=== PATIENT | female | born 1935 | race Caucasian/White ===

== ENCOUNTER 2016-10-11 16:09 | Inpatient (IN) ==
--- NOTE | 2016-10-11 16:13 | Emergency Department Note ---
Disposition Clinical Impression: Acute viral bronchitis, Acute exacerbation of CHF (congestive heart failure), Pedal edema, Generalized weakness, Hyperkalemia, Hypertensive urgency Disposition: Admitted As Inpatient Condition: Fair General Adult HPI - General Chief complaint: ED Shortness of Breath/Dyspnea Stated complaint: SOB Time Seen by Provider: 10/11/16 16:12 - Related Data Home Medications Medication Instructions Recorded Confirmed Carvedilol [Coreg] 25 mg PO DAILY 03/25/16 10/11/16 Glimepiride [Amaryl] 4 mg PO QAM 03/25/16 10/11/16 Insulin Glargine [Lantus] 35 mg SQ HS 03/26/16 10/11/16 Hydroxyzine HCl 25 mg PO HS PRN 04/12/16 10/11/16 Ropinirole HCl [Requip] 8 mg PO HS 04/12/16 10/11/16 Losartan Potassium [Cozaar] 50 mg PO DAILY 10/11/16 10/11/16 Multivitamin [Multi-Day Vitamins] 1 each PO DAILY 10/11/16 10/11/16 TraZODone 50 mg PO HS 10/11/16 10/11/16 Allergies Allergy/AdvReac Type Severity Reaction Status Date / Time nadolol [From Corgard] Allergy See Verified 04/20/16 12:13 Comments Past Medical History - Past Medical History Medical history: Reports: cancer, diabetes, hypertension, renal disease Surgical history: Reports: cholecystectomy Psychiatric history: Reports: no psych history TUMBLER MACHINE OPERATOR HELPER history: Reports: no TUMBLER MACHINE 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 - Social History Smoking Status: Unknown if ever smoked Smokeless Tobacco Status: No Alcohol use: Reports: unknown Drug use: Reports: none Course Vital Signs Temperature 98.3 F 10/11/16 16:10 Pulse Rate 62 10/11/16 16:10 Respiratory Rate 22 10/11/16 16:10 Blood Pressure 231/152 10/11/16 16:10 O2 Sat by Pulse Oximetry 96 10/11/16 16:10 Temperature 98.3 F 10/11/16 16:10 Pulse Rate 62 10/11/16 19:48 Respiratory Rate 22 10/11/16 20:15 Blood Pressure 165/75 10/11/16 20:15 O2 Sat by Pulse Oximetry 98 10/11/16 19:48 Oxygen Delivery Oxygen Delivery Nasal Cannula Medical Decision Making - Lab Data Result diagrams: 10/11/16 16:25 10/11/16 17:15 Lab Results 10/11/16 10/11/16 10/11/16 Range/Units 16:25 16:25 16:25 WBC 9.7 (4.3-11.1) K/mcL RBC 4.01 (3.82-4.97) M/mcL Hgb 11.9 (11.5-15.4) g/dL Hct 37.2 (35.3-44.9) % MCV 92.8 (83.0-100.0) fL MCH 29.7 (28.0-33.3) pg MCHC 32.0 (31.6-35.5) g/dL RDW 13.5 (11.5-14.5) % Plt Count 173 (140-400) K/mcL MPV 10.7 (9.4-12.4) fL Immature Gran % 0.5 (0-4) % Seg Neutrophils % 72.8 % Lymphocytes % 14.7 % Monocytes % 8.5 % Eosinophils % 3.0 % Basophils % 0.5 % Neutrophils # 7.1 (1.6-8.9) K/mcL Lymphocytes # 1.4 (0.6-4.6) K/mcL Monocytes # 0.8 (0.0-1.3) K/mcL Eosinophils # 0.3 (0.0-0.6) K/mcL Basophils # 0.1 (0.0-0.2) K/mcL PT 12.0 (9.4-12.1) Seconds INR 1.1 Sodium (136-145) mEq/L Potassium (3.5-4.5) mEq/L Chloride (98-109) mEq/L Carbon Dioxide (19-29) mEq/L BUN (7-20) mg/dL Creatinine (0.57-1.11) mg/dL Est GFR ( Amer) (> 60) Est GFR (Non-Af Amer) (> 60) BUN/Creatinine Ratio (6-26) Glucose (70-99) mg/dL Calculated Osmolality (280-300) Calcium (8.6-10.8) mg/dL Total Bilirubin (0.2-1.2) mg/dL Direct Bilirubin (0.0-0.5) mg/dL Indirect Bilirubin (0.0-1.2) mg/dL AST (5-34) Units/L ALT (0-55) Units/L Alkaline Phosphatase (38-126) Units/L Troponin I 0.01 (0-0.03) ng/mL B-Natriuretic Peptide (0-100) pg/mL Serum Total Protein (6.0-8.3) g/dL Albumin (3.5-5.0) g/dL Globulin (2.4-3.5) g/dL Albumin/Globulin Ratio (1.1-2.2) 10/11/16 10/11/16 Range/Units 16:25 17:15 WBC (4.3-11.1) K/mcL RBC (3.82-4.97) M/mcL Hgb (11.5-15.4) g/dL Hct (35.3-44.9) % MCV (83.0-100.0) fL MCH (28.0-33.3) pg MCHC (31.6-35.5) g/dL RDW (11.5-14.5) % Plt Count (140-400) K/mcL MPV (9.4-12.4) fL Immature Gran % (0-4) % Seg Neutrophils % % Lymphocytes % % Monocytes % % Eosinophils % % Basophils % % Neutrophils # (1.6-8.9) K/mcL Lymphocytes # (0.6-4.6) K/mcL Monocytes # (0.0-1.3) K/mcL Eosinophils # (0.0-0.6) K/mcL Basophils # (0.0-0.2) K/mcL PT (9.4-12.1) Seconds INR Sodium 140 (136-145) mEq/L Potassium 5.8 H (3.5-4.5) mEq/L Chloride 109 (98-109) mEq/L Carbon Dioxide 22 (19-29) mEq/L BUN 43 H (7-20) mg/dL Creatinine 1.87 H (0.57-1.11) mg/dL Est GFR ( Amer) 31 L (> 60) Est GFR (Non-Af Amer) 26 L (> 60) BUN/Creatinine Ratio 23 (6-26) Glucose 116 H (70-99) mg/dL Calculated Osmolality 302 H (280-300) Calcium 9.4 (8.6-10.8) mg/dL Total Bilirubin 0.7 (0.2-1.2) mg/dL Direct Bilirubin 0.3 (0.0-0.5) mg/dL Indirect Bilirubin 0.4 (0.0-1.2) mg/dL AST 22 (5-34) Units/L ALT 15 (0-55) Units/L Alkaline Phosphatase 81 (38-126) Units/L Troponin I (0-0.03) ng/mL B-Natriuretic Peptide 718 H (0-100) pg/mL Serum Total Protein 6.5 (6.0-8.3) g/dL Albumin 2.9 L (3.5-5.0) g/dL Globulin 3.6 H (2.4-3.5) g/dL Albumin/Globulin Ratio 0.8 L (1.1-2.2) Attestation Statement - Attestation Attestation: I examined this patient and my medical decision-making was reviewed with the NUCLEAR WORKER TECHNICIAN/PA/Advanced Practice Nurse/Resident Physician. I agree with the documented findings, disposition and treatment plan as described except to the extent set forth below. [id number] time provided Patient presents from home via EMS with cough and dyspnea. She sounds congested on exam. Lower extremity peripheral edema present. When asked if this feels subjectively like an exacerbation of her CHF she states "no, it is a cold."
[2016-10-11] MEDS ORDERED: Furosemide 40 MG/4 ML VIAL IVP ONE (16:17)
[2016-10-11] MEDS ORDERED: Ipratropium/Albuterol Neb 3 ML IH ONE (16:17)
[2016-10-11] MEDS ORDERED: *HR* Acetaminophen w/Cod 300-30 mg 1 TAB TABLET PO ONE (16:18)
--- NOTE | 2016-10-11 16:28 | Emergency Department Note ---
Disposition Clinical Impression: Acute viral bronchitis, Pedal edema, Generalized weakness, Hyperkalemia, Hypertensive urgency Acute exacerbation of CHF (congestive heart failure) Qualifiers: Congestive heart failure type: unspecified congestive heart failure type Qualified Code(s): I50.9 - Heart failure, unspecified Disposition: Admitted As Inpatient Condition: Fair Referrals: NO,PCP [Non-Partnered Physician] - Forms: ED Satisfaction Letter SOB HPI - General Chief Complaint: ED Shortness of Breath/Dyspnea Stated Complaint: SOB Time Seen by Provider: 10/11/16 16:12 Source: patient Limitations: no limitations Nursing Notes Reviewed: Yes Vital Signs Reviewed: Yes - History of Present Illness Patient is an 81-year-old female complaining of shortness of breath secondary to having URI symptoms that started 2 days ago. Patient states she has a history of CHF. Patient denies fevers, chills, vomiting, diarrhea. Patient does not have a cardiologists or a general practitioner currently. Her previous doctor Yane is in [facility], which she states recommended a high speed operator for her bilateral leg edema 2 months ago. Patient has not seen a high speed operator - Related Data Home Medications Medication Instructions Recorded Confirmed Carvedilol [Coreg] 25 mg PO BID 03/25/16 04/12/16 Glimepiride [Amaryl] 4 mg PO QAM 03/25/16 04/12/16 Insulin Glargine [Lantus] 32 mg SQ HS 03/26/16 04/12/16 Hydroxyzine HCl 25 mg PO Q8H PRN 04/12/16 04/12/16 Ropinirole HCl [Requip] 4 mg PO HS 04/12/16 04/12/16 Losartan Potassium [Cozaar] 50 mg PO DAILY 10/11/16 10/11/16 Multivitamin [Multi-Day Vitamins] 1 each PO DAILY 10/11/16 10/11/16 TraZODone 50 mg PO HS 10/11/16 10/11/16 Allergies Allergy/AdvReac Type Severity Reaction Status Date / Time nadolol [From Corgard] Allergy See Verified 04/20/16 12:13 Comments All systems ED: reviewed and negative except as stated. Constitutional: Denies: fever, chills ENT ED: Reports: congestion Cardiovascular: Reports: edema. Denies: chest pain, palpitations Respiratory: Reports: cough, dyspnea, wheezes. Denies: hemoptysis Gastrointestinal: Reports: diarrhea (Chronic). Denies: abdominal pain, nausea, vomiting Genitourinary: Denies: urgency, dysuria, frequency, hematuria Musculoskeletal: Reports: back pain. Denies: neck pain Integumentary: Reports: other (Bilateral lower extremities erythematous mid lower leg area.) Neurological: Denies: headache, weakness Psychiatric: Denies: anxiety Endocrine: Reports: fatigue Past Medical History - Past Medical History Attestation: Yes The following information was validated with the patient. Source: patient Medical history: Reports: cancer, diabetes, hypertension, renal disease Surgical history: Reports: cholecystectomy Psychiatric history: Reports: no psych history PERFORMANCE INSTRUCTOR history: Reports: no PERFORMANCE INSTRUCTOR history - Social History Smoking Status: Unknown if ever smoked Smokeless Tobacco Status: No Alcohol use: Reports: unknown Drug use: Reports: none Physical Exam Vital Signs Temperature 98.3 F 10/11/16 16:10 Pulse Rate 62 10/11/16 16:10 Respiratory Rate 22 10/11/16 16:10 Blood Pressure 231/152 10/11/16 16:10 O2 Sat by Pulse Oximetry 96 10/11/16 16:10 Temperature 98.3 F 10/11/16 16:10 Pulse Rate 63 10/11/16 16:48 Respiratory Rate 24 10/11/16 16:48 Blood Pressure 227/82 10/11/16 16:48 O2 Sat by Pulse Oximetry 95 10/11/16 16:48 Oxygen Delivery Oxygen Delivery Room Air -General Appearance: Patient is a 81-year-old female who is alert and oriented 3 and has a persistent cough that sounds wet. Patient has respiratory pauses when speaking. -Neurological exam: Cranial nerves II-12 intact, no focal deficits observed, strength equal 5/5 bilaterally in upper and lower extremities - Head Head exam: atraumatic, normocephalic, normal inspection - Eye Eye exam: Present: normal appearance, PERRL, EOMI, negative for scleral icterus negative for conjunctival pallor - ENT ENT exam: normal exam, normal oropharynx, mucous membranes dry - Neck Neck exam: Present: normal inspection, full ROM, trachea midline, negative JVD - Chest Chest inspection: Present: Patient has bilateral equal rise and fall of chest wall. Non-tender to palpation. - Respiratory Respiratory exam: Lungs sounds very wet with auscultation and partly clears when she coughs. Cough is nonproductive Cardiovascular Cardiovascular exam: Present: regular rate, normal rhythm, normal heart sounds, without murmurs rubs or gallops. - Abdominal Exam Abdominal exam: Present: soft, nondistended, Non-Tender light and deep palpation in all quadrants. Bowel sounds normoactive throughout all 4 quadrants. Negative for hyper or hyperresonance. - Extremities Exam Extremities exam: Present: normal inspection, full ROM, pulses equal regular bilateral radials and dorsal pedal. - Back Exam Back exam: Present: normal inspection, full ROM. Negative left or right CVA tenderness - Psychiatric Psychiatric exam: Present: normal affect, normal mood - Skin Skin exam: Present: warm, dry, intact, normal color - General Limitations: no limitations General appearance: alert, anxious Course - Reevaluation(s) Reevaluation #1: Assessment: CHF exacerbation, pneumonia, renal failure, Plan: CBC, BMP, EKG, chest x-ray, BNP, troponin Time: 16:18 Reevaluation #2: Patient states she is doing well. Still coughing a lot. She is received her Tylenol and codeine. Patient's chest x-ray shows no signs of CHF exacerbation or pneumonia. Patient's BNP is elevated at 718 but her previous was 1077. Patient still has a wet cough and clinical signs of CHF but currently her lab work is not matching up Administering Lasix to try and get a little bit of fluid off Time: 18:48 Reevaluation #3: Patient has diffuse rales throughout all lung weber. Patient says a wet sounding cough. Chest x-ray looks Pulmonary Vascular Congestion but No Effusions. Time: 17:20 Additional Reevaluation(s): 1741 hrs. patient's blood pressure still high at 230/117. In treat patient with hydralazine 10 mg IV for hypertensive urgency. 1800 hrs., the patient agrees to admission to the hospital waiting for hospitals callback 1832 hours: Patient has elevated potassium level 5.8 hypokalemia. Patient will be started on Kayexalate. Ordered some Tessalon Perles for patient since she is complaining of cough - Consultations Consultation #1: Madonna UMANA Accepted for admission 1815hrs Time: 18:15 Vital Signs Temperature 98.3 F 10/11/16 16:10 Pulse Rate 62 10/11/16 16:10 Respiratory Rate 22 10/11/16 16:10 Blood Pressure 231/152 10/11/16 16:10 O2 Sat by Pulse Oximetry 96 10/11/16 16:10 Temperature 98.3 F 10/11/16 16:10 Pulse Rate 62 10/11/16 16:10 Respiratory Rate 22 10/11/16 16:10 Blood Pressure 231/152 10/11/16 16:10 O2 Sat by Pulse Oximetry 96 10/11/16 16:10 Oxygen Delivery Oxygen Delivery Room Air Shortness of Breath/Dyspnea - Medical Records Medical records reviewed: Yes I reviewed the patient's medical records. - Lab Data Lab results reviewed: Yes I reviewed the patient's lab results. Lab results narrative: EKG taken 10/11/2016 at 1614 hrs. shows a paced rhythm at a rate of 62 bpm with Peaked T waves in V3 and V4 . No old EKG for comparison - Radiology Data Radiology results reviewed: Yes I reviewed the patient's radiology results. Chest X-Ray 10/11/16 16:17 IMPRESSION: No acute process. No evidence of CHF or pneumonia. D/ / 10/11/2016 16:53:59 Precious Mcintyre MD / jasvir Interpreting Provider: Precious Mcintyre MD
[2016-10-11 16:40] LABS: Basophils # 0.1 K/mcL (0.0-0.2); Basophils % 0.5 %; Eosinophils # 0.3 K/mcL (0.0-0.6); Hematocrit 37.2 % (35.3-44.9); Hemoglobin 11.9 g/dL (11.5-15.4); Immature Granulocytes % 0.5 % (0-4); Lymphocytes # 1.4 K/mcL (0.6-4.6); Lymphocytes % 14.7 %; Mean Corpuscular Hemoglobin 29.7 pg (28.0-33.3); Mean Corpuscular Volume 92.8 fL (83.0-100.0); Mean Platelet Volume 10.7 fL (9.4-12.4); Monocytes # 0.8 K/mcL (0.0-1.3); Monocytes % 8.5 %; Neutrophils # 7.1 K/mcL (1.6-8.9); Platelet Count 173 K/mcL (140-400); Red Blood Count 4.01 M/mcL (3.82-4.97); Red Cell Distribution Width 13.5 % (11.5-14.5); Segmented Neutrophils % 72.8 %
[2016-10-11 16:45] LABS: INR 1.1
[2016-10-11 18:03] LABS: Albumin 2.9 g/dL (3.5-5.0); Albumin/Globulin Ratio 0.8 (1.1-2.2); Bilirubin,Direct 0.3 mg/dL (0.0-0.5); Bilirubin,Indirect 0.4 mg/dL (0.0-1.2); Bilirubin,Total 0.7 mg/dL (0.2-1.2); Calcium 9.4 mg/dL (8.6-10.8); Globulin 3.6 g/dL (2.4-3.5); Potassium 5.8 mEq/L (3.5-4.5); Total Protein 6.5 g/dL (6.0-8.3)
[2016-10-11] MEDS ORDERED: Benzonatate 100 MG CAPSULE PO ONE (19:29)
[2016-10-11] MEDS ORDERED: Naloxone 0.4 MG/ML INJ IVP PRN (20:16)
[2016-10-11] MEDS ORDERED: Dextrose Gel 15 GM PO PRN ×2 (20:48)
[2016-10-11] MEDS ORDERED: D5% in Water 1,000 ML IVC PRN (20:48)
[2016-10-11] MEDS ORDERED: *HR* Dextrose 50 % in Water (Syg) 50 ML SYRINGE IVP PRN (20:48)
[2016-10-11] MEDS ORDERED: Insulin DETEMIR 100 UNIT/ML X5UNITS SQ SCH (21:00)
[2016-10-11] MEDS ORDERED: INSULIN GLARGINE SQ SCH (21:00)
[2016-10-11] MEDS ORDERED: Benzonatate 100 MG CAPSULE PO PRN (21:06)
[2016-10-11 21:10] LABS: Hemoglobin A1C 6.9 %
--- NOTE | 2016-10-11 21:11 | Internal Med History&Physical ---
Date of Encounter: 10/11/16 Time of Encounter: 20:30 Assessment and Plan (1) Acute exacerbation of CHF (congestive heart failure) Current visit: Yes Status: Acute 1 echo dated 04/2016 EF 60% with normal systolic as well as diastolic function. Patient experiencing increasing shortness of breath waking her extremity edema. Chest x-ray suggestive of some vascular congestion. BNP 718. We will give IV Lasix 80 mg twice a day 2 monitor intake and output 3 daily weights 4 . Fluid restriction Qualifiers: Congestive heart failure type: unspecified congestive heart failure type Qualified Code(s): I50.9 - Heart failure, unspecified (2) Hyperkalemia Current visit: Yes Status: Acute patient presented with potassium 5.8. She does have history of AK I he has been on losartan. We will hold losartan for now 2 patient was given Kayexalate orally in ER. We will recheck potassium and treat as needed (3) Hypertensive urgency Current visit: Yes Status: Acute 1 presented with systolic blood pressure> 200/100. Patient given IV hydralazine which did not contribute to bring down systolic to 190-160. We will continue with hydralazine IV when necessary as needed for systolic 180- also maintain systolic less than 140 2. Will give hydralazine 25 mg 3 times a day by mouth 3 continue with Lasix (4) Acute kidney injury Current visit: Yes Status: Acute 1 AK I /CK D stage IV patient's creatinine is 1.87 and appears it baseline around 1.4 1.5 however it has crept up and down since April. Patient is to follow with Dr. Whatley nephrology has not seen a pot maker in several months. Appears patient is not some fluid overload which contributing to AK I as well as patient's been receiving losartan. We will hold losartan and give IV Lasix 2 we will avoid nephrotoxins 3 monitor intake and output 4 daily weights (5) DVT prophylaxis Current visit: No Status: Acute 1 Lovenox subcutaneous (6) Diabetes Current visit: No Status: Chronic Patient is on Amaryl we will hold for now we will continue with Lantus half the dose of sliding scale as needed Accu-Cheks before meals and at bedtime 2 last A1c was April 2016 7.1. We will recheck A1c Qualifiers: Diabetes mellitus type: type 2 Diabetes mellitus complication status: with unspecified complications Diabetes mellitus jail insulin use: with tank terminal gauger use Qualified Code(s): E11.8 - Type 2 diabetes mellitus with unspecified complications; Z79.4 - longterm (current) use of insulin Internal Medicine - H&P: HPI Chief complaint: SOB Admitted From: Emergency Dept Plans for Post Hospital Care: Home History of present illness: Ms. Tate is a 81 year old female past medical hx of HTN DM CHF CKD3 sick sinus syndrome pacemaker patient has been experiencing URI sx headache a moist nonproductive cough since Tuesday as well as increasing shortness of breath upon exertion. She denies any chest pains palpitations fevers chills nausea vomiting diarrhea. She has a history of congestive heart failure as well as chronic lower leg edema. She has not been able to complete her ADLs and with sleep at night due to cough shortness of breath. She denies any recent sick contacts. She presented to the ER with the above complaints. Her records from presentation patient's blood pressure was 231/152 she was afebrile 98.3 pulse was 62 oxygen saturation 96%. Chest x-ray did show signs of pneumonia some possible congestion. Paced rhythm. Patient's BNP is elevated and 18 the previous was 1077 no leukocytosis potassium was 5.8. Patient was given Keflex a as well as hydralazine for elevated blood pressure. Blood pressure control and down work to 190s 160 systolic. She was given Tylenol with Codeine as well as Tessalon Perles for cough with little improvement. She has been admitted for further workup and evaluation. Presently the patient appears to be in mild respiratory distress with conversational dyspnea. She has scattered rales throughout else moist nonproductive cough. Heart sounds with S1-S2 no rubs gallops murmurs or clicks noted. She does have +2 pitting edema to lower extremities which she states chronic. No JVD noted Patient did state that she recently lost her in April and she has not been compliant with physician follow-up. She is supposed to see nephrology however she has not seen him in several months. She does have a family physician in [place] which she states she saw on August. She states she has been compliant with her medications. We did not discuss CODE STATUS and she requested to be DNR CC. I reviewed his case with Dr Avelar who agrees with plan Past Med Surg Social Fam HX - Past Medical History Medical history: cancer, diabetes, hypertension, renal disease Psychiatric history: no psych history - Past Surgical History Surgical History: cholecystectomy - Social History Smoking Status: Unknown if ever smoked Smokeless Tobacco Status: No Alcohol use: unknown Drug use: none - Family History Mother Living Status: Hx Family Cardiac Disorders: Yes Father Hx Family Cardiac Disorders: Yes Internal Medicine - H&P: Meds Carvedilol [Coreg] 25 mg PO DAILY 03/25/16 [History] Glimepiride [Amaryl] 4 mg PO QAM 03/25/16 [History] Insulin Glargine [Lantus] 35 mg SQ HS 03/26/16 [History] Hydroxyzine HCl 25 mg PO HS PRN 04/12/16 [History] Ropinirole HCl [Requip] 8 mg PO HS 04/12/16 [History] Losartan Potassium [Cozaar] 50 mg PO DAILY 10/11/16 [History] Multivitamin [Multi-Day Vitamins] 1 each PO DAILY 10/11/16 [History] TraZODone 50 mg PO HS 10/11/16 [History] Allergies nadolol [From Corgard] Allergy (Verified 04/20/16 12:13) See Comments All Systems PM: A 10-system review of systems was performed and is negative for pertinent findings except as documented above in the HPI. - Constitutional Constitutional: weakness, weight gain - Cardiovascular Cardiovascular ROS IM: dyspnea, dyspnea on exertion, edema - Respiratory Respiratory: cough, dyspnea on exertion, chest congestion - Gastrointestinal Gastrointestinal: no abdominal pain, no diarrhea, no hematemesis, no hematochezia, no melena, no nausea, no vomiting - Genitourinary Genitourinary: no change in urinary stream, no dysuria, no flank pain, no hematuria - Musculoskeletal Musculoskeletal ROS IM: no numbness, no tingling - Integumentary Integumentary IM: no rash, no unusual bruising - Neurological Neurological ROS: no confusion, no convulsions, no focal weakness, no numbness, no tingling, no tremor(s) - Constitutional Vitals: Temp Pulse Resp BP Pulse Ox 98.4 F 62 18 103/51 96 10/11/16 20:59 10/11/16 20:59 10/11/16 20:59 10/11/16 20:59 10/11/16 20:59 General appearance: Present: mild distress, A&O X 3, morbidly obese - Head Head exam: Present: atraumatic, normocephalic - Neck Neck exam general surgery: Present: supple, trachea midline. Absent: lymphadenopathy - Respiratory Respiratory exam: Present: rales. Absent: accessory muscle use, rhonchi, wheezes - Cardiovascular Cardiovascular exam: Present: RRR, +S1, +S2. Absent: diastolic murmur, gallop, rubs, systolic murmur - GI/Abdominal GI/Abdominal exam: Present: normal bowel sounds, soft, no peritoneal signs. Absent: distended, tenderness - Extremities Exam Extremities exam: Present: pedal edema, warm, radial pulses palpable and symetrical. Absent: calf tenderness, cyanotic - Neurological Exam Neurological exam: Present: CN II-XII intact, oriented X3, no focal deficits. Absent: pronater drift, facial droop, speech deficit - Skin Skin exam: Present: dry, intact Internal Med - H&P Results - Labs CBC & Chem 7: 10/11/16 16:25 10/11/16 17:15 - EKG Data EKG comments: 10/11/16 22:09 paced rhythm, reviewed with Dr Avelar - Diagnostic Studies Chest x-ray Additional comments: Chest X-Ray 10/11/16 16:17 IMPRESSION: No acute process. No evidence of CHF or pneumonia. D/ / 10/11/2016 16:53:59 Precious Mcintyre MD / jasvir Interpreting Provider: Precious Mcintyre MD
[2016-10-11] MEDS: Insulin LISPRO 300 UNITS/3 ML VIAL SQ SCH (21:45)
[2016-10-11] MEDS ORDERED: ROPINIROLE HCL 8 MG PO SCH (22:00)
[2016-10-11] MEDS: GuaiFENesin/Codeine Oral Soln 5 ML UDC PO PRN (22:28)
[2016-10-11] MEDS: traZODone 50 MG TABLET PO SCH (22:31)
[2016-10-11] MEDS: hydrALAZINE 25 MG TABLET PO SCH (22:42)
[2016-10-12 01:03] LABS: Basophils # 0.1 K/mcL (0.0-0.2); Basophils % 0.5 %; Eosinophils # 0.3 K/mcL (0.0-0.6); Eosinophils % 2.6 %; Hematocrit 34.4 % (35.3-44.9); Hemoglobin 10.8 g/dL (11.5-15.4); Immature Granulocytes % 0.5 % (0-4); Lymphocytes # 1.3 K/mcL (0.6-4.6); Lymphocytes % 12.5 %; Mean Corpuscular HGB Conc 31.4 g/dL (31.6-35.5); Mean Corpuscular Volume 95.6 fL (83.0-100.0); Mean Platelet Volume 10.3 fL (9.4-12.4); Monocytes % 9.8 %; Neutrophils # 7.5 K/mcL (1.6-8.9); Platelet Count 148 K/mcL (140-400); Red Cell Distribution Width 13.7 % (11.5-14.5); Segmented Neutrophils % 74.1 %
[2016-10-12 01:16] LABS: Calcium 8.8 mg/dL (8.6-10.8); Magnesium 1.5 mg/dL (1.6-2.6); Potassium 5.1 mEq/L (3.5-4.5)
[2016-10-12] MEDS: hydrALAZINE 25 MG TABLET PO SCH ×3 (06:00→21:50)
[2016-10-12] MEDS: *HR* Enoxaparin 30 MG/0.3 ML SYRINGE SQ SCH (06:01)
[2016-10-12] MEDS: Insulin LISPRO 300 UNITS/3 ML VIAL SQ SCH ×3 (07:57→17:27)
[2016-10-12] MEDS ORDERED: Furosemide 40 MG/4 ML VIAL IVP SCH (09:00)
--- NOTE | 2016-10-12 11:09 | ECHO - Doppler Report ---
Echocardiogram Name: Africa Tate Date of Study: 10/12/2016 Date: 1935 Ht: 63.0 in Medical Record#: [id number] Age: 81 Wt: 234.0 lb Gender: Female BSA: 2.07 Order #: [id number] Location: [facility] Room #: [id number] Reading Physician: Taryn Diaz DO Lodging Facilities Attendant: Neha Thomas RVT Ordering Physician: Varsha Arias CNP Primary Physician: Domonique Rajput MD Indications: Shortness of breath Impressions: LVEF 60-65%. Mild concentric hypertrophy of the left ventricle. There is evidence of moderate diastolic dysfunction of the left ventricle. RV is not well visualized in all views. In the apical images, RV appears moderately dilated. TD velocities suggest mild hypokinesis. Mild mitral regurgitation. Moderate tricuspid regurgitation. Mild pulmonary hypertension. RVSP 43 mmHg. Pacing leads in the right heart chambers are not well visualized on this study. Left Ventricular Wall Motion: Rest Echo Findings All wall segments showed normal motion. Findings: Study Quality * Technically adequate exam. ECG Findings * Normal sinus rhythm. Left Ventricle * Mild concentric left ventricular hypertrophy. * Moderate left ventricular diastolic dysfunction. * LVEF 60-65%. Mitral Valve * Mildly thickened mitral valve leaflets. * No mitral stenosis. * Mild mitral regurgitation. * Mildly calcified mitral valve leaflets. Aorta * Suboptimally visualized. Tricuspid Valve * Tricuspid valve not well visualized. * Moderate tricuspid regurgitation. * Estimated RA pressure is 8 mmHg. * Estimated RVSP is 43 mmHg. * Mild pulmonary hypertension. Pulmonic Valve * Pulmonic valve is not well visualized. * No pulmonic stenosis. * No pulmonic regurgitation. Pulmonary Artery * Pulmonary artery not well visualized. Aortic Valve * Aortic valve not well visualized. * No aortic regurgitation. * No aortic stenosis. Left Atrium * Mildly dilated left atrium. Right Atrium * Normal right atrial size. Right Ventricle * Not all RV images are well visualized. In the apical views, RV appears moderately dilated. There is mild hypokinesis by TD velocity. Subcostal view is not well visualized. Interatrial Septum * No evidence of PFO by color Doppler. IVC * The IVC is not dilated. * < 50% respiratory change. Pericardium * There is no pericardial effusion present. History Hypertension Diabetes Hypercholesteremia Family History of CAD Congestive Heart Failure Pacer/ICD Implant Congential Heart Disease Valvular Disease Valve Replacement 04/13/16 a Previous Echo was performed. Measurements: BP: 132/ 54 2D Normal Values IVSd: 1.40 cm 0.6 - 1.0 cm LVIDd: 4.60 cm 3.7 - 5.6 cm LVPWd: 1.30 cm 0.6 - 1.1 cm LVIDs: 2.90 cm 1.5 - 3.6 cm AO: 2.40 cm < 4.0 cm LA: 4.30 cm 2.0 - 4.0cm %FS: 37.00 cm >25 % LA volume: 44 Mitral Valve Peak E:1.23 m/sec Peak A:.69 m/sec E/A Ratio:1.8 Peak E' Lat Leroy:7.7 cm/s Peak E' Med Leroy:6.04 cm/s E/E' Lat Ratio:16 E/E' Med Ratio:20.4 Tricuspid Valve TV Regurg Peak Grad: 35.00mmHg TV Regurg Peak Leroy: 2.95m/sec Updated by Taryn Diaz on 10/12/2016 11:03:43 AM electronically signed on 10/12/2016 11:05:48 AM with status of Final Wall Motion Reynolds: 1=Normal, 2=Hypokinesis, 3=Akinesis, 4=Dyskinesis, 5=Aneurysmal, 6=Hyperkinetic, X=Not Visualized (Blank)=Missing
[2016-10-12] MEDS: Acetaminophen 325 MG TABLET PO PRN (12:43)
--- NOTE | 2016-10-12 17:45 | Electrocardiograph Report ---
[address] [place], [place] [address] Test Date: 2016-10-11 Pat Name: Africa Tate Department: 103 Room: 3B44 Gender: F Museum Assistant: [facility] : 1935 Requested By: Siva Jerome Order Number: [id number] Reading MD: Tacho Avilez Measurements Intervals [place] Rate: 62 P: 234 OK: 248 QRS: -31 QRSD: 110 T: 110 QT: 411 QTc: 416 Interpretive Statements ELECTRONIC ATRIAL PACEMAKER MARKED LEFT AXIS DEVIATION LEFT VENTRICULAR HYPERTROPHY AND ST-T CHANGE POSSIBLE ANTERIOR MYOCARDIAL INFARCTION, OF INDETERMINATE AGE Electronically Signed On 10-12-2016 17:43:37 EDT by Tacho Avilez
--- NOTE | 2016-10-12 18:50 | Internal Med Progress Note ---
Date of Encounter: 10/12/16 Time of Encounter: 10:20 - Assessment and plan (1) Acute exacerbation of CHF (congestive heart failure) Current Visit: Yes Status: Acute Assessment and plan: Patient had an echocardiogram in April 2016. EF was 60% with normal systolic and diastolic function. She reports increasing shortness of breath which wakes her during the night and increasing peripheral edema. Her BNP was 718. Her chest x-ray was suggestive of vascular congestion. Continue Lasix 80 mg by mouth twice a day Monitor DAVID Daily weights Fluid restriction. 1.5 L Qualifiers: Congestive heart failure type: unspecified congestive heart failure type Qualified Code(s): I50.9 - Heart failure, unspecified (2) Diabetes Current Visit: No Status: Chronic Assessment and plan: A1c is 6.9. 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 Avoid nephrotoxins Avoid NSAIDs Monitor labs (4) Morbid obesity with BMI of 40.0-44.9, adult Current Visit: No Status: Acute Assessment and plan: Chronic. Lifestyle changes. (5) Generalized weakness Current Visit: Yes Status: Acute Assessment and plan: Patient was weak today. She was unable to assist lifting her leg into the bed. I believe that this is multifactorial and related to not only her CHF, but deconditioning from chronic back pain and obesity. PT and OT consult. Monitor labs. (6) Hyperkalemia Current Visit: Yes Status: Acute Assessment and plan: Potassium remained elevated today. 5.2. Kayexalate 15 g given by mouth. Patient also getting Lasix, as well. Monitor labs in the morning. (7) Hypertensive urgency Current Visit: Yes Status: Acute Assessment and plan: Blood pressures been well controlled since being inpatient. Continue home medications. (8) DVT prophylaxis Current Visit: No Status: Acute Assessment and plan: Lovenox subcutaneous. - Time Spent With Patient less than 15 minutes - Subjective Interval history: Patient was seen and evaluated this morning at about 1020. Patient reports chronic back pain, the pain that is worse from lying still and flat during her echocardiogram this morning. I have put in consult for PT and OT patient is very weak. She required assistance to lift her right leg into the bed. She is obese and appears to be deconditioned, and could possibly benefit from physical therapy. Patient was obviously short of breath while speaking and sitting in bed, despite the fact that I lifted her leg into the bed. She reports a nonproductive cough. She does have a large amount of peripheral edema bilateral lower extremities it is nonpitting, and she states it is actually better than she seen an a while. - Constitutional Vitals: Temp Pulse Resp BP Pulse Ox 97.6 F 63 16 121/56 95 10/12/16 15:33 10/12/16 15:33 10/12/16 15:33 10/12/16 15:33 10/12/16 15:33 General appearance: Present: mild distress, A&O X 3, morbidly obese Exam: Patient appears to be in moderate distress while sitting in bed after minimal movement and me lifting her leg into the bed. She was able to speak in 4-5 word phrases. - Head Head exam: Present: normal inspection - Eye Eye exam: Present: normal appearance - ENT ENT exam: Present: mucous membranes moist, normal exam - Neck Neck exam general surgery: Absent: lymphadenopathy, tenderness - Respiratory Respiratory exam: Present: decreased breath sounds, respiratory distress, tachypnea. Absent: chest wall tenderness, rales, rhonchi, wheezes - Cardiovascular Cardiovascular exam: Present: RRR, +S1, +S2. Absent: diastolic murmur, systolic murmur - Expanded Cardiovascular Exam Peripheral pulses: 1+: Dorsalis Pedis (L) PM, Dorsalis Pedis (R) PM - GI/Abdominal GI/Abdominal exam: Present: distended, normal bowel sounds, soft. Absent: hepatomegaly, tenderness - Extremities Exam Extremities exam: Present: normal capillary refill, pedal edema, warm, radial pulses palpable and symetrical. Absent: calf tenderness, full ROM, tenderness - Back Exam Back exam: Present: normal inspection, tenderness. Absent: rash noted Additional comments: Patient reports chronic pain. Worse with movement. Nontender to palpation. No bruising or ecchymosis. Internal Medicine: Result - Labs CBC & Chem 7: 04/11/17 00:50 10/12/16 00:50 Labs: Short CBC 10/12/16 Range/Units 00:50 WBC 10.2 (4.3-11.1) K/mcL Hgb 10.8 L (11.5-15.4) g/dL Hct 34.4 L (35.3-44.9) % Plt Count 148 (140-400) K/mcL Neutrophils # 7.5 (1.6-8.9) K/mcL BMP 10/12/16 10/12/16 00:50 00:50 Sodium 140 Potassium 5.1 H 5.2 H Chloride 108 Carbon Dioxide 26 BUN 39 H Creatinine 1.84 H Glucose 169 H Calcium 8.8 - ABG Interpretation ABG results: PT/INR, D-dimer PT 12.0 Seconds (9.4-12.1) 10/11/16 16:25 Consult Discharge Plan - Plan Referrals: Domonique Rajput MD [Primary Care Provider] -
[2016-10-12] MEDS: traZODone 50 MG TABLET PO SCH (21:50)
[2016-10-12] MEDS: GuaiFENesin/Codeine Oral Soln 5 ML UDC PO PRN (21:51)
[2016-10-12] MEDS: Insulin DETEMIR 100 UNIT/ML X5UNITS SQ SCH (21:52)
[2016-10-13] MEDS: Insulin LISPRO 300 UNITS/3 ML VIAL SQ SCH ×5 (03:33→20:37)
[2016-10-13] MEDS: GuaiFENesin/Codeine Oral Soln 5 ML UDC PO PRN ×2 (03:41→20:41)
[2016-10-13 04:38] LABS: Basophils % 0.4 %; Eosinophils # 0.4 K/mcL (0.0-0.6); Eosinophils % 5.4 %; Hematocrit 34.9 % (35.3-44.9); Hemoglobin 10.9 g/dL (11.5-15.4); Immature Granulocytes % 0.3 % (0-4); Lymphocytes # 1.5 K/mcL (0.6-4.6); Lymphocytes % 20.4 %; Mean Corpuscular HGB Conc 31.2 g/dL (31.6-35.5); Mean Corpuscular Hemoglobin 29.9 pg (28.0-33.3); Mean Corpuscular Volume 95.9 fL (83.0-100.0); Mean Platelet Volume 11.5 fL (9.4-12.4); Monocytes # 0.9 K/mcL (0.0-1.3); Monocytes % 12.5 %; Neutrophils # 4.4 K/mcL (1.6-8.9); Nucleated Red Blood Cells 0.3 /100 WBC (0); Platelet Count 142 K/mcL (140-400); Red Blood Count 3.64 M/mcL (3.82-4.97); Red Cell Distribution Width 13.7 % (11.5-14.5)
[2016-10-13 05:04] LABS: Calcium 8.6 mg/dL (8.6-10.8); Potassium 5.1 mEq/L (3.5-4.5)
[2016-10-13] MEDS: *HR* Enoxaparin 30 MG/0.3 ML SYRINGE SQ SCH (06:35)
[2016-10-13] MEDS: hydrALAZINE 25 MG TABLET PO SCH ×3 (06:35→23:24)
[2016-10-13] MEDS: Furosemide 20 MG/2 ML VIAL IVP SCH (09:37)
--- NOTE | 2016-10-13 20:22 | Internal Med Progress Note ---
Date of Encounter: 10/13/16 Time of Encounter: 10:10 - Assessment and plan (1) Acute exacerbation of CHF (congestive heart failure) Current Visit: Yes Status: Acute Assessment and plan: Patient is wearing oxygen. She reports to me today that she cannot breathe and is feeling more weak. We have stressed to her the importance of continuing her physical therapy. I decreased her Lasix by half due to worsening renal function. This obviously will slow diuresis. She remains on a hospital monitor and supplemental oxygen Pulse ox with vital signs Patient is diuresing well and there is a 3 kg weight difference between admission and now. Patient still has 2-3+ pitting edema bilateral lower extremities, however both patient and I discussed an improvement since yesterday. Patient states that they look better than they have in a long time. Patient does have crackles and expiratory wheezing in left base, otherwise lungs are diminished throughout. Continue Lasix Telemetry Pulse ox Supplemental oxygen as needed to maintain sats greater than 92% Qualifiers: Congestive heart failure type: unspecified congestive heart failure type Qualified Code(s): I50.9 - Heart failure, unspecified (2) Diabetes Current Visit: No Status: Chronic Assessment and plan: Serum glucose 105 today. 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 I have decreased her Lasix. She is not on an SURINDER inhibitor or an ARB. I have consulted nephrology for evaluation. She has been seen by Dr. Agosto in the past. Creatinine today is only slightly elevated over her baseline of about 1.7 1.8. We will reevaluate labs in the morning. Avoid nephrotoxins (4) Morbid obesity with BMI of 40.0-44.9, adult Current Visit: No Status: Acute Assessment and plan: Chronic. Lifestyle changes. (5) Generalized weakness Current Visit: Yes Status: Acute Assessment and plan: Patient did not have physical therapy today due to feeling weak. Was also reported to me by staff nurse that she was eating and family asked physical therapy to come back later. We discussed the importance of her maintaining her strength so that she can go home. She agreed and said that she will try physical therapy tomorrow. Her renal function is slightly elevated. We will reevaluate this again tomorrow. Her hemoglobin and hematocrit are within normal limits. Her vital signs are stable. She remains in fluid overload and is being diuresed at this time. She is on supplemental oxygen. No continue to monitor labs and patient condition. Continue to encourage physical therapy (6) Hyperkalemia Current Visit: Yes Status: Acute Assessment and plan: Potassium remains 5.1 today. I ordered Kayexalate yesterday, which patient refused. I was not informed of this. Most likely due to OLIVIA on CRF. I reordered Kayexalate today. Patient's Lasix dose has been decreased to 20 mg IV. Labs are set to be drawn again this morning I will reevaluate potassium in the morning. (7) Hypertensive urgency Current Visit: Yes Status: Acute Assessment and plan: Blood pressure 180s systolic today. Patient has when necessary hydralazine for systolic above 180. Continue to monitor Continue home medication Hydralazine when necessary (8) DVT prophylaxis Current Visit: No Status: Acute Assessment and plan: Lovenox subcutaneous daily - Time Spent With Patient less than 15 minutes - Subjective Interval history: Pt was seen and evaluated about 1010 this morning. Patient reports a moist cough and increased weakness. She says that she refused physical therapy today because she was too weak. He was reported to me by primary nurse that family told him to come back later because patient was eating. Primary nurse did discuss with the patient the importance of continuing to build her strength with physical therapy. Patient kept telling me she cannot breathe. She is wearing O2 at 2 L. Her rest for 20 and unlabored. She did not have conversational dyspnea. She does have crackles and expiratory wheezing in her left base, diminished throughout rest of lung weber. I did decrease her Lasix today due to her decreasing renal function. Creatinine was 2.01 today, Which is up from yesterday. I have put in a consult for nephrology. Patient states that she is not getting any better, however she does comment that the edema in her bilateral lower extremities is actually better today than she is seen in a long time. She is diuresed about 3 kg. - Constitutional Vitals: Temp Pulse Resp BP Pulse Ox 97.9 F 63 12 187/80 97 10/13/16 19:08 10/13/16 19:08 10/13/16 19:08 10/13/16 19:08 10/13/16 19:08 General appearance: Present: cooperative, mild distress, A&O X 3, morbidly obese , answers questions appropriately - Head Head exam: Present: normal inspection - Neck Neck exam general surgery: Present: normal inspection. Absent: lymphadenopathy , tenderness - Respiratory Respiratory exam: Present: decreased breath sounds, rales, wheezes. Absent: chest wall tenderness - Cardiovascular Cardiovascular exam: Present: RRR, +S1, +S2. Absent: diastolic murmur, systolic murmur - GI/Abdominal GI/Abdominal exam: Present: distended, normal bowel sounds, soft. Absent: tenderness - Extremities Exam Extremities exam: Present: normal inspection, pedal edema Internal Medicine: Result - Labs CBC & Chem 7: 10/13/16 03:18 10/13/16 03:18 - ABG Interpretation ABG results: PT/INR, D-dimer PT 12.0 Seconds (9.4-12.1) 10/11/16 16:25 Consult Discharge Plan - Plan Referrals: Domonique Rajput MD [Primary Care Provider] -
[2016-10-13] MEDS: Insulin DETEMIR 100 UNIT/ML X5UNITS SQ SCH (20:41)
[2016-10-13] MEDS: traZODone 50 MG TABLET PO SCH (20:41)
[2016-10-14] MEDS: hydrALAZINE 25 MG TABLET PO SCH ×3 (06:04→21:22)
[2016-10-14] MEDS: *HR* Enoxaparin 30 MG/0.3 ML SYRINGE SQ SCH (06:04)
[2016-10-14 06:22] LABS: Basophils % 0.3 %; Eosinophils # 0.3 K/mcL (0.0-0.6); Eosinophils % 3.7 %; Hematocrit 32.8 % (35.3-44.9); Hemoglobin 10.5 g/dL (11.5-15.4); Immature Granulocytes % 0.3 % (0-4); Lymphocytes # 1.5 K/mcL (0.6-4.6); Lymphocytes % 20.5 %; Mean Corpuscular Hemoglobin 30.3 pg (28.0-33.3); Mean Corpuscular Volume 94.5 fL (83.0-100.0); Mean Platelet Volume 11.4 fL (9.4-12.4); Monocytes # 0.9 K/mcL (0.0-1.3); Monocytes % 11.9 %; Neutrophils # 4.6 K/mcL (1.6-8.9); Platelet Count 149 K/mcL (140-400); Red Blood Count 3.47 M/mcL (3.82-4.97); Red Cell Distribution Width 13.4 % (11.5-14.5); Segmented Neutrophils % 63.3 %
[2016-10-14 06:41] LABS: Calcium 8.5 mg/dL (8.6-10.8); Potassium 4.3 mEq/L (3.5-4.5)
[2016-10-14] MEDS: Furosemide 20 MG/2 ML VIAL IVP SCH ×2 (08:05→18:09)
[2016-10-14] MEDS: Insulin LISPRO 300 UNITS/3 ML VIAL SQ SCH ×4 (08:08→21:00)
[2016-10-14] MEDS: Ipratropium/Albuterol Neb 3 ML IH PRN ×2 (08:44→13:56)
--- NOTE | 2016-10-14 10:59 | Nephrology Consult Note ---
Date of Encounter: 10/14/16 Time of Encounter: 10:30 Assessment and Plan (1) Acute kidney injury Current Visit: Yes Status: Acute As patient is requiring fluid removal for acute CHF with symptomatic dyspnea, we expect OLIVIA to acutely worsen. We will need to carefully monitor kidney function and trend patient's SCr. Will consider holding laxis temporarily if SCr rises rapidly or continues to increase to allow it time to improve or normalize. Work to avoid nephrotoxic medications as possible and renal dosing as needed. Thank you for involving us in this patient's care. (2) Acute exacerbation of CHF (congestive heart failure) Current Visit: Yes Status: Acute Imaging and physical exam suggestive of acute CHF with dyspnea secondary to fluid overload. Carefully monitoring BMP with SCr as lasix are being used to help diuresis patient. See plan above concerning OLIVIA. Management of CHF per primary medicine team. Qualifiers: Congestive heart failure type: unspecified congestive heart failure type Qualified Code(s): I50.9 - Heart failure, unspecified (3) Diabetes Current Visit: No Status: Chronic Management per primary medicine service. Qualifiers: Diabetes mellitus type: type 2 Diabetes mellitus complication status: with unspecified complications Diabetes mellitus longterm insulin use: with longterm use Qualified Code(s): E11.8 - Type 2 diabetes mellitus with unspecified complications; Z79.4 - FPC (current) use of insulin (4) HTN (hypertension) Current Visit: No Status: Chronic Overall BP better controlled with BP at admission 231/152 to today's at 128/61 Qualifiers: Hypertension type: essential hypertension Qualified Code(s): I10 - Essential (primary) hypertension (5) Hyperkalemia Current Visit: Yes Status: Resolved Improved from 5.1 to 4.3 (6) DVT prophylaxis Current Visit: No Status: Acute SQ Lovenox per primary medicine service. History of Present Illness - Reason for Consult Consult date: 10/13/16 Acute Kidney Injury Requesting physician: Melisa Davis - Chief Complaint Shortness of breath - History of Present Illness Ms. Tate is an 81 year old female admitted for dyspnea secondary to acute CHF with OLIVIA. PMHx includes CHF, CKD, DM type 2, hyperkalemia, and HTN. Patient of Dr. Gardner, noted to have not followed up in many months due to the passing of her . Patient notes chronic lower extremity swelling that has been worsening for the past 2 months, with sudden onset dyspnea beginning approx 5 days ago. Imaging in the ED suggestive of acute CHF. She denies any chest pains, palpitations, fevers, chills, diarrhea. Noting today that she is now nausea, though no vomiting at this time. Nephrology consulted with concerns for worsening OLIVIA in the settin gof acute CHF requiring diialysis. Past Med Surg Social Fam HX - Past Medical History Attestation: Yes The following information was validated with the patient. Medical history: cancer, diabetes, hypertension, renal disease Psychiatric history: no psych history - Past Surgical History Surgical History: cholecystectomy - Social History Smoking Status: Unknown if ever smoked Smokeless Tobacco Status: No Alcohol use: unknown Drug use: none - Family History Mother Living Status: Hx Family Cardiac Disorders: Yes Father Hx Family Cardiac Disorders: Yes Medications and Allergies Carvedilol [Coreg] 25 mg PO DAILY 03/25/16 [History] Glimepiride [Amaryl] 4 mg PO QAM 03/25/16 [History] Insulin Glargine [Lantus] 35 mg SQ HS 03/26/16 [History] Hydroxyzine HCl 25 mg PO HS PRN 04/12/16 [History] Ropinirole HCl [Requip] 8 mg PO HS 04/12/16 [History] Losartan Potassium [Cozaar] 50 mg PO DAILY 10/11/16 [History] Multivitamin [Multi-Day Vitamins] 1 each PO DAILY 10/11/16 [History] TraZODone 50 mg PO HS 10/11/16 [History] Allergies nadolol [From Corgard] Allergy (Verified 04/20/16 12:13) See Comments Review of Systems All Systems: reviewed and no additional remarkable complaints except as stated Constitutional: fatigue, weakness Cardiovascular: dyspnea, dyspnea on exertion, edema Respiratory: dyspnea, dyspnea on exertion Gastrointestinal: nausea, no diarrhea Genitourinary Female: no dysuria, no urinary frequency Neurological: no numbness, no tingling Endocrine: fatigue Exam - Vital Signs Vital signs: Initial Vital Signs Temp Pulse Resp BP Pulse Ox 98.3 F 62 22 231/152 96 10/11/16 16:10 10/11/16 16:10 10/11/16 16:10 10/11/16 16:10 10/11/16 16:10 Vital Signs - Last 8 Hours Temp Pulse Resp BP Pulse Ox 10/14/16 07:37 98.0 F 62 18 190/47 96 10/14/16 06:03 144/55 10/14/16 04:14 96 10/14/16 02:45 97.9 F 62 17 182/71 96 Intake and Output 10/13/16 10/14/16 10/14/16 23:59 07:59 15:59 Intake Total 120 / 120 Output Total 350 / 350 Balance -350 / -350 120 / 120 Intake: Oral 120 / 120 Output: Urine 350 / 350 Other: Meal Breakfast Percent of Meal Consumed 25% Stool Size Moderate Stool Consistency loose Stool Characteristics Normal for Patient Stool Color Brown # Voids 1 Weight 105.823 kg 104.014 kg Blood Glucose* 161 Patient Weight 10/14/16 23:59 Weight 104.014 kg - General Appearance General appearance: well-developed, appears started age, moderate distress, chronically ill EENT: ATNC, mucous membranes moist, hearing intact, vision intact Respiratory: rhonchi Cardiology: edema (#+ bilateral pitting pretibial edema), regular rate, regular rhythm Gastrointestinal: no tenderness, no guarding Integumentary: no rash, warm and dry, chronic venous stasis Neurologic: no focal deficit, alert and oriented x3 Musculoskeletal: no erythema, no cyanosis, no clubbing Psychiatric: mood/affect appropriate, cooperative Results - Lab Results 10/14/16 04:46 10/14/16 04:46 Most recent lab results Calcium 8.5 mg/dL (8.6-10.8) L 10/14/16 04:46 Magnesium 1.5 mg/dL (1.6-2.6) L 10/12/16 00:50 Consult Discharge Plan - Plan Referrals: Domoinque Rajput MD [Primary Care Provider] -
[2016-10-14] MEDS ORDERED: *HR* LORazepam 0.5 MG TABLET PO ONE (11:25)
[2016-10-14] MEDS: Ondansetron 4 MG/2 ML VIAL IVP PRN (12:14)
[2016-10-14] MEDS ORDERED: *HR* LORazepam 2 MG/ML VIAL IVP ONE (13:14)
[2016-10-14] MEDS ORDERED: Furosemide 20 MG/2 ML VIAL IVP ONE (14:00)
[2016-10-14 17:04] LABS: VBG HCO3 29.1 mEq/L (21-27); VBG PH 7.39 pH Units (7.32-7.42)
--- NOTE | 2016-10-14 17:47 | Internal Med Progress Note ---
Date of Encounter: 10/14/16 Time of Encounter: 08:20 - Assessment and plan (1) Acute exacerbation of CHF (congestive heart failure) Current Visit: Yes Status: Acute Assessment and plan: Patient reported increased dyspnea today, she is requiring extra supplemental oxygen to maintain her sats above 92%. She is currently on a simple mask at 5 L. And increased her Lasix to 20 mg IV twice a day. If clinical cardiology consult, as well as nephrology who saw her today for recommendations for diuresis. Due to patient's increased dyspnea and saying that she could not catch her breath, did a repeat chest x-ray showed acute CHF with small moderate right and small left pleural effusions. Wheezing and rales heard throughout all posterior lung weber. Patient has been requesting breathing treatments which do help to rid the wheezing. Patient was unable to relate to me whether the breathing treatments were helping her, how after being pressed for an answer she says yesterday did help. Patient has had a 5.1 pounds weight loss through diuresis. Continuous telemetry Pulse ox Increase Lasix Oxygen, titrate to maintain sats greater than 92% Cardiology consult Nephrology consult Monitor labs Qualifiers: Qualified Code(s): I50.9 - Heart failure, unspecified (2) Diabetes Current Visit: No Status: Chronic Assessment and plan: Well-controlled. Chronic. Diabetic diet Sliding scale insulin Accu-Cheks before meals and at bedtime Qualifiers: Qualified Code(s): E11.8 - Type 2 diabetes mellitus with unspecified complications; Z79.4 - longterm (current) use of insulin (3) Acute kidney injury Current Visit: Yes Status: Acute Assessment and plan: Creatinine is 2.13 today. Nephrology saw the patient today, note is not done at this point. I have also consult cardiology for recommendations to diurese in light of kidney injury. Avoid nephrotoxins Nephrology on board Cardiology consult (4) Morbid obesity with BMI of 40.0-44.9, adult Current Visit: No Status: Acute Assessment and plan: Chronic. (5) Generalized weakness Current Visit: Yes Status: Acute Assessment and plan: Patient did not participate yesterday in physical therapy. Primary nurse yesterday and I both discussed with her at length the importance of participating in physical therapy while she is inpatient. She did do physical therapy today. She says that she felt better afterwards. We will continue PT and OT. I am assuming that as patient diuresis and fluid comes off, she will begin to feel better and be able to do more activities. Continue to monitor labs and patient condition. Supplemental oxygen Continue diuresis (6) Hyperkalemia Current Visit: Yes Status: Acute Assessment and plan: Resolved (7) Hypertensive urgency Current Visit: Yes Status: Acute Assessment and plan: Blood pressure 180s systolic today. Patient has when necessary hydralazine for systolic above 180. Continue to monitor Continue home medication Hydralazine when necessary (8) DVT prophylaxis Current Visit: No Status: Acute Assessment and plan: Subcutaneous Lovenox - Time Spent With Patient Greater than 35 minutes - Subjective Interval history: Mrs. Tate has had an eventful day. I have spent huge amount of time speaking with the patient and her family today, most likely about 2 hours intermittently. Patient called and all of her family today, called all of her children and told him that she would not be here much longer and that they needed to bring her records purse to the hospital. Family was obviously upset since they all received a phone call when her father here at the same hospital. Family and nursing staff intercepted the right purse, family was concerned that patient was going to try to overdose on some hidden medications inside the purse. As it turns out, they were just notes in the purse that she had written to family members. Patient threw them in the trash can in her room and insisted that staff take the trash out. She then asked for a piece of paper and pencil so she could write her will. Her younger son took me aside and describes years of narcotic abuse, manipulations, and most likely what he describes as undiagnosed bipolar disorder. He states that patient was taking her 's pain medication prior to him dying, they were concerned that there were some hidden in the purse that she was going to take here at the hospital. Oldest son states that patient has been depressed over 's . She has moved in with him and his . Younger son says that he is concerned since patient is giving oil belongings, she gave him $400 in matute today, and she is not making plans for Easter or any upcoming birthdays and has said that she is not going to be here much longer, he is concerned that she is having suicidal thoughts. I consulted 1A. Discussion I held this morning about importance of her getting physical therapy. She did participate today and therapist said that it well. Patient stated all day that she cannot breathe. She has been on a nasal cannula at 2 L for most of the day. She was tachypneic and reveals and wheezing are heard throughout posteriorly. She has been getting nebulizer treatments which cleared the wheezing and she says that she feels better. At some point, for whatever reason, she took off her oxygen and O2 sats were in the 60s. It took her a while for her sats to raise. She is currently in the low 90s on a simple mask at 5 L. I gave her some Ativan earlier the to calm her and her respiratory status so she is requesting comfortably. He did a repeat chest x- ray that showed acute CHF with small to moderate right and small left pleural effusions. Her Lasix was given early at about 2:30. She has lost 5.11 pounds since she has been here I did discuss with her that her extremities seem better and that she is actually breathing fine. Nephrology was here to see her today, slasher runner consult will see her tomorrow. I will increase her Lasix back up to 20 mg IV twice a day and wait for recommendations from cardiology and nephrology. - Constitutional Vitals: Temp Pulse Resp BP Pulse Ox 99.4 F 78 19 182/62 90 10/14/16 14:56 10/14/16 14:56 10/14/16 14:56 10/14/16 14:56 10/14/16 14:56 General appearance: Present: cooperative, mild distress, A&O X 3, morbidly obese , severe distress, answers questions appropriately - Head Head exam: Present: normal inspection - Eye Eye exam: Present: normal appearance, conjuntiva pink - ENT ENT exam: Present: mucous membranes moist, normal exam - Neck Neck exam general surgery: Absent: normal inspection, tenderness - Respiratory Respiratory exam: Present: decreased breath sounds, rales, wheezes - Cardiovascular Cardiovascular exam: Present: RRR, +S1, +S2. Absent: diastolic murmur, systolic murmur - GI/Abdominal GI/Abdominal exam: Present: distended, normal bowel sounds. Absent: hepatomegaly, splenomegaly, tenderness - Extremities Exam Extremities exam: Present: normal capillary refill, pedal edema, warm, radial pulses palpable and symetrical. Absent: tenderness Additional comments: Bilateral lower extremity edema is actually improved from yesterday. - Neurological Exam Neurological exam: Present: alert, oriented X3. Absent: motor sensory deficit, facial droop, speech deficit Internal Medicine: Result - Labs CBC & Chem 7: 10/14/16 04:46 10/14/16 04:46 Labs: Short CBC 10/14/16 Range/Units 04:46 WBC 7.2 (4.3-11.1) K/mcL Hgb 10.5 L (11.5-15.4) g/dL Hct 32.8 L (35.3-44.9) % Plt Count 149 (140-400) K/mcL Neutrophils # 4.6 (1.6-8.9) K/mcL BMP 10/14/16 04:46 Sodium 140 Potassium 4.3 Chloride 104 Carbon Dioxide 24 BUN 40 H Creatinine 2.13 H Glucose 102 H Calcium 8.5 L - ABG Interpretation ABG results: PT/INR, D-dimer PT 12.0 Seconds (9.4-12.1) 10/11/16 16:25 - Impressions Impressions Chest X-Ray 10/14/16 13:47 IMPRESSION: Acute CHF with small to moderate right and small left pleural effusions. D/ / Yobani Jensen MD / Yobani Jensen MD Interpreting Provider: Yobani Jensen MD Consult Discharge Plan - Plan Referrals: Domonique Rajput MD [Primary Care Provider] -
[2016-10-14] MEDS: Insulin DETEMIR 100 UNIT/ML X5UNITS SQ SCH (21:22)
[2016-10-14] MEDS: traZODone 50 MG TABLET PO SCH (21:22)
[2016-10-15] MEDS: Ondansetron 4 MG/2 ML VIAL IVP PRN (00:22)
[2016-10-15] MEDS ORDERED: Metoclopramide 10 MG/2 ML VIAL IVP ONE (02:49)
[2016-10-15] MEDS ORDERED: *HR* LORazepam 2 MG/ML VIAL IVP ONE ×2 (03:52→04:52)
[2016-10-15] MEDS: hydrALAZINE 25 MG TABLET PO SCH ×3 (04:39→21:29)
[2016-10-15] MEDS: GuaiFENesin/Codeine Oral Soln 5 ML UDC PO PRN (04:39)
[2016-10-15] MEDS: *HR* Enoxaparin 30 MG/0.3 ML SYRINGE SQ SCH (04:40)
[2016-10-15] MEDS ORDERED: *HR* LORazepam 2 MG/ML VIAL ONE (04:55)
[2016-10-15] MEDS: Ipratropium/Albuterol Neb 3 ML IH PRN ×2 (05:30→22:33)
[2016-10-15 05:49] LABS: Hematocrit 35.4 % (35.3-44.9); Hemoglobin 11.1 g/dL (11.5-15.4); Mean Corpuscular HGB Conc 31.4 g/dL (31.6-35.5); Mean Corpuscular Hemoglobin 29.8 pg (28.0-33.3); Mean Corpuscular Volume 94.9 fL (83.0-100.0); Mean Platelet Volume 11.1 fL (9.4-12.4); Platelet Count 168 K/mcL (140-400); Red Blood Count 3.73 M/mcL (3.82-4.97); Red Cell Distribution Width 13.3 % (11.5-14.5)
[2016-10-15 06:04] LABS: Calcium 8.5 mg/dL (8.6-10.8); Potassium 4.4 mEq/L (3.5-4.5)
[2016-10-15 06:28] LABS: Lymphocytes # 1.6 K/mcL (0.6-4.6); Monocytes # 2.6 K/mcL (0.0-1.3); Neutrophils # 21.5 K/mcL (1.6-8.9); Platelet Estimate Normal (Normal)
[2016-10-15] MEDS: Insulin LISPRO 300 UNITS/3 ML VIAL SQ SCH ×4 (08:04→21:31)
[2016-10-15 08:48] LABS: Basophils # 0.1 K/mcL (0.0-0.2); Basophils % 0.2 %; Hematocrit 33.8 % (35.3-44.9); Hemoglobin 10.7 g/dL (11.5-15.4); Immature Granulocytes % 0.6 % (0-4); Lymphocytes # 1.4 K/mcL (0.6-4.6); Lymphocytes % 5.6 %; Mean Corpuscular HGB Conc 31.7 g/dL (31.6-35.5); Mean Corpuscular Hemoglobin 29.4 pg (28.0-33.3); Mean Corpuscular Volume 92.9 fL (83.0-100.0); Monocytes # 1.3 K/mcL (0.0-1.3); Monocytes % 5.4 %; Neutrophils # 21.4 K/mcL (1.6-8.9); Platelet Count 139 K/mcL (140-400); Red Blood Count 3.64 M/mcL (3.82-4.97); Red Cell Distribution Width 13.2 % (11.5-14.5); Segmented Neutrophils % 88.2 %
[2016-10-15 09:11] LABS: Platelet Estimate Normal (Normal)
[2016-10-15] MEDS: Furosemide 20 MG/2 ML VIAL IVP SCH (09:21)
--- NOTE | 2016-10-15 10:49 | Nephrology Progress Note ---
Date of Encounter: 10/15/16 Time of Encounter: 10:20 - Assessment and Plan (1) Acute kidney injury Current Visit: Yes Status: Acute OLIVIA with CKD. Secondary to diuresis for acute CHF. SCr continues to worsen. 1.84>2.02>2.13>2.60 Would recommend holding lasix at this time and avoiding nephrotoxic medications. (2) Acute exacerbation of CHF (congestive heart failure) Current Visit: Yes Status: Acute Imaging and physical exam suggestive of acute CHF with dyspnea secondary to fluid overload. Carefully monitoring BMP with SCr as lasix are being used to help diuresis patient. See plan above concerning OLIVIA. Management of CHF per primary medicine team. Qualifiers: Congestive heart failure type: unspecified congestive heart failure type Qualified Code(s): I50.9 - Heart failure, unspecified (3) Diabetes Current Visit: No Status: Chronic Management per primary medicine service. 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 Qualifiers: Hypertension type: essential hypertension Qualified Code(s): I10 - Essential (primary) hypertension (5) Hyperkalemia Current Visit: Yes Status: Resolved Improved from 5.1 to 4.4 (6) DVT prophylaxis Current Visit: No Status: Acute SQ Lovenox per primary medicine service. Subjective Principal diagnosis: Shortness of breath Interval history: Reports overnight of increase agitation, requiring ativan administration. Patient continues to moan during examination, but states she feels she is breathing better today. Continued congestion, states she is unable to clear sputum when she coughs. Objective - Vital Signs Vital signs: Vital Signs Temp Pulse Resp BP Pulse Ox 10/15/16 09:34 91 10/15/16 06:56 98.8 F 64 16 127/60 94 10/15/16 05:30 20 94 10/15/16 03:36 98.2 F 63 21 135/67 94 10/15/16 00:15 98.1 F 78 16 148/53 96 10/14/16 21:21 99.2 F 04/13/17 20:00 93 10/14/16 18:58 100.2 F H 67 15 128/61 93 10/14/16 14:56 99.4 F 78 19 182/62 90 10/14/16 14:11 90 10/14/16 13:56 22 88 10/14/16 11:13 62 18 179/69 94 10/14/16 10:43 98.2 F 62 18 179/69 94 Intake and Output 10/14/16 10/15/16 10/15/16 23:59 07:59 15:59 Intake Total 440 / 440 350 / 350 240 / 240 Output Total 400 / 400 Balance 40 / 40 349 / 349 240 / 240 Intake: Oral 440 / 440 350 / 350 240 / 240 Output: Urine 400 / 400 Other: Meal Breakfast Percent of Meal Consumed 50% Stool Size Moderate Smear Stool Consistency soft Stool Color Brown # Urine Diapers 1 1 # Bowel Movement Diapers 1 1 Weight 105 kg Blood Glucose* 111 131 Patient Weight 10/15/16 23:59 Weight 105 kg - General Appearance General appearance: Present: well-developed, well-nourished, appears started age , chronically ill EENT: Present: ATNC, mucous membranes moist, hearing intact, vision intact Respiratory: Present: rhonchi Cardiology: Present: edema (2+ edema bilaterally, decreased swelling from yesterday, increased wrinkling of skin.), regular rate, regular rhythm Gastrointestinal: Present: no tenderness, no guarding Integumentary: Present: no rash, warm and dry, chronic venous stasis Additional Comments: Patient awake and alert, answers questions appropriately, however moans constantly and loses focus easily. Musculoskeletal: Present: no deformities, no erythema, no cyanosis Psychiatric: Present: mood/affect appropriate, cooperative - Lab 10/15/16 08:40 10/15/16 04:53 Most recent lab results Calcium 8.5 mg/dL (8.6-10.8) L 10/15/16 04:53 Magnesium 1.5 mg/dL (1.6-2.6) L 10/12/16 00:50 Consult Discharge Plan - Plan Referrals: Domonique Rajput MD [Primary Care Provider] -
--- NOTE | 2016-10-15 14:09 | Cardiology Consult Note ---
Date of Encounter: 10/15/16 Time of Encounter: 13:30 Assessment and Plan (1) Diastolic congestive heart failure Current Visit: Yes Status: Acute Per cardiology: -DIastolic heart failure. -Of note, patient is DNR-CC. Confirmed with patient that she wants no aggressive treatments. -Echo 10/12/16 with LVEF 60-65%, mild concentric hypertrophy of left ventricle, there is evidence of moderate diastolic dysfunction of left ventricle, RV appears moderately dilated TD velocities suggest mild hypokinesis, mild mitral regurgitation, moderate tricuspid regurgitation, mild pulmonary hypertension, all wall segments with normal motion. -Patient admitted with increased shortness of breath and increased edema. -Patient currently net negative 2800ml. -Patient states shortness of breath and edema are improved. -BNP only 718. -CHest x-ray with bilateral pleural effusions, right greater than left. -On lasix 20mg IV BID per primary service. Nephrology recommended discontinuing lasix. -Of note, patient's WBC went from 7 yesterday to 26 today. WBC was re-drawn and still noted to be 24. -Will discuss with for further recommendations for diuresing. We would recommend continuing diuresis. -Will order JAINCE mejia. -Discussed with LYNDSAY Merida regarding possible benefit of CT scan to evaluate pleural effusion and for WBC increased. -Can consider palliative care consult. (ELIZABETH) Qualifiers: Congestive heart failure chronicity: acute Qualified Code(s): I50.31 - Acute diastolic (congestive) heart failure (2) Acute on chronic renal failure Current Visit: Yes Status: Acute Per cardiology: -KNown history of CKD. -Creatinine 1.87 on admission. -Creatinine 2.6 today. -Of note, creatinine 1.April. -Nephrology consulted and recommend stopping lasix. -Suspect may be contributing to volume overload, pleural effusions. -Management per primary and nephrology services. (ELIZABETH) (3) HTN (hypertension) Current Visit: No Status: Chronic Per cardiology: -KNown history of hypertension. -BPs today 120-130s systolic, -BPs 230s systolic on admission. -On beta kvng and hydralazine -Will continue to monitor. (ELIZABETH) Qualifiers: Hypertension type: essential hypertension Qualified Code(s): I10 - Essential (primary) hypertension (4) Bilateral pleural effusion Current Visit: Yes Status: Acute Per cardiology: -Biltaeral pleural effusions noted per chest x-ray. -Patient admitted with increased shortness of breath. -Can consider CT scan to further evaluate plueral effusions and elevated WBC. -Can consider pulmonary consult. (ELIZABETH) (5) Pulmonary hypertension Current Visit: Yes Status: Chronic Per cardiology: -Known history of pulmonary hypertension. -RHC 01/26/13 moderately severe pulmonary hypertension. -Echo 10/2016 with mild pulmonary hypertension RVSP 43mmHg. -May be contributing to patient's shortness of breath. (ELIZABETH) Discussion w patient/family: The assessment and plan as outlined above was discussed with the patient who expressed understanding and agreement. All questions were answered. Thank you for involving us in the care of your patient. Please call with any questions. Patient seen and examined with LYNDSAY Prieto DIscussed and reviewed with . History of Present Illness Consult date: 10/14/16 Requesting physician: Melisa Davis Consult reason: CRF, CHF, diuresis Chief complaint: Shortness of breath History of present illness: Ms. Tate is a 81 year old female with a relevant past medical history of HTN , dual chamber pacemaker for sick sinus syndrome, DM, hypothyroidism, depression , anxiety, pulmonary hypertension, obesity. Patient presented to [facility] with complaints of increased shortness of breath. Cardiololgy has been consulted to assist with diuresis with CRF. Today, patient states her breathing is better. Also states her peripheral edema is better. Patient denies chest pain. Patient admits to coughing up white sputum. (ELIZABETH) Past Med Surg Social Fam HX - Past Medical History Attestation: Yes The following information was validated with the patient. Source: patient, old records reviewed Medical history: cancer, diabetes, hypertension, renal disease Psychiatric history: no psych history - Past Surgical History Surgical History: cholecystectomy - Social History Smoking Status: Unknown if ever smoked Smokeless Tobacco Status: No Alcohol use: unknown Drug use: none - Family History Mother Living Status: Hx Family Cardiac Disorders: Yes Father Hx Family Cardiac Disorders: Yes Medications and Allergies Carvedilol [Coreg] 25 mg PO DAILY 03/25/16 [History] Glimepiride [Amaryl] 4 mg PO QAM 03/25/16 [History] Insulin Glargine [Lantus] 35 mg SQ HS 03/26/16 [History] Hydroxyzine HCl 25 mg PO HS PRN 04/12/16 [History] Ropinirole HCl [Requip] 8 mg PO HS 04/12/16 [History] Losartan Potassium [Cozaar] 50 mg PO DAILY 10/11/16 [History] Multivitamin [Multi-Day Vitamins] 1 each PO DAILY 10/11/16 [History] TraZODone 50 mg PO HS 10/11/16 [History] Allergies nadolol [From Corgard] Allergy (Verified 04/20/16 12:13) See Comments All Systems Review: A 10-system review of systems was performed and is negative for pertinent findings except as documented above in the HPI. - Cardiovascular Cardiovascular: as per HPI, dyspnea on exertion, leg edema Physical Examination Vital Signs, Last 4 Hours Temp Pulse Resp BP Pulse Ox 10/15/16 11:23 98.2 F 62 28 133/67 88 General: Conversant, No Apparent Distress HEENT: Atraumatic, Normocephaly, Mucus Membranes Moist Neck: No JVD, Normal carotid pulses Cardiac: Reg Rate and Rhythm, Normal S1 and S2, No Murmur Lungs: Other (Right lower lobe with diminished breath sounds. ) Neuro: Alert and responsive, No focal deficits noted Abdomen: Soft, Non-Tender Skin: No rashes noted on visualized skin Musculoskeletal: No Chest Wall Tenderness Extremities: No Clubbing, No Cyanosis, Normal Pulses, Other (Moderate non- pitting pedal edema. ) Results 10/15/16 08:40 10/15/16 04:53 Lab Results Impressions Chest X-Ray 10/14/16 13:47 IMPRESSION: Acute CHF with small to moderate right and small left pleural effusions. D/ / Yobani Jensen MD / Yobani Jensen MD Interpreting Provider: Yobani Jensen MD Active Medications Acetaminophen (Tylenol) 650 mg PO Q6HR PRN PRN Reason: Fever Stop: 04/13/17 11:00 Last Admin: 10/12/16 12:43 Dose: 650 mg Albuterol/Ipratropium (Duoneb) 3 ml IH [id number] PRN; Protocol PRN Reason: Shortness Of Breath/Wheezing Stop: 04/14/17 16:32 Last Admin: 10/15/16 05:30 Dose: 3 ml Carvedilol (Coreg) 12.5 mg PO BIDWM YOU PRN Reason: Protocol Stop: 04/12/17 22:01 Last Admin: 10/15/16 09:20 Dose: 12.5 mg Dextrose/Water (Dextrose 50% (Syg)) 25 ml IVP AD PRN PRN Reason: Hypoglycemia Stop: 04/12/17 20:49 Enoxaparin Sodium (Lovenox) 30 mg SQ 0700 YOU PRN Reason: Protocol Stop: 04/13/17 07:01 Last Admin: 10/15/16 04:40 Dose: 30 mg Furosemide (Lasix) 20 mg IVP BIDDIURETIC YOU Stop: 04/15/17 18:01 Last Admin: 10/15/16 09:21 Dose: 20 mg Glucagon (Glucagen) 1 mg IM ONCE PRN PRN Reason: Hypoglycemia Stop: 04/12/17 20:49 Glucose (Gluctose) 15 gm PO ONCE PRN PRN Reason: Hypoglycemia Stop: 04/12/17 20:49 Glucose (Gluctose) 30 gm PO ONCE PRN PRN Reason: Hypoglycemia Stop: 04/12/17 20:49 Guaifenesin/Codeine Phosphate (Robitussin W/Codeine) 5 ml PO Q6HR PRN; Protocol PRN Reason: Cough Stop: 04/12/17 21:48 Last Admin: 10/15/16 04:39 Dose: 5 ml Hydralazine HCl (Hydralazine) 10 mg IVP Q6HR PRN PRN Reason: Hypertension Stop: 04/12/17 20:56 Last Admin: 10/14/16 04:09 Dose: 10 mg Hydralazine HCl (Hydralazine) 25 mg PO Q8H YOU Stop: 04/12/17 22:01 Last Admin: 10/15/16 04:39 Dose: 25 mg Dextrose (Dextrose 5%) 1,000 mls @ 100 mls/hr IVC .Q10H PRN PRN Reason: HYPOGLYCEMIA Stop: 04/12/17 20:49 Insulin Detemir (Levemir) 17 unit SQ HS YOU Stop: 04/13/17 21:01 Last Admin: 10/14/16 21:22 Dose: 17 unit Insulin Human Lispro (Humalog) 0 units SQ HS YOU PRN Reason: Protocol Stop: 04/12/17 21:01 Last Admin: 10/14/16 21:00 Dose: Not Given Insulin Human Lispro (Humalog) 0 units SQ TIDAC YOU PRN Reason: Protocol Stop: 04/13/17 07:31 Last Admin: 10/15/16 12:25 Dose: Not Given Naloxone HCl (Narcan) 0.4 mg IVP Q2MIN PRN PRN Reason: Opioid Reversal Stop: 04/12/17 20:17 Ondansetron HCl (Zofran) 4 mg IVP Q6HR PRN; Protocol PRN Reason: Nausea Stop: 04/15/17 12:06 Last Admin: 10/15/16 00:22 Dose: 4 mg Ropinirole HCl 6 mg/ (Ropinirole HCl 2 mg) 8 mg PO [facility] Stop: 04/12/17 22:01 Last Admin: 10/14/16 21:22 Dose: 8 mg Trazodone HCl (Trazodone) 50 mg PO [facility] Stop: 04/12/17 22:01 Last Admin: 10/14/16 21:22 Dose: 50 mg Laboratory Tests 10/11/16 10/11/16 10/11/16 16:25 16:25 17:15 WBC Hgb Plt Count Creatinine 1.87 H Troponin I 0.01 B-Natriuretic Peptide 718 H 10/12/16 10/13/16 10/13/16 00:50 03:18 03:18 WBC 7.3 Hgb 10.9 L Plt Count Creatinine 1.84 H 2.01 H Troponin I B-Natriuretic Peptide 10/14/16 10/14/16 10/15/16 04:46 04:46 04:53 WBC 7.2 26.2 H D Hgb 10.5 L 11.1 L Plt Count 149 168 Creatinine 2.13 H Troponin I B-Natriuretic Peptide 10/15/16 10/15/16 04:53 08:40 WBC 24.3 H Hgb 10.7 L Plt Count 139 L Creatinine 2.60 H Troponin I B-Natriuretic Peptide - Imaging and Cardiology Chest Xray: report reviewed Echo: report reviewed - EKG Interpretation EKG results cardiology: personally reviewed (Telemetry reviewed with atrial pacing, HR 60s.), other (Telemetry reviewed with average HR 66, atrial paced.) Consult Discharge Plan - Plan Referrals: Domonique Rajput MD [Primary Care Provider] -
[2016-10-15 15:35] LABS: Bilirubin,Urine Negative (Negative); Blood,Urine Negative (Negative); Clarity,Urine Turbid (Clear); Color,Urine Yellow (Yellow); Glucose,Urine (UA) Normal (Normal); Ketones,Urine Negative (Negative); Leukocyte Esterase,Urine Large (Negative); Nitrite,Urine Negative (Negative); PH,Urine 5.5 pH Units (5.0-8.0); Protein,Urine 100 mg/dL (Neg-Trace); Specific Gravity,Urine 1.013 (1.010-1.025); Urobilinogen,Urine Normal (Normal)
[2016-10-15 15:37] LABS: Bacteria,Urine Many per hpf (None-Few); Hyaline Casts,Urine None Seen per lpf (None-Few); Squamous Epithelial Cell,Urine Many per lpf (None-Few); WBC,Urine TNTC per hpf (0-3)
--- NOTE | 2016-10-15 15:57 | Internal Med Progress Note ---
Date of Encounter: 10/15/16 Time of Encounter: 08:10 - Assessment and plan (1) Acute exacerbation of CHF (congestive heart failure) Current Visit: Yes Status: Acute Assessment and plan: Assist patient in late 27 morning. She was sitting in a chair at the bedside wearing a simple mask at 5 L. She is maintaining her sats in the low 90s. Her lungs were rhonchorous scattered expiratory wheezing. Her respirations were unlabored and regular. She was starting to become drowsy from the Ativan she had overnight. Her peripheral edema is significantly better today. Her legs are not taut and shiny and edema is nonpitting. She has been seen by both cardiology and nephrology today. Creatinine continues to increase today is 2.6 increased from 1.8 for discharge. This is most likely due to the increase in Lasix yesterday from 2020 mg daily to 20 mg twice a day to diurese. Nephrology recommends holding the Lasix and avoiding nephrotoxic medications. Cardiology recommends continuing the diuresis. Chest CT today shows trace of right pleural effusion and patchy airspace disease most prominent in the right lower lobe with air bronchograms. Additional scattered less prominent airspace disease noted throughout the remaining lungs. Radiology reports these findings are concerning for infection. I will decrease Lasix back to 20 mg daily Telemetry Pulse ox Monitor labs Oxygen as needed to maintain sats greater than 92% Continue daily weights and I's and O's Qualifiers: Congestive heart failure type: unspecified congestive heart failure type Qualified Code(s): I50.9 - Heart failure, unspecified (2) HCAP (healthcare-associated pneumonia) Current Visit: Yes Status: Acute Assessment and plan: Leukocytosis this morning. White count 24. Patient is on 5 L via simple mask and maintaining sats around 90, sometimes as low as 88. Patient had a CT chest today shows a trace right pleural effusion with patchy airspace disease most prominent in the right lower lobe with air bronchograms. There are additional scattered prominent airspace disease noted throughout the remaining lungs. There is no substantial pleural effusion however the findings are concerning for infection. Due to her large increase in her white count which is 24 today, I will treat her for HCAP. She has rhonchorous lung sounds with scattered wheezing posteriorly and rhonchi heard anteriorly. Jamie's schedule per patient request Vancomycin pharmacy to dose Zosyn 3.375 g Oxygen as needed to keep sats greater than 92% Pulse ox Telemetry Careful monitoring of vital signs including temperature (3) Diabetes Current Visit: No Status: Chronic Assessment and plan: Continue sliding scale insulin Accu-Cheks before meals at bedtime Diabetic diet Qualifiers: Diabetes mellitus type: type 2 Diabetes mellitus complication status: with unspecified complications Diabetes mellitus assisted insulin use: with assisted use Qualified Code(s): E11.8 - Type 2 diabetes mellitus with unspecified complications; Z79.4 - buttermaker (current) use of insulin (4) Leukocytosis Current Visit: No Status: Acute Assessment and plan: White count has increased from 7.2 yesterday to 24.3 today. Neutrophils 21.4, 38% bands. Plan as above Qualifiers: Leukocytosis type: bandemia Qualified Code(s): D72.825 - Bandemia (5) Acute kidney injury Current Visit: Yes Status: Acute Assessment and plan: Patient was seen by nephrology today. Serum creatinine was 2.60 today. She is 1.84 on admission. Nephrology recommends holding the Lasix at this time and avoiding other nephrotoxic medications. Patient was also seen by cardiology today who recommends continuing the diuresis and Lasix. Patient will be starting vancomycin and Zosyn for HCAP today. Pharmacy will be dosing vancomycin. In light of the fact that some of her difficulty breathing could be do to pneumonia, I will decrease the Lasix to 20 mg and reassess tomorrow. (6) Morbid obesity with BMI of 40.0-44.9, adult Current Visit: No Status: Acute Assessment and plan: Chronic. (7) Generalized weakness Current Visit: Yes Status: Acute Assessment and plan: Patient remains weak today. She has been asleep most of the day and missed her physical therapy today. tempering kiln tender gave her IV Ativan during the night and she has remained sleepy for most of the day. It is recommended that she go to rehabilitation after discharge for physical therapy. He will most likely be a few days before she is discharged due to new onset of pneumonia (8) Hyperkalemia Current Visit: Yes Status: Resolved (9) Hypertensive urgency Current Visit: Yes Status: Acute Assessment and plan: Resolved. Patient's blood pressures are at goal for her age. (10) DVT prophylaxis Current Visit: No Status: Acute - Time Spent With Patient less than 15 minutes - Subjective Interval history: Patient was sitting up in chair at bedside today when I assessed her. She was on 4 L via simple mask and maintaining her sats around 94%. She was not tachycardic. Her respirations were unlabored and regular. Her lungs were ronchorous with some wheezing posteriorly. Her WBC count was elevated this a.m. and was redrawn and was still 24. I started Vanco and Zosyn for HCAP. She is currently requiring anywhere from 4-5 liters 02 to maintain her sats around 90% . Pt was alert and interactive this a.m., however, primary nurse today states that she seemed confused this afternoon. She was evaluated by cardiology today who recommends continuing the Lasix for diuresis, while nephrology suggests stopping the Lasix today. Her peripheral edema has improved significantly today. Overnight she began having anxiety again and was given Ativan 0.25 mg IV 2 she was still awake when I saw her this morning at about 810 primary nurse reports that patient has been asleep since about 9 or 10 AM this morning. She was easily arousable when she was seen by cardiology. Cardiology has suggested a palliative consult and I will speak to her son who is POA about this. - Constitutional Vitals: Temp Pulse Resp BP Pulse Ox 98.3 F 74 20 149/64 88 10/15/16 15:34 10/15/16 15:34 10/15/16 15:34 10/15/16 15:34 10/15/16 15:34 General appearance: Present: cooperative, mild distress, A&O X 3, morbidly obese , pleasant, no acute distress, severe distress, answers questions appropriately - Head Head exam: Present: normal inspection - Eye Eye exam: Present: normal appearance - ENT ENT exam: Present: mucous membranes moist, normal exam - Neck Neck exam general surgery: Present: normal inspection. Absent: lymphadenopathy , tenderness - Respiratory Respiratory exam: Present: decreased breath sounds, rhonchi, wheezes. Absent: chest wall tenderness, respiratory distress, tachypnea - Cardiovascular Cardiovascular exam: Present: RRR, +S1, +S2. Absent: diastolic murmur, systolic murmur - GI/Abdominal GI/Abdominal exam: Present: normal bowel sounds. Absent: tenderness - Extremities Exam Extremities exam: Present: pedal edema, warm, radial pulses palpable and symetrical. Absent: tenderness - Neurological Exam Neurological exam: Present: alert, oriented X3. Absent: facial droop, speech deficit Internal Medicine: Result - Labs CBC & Chem 7: 10/15/16 08:40 10/15/16 04:53 Labs: Short CBC 10/15/16 10/15/16 Range/Units 04:53 08:40 WBC 26.2 H D 24.3 H (4.3-11.1) K/mcL Hgb 11.1 L 10.7 L (11.5-15.4) g/dL Hct 35.4 33.8 L (35.3-44.9) % Plt Count 168 139 L (140-400) K/mcL Neutrophils # 21.5 H 21.4 H (1.6-8.9) K/mcL BMP 10/15/16 04:53 Sodium 139 Potassium 4.4 Chloride 101 Carbon Dioxide 26 BUN 50 H D Creatinine 2.60 H Glucose 118 H Calcium 8.5 L Urine 10/15/16 Range/Units 15:20 Urine Color Yellow (Yellow) Urine Clarity Turbid A (Clear) Urine pH 5.5 (5.0-8.0) pH Units Ur Specific [place] 1.013 (1.010-1.025) Urine Protein 100 H (Neg-Trace) mg/dL Urine Glucose (UA) Normal (Normal) mg/dL - ABG Interpretation ABG results: PT/INR, D-dimer PT 12.0 Seconds (9.4-12.1) 10/11/16 16:25 - Impressions Impressions Chest CT 10/15/16 14:30 IMPRESSION: No substantial pleural effusion. Findings as above concerning for infection. D/ / Martha Sotomayor MD / Martha Sotomayor MD Interpreting Provider: Martha Sotomayor MD Consult Discharge Plan - Plan Referrals: Domonique Rajput MD [Primary Care Provider] -
[2016-10-15] MEDS ORDERED: Vancomycin 1 EACH in D5% in Water 250 ML IVPB SCH (16:00)
[2016-10-15] MEDS ORDERED: Vancomycin 1,500 MG in D5% in Water 250 ML IVPB ONE (17:45)
[2016-10-15] MEDS: Piperacillin/Tazobactam 3.375 GM in D5% in Water (Mini-Bag+) 100 ML IVPB SCH (18:49)
[2016-10-15] MEDS: Acetaminophen 325 MG TABLET PO PRN (21:29)
[2016-10-15] MEDS: traZODone 50 MG TABLET PO SCH (21:29)
[2016-10-15] MEDS: Insulin DETEMIR 100 UNIT/ML X5UNITS SQ SCH (21:30)
[2016-10-16] MEDS ORDERED: *HR* LORazepam 2 MG/ML VIAL IVP STA (01:00)
[2016-10-16] MEDS: Piperacillin/Tazobactam 3.375 GM in D5% in Water (Mini-Bag+) 100 ML IVPB SCH ×2 (03:47→15:18)
[2016-10-16 03:56] LABS: VBG HCO3 30.5 mEq/L (21-27); VBG PH 7.36 pH Units (7.32-7.42)
[2016-10-16 03:57] LABS: Hematocrit 30.6 % (35.3-44.9); Hemoglobin 9.8 g/dL (11.5-15.4); Mean Corpuscular Hemoglobin 30.2 pg (28.0-33.3); Mean Corpuscular Volume 94.2 fL (83.0-100.0); Mean Platelet Volume 11.5 fL (9.4-12.4); Platelet Count 127 K/mcL (140-400); Red Blood Count 3.25 M/mcL (3.82-4.97); Red Cell Distribution Width 13.3 % (11.5-14.5)
[2016-10-16 04:03] LABS: Ionized Calcium 1.03 mmol/L (1.15-1.35)
[2016-10-16 04:10] LABS: Calcium 8.1 mg/dL (8.6-10.8); Potassium 4.5 mEq/L (3.5-4.5)
[2016-10-16 04:12] LABS: Magnesium 1.3 mg/dL (1.6-2.6); Phosphorous 4.8 mg/dL (2.3-4.7)
[2016-10-16 04:57] LABS: Lymphocytes # 1.8 K/mcL (0.6-4.6); Monocytes # 1.4 K/mcL (0.0-1.3); Neutrophils # 14.7 K/mcL (1.6-8.9); Platelet Estimate Slight Decrease (Normal)
[2016-10-16] MEDS: Melatonin 3 MG TABLET PO SCH ×2 (05:58→21:32)
[2016-10-16] MEDS: hydrALAZINE 25 MG TABLET PO SCH ×3 (06:00→21:44)
[2016-10-16] MEDS: *HR* Enoxaparin 30 MG/0.3 ML SYRINGE SQ SCH (06:00)
[2016-10-16] MEDS: Insulin LISPRO 300 UNITS/3 ML VIAL SQ SCH ×4 (07:35→20:00)
[2016-10-16] MEDS ORDERED: Magnesium Sulfate 2 GM in D5% in Water 100 ML IVPB ONE (08:09)
[2016-10-16] MEDS ORDERED: Furosemide 20 MG/2 ML VIAL IVP SCH (09:00)
--- NOTE | 2016-10-16 12:09 | Nephrology Progress Note ---
Date of Encounter: 10/16/16 Time of Encounter: 12:07 - Assessment and Plan (1) Acute kidney injury Current Visit: Yes Status: Acute Patient's creatinine continues to rise. Etiology is unclear. Patient had significant decrease in her recorded blood pressure overnight that could have contributed. She also has been in a volume negative state for the past few days and now has vancomycin for her infection. Will check renal US and expand OLIVIA work-up. Recommend discontinuing scheduled furosemide unless needed for respiratory distress. (2) Acute exacerbation of CHF (congestive heart failure) Current Visit: Yes Status: Acute Patient's volume status seems to be improved. Her edema is mostly resolved. She has diastolic dysfunction and could benefit from control of her blood pressure. Qualifiers: Congestive heart failure type: unspecified congestive heart failure type Qualified Code(s): I50.9 - Heart failure, unspecified (3) HCAP (healthcare-associated pneumonia) Current Visit: Yes Status: Acute Possible aspiration. WBC improving after antibiotics. Likely cause of her current dyspnea. (4) Diabetes Current Visit: No Status: Chronic per primary team Qualifiers: Diabetes mellitus type: type 2 Diabetes mellitus complication status: with unspecified complications Diabetes mellitus jail insulin use: with emt intermediate use Qualified Code(s): E11.8 - Type 2 diabetes mellitus with unspecified complications; Z79.4 - residential (current) use of insulin (5) HTN (hypertension) Current Visit: No Status: Chronic Titrate antihypertensive medication as needed. Qualifiers: Hypertension type: essential hypertension Qualified Code(s): I10 - Essential (primary) hypertension Subjective Principal diagnosis: Shortness of breath Interval history: Patient seen. She is lying in bed with mild dyspnea. She denies chest pain. Review of systems is otherwise stable. Objective - Vital Signs Vital signs: Vital Signs Temp Pulse Resp BP Pulse Ox 10/16/16 10:49 97.8 F 77 22 146/73 99 10/16/16 08:40 94 10/16/16 06:50 97.8 F 71 20 163/52 94 10/16/16 04:26 97.6 F 79 20 163/70 95 10/15/16 23:28 97.7 F 75 20 96/56 95 10/15/16 22:42 95 10/15/16 22:33 26 95 10/15/16 19:55 5 10/15/16 19:27 98.0 F 92 23 115/54 93 10/15/16 15:34 98.3 F 74 20 149/64 88 Intake and Output 10/15/16 10/16/16 10/16/16 23:59 07:59 15:59 Intake Total 350 / 350 100 / 100 480 / 480 Balance 350 / 350 100 / 100 480 / 480 Intake: IV Fluids 350 / 350 100 / 100 Zosyn 3.375 GM In 100 / 100 100 / 100 Dextrose 5% (Minibag+) 100 ML 100 ML @ 25 mls/hr IVPB Q12H [facility] Rx#: [id number] Vancocin 1,500 MG In 250 / 250 Dextrose 5% 250 ML @ 166. 67 mls/hr IVPB ONCE ONE Rx#:[id number] Oral 480 / 480 Other: Meal Breakfast Percent of Meal Consumed 50% # Voids 1 # Bowel Movements 1 Weight 105.732 kg Blood Glucose* 160 107 148 Patient Weight 10/16/16 23:59 Weight 105.732 kg - General Appearance General appearance: Present: well-developed, well-nourished EENT: Present: ATNC Neck: Present: supple Additional Comments: Rhonchi in her right lower lobe Cardiology: Present: regular rate, regular rhythm Additional Comments: trace edema Integumentary: Present: warm and dry Neurologic: Present: alert and oriented x3 Musculoskeletal: Present: no cyanosis Psychiatric: Present: mood/affect appropriate - Lab 10/16/16 03:29 10/16/16 03:29 Most recent lab results Calcium 8.1 mg/dL (8.6-10.8) L 10/16/16 03:29 Phosphorus 4.8 mg/dL (2.3-4.7) H 10/16/16 03:47 Magnesium 1.3 mg/dL (1.6-2.6) L 10/16/16 03:47 - VTE Documentation of Mechanical Device: Graduated compression elastic hosiery Consult Discharge Plan - Plan Referrals: Domonique Rajput MD [Primary Care Provider] -
--- NOTE | 2016-10-16 17:39 | Internal Med Progress Note ---
Date of Encounter: 10/16/16 Time of Encounter: 08:20 - Assessment and plan (1) Acute exacerbation of CHF (congestive heart failure) Current Visit: Yes Status: Acute Assessment and plan: Patient is remarkably better today. Peripheral edema is +1 nonpitting. Wheezing is heard posteriorly. Patient was seen by nephrology for her creatinine continues to rise. She is now on a euvolemic state and is having vancomycin for pneumonia. Pharmacy is dosing. Nephrology recommends discontinuing Lasix unless needed for respiratory distress. I have done this. BNP is 926 today. Again this is most likely from demand on the heart from pneumonia and dyspnea. Will continue to monitor. Lasix has been stopped due to worsening renal function alarm security or surveillance monitor Pulse ox Monitor fluid status Fluid restriction remains Low-sodium diet Qualifiers: Congestive heart failure type: unspecified congestive heart failure type Qualified Code(s): I50.9 - Heart failure, unspecified (2) HCAP (healthcare-associated pneumonia) Current Visit: Yes Status: Acute Assessment and plan: Patient still receiving vancomycin and Zosyn. [facility] Still requiring oxygen to maintain room air sats. She desats rapidly into the mid 80s when she is sleeping. Telemetry Pulse ox Continue antibiotics White count down to 17.9 we will continue to monitor (3) Diabetes Current Visit: No Status: Chronic Assessment and plan: Continue treatment plan as it is currently Qualifiers: Diabetes mellitus type: type 2 Diabetes mellitus complication status: with unspecified complications Diabetes mellitus terminal carman insulin use: with terminal carman use Qualified Code(s): E11.8 - Type 2 diabetes mellitus with unspecified complications; Z79.4 - terminal manager (current) use of insulin (4) Leukocytosis Current Visit: No Status: Acute Assessment and plan: White count has decreased to 17.9. She has been afebrile. Continue antibiotics Monitor labs Qualifiers: Leukocytosis type: bandemia Qualified Code(s): D72.825 - Bandemia (5) Acute kidney injury Current Visit: Yes Status: Acute Assessment and plan: Patient is being followed by nephrology. I have stopped the Lasix. Pharmacy is dosing the vancomycin Retroperitoneal ultrasound negative for hydronephrosis, indicative of medical renal disease Plan as above Continue to follow with nephrology (6) Morbid obesity with BMI of 40.0-44.9, adult Current Visit: No Status: Acute Assessment and plan: Chronic. (7) Generalized weakness Current Visit: Yes Status: Acute Assessment and plan: Patient states that she still feels weak today. She did not have physical therapy today. She is pending [facility]. Patient is much better spirits today was actually laughing and joking with staff. Continue PT OT Up to bedside daily with staff assistance Fall precautions Bed alarm (8) Hyperkalemia Current Visit: Yes Status: Resolved Assessment and plan: Resolved. Continuing to monitor. (9) Hypertensive urgency Current Visit: Yes Status: Acute Assessment and plan: Blood pressure is better controlled. I have stopped the Lasix. Will watch overnight. IV hydralazine needs to be given when blood pressure over 180. (10) DVT prophylaxis Current Visit: No Status: Acute Assessment and plan: Subcutaneous Lovenox (11) Elevated troponin Current Visit: No Status: Acute Assessment and plan: Troponin elevated today 0.08 most likely demand from pneumonia and congestive heart failure. Will trend. - Subjective Interval history: Patient sitting up in bed this morning alert and awake. She has made quite a turnaround today. She was interactive and happy, joking with staff very pleasant today. Her lungs are diminished with some wheezing posteriorly. We have stopped the Lasix for the diuresis. Her lower extremities have returned to normal. She says they now look how her legs normally look. When she falls asleep she desats into the mid 80s. She requires a face mask at 5 L to maintain her sats. She says that she is still very weak, however she does feel better. She requested fruit bagel and cream cheese for breakfast which we got from the cafeteria. I did have Dr. Colmenares see the patient with me today due to the fact she has been here so long. Patient could be ready for transfer to [facility] tomorrow.. - Constitutional Vitals: Temp Pulse Resp BP Pulse Ox 97.7 F 73 18 149/75 99 10/16/16 15:08 10/16/16 15:08 10/16/16 15:08 10/16/16 15:08 10/16/16 15:08 General appearance: Present: cooperative, mild distress, A&O X 3, morbidly obese , pleasant, no acute distress, answers questions appropriately - Head Head exam: Present: normal inspection - ENT ENT exam: Present: mucous membranes moist, normal exam - Neck Neck exam general surgery: Present: normal inspection. Absent: lymphadenopathy , tenderness - Respiratory Respiratory exam: Present: decreased breath sounds, wheezes - Cardiovascular Cardiovascular exam: Present: RRR, +S1, +S2 - Extremities Exam Extremities exam: Present: normal capillary refill, normal inspection, tenderness, warm, radial pulses palpable and symetrical. Absent: pedal edema - Neurological Exam Neurological exam: Present: alert, oriented X3, no focal deficits, strengths equal and symetr throughout. Absent: facial droop, speech deficit Internal Medicine: Result - Labs CBC & Chem 7: 10/16/16 03:29 10/16/16 03:29 Labs: Short CBC 10/16/16 Range/Units 03:29 WBC 17.9 H (4.3-11.1) K/mcL Hgb 9.8 L (11.5-15.4) g/dL Hct 30.6 L (35.3-44.9) % Plt Count 127 L (140-400) K/mcL Neutrophils # 14.7 H (1.6-8.9) K/mcL BMP 10/16/16 03:29 Sodium 135 L Potassium 4.5 Chloride 99 Carbon Dioxide 27 BUN 63 H D Creatinine 3.21 H Glucose 118 H Calcium 8.1 L Cardiac Enzymes 10/16/16 Range/Units 03:47 Troponin I 0.08 H* (0-0.03) ng/mL - ABG Interpretation ABG results: PT/INR, D-dimer PT 12.0 Seconds (9.4-12.1) 10/11/16 16:25 - Impressions Impressions Retroperitoneum Ultrasound 10/16/16 13:30 IMPRESSION: 1. No hydronephrosis. 2. Increased echogenicity of right kidney suggestive of medical renal disease. D/ / Jovanna Messina MD / Jovanna Messina MD Interpreting Provider: Jovanna Messina MD - VTE Documentation of Mechanical Device: Graduated compression elastic hosiery Consult Discharge Plan - Plan Referrals: Domonique Rajput MD [Primary Care Provider] -
--- NOTE | 2016-10-16 19:10 | Consult Note ---
Date of Encounter: 10/14/16 Time of Encounter: 17:10 History of Present Illness Requesting Physician: Sophia Siegel History of present illness: Ms. Tate is a 81 year old female who has no established psychiatric diagnosis or treatment history. Her 5 months ago and pt has moved in with one of her sons and his family. This consult was initiated because another son who lives out of town was concerned that she was giving away her belongings so this could mean that she is suicidal. The patient however does not agree with this and reports that she needed to give away arsalan of her older belongings s she no longer uses them and she is experiencing a life change and trying to make adjustment. Pt denies suicidal thoughts or even having depression. She admits that she she is grieving her late ' . This financial writer attempted to contact pt's son to obtain collateral information but has not received a call back . Given the lack of prior h/o depression or suicidality and pt's presentation , there is no clear evidence for exsistence of depression or suicidality. Collateral information from family members will still be needed so we recommend that social media director should be consulted to connect with family and gather more information about her mood symptoms if any. CC: Sophia Siegel Past Med Surg Social Fam HX - Past Medical History Medical history: cancer, diabetes, hypertension, renal disease - Past Surgical History Surgical History: cholecystectomy - Social History Smoking Status: Unknown if ever smoked Smokeless Tobacco Status: No Alcohol use: unknown Drug use: none - Family History Mother Living Status: Hx Family Cardiac Disorders: Yes Father Hx Family Cardiac Disorders: Yes Medications & Allergies Carvedilol [Coreg] 25 mg PO DAILY 03/25/16 [History] Glimepiride [Amaryl] 4 mg PO QAM 03/25/16 [History] Insulin Glargine [Lantus] 35 mg SQ HS 03/26/16 [History] Hydroxyzine HCl 25 mg PO HS PRN 04/12/16 [History] Ropinirole HCl [Requip] 8 mg PO HS 04/12/16 [History] Losartan Potassium [Cozaar] 50 mg PO DAILY 10/11/16 [History] Multivitamin [Multi-Day Vitamins] 1 each PO DAILY 10/11/16 [History] TraZODone 50 mg PO HS 10/11/16 [History] Allergies nadolol [From Corgard] Allergy (Verified 04/20/16 12:13) See Comments Mental Status Exam Level of alertness: Alert Patient appearance: Appropriate, Well Groomed Behavior: calm, cooperative Psychomotor activity: Slowed Eye contact: Maintains Eye Contact Mood description: Euthymic/stable Patient description of mood: OK Affect description: congruent with mood Speech pattern: Normal rate, Normal rhythm, Normal tone Speech volume: Normal Thought process: Intact, Logical, Linear, Goal Oriented Thought content: Yes Intact Perceptual disturbances: No Auditory hallucinations, No Visual hallucinations Attention span: Capable of Focused Attention Memory description: Grossly Intact Patient reliability: Reliable Historian Intelligence estimate: Average Judgment: Fair Insight: Full Results - Vital Signs Vital signs: Temp Pulse Resp BP Pulse Ox 98.2 F 74 20 154/63 100 10/16/16 18:48 10/16/16 18:48 10/16/16 18:48 10/16/16 18:48 10/16/16 18:48 - Labs Labs: Laboratory Last Values WBC 17.9 K/mcL (4.3-11.1) H 10/16/16 03:29 RBC 3.25 M/mcL (3.82-4.97) L 10/16/16 03:29 Hgb 9.8 g/dL (11.5-15.4) L 10/16/16 03:29 Hct 30.6 % (35.3-44.9) L 10/16/16 03:29 MCV 94.2 fL (83.0-100.0) 10/16/16 03:29 MCH 30.2 pg (28.0-33.3) 10/16/16 03:29 MCHC 32.0 g/dL (31.6-35.5) 10/16/16 03:29 RDW 13.3 % (11.5-14.5) 10/16/16 03:29 Plt Count 127 K/mcL (140-400) L 10/16/16 03:29 MPV 11.5 fL (9.4-12.4) 10/16/16 03:29 Immature Gran % 0.6 % (0-4) 10/15/16 08:40 Seg Neutrophils % 60.0 % 10/16/16 03:29 Band Neutrophils % 22.0 % (0-4) H 10/16/16 03:29 Lymphocytes % 10.0 % 10/16/16 03:29 Monocytes % 8.0 % 10/16/16 03:29 Eosinophils % 0.0 % 10/15/16 08:40 Basophils % 0.2 % 10/15/16 08:40 Metamyelocytes % 2.0 % (0) H 10/15/16 04:53 Neutrophils # 14.7 K/mcL (1.6-8.9) H 10/16/16 03:29 Lymphocytes # 1.8 K/mcL (0.6-4.6) 10/16/16 03:29 Monocytes # 1.4 K/mcL (0.0-1.3) H 10/16/16 03:29 Eosinophils # 0.0 K/mcL (0.0-0.6) 10/15/16 08:40 Basophils # 0.1 K/mcL (0.0-0.2) 10/15/16 08:40 Nucleated RBCs/100 WBC 0.3 /100 WBC (0) H 10/13/16 03:18 Platelet Estimate Slight Decrease (Normal) L 10/16/16 03:29 PT 12.0 Seconds (9.4-12.1) 10/11/16 16:25 INR 1.1 10/11/16 16:25 VBG pH 7.36 pH Units (7.32-7.42) 10/16/16 03:47 VBG pCO2 54 mmHg (41-51) H 10/16/16 03:47 VBG pO2 104 mmHg (25-40) H 10/16/16 03:47 VBG HCO3 30.5 mEq/L (21-27) H 10/16/16 03:47 Sodium 135 mEq/L (136-145) L 10/16/16 03:29 Potassium 4.5 mEq/L (3.5-4.5) 10/16/16 03:29 Chloride 99 mEq/L (98-109) 10/16/16 03:29 Carbon Dioxide 27 mEq/L (19-29) 10/16/16 03:29 BUN 63 mg/dL (7-20) H D 10/16/16 03:29 Creatinine 3.21 mg/dL (0.57-1.11) H 10/16/16 03:29 Est GFR ( Amer) 17 (> 60) L 10/16/16 03:29 Est GFR (Non-Af Amer) 14 (> 60) L 10/16/16 03:29 BUN/Creatinine Ratio 20 (6-26) 10/16/16 03:29 Glucose 118 mg/dL (70-99) H 10/16/16 03:29 POC Glucose 117 (58-89) H 10/16/16 16:33 Est Mean Plasma Glucose 151 mg/dl 10/11/16 16:25 Hemoglobin A1c 6.9 % (-5.6) H 10/11/16 16:25 Calculated Osmolality 299 (280-300) 10/16/16 03:29 Calcium 8.1 mg/dL (8.6-10.8) L 10/16/16 03:29 Ionized Calcium 1.03 mmol/L (1.15-1.35) L 10/16/16 03:47 Phosphorus 4.8 mg/dL (2.3-4.7) H 10/16/16 03:47 Magnesium 1.3 mg/dL (1.6-2.6) L 10/16/16 03:47 Total Bilirubin 0.7 mg/dL (0.2-1.2) 10/11/16 17:15 Direct Bilirubin 0.3 mg/dL (0.0-0.5) 10/11/16 17:15 Indirect Bilirubin 0.4 mg/dL (0.0-1.2) 10/11/16 17:15 AST 22 Units/L (5-34) 10/11/16 17:15 ALT 15 Units/L (0-55) 10/11/16 17:15 Alkaline Phosphatase 81 Units/L (38-126) 10/11/16 17:15 Troponin I 0.08 ng/mL (0-0.03) H* 10/16/16 03:47 B-Natriuretic Peptide 926 pg/mL (0-100) H 10/16/16 03:47 Serum Total Protein 6.5 g/dL (6.0-8.3) 10/11/16 17:15 Albumin 2.9 g/dL (3.5-5.0) L 10/11/16 17:15 Globulin 3.6 g/dL (2.4-3.5) H 10/11/16 17:15 Albumin/Globulin Ratio 0.8 (1.1-2.2) L 10/11/16 17:15 Urine Color Yellow (Yellow) 10/15/16 15:20 Urine Clarity Turbid (Clear) A 10/15/16 15:20 Urine pH 5.5 pH Units (5.0-8.0) 10/15/16 15:20 Ur Specific [place] 1.013 (1.010-1.025) 10/15/16 15:20 Urine Protein 100 mg/dL (Neg-Trace) H 10/15/16 15:20 Urine Glucose (UA) Normal mg/dL (Normal) 10/15/16 15:20 Urine Ketones Negative mg/dL (Negative) 10/15/16 15:20 Urine Blood Negative (Negative) 10/15/16 15:20 Urine Nitrite Negative (Negative) 10/15/16 15:20 Urine Bilirubin Negative (Negative) 10/15/16 15:20 Urine Urobilinogen Normal mg/dL (Normal) 10/15/16 15:20 Ur Leukocyte Esterase Large (Negative) H 10/15/16 15:20 Urine Microscopic RBC Test Not Performed 10/15/16 15:20 Urine Microscopic WBC TNTC per hpf (0-3) H 10/15/16 15:20 Ur Squamous Epith Cells Many per lpf (None-Few) H 10/15/16 15:20 Urine Bacteria Many per hpf (None-Few) H 10/15/16 15:20 Hyaline Casts None Seen per lpf (None-Few) 10/15/16 15:20 Random Vancomycin 14.3 mcg/mL 10/16/16 17:36 - Impressions Impressions Retroperitoneum Ultrasound 10/16/16 13:30 IMPRESSION: 1. No hydronephrosis. 2. Increased echogenicity of right kidney suggestive of medical renal disease. D/ / Jovanna Messina MD / Jovanna Messina MD Interpreting Provider: Jovanna Messina MD Consult Discharge Plan - Plan Referrals: Domonique Rajput MD [Primary Care Provider] -
[2016-10-16] MEDS ORDERED: Heparin 25,000 UNIT/500 ML D5W 25,000 UNIT/500 ML MLS IVC SCH (19:45)
[2016-10-16] MEDS: Acetaminophen 325 MG TABLET PO PRN (19:48)
[2016-10-16 20:17] LABS: Hemoglobin 9.5 g/dL (11.5-15.4); Lymphocytes # 0.7 K/mcL (0.6-4.6); Mean Corpuscular HGB Conc 31.7 g/dL (31.6-35.5); Mean Corpuscular Hemoglobin 29.5 pg (28.0-33.3); Mean Corpuscular Volume 93.2 fL (83.0-100.0); Mean Platelet Volume 11.1 fL (9.4-12.4); Platelet Count 143 K/mcL (140-400); Red Blood Count 3.22 M/mcL (3.82-4.97); Red Cell Distribution Width 13.2 % (11.5-14.5)
[2016-10-16 20:47] LABS: Eosinophils # 0.3 K/mcL (0.0-0.6); Neutrophils # 14.8 K/mcL (1.6-8.9)
[2016-10-16 20:48] LABS: Dohle Bodies Present (Not Present); Platelet Estimate Normal (Normal)
[2016-10-16] MEDS: Insulin DETEMIR 100 UNIT/ML X5UNITS SQ SCH (21:31)
[2016-10-16] MEDS: traZODone 50 MG TABLET PO SCH (21:32)
[2016-10-17 00:43] LABS: Basophils % 0.2 %; Eosinophils # 0.1 K/mcL (0.0-0.6); Eosinophils % 0.7 %; Hematocrit 29.5 % (35.3-44.9); Hemoglobin 9.5 g/dL (11.5-15.4); Immature Granulocytes % 0.9 % (0-4); Lymphocytes # 0.8 K/mcL (0.6-4.6); Lymphocytes % 4.9 %; Mean Corpuscular HGB Conc 32.2 g/dL (31.6-35.5); Mean Corpuscular Hemoglobin 30.1 pg (28.0-33.3); Mean Corpuscular Volume 93.4 fL (83.0-100.0); Monocytes # 0.8 K/mcL (0.0-1.3); Neutrophils # 14.3 K/mcL (1.6-8.9); Platelet Count 140 K/mcL (140-400); Red Blood Count 3.16 M/mcL (3.82-4.97); Segmented Neutrophils % 88.3 %
[2016-10-17 00:46] LABS: Calcium 8.5 mg/dL (8.6-10.8); Potassium 4.1 mEq/L (3.5-4.5)
[2016-10-17 01:02] LABS: Platelet Estimate Normal (Normal)
[2016-10-17] MEDS: Piperacillin/Tazobactam 3.375 GM in D5% in Water (Mini-Bag+) 100 ML IVPB SCH ×2 (04:05→17:33)
[2016-10-17] MEDS: *HR* Enoxaparin 30 MG/0.3 ML SYRINGE SQ SCH (04:32)
[2016-10-17] MEDS: hydrALAZINE 25 MG TABLET PO SCH ×3 (06:08→21:25)
[2016-10-17] MEDS: Insulin LISPRO 300 UNITS/3 ML VIAL SQ SCH ×4 (07:49→21:23)
[2016-10-17 08:39] LABS: Bilirubin,Urine Negative (Negative); Blood,Urine Negative (Negative); Clarity,Urine Cloudy (Clear); Color,Urine Yellow (Yellow); Glucose,Urine (UA) Normal (Normal); Ketones,Urine Negative (Negative); Leukocyte Esterase,Urine Moderate (Negative); Nitrite,Urine Negative (Negative); Protein,Urine 30 mg/dL (Neg-Trace); Specific Gravity,Urine 1.018 (1.010-1.025); Urobilinogen,Urine Normal (Normal)
[2016-10-17 08:41] LABS: Bacteria,Urine None Seen per hpf (None-Few); Hyaline Casts,Urine None Seen per lpf (None-Few); Squamous Epithelial Cell,Urine Many per lpf (None-Few); WBC,Urine 30-50 per hpf (0-3)
[2016-10-17 08:42] LABS: Protein/Creatinine Ratio,Urine 0.23 mg/mg (0-0.20)
[2016-10-17] MEDS: Aspirin 325 MG TABLET PO SCH (09:48)
[2016-10-17] MEDS: Nystatin POWDER 30 GM BOTTLE TP SCH ×2 (12:20→21:26)
--- NOTE | 2016-10-17 13:39 | Nephrology Progress Note ---
Date of Encounter: 10/17/16 Time of Encounter: 13:37 - Assessment and Plan (1) Acute kidney injury Current Visit: Yes Status: Acute Patient's creatinine continues to rise. Etiology is likely multifactorial. Patient had significant decrease in her recorded blood pressure overnight that could have contributed. She also has been in a volume negative state for the past few days and now has vancomycin for her infection. Renal US unremarkable. Repeat UA after ralph is in place. Need accurate Is and Os. With decreasing oral intake will check calorie counts. (2) Acute exacerbation of CHF (congestive heart failure) Current Visit: Yes Status: Acute Patient's volume status seems to be improved. Her edema is mostly resolved. She has diastolic dysfunction and could benefit from control of her blood pressure. Qualifiers: Congestive heart failure type: unspecified congestive heart failure type Qualified Code(s): I50.9 - Heart failure, unspecified (3) HCAP (healthcare-associated pneumonia) Current Visit: Yes Status: Acute Possible aspiration. WBC improving after antibiotics. Likely cause of her current dyspnea. (4) Diabetes Current Visit: No Status: Chronic per primary team Qualifiers: Diabetes mellitus type: type 2 Diabetes mellitus complication status: with unspecified complications Diabetes mellitus fdc insulin use: with fdc use Qualified Code(s): E11.8 - Type 2 diabetes mellitus with unspecified complications; Z79.4 - FPC (current) use of insulin (5) HTN (hypertension) Current Visit: No Status: Chronic Titrate antihypertensive medication as needed. Will add amlodipine for now. Patient would benefit from a transition to SURINDER-I /ARB and/or diuretic once renal function is improved. Qualifiers: Hypertension type: essential hypertension Qualified Code(s): I10 - Essential (primary) hypertension Subjective Principal diagnosis: Shortness of breath Interval history: Patient seen. She is lying in bed with decreased dyspnea. She denies chest pain. Review of systems is otherwise stable. Objective - Vital Signs Vital signs: Vital Signs Temp Pulse Resp BP Pulse Ox 10/17/16 11:21 97.4 F L 65 16 148/73 100 10/17/16 09:45 98 10/17/16 07:31 97.6 F 65 16 152/61 98 10/17/16 03:01 97.7 F 62 18 169/63 94 10/16/16 22:57 100 10/16/16 19:52 100 10/16/16 18:48 98.2 F 74 20 154/63 100 10/16/16 15:08 97.7 F 73 18 149/75 99 Intake and Output 10/16/16 10/17/16 10/17/16 23:59 07:59 15:59 Intake Total 340 / 340 763 / 763 466 / 466 Balance 340 / 340 763 / 763 466 / 466 Intake: IV Fluids 100 / 100 163 / 163 226 / 226 Heparin 25,000 UNIT/500 163 / 163 126 / 126 ML D5W 25,000 unit In 500 ml @ 20 mls/hr IVC .Q24H [facility] Rx#:[id number] Zosyn 3.375 GM In 100 / 100 100 / 100 Dextrose 5% (Minibag+) 100 ML 100 ML @ 25 mls/hr IVPB Q12H [facility] Rx#: [id number] Oral 240 / 240 600 / 600 240 / 240 Other: Meal Lunch Percent of Meal Consumed 0% 5% Weight 105.823 kg Blood Glucose* 117 140 183 - General Appearance General appearance: Present: well-developed, well-nourished EENT: Present: ATNC Neck: Present: supple Respiratory: Present: course breath sounds Cardiology: Present: edema (improving), regular rate Gastrointestinal: Present: no tenderness Integumentary: Present: warm and dry Neurologic: Present: alert and oriented x3 Musculoskeletal: Present: no cyanosis Psychiatric: Present: depressed - Lab 10/17/16 00:26 10/17/16 00:26 Most recent lab results Calcium 8.5 mg/dL (8.6-10.8) L 10/17/16 00:26 Phosphorus 4.8 mg/dL (2.3-4.7) H 10/16/16 03:47 Magnesium 1.3 mg/dL (1.6-2.6) L 10/16/16 03:47 Urine Creatinine 117 mg/dL 10/17/16 07:57 Urine Total Protein 27 mg/dL (1-14) H 10/17/16 07:57 - VTE Documentation of Mechanical Device: Graduated compression elastic hosiery Consult Discharge Plan - Plan Referrals: Domonique Rajput MD [Primary Care Provider] -
[2016-10-17] MEDS: amLODIPine 5 MG TABLET PO SCH (14:39)
[2016-10-17 14:51] LABS: Bilirubin,Urine Negative (Negative); Blood,Urine Negative (Negative); Clarity,Urine Cloudy (Clear); Color,Urine Yellow (Yellow); Glucose,Urine (UA) Normal (Normal); Ketones,Urine Negative (Negative); Leukocyte Esterase,Urine Moderate (Negative); Nitrite,Urine Negative (Negative); PH,Urine 5.5 pH Units (5.0-8.0); Protein,Urine 30 mg/dL (Neg-Trace); Specific Gravity,Urine 1.017 (1.010-1.025); Urobilinogen,Urine Normal (Normal)
[2016-10-17 14:52] LABS: Bacteria,Urine None Seen per hpf (None-Few); Hyaline Casts,Urine None Seen per lpf (None-Few); Squamous Epithelial Cell,Urine Many per lpf (None-Few); WBC,Urine 30-50 per hpf (0-3)
[2016-10-17] MEDS ORDERED: Vancomycin 1,500 MG in D5% in Water 250 ML IVPB ONE (18:00)
--- NOTE | 2016-10-17 18:28 | Internal Med Progress Note ---
Date of Encounter: 10/17/16 Time of Encounter: 09:00 - Assessment and plan (1) Acute exacerbation of CHF (congestive heart failure) Current Visit: Yes Status: Acute Assessment and plan: Volume status is improved, she is euvolemic and peripheral edema has greatly improved. Possibly +1 in lower extremities with no pitting. Lasix has been stopped due to worsening renal function. Dr. Eckert added Norvasc for blood pressure control. Qualifiers: Congestive heart failure type: unspecified congestive heart failure type Qualified Code(s): I50.9 - Heart failure, unspecified (2) HCAP (healthcare-associated pneumonia) Current Visit: Yes Status: Acute Assessment and plan: Patient is still being treated with IV antibiotics and is still requiring supplemental oxygen to maintain her sats. Lung sounds are rhonchorous with wheezing posteriorly Patient reports sometimes productive cough. We will continue plan as above. (3) Diabetes Current Visit: No Status: Chronic Assessment and plan: Sliding-scale insulin Accu-Cheks before meals at bedtime Diabetic diet Continue to monitor labs. Qualifiers: Diabetes mellitus type: type 2 Diabetes mellitus complication status: with unspecified complications Diabetes mellitus group home insulin use: with terminal press operator use Qualified Code(s): E11.8 - Type 2 diabetes mellitus with unspecified complications; Z79.4 - exterminator (current) use of insulin (4) Leukocytosis Current Visit: No Status: Acute Assessment and plan: White count 16.2 today slowly decreasing. Plan as above Qualifiers: Leukocytosis type: bandemia Qualified Code(s): D72.825 - Bandemia (5) Acute kidney injury Current Visit: Yes Status: Acute Assessment and plan: Nephrology is following for acute kidney injury. Renal function continues to worsen, Lasix has been stopped, pharmacy is dosing vancomycin Nephrology has requested a Summers for strict I's and O's He has added Norvasc for blood pressure. Continue to monitor labs. (6) Morbid obesity with BMI of 40.0-44.9, adult Current Visit: No Status: Acute Assessment and plan: Chronic. Lifestyle changes. (7) Generalized weakness Current Visit: Yes Status: Acute Assessment and plan: Patient is up at bedside today in her chair. She has been visiting with family. Continue PT and OT tomorrow Patient most likely will not go to the [facility] until midweek. Monitor labs and vital signs (8) Hyperkalemia Current Visit: Yes Status: Resolved (9) Hypertensive urgency Current Visit: Yes Status: Acute (10) DVT prophylaxis Current Visit: No Status: Acute Assessment and plan: Subcutaneous Lovenox daily (11) Elevated troponin Current Visit: No Status: Acute Assessment and plan: Troponin elevated to 0.18 and 0.16 this afternoon. This is most likely due to demand ischemia from recent CHF pneumonia hypoxia and renal disease. We will draw one more in the morning to watch the trend. Cardiology is following if necessary. She denies chest pain. She is short of breath due to pneumonia most likely. We will continue to monitor. - Time Spent With Patient less than 15 minutes - Subjective Interval history: I have been in patient's room several times today to see her. This morning and this afternoon she was sitting at the bedside and was in good spirits. She was interactive and joking with me. She had family come today to bring easter dinner. She was aware of the probable amount of sodium in the food and did not eat much. She still remains diuresed. Her family at the bedside says that they have never seen her legs so thin and not red. Patient initially said she was too weak to get up, however her family seem to brighten her spirits and she was up enjoying herself with her family. She is holding well on a nasal cannula at about 93% while he was in the room. She still has rhonchi posteriorly and some wheezing in her bases. She was seen by nephrology today, we discussed that she will most likely would not be ready for discharge to the [facility] until midweek. Family and patient are aware as well. - Constitutional Vitals: Temp Pulse Resp BP Pulse Ox 97.4 F L 62 16 159/74 97 10/17/16 15:12 10/17/16 15:12 10/17/16 15:12 10/17/16 15:12 10/17/16 15:12 General appearance: Present: cooperative, mild distress, A&O X 3, morbidly obese , pleasant, no acute distress, answers questions appropriately - Head Head exam: Present: normal inspection - Eye Eye exam: Present: normal appearance - ENT ENT exam: Present: mucous membranes moist, normal exam - Neck Neck exam general surgery: Present: normal inspection. Absent: lymphadenopathy , tenderness - Respiratory Respiratory exam: Present: decreased breath sounds, rhonchi, wheezes. Absent: chest wall tenderness, tachypnea - Cardiovascular Cardiovascular exam: Present: RRR, +S1, +S2. Absent: diastolic murmur, systolic murmur - GI/Abdominal GI/Abdominal exam: Present: normal bowel sounds, soft. Absent: tenderness - Extremities Exam Extremities exam: Present: normal inspection, warm, radial pulses palpable and symetrical. Absent: pedal edema, tenderness - Neurological Exam Neurological exam: Present: alert, oriented X3. Absent: no focal deficits, facial droop, speech deficit Internal Medicine: Result - Labs CBC & Chem 7: 10/17/16 00:26 10/17/16 00:26 Labs: Short CBC 10/16/16 10/17/16 Range/Units 20:10 00:26 WBC 16.8 H 16.2 H (4.3-11.1) K/mcL Hgb 9.5 L 9.5 L (11.5-15.4) g/dL Hct 30.0 L 29.5 L (35.3-44.9) % Plt Count 143 140 (140-400) K/mcL Neutrophils # 14.8 H 14.3 H (1.6-8.9) K/mcL BMP 10/17/16 00:26 Sodium 132 L Potassium 4.1 Chloride 96 L Carbon Dioxide 26 BUN 70 H Creatinine 3.25 H Glucose 132 H Calcium 8.5 L Cardiac Enzymes 10/16/16 10/17/16 Range/Units 18:20 00:26 Troponin I 0.18 H* 0.16 H* (0-0.03) ng/mL Urine 10/17/16 10/17/16 Range/Units 07:57 14:30 Urine Color Yellow Yellow (Yellow) Urine Clarity Cloudy A Cloudy A (Clear) Urine pH 5.0 5.5 (5.0-8.0) pH Units Ur Specific [place] 1.018 1.017 (1.010-1.025) Urine Protein 30 H 30 H (Neg-Trace) mg/dL Urine Glucose (UA) Normal Normal (Normal) mg/dL - ABG Interpretation ABG results: PT/INR, D-dimer PT 12.0 Seconds (9.4-12.1) 10/11/16 16:25 - VTE Documentation of Mechanical Device: Graduated compression elastic hosiery Consult Discharge Plan - Plan Referrals: Domonique Rajput MD [Primary Care Provider] -
[2016-10-17] MEDS: GuaiFENesin/Codeine Oral Soln 5 ML UDC PO PRN (18:50)
[2016-10-17] MEDS: Insulin DETEMIR 100 UNIT/ML X5UNITS SQ SCH (21:23)
[2016-10-17] MEDS: traZODone 50 MG TABLET PO SCH (21:24)
[2016-10-17] MEDS: Melatonin 3 MG TABLET PO SCH (21:24)
[2016-10-18] MEDS: Piperacillin/Tazobactam 3.375 GM in D5% in Water (Mini-Bag+) 100 ML IVPB SCH (03:52)
[2016-10-18 05:19] LABS: Basophils % 0.2 %; Eosinophils # 0.2 K/mcL (0.0-0.6); Eosinophils % 1.9 %; Hematocrit 29.2 % (35.3-44.9); Hemoglobin 9.2 g/dL (11.5-15.4); Immature Granulocytes % 0.8 % (0-4); Lymphocytes # 0.8 K/mcL (0.6-4.6); Lymphocytes % 6.4 %; Mean Corpuscular HGB Conc 31.5 g/dL (31.6-35.5); Mean Corpuscular Hemoglobin 29.7 pg (28.0-33.3); Mean Corpuscular Volume 94.2 fL (83.0-100.0); Mean Platelet Volume 11.3 fL (9.4-12.4); Monocytes # 0.8 K/mcL (0.0-1.3); Monocytes % 6.5 %; Neutrophils # 10.5 K/mcL (1.6-8.9); Platelet Count 159 K/mcL (140-400); Red Cell Distribution Width 12.9 % (11.5-14.5); Segmented Neutrophils % 84.2 %
[2016-10-18 05:37] LABS: Calcium 9.4 mg/dL (8.6-10.8); Potassium 4.4 mEq/L (3.5-4.5)
[2016-10-18] MEDS: hydrALAZINE 25 MG TABLET PO SCH ×3 (06:02→21:13)
[2016-10-18] MEDS: *HR* Enoxaparin 30 MG/0.3 ML SYRINGE SQ SCH (06:02)
[2016-10-18] MEDS: Insulin LISPRO 300 UNITS/3 ML VIAL SQ SCH ×4 (07:36→21:12)
[2016-10-18] MEDS: Aspirin 325 MG TABLET PO SCH (07:39)
[2016-10-18] MEDS: amLODIPine 5 MG TABLET PO SCH (07:44)
[2016-10-18] MEDS: Nystatin POWDER 30 GM BOTTLE TP SCH ×2 (07:45→21:14)
[2016-10-18] MEDS: Acetaminophen 325 MG TABLET PO PRN (08:09)
[2016-10-18] MEDS: Ondansetron 4 MG/2 ML VIAL IVP PRN (08:09)
--- NOTE | 2016-10-18 09:54 | Nephrology Progress Note ---
<Corbin Elkins - Last Filed: 10/18/16 17:14> Date of Encounter: 10/18/16 Time of Encounter: 09:30 - Assessment and Plan (1) Acute kidney injury Status: Acute OLIVIA with CKD. Patient's creatinine peaked at 3.25, slight improvement today at 3.05. Etiology is likely multifactorial. Hypotension noted previously, concern for volume negative state for the past few days, and the addition of vancomycin. Strict I/Os needed. Lasix being held currently. Consider switching from vancomycin to lineszolid- Will discuss with attending on -call, Dr. Whatley. Will continue to monitor creatinine. (3) Acute exacerbation of CHF (congestive heart failure) Status: Acute Imaging and physical exam was suggestive of acute CHF with dyspnea secondary to fluid overload on initial presentation. Patient appears euvolemic today with decreased BLE edema. See plan above concerning OLIVIA. Management of CHF per primary medicine team. Qualifiers: Congestive heart failure type: unspecified congestive heart failure type Qualified Code(s): I50.9 - Heart failure, unspecified (4) Diabetes Status: Chronic Management per primary medicine service. Qualifiers: Diabetes mellitus type: type 2 Diabetes mellitus complication status: with unspecified complications Diabetes mellitus long term acute care registered nurse insulin use: with long term acute care registered nurse use Qualified Code(s): E11.8 - Type 2 diabetes mellitus with unspecified complications; Z79.4 - terminal computer operator (current) use of insulin (5) HTN (hypertension) Status: Chronic Overall BP better controlled with BP at admission 231/152 to today's at 118/65. Qualifiers: Hypertension type: essential hypertension Qualified Code(s): I10 - Essential (primary) hypertension (6) DVT prophylaxis Status: Acute SQ Lovenox per primary medicine service. Subjective Principal diagnosis: Shortness of breath Interval history: Patient seen and examined, lying in bed. States dyspnea is not worse today, but also not better. She does note LE swelling has improved. She still feels nauseous today. Objective - Vital Signs Vital signs: Vital Signs Temp Pulse Resp BP Pulse Ox 10/18/16 06:54 97.4 F L 66 17 134/64 98 10/18/16 03:34 97.6 F 62 15 141/49 96 10/17/16 22:56 97.6 F 67 15 115/59 99 10/17/16 18:43 97.5 F L 63 17 157/52 98 04/16/17 15:12 97.4 F L 62 16 159/74 97 10/17/16 14:50 100 10/17/16 11:21 97.4 F L 65 16 148/73 100 Intake and Output 10/17/16 10/18/16 10/18/16 23:59 07:59 15:59 Intake Total 100 / 100 300 / 300 240 / 240 Output Total 400 / 400 Balance -300 / -300 300 / 300 240 / 240 Intake: IV Fluids 100 / 100 Zosyn 3.375 GM In 100 / 100 Dextrose 5% (Minibag+) 100 ML 100 ML @ 25 mls/hr IVPB Q12H [facility] Rx#: [id number] Oral 300 / 300 240 / 240 Output: Catheter 400 / 400 Other: Meal Dinner Breakfast Percent of Meal Consumed 10% 10% Weight 106.1 kg Blood Glucose* 217 131 Patient Weight 10/18/16 23:59 Weight 106.1 kg - General Appearance General appearance: Present: well-developed, well-nourished, appears started age , chronically ill EENT: Present: ATNC, mucous membranes moist Neck: Present: supple Additional Comments: decreased breath sounds Cardiology: Present: regular rate, regular rhythm. Absent: edema Integumentary: Present: no rash, warm and dry Neurologic: Present: no focal deficit, alert and oriented x3 Musculoskeletal: Present: no deformities, no erythema, no cyanosis Psychiatric: Present: mood/affect appropriate, cooperative - Lab 10/18/16 03:44 10/18/16 03:44 Most recent lab results Calcium 9.4 mg/dL (8.6-10.8) 10/18/16 03:44 Phosphorus 4.8 mg/dL (2.3-4.7) H 10/16/16 03:47 Magnesium 1.3 mg/dL (1.6-2.6) L 10/16/16 03:47 Urine Creatinine 117 mg/dL 10/17/16 07:57 Urine Total Protein 27 mg/dL (1-14) H 10/17/16 07:57 - VTE Documentation of Mechanical Device: Graduated compression elastic hosiery Consult Discharge Plan - Plan Additional Instructions: Follow-up with primary care provider and alteration worker within 1-2 weeks, follow- up with cardiology as needed Referrals: [facility] [Provider Group] [facility] [Provider Group] Domonique Rajput MD [Primary Care Provider] - Prescriptions: Amlodipine [Norvasc] 5 mg PO DAILY #30 tablet GuaiFENesin ER [Mucinex] 1,200 mg PO BID #28 tbbp.12hr Nystatin POWDER [Nystop] 1 appl TP BID #1 bottle <JayyShirley - Last Filed: 11/04/16 16:07> Date of Encounter: 10/18/16 Objective - Lab 10/20/16 05:30 10/20/16 05:30 Most recent lab results Calcium 9.9 mg/dL (8.6-10.8) 10/20/16 05:30 Phosphorus 4.8 mg/dL (2.3-4.7) H 10/16/16 03:47 Magnesium 1.3 mg/dL (1.6-2.6) L 10/16/16 03:47 Urine Creatinine 117 mg/dL 10/17/16 07:57 Urine Total Protein 27 mg/dL (1-14) H 10/17/16 07:57 - Attending Attestation I examined this patient and my medical decision-making was reviewed with the HAND RUG BRAIDER/PA/Advanced Practice Nurse/Resident Physician. I agree with the documented findings, disposition and treatment plan as described except to the extent set forth below. Pt seen and examined with OLIVIA likely multifactorial etiology including volume depletion and vanco as well as presumed sepsis. SCr slightly improved today at 3.05, no acute indication for EVP AND CHIEF OPERATING OFFICER at this time. Continue to hold lasix and suggest changing vanco to linezolid as less nephrotoxic but will defer to primary team.
--- NOTE | 2016-10-18 16:41 | Internal Med Progress Note ---
Date of Encounter: 10/18/16 Time of Encounter: 09:30 - Assessment and plan (1) Acute exacerbation of CHF (congestive heart failure) Current Visit: Yes Status: Acute Assessment and plan: Pedal and pretibial edema has resolved. Patient is euvolemic at this time. Her last BNP was elevated from admission, however most likely is due to demand. There are rhonchi and faint wheezing posteriorly. Cardiology has signed off, however I did speak to them today about her mildly elevated troponin. Lasix has been stopped at this time due to improvement of edema and at the recommendation of nephrology. Nephrology has ordered a Summers catheter for close monitoring of I's and O's Lasix has been held Oxygen to maintain saturations greater than 93% Continue to monitor fluid status Monitor patient's condition Cardiology consult as needed Continue home medications Qualifiers: Congestive heart failure type: unspecified congestive heart failure type Qualified Code(s): I50.9 - Heart failure, unspecified (2) HCAP (healthcare-associated pneumonia) Current Visit: Yes Status: Acute Assessment and plan: Nasal swab was positive for MRSA today. Patient denies history of this in the past. She was seen by pulmonology today as well. He recommended stopping the Zosyn which I did and speaks to patient regarding condition and lengthy recovery time. She is still requiring up to 5 L of oxygen to maintain her sats greater than 92% . Leukocytosis is improving. White count today is 12.4. Neutrophils have decreased from 14.3-10.3. She remained afebrile and normotensive, at times she is mildly hypertensive. New Medication has been added. Continue vancomycin pharmacy to dose every 12 hours Titrate oxygen as needed to maintain sats Monitor labs (3) Diabetes Current Visit: No Status: Chronic Assessment and plan: Continue sliding scale insulin Accu-Cheks before meals at bedtime Diabetic diet Qualifiers: Diabetes mellitus type: type 2 Diabetes mellitus complication status: with unspecified complications Diabetes mellitus termite inspector insulin use: with termite inspector use Qualified Code(s): E11.8 - Type 2 diabetes mellitus with unspecified complications; Z79.4 - [facility] (current) use of insulin (4) Leukocytosis Current Visit: No Status: Acute Qualifiers: Leukocytosis type: bandemia Qualified Code(s): D72.825 - Bandemia (5) Acute kidney injury Current Visit: Yes Status: Acute Assessment and plan: Patient has had worsening renal function throughout her visit. Nephrology was consulted early on and have followed closely. Urine creatinine decreased today 3.05, down from 3.25 yesterday. Lasix has been stopped. Zosyn was stopped today. Patient has a Summers for accurate I's and O's Vancomycin as dosed by pharmacy Added Norvasc to antihypertensive regimen Avoid nephrotoxins (6) Morbid obesity with BMI of 40.0-44.9, adult Current Visit: No Status: Acute Assessment and plan: Chronic. (7) Generalized weakness Current Visit: Yes Status: Acute Assessment and plan: Continue physical therapy and occupational therapy Encourage patient to get into the chair daily Monitor labs Monitor vital signs A shunt is scheduled to go to inpatient rehabilitation after she is released by nephrology. (8) Hyperkalemia Current Visit: Yes Status: Resolved Assessment and plan: Resolved. Continuing to monitor. (9) Hypertensive urgency Current Visit: Yes Status: Acute (10) Elevated troponin Current Visit: No Status: Acute Assessment and plan: Patient's troponin has elevated and stayed around 0.17-0.18. His flat and adynamic, and most likely due to demand. I did speak with cardiology today about this and they do not recommend any change in treatment plan. Patient is not having chest pain. She is on telemetry. Continue to monitor. (11) CKD (chronic kidney disease) stage 4, GFR 15-29 ml/min Current Visit: Yes Status: Acute Assessment and plan: Chronic. Plan as above - Time Spent With Patient less than 15 minutes - Subjective Interval history: Pt was seen and assessed this a.m. She was resting quietly in bed . She is alert and answers questions appropriately. She said she feels very weak, but she does feel better. She was able to help set up in the bed today. She said she would like to get up into the chair later today if she felt like it. She was seen by pulmonology today and apparently there was a misunderstanding with something that Dr. Kat said and she called all of her children and said that if things did not turn around she was going to have to have a tube down her throat to breathe. Zosyn was stopped today by recommendation of Dr. Kat. I spoke with her son by phone and one in person and set that that was not the case and that she is going to be fine. She is still being followed by nephrology. She will not be ready to go until later in the week. - Constitutional Vitals: Temp Pulse Resp BP Pulse Ox 97.4 F L 62 16 151/64 97 10/18/16 14:59 10/18/16 14:59 10/18/16 14:59 10/18/16 14:59 10/18/16 14:59 General appearance: Present: cooperative, mild distress, A&O X 3, morbidly obese , pleasant, no acute distress, answers questions appropriately - Eye Eye exam: Present: normal appearance, periorbital swelling - ENT ENT exam: Present: mucous membranes moist, normal exam - Neck Neck exam general surgery: Present: normal inspection. Absent: lymphadenopathy , tenderness - Respiratory Respiratory exam: Present: decreased breath sounds, rhonchi. Absent: chest wall tenderness, respiratory distress, wheezes - Cardiovascular Cardiovascular exam: Present: RRR, +S1, +S2. Absent: diastolic murmur, systolic murmur - Extremities Exam Extremities exam: Present: normal capillary refill, warm, radial pulses palpable and symetrical. Absent: pedal edema, tenderness - Neurological Exam Neurological exam: Present: alert, oriented X3. Absent: facial droop, speech deficit Internal Medicine: Result - Labs CBC & Chem 7: 10/18/16 03:44 10/18/16 03:44 Labs: Short CBC 10/18/16 Range/Units 03:44 WBC 12.4 H (4.3-11.1) K/mcL Hgb 9.2 L (11.5-15.4) g/dL Hct 29.2 L (35.3-44.9) % Plt Count 159 (140-400) K/mcL Neutrophils # 10.5 H (1.6-8.9) K/mcL BMP 10/18/16 03:44 Sodium 133 L Potassium 4.4 Chloride 96 L Carbon Dioxide 25 BUN 82 H Creatinine 3.05 H Glucose 120 H Calcium 9.4 Cardiac Enzymes 10/18/16 Range/Units 03:44 Troponin I 0.17 H* (0-0.03) ng/mL - ABG Interpretation ABG results: PT/INR, D-dimer PT 12.0 Seconds (9.4-12.1) 10/11/16 16:25 - VTE Documentation of Mechanical Device: Graduated compression elastic hosiery Consult Discharge Plan - Plan Referrals: Domonique Rajput MD [Primary Care Provider] -
--- NOTE | 2016-10-18 17:37 | Pulmonology Consult Note ---
Date of Encounter: 10/18/16 Time of Encounter: 12:45 Assessment and Plan (1) Acute respiratory failure with hypoxia Current Visit: Yes Status: Acute Patient has significant disease in her lower lobes mainly right side with evidence of pneumonia and suspect altelectasis. patient is responding to antibiotics and current treatment and wean off FIO2 to keep SPO2 around 90%. Encourage IS. (2) HCAP (healthcare-associated pneumonia) Current Visit: Yes Status: Acute Patient has been on broad spectrum antibiotics and since she is positive for MRSA, most likely her pneumonia is MRSA and discussed with primary team to stop Zosyn and continue Vancomycin for now. If no improvement, will consider bronchoscopy. Please call for any questions and thanks for the consult. History of Present Illness Consult date: 10/18/16 Requesting physician: Melisa Davis Reason for consult: pneumonia Chief complaint: Shortness of breath History of present illness: This is a very pleasant 81 year old female, poor historian with multiple medical problems, mainly cardiac and CKD who had shortness of breath and was diagnosed with pneumonia. Patient has not been feeling good since she has been sick and she has nausea. She has dyspnea with nonproductive cough, but denies hemoptysis and no chest pain. Pulmonary consulted because patient is not recovering fast enough from her illness. She has been on empiric antibiotics and her WBC is appropriately responding. Patient had nasal swab which was positive for MRSA. She denies any fever. She stated she had pneumonia in the past. Past Med Surg Social Fam HX - Past Medical History Medical history: cancer, diabetes, hypertension, renal disease Psychiatric history: no psych history - Past Surgical History Surgical History: cholecystectomy - Social History Smoking Status: Unknown if ever smoked Smokeless Tobacco Status: No Alcohol use: unknown Drug use: none - Family History Mother Living Status: Hx Family Cardiac Disorders: Yes Father Hx Family Cardiac Disorders: Yes Medications and Allergies Carvedilol [Coreg] 25 mg PO DAILY 03/25/16 [History] Glimepiride [Amaryl] 4 mg PO QAM 03/25/16 [History] Insulin Glargine [Lantus] 35 mg SQ HS 03/26/16 [History] Hydroxyzine HCl 25 mg PO HS PRN 04/12/16 [History] Ropinirole HCl [Requip] 8 mg PO HS 04/12/16 [History] Losartan Potassium [Cozaar] 50 mg PO DAILY 10/11/16 [History] Multivitamin [Multi-Day Vitamins] 1 each PO DAILY 10/11/16 [History] TraZODone 50 mg PO HS 10/11/16 [History] Allergies nadolol [From Corgard] Allergy (Verified 04/20/16 12:13) See Comments All Systems: A 10-system review of systems was performed and is negative for pertinent findings except as documented above in the HPI. Physical Examination Vital Signs: Vital Signs, Last 4 Hours Temp Pulse Resp BP Pulse Ox 10/18/16 14:59 97.4 F L 62 16 151/64 97 General appearance: no acute distress, alert Eyes: nonicteric ENT: oropharynx dry Neck: supple, no lymphadenopathy Effort: normal Auscultation: left: clear, right: diminished breath sounds, rhonchi Percussion: bilateral: not dull Cardiovascular: irregular rhythm, murmur noted Gastrointestinal: normoactive bowel sounds, non-distended Extremities: no cyanosis, edema normal mental status depressed Results - Laboratory Findings CBC and BMP: 10/18/16 03:44 10/18/16 03:44 PT/INR, D-dimer PT 12.0 Seconds (9.4-12.1) 10/11/16 16:25 Abnormal lab findings: Abnormal lab results WBC 12.4 K/mcL (4.3-11.1) H 10/18/16 03:44 RBC 3.10 M/mcL (3.82-4.97) L 10/18/16 03:44 Hgb 9.2 g/dL (11.5-15.4) L 10/18/16 03:44 Hct 29.2 % (35.3-44.9) L 10/18/16 03:44 MCHC 31.5 g/dL (31.6-35.5) L 10/18/16 03:44 Band Neutrophils % 12.0 % (0-4) H 10/16/16 20:10 Metamyelocytes % 2.0 % (0) H 10/15/16 04:53 Neutrophils # 10.5 K/mcL (1.6-8.9) H 10/18/16 03:44 Nucleated RBCs/100 WBC 0.3 /100 WBC (0) H 10/13/16 03:18 Dohle Bodies Present (Not Present) A 10/16/16 20:10 APTT 39.4 Seconds (26.0-36.0) H 10/17/16 03:39 VBG pCO2 54 mmHg (41-51) H 10/16/16 03:47 VBG pO2 104 mmHg (25-40) H 10/16/16 03:47 VBG HCO3 30.5 mEq/L (21-27) H 10/16/16 03:47 Sodium 133 mEq/L (136-145) L 10/18/16 03:44 Chloride 96 mEq/L (98-109) L 10/18/16 03:44 BUN 82 mg/dL (7-20) H 10/18/16 03:44 Creatinine 3.05 mg/dL (0.57-1.11) H 10/18/16 03:44 Est GFR ( Amer) 18 (> 60) L 10/18/16 03:44 Est GFR (Non-Af Amer) 15 (> 60) L 10/18/16 03:44 BUN/Creatinine Ratio 27 (6-26) H 10/18/16 03:44 Glucose 120 mg/dL (70-99) H 10/18/16 03:44 POC Glucose 178 (58-89) H 10/18/16 16:06 Hemoglobin A1c 6.9 % (-5.6) H 10/11/16 16:25 Calculated Osmolality 302 (280-300) H 10/18/16 03:44 Ionized Calcium 1.03 mmol/L (1.15-1.35) L 10/16/16 03:47 Phosphorus 4.8 mg/dL (2.3-4.7) H 10/16/16 03:47 Magnesium 1.3 mg/dL (1.6-2.6) L 10/16/16 03:47 Troponin I 0.17 ng/mL (0-0.03) H* 10/18/16 03:44 B-Natriuretic Peptide 926 pg/mL (0-100) H 10/16/16 03:47 Albumin 2.9 g/dL (3.5-5.0) L 10/11/16 17:15 Globulin 3.6 g/dL (2.4-3.5) H 10/11/16 17:15 Albumin/Globulin Ratio 0.8 (1.1-2.2) L 10/11/16 17:15 Urine Clarity Cloudy (Clear) A 10/17/16 14:30 Urine Protein 30 mg/dL (Neg-Trace) H 10/17/16 14:30 Ur Leukocyte Esterase Moderate (Negative) H 10/17/16 14:30 Urine Microscopic RBC 5-15 per hpf (0-3) H 10/17/16 14:30 Urine Microscopic WBC 30-50 per hpf (0-3) H 10/17/16 14:30 Ur Squamous Epith Cells Many per lpf (None-Few) H 10/17/16 14:30 Ur Culture Indicated? YES (NO) A 10/17/16 14:30 Protein/Creatinin Ratio 0.23 mg/mg (0-0.20) H 10/17/16 07:57 Urine Total Protein 27 mg/dL (1-14) H 10/17/16 07:57 Nasal Screen MRSA (PCR) Positive (Negative) A 10/17/16 14:30 - Microbiology Findings Microbiology Findings: Microbiology, Last 48 Hours 10/17/16 14:30 Urine Culture - Final Urine,Summers Port No growth. 10/17/16 07:57 Urine Culture - Final Urine,Clean Catch No pathogens isolated. - Diagnostic Findings CT scan - chest: report reviewed, image reviewed - Clinical Findings Intake & Output: Intake & Output 10/18/16 10/18/16 10/18/16 07:59 15:59 23:59 Intake Total 300 / 300 480 / 480 Balance 300 / 300 480 / 480 Weight 106.1 kg Consult Discharge Plan - Plan Referrals: Domonique Rajput MD [Primary Care Provider] -
--- NOTE | 2016-10-18 20:28 | Electrocardiograph Report ---
[address] [address] Test Date: 2016-10-16 Pat Name: Africa Tate Department: 113 Room: 3B44 Gender: F Roastmaster: DONJade : 1935 Requested By: Emiliano Hand Order Number: [id number] Reading MD: Joseph Pineda MD Measurements Intervals [place] Rate: 75 P: RI: 0 QRS: -22 QRSD: 112 T: 128 QT: 414 QTc: 443 Interpretive Statements INCOMPLETE INTERPRETATION WITH DEMAND VENTRICULAR PACED RHYTHM TRANSITIONING TO IRREGULAR RHYTHM THAT SEEMS TO BE ATRIAL FIBRILLATION RATE, V RATE WITH CONTROLLED RATE. POOR R WAVE PROGRESSION Electronically Signed On 10-18-2016 20:27:27 EDT by Joseph Pineda MD
[2016-10-18] MEDS: traZODone 50 MG TABLET PO SCH (21:13)
[2016-10-18] MEDS: Insulin DETEMIR 100 UNIT/ML X5UNITS SQ SCH (21:13)
[2016-10-18] MEDS: Melatonin 3 MG TABLET PO SCH (21:14)
[2016-10-18] MEDS: GuaiFENesin/Codeine Oral Soln 5 ML UDC PO PRN (22:13)
[2016-10-19] MEDS: GuaiFENesin/Codeine Oral Soln 5 ML UDC PO PRN (06:34)
[2016-10-19] MEDS: hydrALAZINE 25 MG TABLET PO SCH ×3 (06:35→21:04)
[2016-10-19] MEDS: *HR* Enoxaparin 30 MG/0.3 ML SYRINGE SQ SCH (06:36)
[2016-10-19] MEDS: Nystatin POWDER 30 GM BOTTLE TP SCH ×2 (08:41→21:05)
[2016-10-19] MEDS: Aspirin 325 MG TABLET PO SCH (08:41)
[2016-10-19] MEDS: amLODIPine 5 MG TABLET PO SCH (08:41)
[2016-10-19] MEDS: Insulin LISPRO 300 UNITS/3 ML VIAL SQ SCH ×4 (08:42→21:03)
--- NOTE | 2016-10-19 08:51 | Pulmonology Progress Note ---
Date of Encounter: 10/19/16 Time of Encounter: 08:10 Assessment and Plan (1) Acute respiratory failure with hypoxia Current Visit: Yes Status: Acute This is secondary to pneumonia and atelectasis. Continue antibiotics and wean off FIO2 to keep SPO2 arund 90% with IS. (2) HCAP (healthcare-associated pneumonia) Current Visit: Yes Status: Acute Patient clinically stable and checking sputum for Gram stain and culture would be helpful. If no improvement, please call and will yan for bronchoscopy. Subjective Principal diagnosis: Shortness of breath Interval history: Patient is feeling slightly better. Objective PUL Vital signs: Last Vital Signs Temp 98.7 F 10/19/16 07:41 Pulse 72 10/19/16 07:41 Resp 15 10/19/16 07:41 BP 157/67 10/19/16 07:41 Pulse Ox 94 10/19/16 07:41 General appearance: no acute distress Eyes: nonicteric ENT: oropharynx moist Neck: supple Effort: normal Auscultation: right: rhonchi, bilateral: diminished breath sounds (bases) Percussion: bilateral: not dull Cardiovascular: regular rate and rhythm Gastrointestinal: normoactive bowel sounds Extremities: no cyanosis, edema non-focal exam depressed Results - Laboratory Findings CBC and BMP: 10/18/16 03:44 10/18/16 03:44 PT/INR, D-dimer PT 12.0 Seconds (9.4-12.1) 10/11/16 16:25 Abnormal lab findings: Abnormal lab results WBC 12.4 K/mcL (4.3-11.1) H 10/18/16 03:44 RBC 3.10 M/mcL (3.82-4.97) L 10/18/16 03:44 Hgb 9.2 g/dL (11.5-15.4) L 10/18/16 03:44 Hct 29.2 % (35.3-44.9) L 10/18/16 03:44 MCHC 31.5 g/dL (31.6-35.5) L 10/18/16 03:44 Band Neutrophils % 12.0 % (0-4) H 10/16/16 20:10 Metamyelocytes % 2.0 % (0) H 10/15/16 04:53 Neutrophils # 10.5 K/mcL (1.6-8.9) H 10/18/16 03:44 Nucleated RBCs/100 WBC 0.3 /100 WBC (0) H 10/13/16 03:18 Dohle Bodies Present (Not Present) A 10/16/16 20:10 APTT 39.4 Seconds (26.0-36.0) H 10/17/16 03:39 VBG pCO2 54 mmHg (41-51) H 10/16/16 03:47 VBG pO2 104 mmHg (25-40) H 10/16/16 03:47 VBG HCO3 30.5 mEq/L (21-27) H 10/16/16 03:47 Sodium 133 mEq/L (136-145) L 10/18/16 03:44 Chloride 96 mEq/L (98-109) L 10/18/16 03:44 BUN 82 mg/dL (7-20) H 10/18/16 03:44 Creatinine 3.05 mg/dL (0.57-1.11) H 10/18/16 03:44 Est GFR ( Amer) 18 (> 60) L 10/18/16 03:44 Est GFR (Non-Af Amer) 15 (> 60) L 10/18/16 03:44 BUN/Creatinine Ratio 27 (6-26) H 10/18/16 03:44 Glucose 120 mg/dL (70-99) H 10/18/16 03:44 POC Glucose 160 (58-89) H 10/19/16 07:35 Hemoglobin A1c 6.9 % (-5.6) H 10/11/16 16:25 Calculated Osmolality 302 (280-300) H 10/18/16 03:44 Ionized Calcium 1.03 mmol/L (1.15-1.35) L 10/16/16 03:47 Phosphorus 4.8 mg/dL (2.3-4.7) H 10/16/16 03:47 Magnesium 1.3 mg/dL (1.6-2.6) L 10/16/16 03:47 Troponin I 0.17 ng/mL (0-0.03) H* 10/18/16 03:44 B-Natriuretic Peptide 926 pg/mL (0-100) H 10/16/16 03:47 Albumin 2.9 g/dL (3.5-5.0) L 10/11/16 17:15 Globulin 3.6 g/dL (2.4-3.5) H 10/11/16 17:15 Albumin/Globulin Ratio 0.8 (1.1-2.2) L 10/11/16 17:15 Urine Clarity Cloudy (Clear) A 10/17/16 14:30 Urine Protein 30 mg/dL (Neg-Trace) H 10/17/16 14:30 Ur Leukocyte Esterase Moderate (Negative) H 10/17/16 14:30 Urine Microscopic RBC 5-15 per hpf (0-3) H 10/17/16 14:30 Urine Microscopic WBC 30-50 per hpf (0-3) H 10/17/16 14:30 Ur Squamous Epith Cells Many per lpf (None-Few) H 10/17/16 14:30 Ur Culture Indicated? YES (NO) A 10/17/16 14:30 Protein/Creatinin Ratio 0.23 mg/mg (0-0.20) H 10/17/16 07:57 Urine Total Protein 27 mg/dL (1-14) H 10/17/16 07:57 Nasal Screen MRSA (PCR) Positive (Negative) A 10/17/16 14:30 Vancomycin Trough 20.8 mcg/mL (10-20) H* 10/19/16 04:03 - Microbiology Findings Microbiology Findings: Microbiology, Last 48 Hours 10/17/16 14:30 Urine Culture - Final Urine,Summers Port No growth. 10/17/16 07:57 Urine Culture - Final Urine,Clean Catch No pathogens isolated. - Clinical Findings Intake & Output: Intake & Output 10/18/16 10/19/16 10/19/16 23:59 07:59 15:59 Weight 107.683 kg - VTE Documentation of Mechanical Device: Graduated compression elastic hosiery Consult Discharge Plan - Plan Referrals: Domonique Rajput MD [Primary Care Provider] -
[2016-10-19] MEDS ORDERED: Aminoglycoside Consult 1 EACH MC ONE (09:30)
[2016-10-19 09:39] LABS: Calcium 10.1 mg/dL (8.6-10.8); Potassium 4.4 mEq/L (3.5-4.5)
[2016-10-19] MEDS: Ipratropium/Albuterol Neb 3 ML IH PRN (11:50)
[2016-10-19] MEDS ORDERED: *HR* Acetaminophen w/Cod 300-30 mg 1 TAB TABLET PO PRN (11:55)
--- NOTE | 2016-10-19 13:55 | Internal Med Progress Note ---
Date of Encounter: 10/19/16 Time of Encounter: 09:30 - Assessment and plan (1) HCAP (healthcare-associated pneumonia) Current Visit: Yes Status: Acute Assessment and plan: Initially upon presentation, chest x-ray negative. Repeat chest x-ray 3 days after presentation revealed acute CHF with bilateral pleural effusions. Chest CT then revealing possible pneumonia and atelectasis. Patient was then started on Zosyn. MRSA surveillance swab positive so patient was changed to vancomycin and Zosyn was discontinued. Pulmonology on board and there is a consideration for bronchoscopy. Does not appear as if the patient has been on any mucolytic since admission, will add those now given that she has a moist but nonproductive cough. No sputum culture has been obtained. Given her nonproductive cough. She is currently on 3 L per nasal cannula and states that her shortness of breath has improved. We will add mucolytic's and chest physiotherapy and monitor her response. On examination, patient with fair aeration throughout with coarse rhonchi present. Suspect majority of rhonchorous sounds are deferred from upper airway congestion. No speech therapy warranted. ITS Impressions Chest X-Ray 10/11/16 16:17 IMPRESSION: No acute process. No evidence of CHF or pneumonia. D/ / 10/11/2016 16:53:59 Precious Mcintyre MD / jasvir Interpreting Provider: Precious Mcintyre MD Chest X-Ray 10/14/16 13:47 IMPRESSION: Acute CHF with small to moderate right and small left pleural effusions. D/ / Yobani Jensen MD / Yobani Jensen MD Interpreting Provider: Yobani Jensen MD Chest CT 10/15/16 14:30 IMPRESSION: No substantial pleural effusion. Findings as above concerning for infection. D/ / Martha Sotomayor MD / Martha Sotomayor MD Interpreting Provider: Martha Sotomayor MD (2) Acute respiratory failure with hypoxia Current Visit: Yes Status: Acute Assessment and plan: He is not on oxygen at home. Currently titrated down to 3 L, will continue to titrate as she tolerates. (3) CKD (chronic kidney disease) stage 4, GFR 15-29 ml/min Current Visit: Yes Status: Chronic Assessment and plan: Renal functioning currently lower than her baseline. She was stage III up until March 2016 at which time, she transition to stage IV. Current values lower than her baseline, furosemide has been held. Nephrology on board. (4) Leukocytosis Current Visit: No Status: Acute Assessment and plan: Trending down, continue Vanc. Zosyn has been stopped. Surveillance swab positive for MRSA. No blood cultures obtained however no clinical indicators of sepsis or septicemia. Qualifiers: Leukocytosis type: bandemia Qualified Code(s): D72.825 - Bandemia (5) HTN (hypertension) Current Visit: No Status: Chronic Assessment and plan: Controlled. At home, patient is on losartan 50 mg daily, carvedilol 25 mg daily. Losartan has been held due to acute kidney injury superimposed on chronic kidney disease and amlodipine has been initiated. Carvedilol has been continued. We will continue to trend and adjust medications as indicated. (6) Diabetes Current Visit: No Status: Chronic Assessment and plan: Controlled. A1c earlier this month of 6.9%. Continue sliding scale while admitted. (7) DVT prophylaxis Current Visit: No Status: Acute Assessment and plan: Subcutaneous Lovenox daily (8) Elevated troponin Current Visit: No Status: Acute Assessment and plan: Patient's troponin trended up then remained adymaic around 0.17-0.18. Suspect secondary to OLIVIA on CKD and demand ischemia. Patient denies chest pain. Suspicion for ACS low. Cardiology was on board earlier on in this admission and has since signed off and cleared her for outpatient follow-up. Patient denies chest pain. (9) Venous insufficiency Current Visit: No Status: Chronic (10) Bilateral edema of lower extremity Current Visit: No Status: Resolved (11) UTI (urinary tract infection) Current Visit: No Status: Ruled-out Assessment and plan: Urine culture negative. Patient denies dysuria. Qualifiers: Urinary tract infection type: site unspecified Hematuria presence: without hematuria Qualified Code(s): N39.0 - Urinary tract infection, site not specified (12) Anxiety Current Visit: No Status: Chronic (13) Morbid obesity with BMI of 40.0-44.9, adult Current Visit: No Status: Acute Assessment and plan: Chronic. (14) Acute exacerbation of CHF (congestive heart failure) Current Visit: Yes Status: Acute Assessment and plan: Acute on chronic diastolic heart failure. Patient had an echocardiogram last week that revealed an ejection fraction of 60-65% with moderate diastolic dysfunction. She has been successfully diuresed and is currently euvolemic on examination. No lower extremity edema present. Patient stating her shortness of breath is improving. Currently holding furosemide secondary to renal functioning. Continue sodium and fluid restricted diets. Qualifiers: Congestive heart failure type: diastolic Qualified Code(s): I50.33 - Acute on chronic diastolic (congestive) heart failure (15) Generalized weakness Current Visit: Yes Status: Acute Assessment and plan: OT and PT have recommended ECF placement. Per social work coordinator, traditions have accepted her when she is medically stable. At this point, she is not fit to be transferred. Continue to monitor respiratory status and renal functioning. - Time Spent With Patient Greater than 35 minutes - Subjective Interval history: Patient seen and examined. On examination, patient initially asleep and awaken easily to voice. She currently denies pain. She states her shortness of breath is improving. She continues to endorse a moist but nonproductive cough. She states the swelling in her legs has resolved. - Constitutional Vitals: Temp Pulse Resp BP Pulse Ox 97.7 F 65 16 163/62 94 10/19/16 10:31 10/19/16 10:31 10/19/16 11:51 10/19/16 10:31 10/19/16 11:51 General appearance: Present: cooperative, mild distress, A&O X 3, morbidly obese , pleasant, answers questions appropriately - Head Head exam: Present: atraumatic, normocephalic - Eye Eye exam: Present: PERRL, conjuntiva pink, sclera anicteric Pupils: Present: PERRL - Neck Neck exam general surgery: Present: supple, trachea midline. Absent: lymphadenopathy - Respiratory Respiratory exam: Present: accessory muscle use, decreased breath sounds, respiratory distress (mild), rhonchi. Absent: rales, wheezes - Cardiovascular Cardiovascular exam: Present: RRR, +S1, +S2. Absent: diastolic murmur, gallop, rubs, systolic murmur - GI/Abdominal GI/Abdominal exam: Present: normal bowel sounds, soft, no peritoneal signs. Absent: distended, tenderness - Extremities Exam Extremities exam: Present: warm, radial pulses palpable and symetrical. Absent : calf tenderness, cyanotic, pedal edema - Neurological Exam Neurological exam: Present: alert, CN II-XII intact, oriented X3, no focal deficits, strengths equal and symetr throughout. Absent: pronater drift, facial droop, speech deficit - Skin Skin exam: Present: dry, intact, pallor, warm Internal Medicine: Result - Labs CBC & Chem 7: 10/18/16 03:44 10/19/16 09:17 Labs: BMP 10/19/16 09:17 Sodium 132 L Potassium 4.4 Chloride 94 L Carbon Dioxide 31 H BUN 88 H Creatinine 2.90 H Glucose 178 H Calcium 10.1 - ABG Interpretation ABG results: PT/INR, D-dimer PT 12.0 Seconds (9.4-12.1) 10/11/16 16:25 - VTE Documentation of Mechanical Device: Graduated compression elastic hosiery Consult Discharge Plan - Plan Referrals: Domonique Rajput MD [Primary Care Provider] -
--- NOTE | 2016-10-19 14:34 | Nephrology Progress Note ---
<Corbin Elkins - Last Filed: 10/19/16 14:31> Date of Encounter: 10/19/16 Time of Encounter: 09:30 - Assessment and Plan (1) Acute kidney injury Status: Acute OLIVIA with CKD. Patient's creatinine peaked at 3.25, continued slow improvement at 2.09 today. Etiology is likely multifactorial. Hypotension noted previously, concern for volume negative state, and the addition of vancomycin. No indication for acute dialysis at this time, expect patient's kidney function to slowly improve with protective measures taken. Patient found to have MRSA positive sputum, for which she was started on Vancomycin. Would recommend switching to Linezolid in the setting of patient's OLIVIA. Discussed plan with hospitalist and attending. Strict I/Os needed. (2) HCAP (healthcare-associated pneumonia) Status: Acute Management per primary service. Discussed with hospitalist possibly of transition patient from Vancomycin to Linezolid in the setting of OLIVIA. (3) Acute exacerbation of CHF (congestive heart failure) Status: Acute Imaging and physical exam was suggestive of acute CHF with dyspnea secondary to fluid overload on initial presentation. Patient appears euvolemic today with decreased BLE edema. See plan above concerning OLIVIA. Management of CHF per primary medicine team. Qualifiers: Congestive heart failure type: diastolic Qualified Code(s): I50.33 - Acute on chronic diastolic (congestive) heart failure (4) Diabetes Status: Chronic Management per primary medicine service. Qualifiers: Diabetes mellitus type: type 2 Diabetes mellitus complication status: with unspecified complications Diabetes mellitus terminal operator insulin use: with terminal operator use Qualified Code(s): E11.8 - Type 2 diabetes mellitus with unspecified complications; Z79.4 - assisted (current) use of insulin (5) HTN (hypertension) Status: Chronic Overall BP better controlled with BP at admission 231/152 to today's at 139/50. Qualifiers: Hypertension type: essential hypertension Qualified Code(s): I10 - Essential (primary) hypertension (6) DVT prophylaxis Status: Acute SQ Lovenox per primary medicine service. Subjective Principal diagnosis: Shortness of breath Interval history: Patient seen and examined at bedside. Patient notes slight improvement overall, continued dyspnea though slight better and resolution of nausea. She notes LE swelling has improved. Objective - Vital Signs Vital signs: Vital Signs Temp Pulse Resp BP Pulse Ox 10/19/16 14:23 97.5 F L 62 15 139/50 97 10/19/16 11:51 16 94 10/19/16 10:31 97.7 F 65 16 163/62 94 10/19/16 07:41 98.7 F 72 15 157/67 94 10/19/16 04:39 97.5 F L 62 20 173/65 93 10/18/16 23:14 97.7 F 92 19 131/51 100 10/18/16 20:50 97 10/18/16 19:40 97.6 F 62 18 152/60 97 10/18/16 14:59 97.4 F L 62 16 151/64 97 Intake and Output 10/18/16 10/19/16 10/19/16 23:59 07:59 15:59 Intake Total 360 / 360 Output Total 300 / 300 Balance 60 / 60 Intake: Oral 360 / 360 Output: Catheter 300 / 300 Other: Meal Dinner Lunch Percent of Meal Consumed 10% 100% Stool Size Smear Stool Consistency loose soft Stool Color Brown # Bowel Movements 1 Weight 107.683 kg Blood Glucose* 324 160 203 Patient Weight 10/19/16 23:59 Weight 107.683 kg - General Appearance General appearance: Present: well-developed, well-nourished, appears started age , chronically ill EENT: Present: ATNC, mucous membranes moist, hearing intact, vision intact Neck: Present: supple Additional Comments: decreased breath sounds Cardiology: Present: edema (trace BLE edema), regular rate, regular rhythm Integumentary: Present: no rash, warm and dry Neurologic: Present: no focal deficit, alert and oriented x3 Musculoskeletal: Present: no deformities, no erythema, no cyanosis Psychiatric: Present: mood/affect appropriate, cooperative - Lab 10/18/16 03:44 10/19/16 09:17 Most recent lab results Calcium 10.1 mg/dL (8.6-10.8) 10/19/16 09:17 Phosphorus 4.8 mg/dL (2.3-4.7) H 10/16/16 03:47 Magnesium 1.3 mg/dL (1.6-2.6) L 10/16/16 03:47 Urine Creatinine 117 mg/dL 10/17/16 07:57 Urine Total Protein 27 mg/dL (1-14) H 10/17/16 07:57 - VTE Documentation of Mechanical Device: Graduated compression elastic hosiery Consult Discharge Plan - Plan Additional Instructions: Follow-up with primary care provider and paper finisher within 1-2 weeks, follow- up with cardiology as needed Referrals: Cardiology [facility] [Provider Group] [facility] [Provider Group] Domonique Rajput MD [Primary Care Provider] - Prescriptions: Amlodipine [Norvasc] 5 mg PO DAILY #30 tablet GuaiFENesin ER [Mucinex] 1,200 mg PO BID #28 tbbp.12hr Nystatin POWDER [Nystop] 1 appl TP BID #1 bottle <Shirley Hope Phylicia - Last Filed: 11/04/16 16:09> Date of Encounter: 10/19/16 Objective - Lab 10/20/16 05:30 10/20/16 05:30 Most recent lab results Calcium 9.9 mg/dL (8.6-10.8) 10/20/16 05:30 Phosphorus 4.8 mg/dL (2.3-4.7) H 10/16/16 03:47 Magnesium 1.3 mg/dL (1.6-2.6) L 10/16/16 03:47 Urine Creatinine 117 mg/dL 10/17/16 07:57 Urine Total Protein 27 mg/dL (1-14) H 10/17/16 07:57 - Attending Attestation I examined this patient and my medical decision-making was reviewed with the CEMENT RAILROAD CAR LOADER/PA/Advanced Practice Nurse/Resident Physician. I agree with the documented findings, disposition and treatment plan as described except to the extent set forth below. Pt seen and examined with SCr continuing to improve down to 2.09 today. Continue renal protective strategy. No acute indication for PHLEBOTOMY LAB ASSISTANT at this point.
[2016-10-19] MEDS: Acetylcysteine 10% 2 ML INHSOL IH SCH ×5 (16:40→23:36)
[2016-10-19] MEDS: Ipratropium/Albuterol Neb 3 ML IH SCH ×3 (16:40→23:36)
[2016-10-19] MEDS ORDERED: Vancomycin 1,000 MG in D5% in Water 250 ML IVPB ONE (18:00)
[2016-10-19] MEDS ORDERED: Vancomycin 500 MG in D5% in Water (Mini-Bag+) 100 ML IVPB ONE (18:00)
[2016-10-19] MEDS: Insulin DETEMIR 100 UNIT/ML X5UNITS SQ SCH (21:03)
[2016-10-19] MEDS: Melatonin 3 MG TABLET PO SCH (21:04)
[2016-10-19] MEDS: traZODone 50 MG TABLET PO SCH (21:04)
[2016-10-20] MEDS: Acetylcysteine 10% 2 ML INHSOL IH SCH ×4 (03:55→11:39)
[2016-10-20] MEDS: Ipratropium/Albuterol Neb 3 ML IH SCH ×3 (03:55→11:38)
[2016-10-20] MEDS: *HR* Enoxaparin 30 MG/0.3 ML SYRINGE SQ SCH (06:16)
[2016-10-20] MEDS: hydrALAZINE 25 MG TABLET PO SCH (06:16)
[2016-10-20 06:30] LABS: Basophils % 0.3 %; Eosinophils # 0.2 K/mcL (0.0-0.6); Eosinophils % 1.5 %; Hematocrit 27.7 % (35.3-44.9); Immature Granulocytes % 3.5 % (0-4); Immature Platelets 7.1 % (1.1-6.1); Lymphocytes # 1.3 K/mcL (0.6-4.6); Lymphocytes % 9.6 %; Mean Corpuscular HGB Conc 32.5 g/dL (31.6-35.5); Mean Corpuscular Hemoglobin 29.7 pg (28.0-33.3); Mean Corpuscular Volume 91.4 fL (83.0-100.0); Mean Platelet Volume 11.7 fL (9.4-12.4); Monocytes # 1.5 K/mcL (0.0-1.3); Monocytes % 11.2 %; Neutrophils # 10.1 K/mcL (1.6-8.9); Platelet Count 163 K/mcL (140-400); Red Blood Count 3.03 M/mcL (3.82-4.97); Red Cell Distribution Width 12.8 % (11.5-14.5); Segmented Neutrophils % 73.9 %
[2016-10-20 06:50] LABS: Calcium 9.9 mg/dL (8.6-10.8); Potassium 4.4 mEq/L (3.5-4.5)
[2016-10-20 07:15] VITALS: BP 162/64
[2016-10-20] MEDS: Insulin LISPRO 300 UNITS/3 ML VIAL SQ SCH ×2 (07:27→12:09)
[2016-10-20] MEDS: amLODIPine 5 MG TABLET PO SCH (07:57)
[2016-10-20] MEDS: Aspirin 325 MG TABLET PO SCH (07:57)
[2016-10-20] MEDS: Nystatin POWDER 30 GM BOTTLE TP SCH (07:59)
--- NOTE | 2016-10-20 10:08 | Nephrology Progress Note ---
<Corbin Elkins - Last Filed: 10/20/16 16:36> Date of Encounter: 10/20/16 Time of Encounter: 09:40 - Assessment and Plan (1) Acute kidney injury Status: Acute OLIVIA with CKD. Patient's creatinine peaked at 3.25, continued slow improvement at 2.86 today. Etiology is likely multifactorial. Hypotension noted previously, concern for volume negative state, and the addition of vancomycin. No indication for acute dialysis at this time, expect patient's kidney function to slowly improve with protective measures taken. Patient found to have MRSA positive sputum, for which she was started on Vancomycin and then switched to Linezolid in the setting of patient's OLIVIA. Discussed plan with hospitalist and attending. Strict I/Os needed. Follow up in outpatient office in 2-4 weeks. (2) HCAP (healthcare-associated pneumonia) Status: Acute Management per primary service. (3) Acute exacerbation of CHF (congestive heart failure) Status: Acute Imaging and physical exam was suggestive of acute CHF with dyspnea secondary to fluid overload on initial presentation. Patient appears euvolemic today with decreased BLE edema. See plan above concerning OLIVIA. Management of CHF per primary medicine team. Qualifiers: Congestive heart failure type: diastolic Qualified Code(s): I50.33 - Acute on chronic diastolic (congestive) heart failure (4) Diabetes Status: Chronic Management per primary medicine service. Qualifiers: Diabetes mellitus type: type 2 Diabetes mellitus complication status: with unspecified complications Diabetes mellitus skilled nursing insulin use: with skilled nursing use Qualified Code(s): E11.8 - Type 2 diabetes mellitus with unspecified complications; Z79.4 - jail (current) use of insulin (5) HTN (hypertension) Status: Chronic Overall BP better controlled with BP at admission 231/152 to today's at 162/64. Qualifiers: Hypertension type: essential hypertension Qualified Code(s): I10 - Essential (primary) hypertension (6) DVT prophylaxis Status: Acute SQ Lovenox per primary medicine service. Subjective Principal diagnosis: Shortness of breath Interval history: Patient seen and examined at bedside. Patient notes slight improvement overall, continued dyspnea though slightly better. Objective - Vital Signs Vital signs: Vital Signs Temp Pulse Resp BP Pulse Ox 10/20/16 08:26 16 62 10/20/16 07:13 97.6 F 62 17 162/64 92 10/20/16 03:55 18 95 10/19/16 23:37 98 10/19/16 20:47 18 95 10/19/16 16:40 18 91 10/19/16 14:23 97.5 F L 62 15 139/50 97 10/19/16 11:51 16 94 10/19/16 10:31 97.7 F 65 16 163/62 94 Intake and Output 10/19/16 10/20/16 10/20/16 23:59 07:59 15:59 Output Total 450 / 450 Balance -450 / -450 Output: Catheter 450 / 450 Other: Meal Dinner Percent of Meal Consumed 25% Stool Size Large Stool Consistency loose Stool Color Brown # Bowel Movements 1 Blood Glucose* 236 125 - General Appearance General appearance: Present: well-developed, well-nourished, appears started age EENT: Present: ATNC, mucous membranes moist, hearing intact, vision intact Neck: Present: supple Respiratory: Present: clear Cardiology: Present: edema (trace BLE edema), regular rate, regular rhythm Integumentary: Present: no rash, warm and dry Neurologic: Present: no focal deficit, alert and oriented x3 Musculoskeletal: Present: no deformities, no erythema, no cyanosis Psychiatric: Present: mood/affect appropriate, cooperative - Lab 10/20/16 05:30 10/20/16 05:30 Most recent lab results Calcium 9.9 mg/dL (8.6-10.8) 10/20/16 05:30 Phosphorus 4.8 mg/dL (2.3-4.7) H 10/16/16 03:47 Magnesium 1.3 mg/dL (1.6-2.6) L 10/16/16 03:47 Urine Creatinine 117 mg/dL 10/17/16 07:57 Urine Total Protein 27 mg/dL (1-14) H 10/17/16 07:57 - VTE Documentation of Mechanical Device: Graduated compression elastic hosiery Consult Discharge Plan - Plan Additional Instructions: Follow-up with primary care provider and signal timer within 1-2 weeks, follow- up with cardiology as needed Referrals: Cardiology [facility] [Provider Group] [facility] [Provider Group] Domonique Rajput MD [Primary Care Provider] - Prescriptions: Amlodipine [Norvasc] 5 mg PO DAILY #30 tablet GuaiFENesin ER [Mucinex] 1,200 mg PO BID #28 tbbp.12hr Nystatin POWDER [Nystop] 1 appl TP BID #1 bottle <Shirley Hope - Last Filed: 11/04/16 16:11> Date of Encounter: 10/20/16 Objective - Lab 10/20/16 05:30 10/20/16 05:30 Most recent lab results Calcium 9.9 mg/dL (8.6-10.8) 10/20/16 05:30 Phosphorus 4.8 mg/dL (2.3-4.7) H 10/16/16 03:47 Magnesium 1.3 mg/dL (1.6-2.6) L 10/16/16 03:47 Urine Creatinine 117 mg/dL 10/17/16 07:57 Urine Total Protein 27 mg/dL (1-14) H 10/17/16 07:57 - Attending Attestation I examined this patient and my medical decision-making was reviewed with the BLUEPRINT ENGINEER/PA/Advanced Practice Nurse/Resident Physician. I agree with the documented findings, disposition and treatment plan as described except to the extent set forth below. Pt seen and examined with SCr now down to 286 from 2.90 yesterday. If discharge planned by primary team, would recommend BMP within a week of discharge and followup within 2-4 weeks of discharge with nephrology
--- NOTE | 2016-10-20 12:17 | Discharge Summary ---
Date of Encounter: 10/20/16 Time of Encounter: 09:30 - Discharge Diagnosis (1) HCAP (healthcare-associated pneumonia) Priority: Primary Status: Acute Comments: Initially upon presentation, chest x-ray negative. Repeat chest x-ray 3 days after presentation revealed acute CHF with bilateral pleural effusions. Chest CT then revealing possible pneumonia and atelectasis. Patient was then started on Zosyn. MRSA surveillance swab positive so patient was changed to vancomycin and Zosyn was discontinued. Pulmonology on board and there was a consideration for bronchoscopy however she did not warrant one during this visit. She was then started on mucolytics but was still unable to provide a sputum specimen. She was on 2 L per nasal cannula and stated that her shortness of breath has improved at time of discharge. Suspected due to gram positive bacteria likely pseudomonas or MRSA given that she acquired it while inpatient, so will send to shelter on Zyvox to cover both possibilities. No speech therapy warranted. (2) Acute respiratory failure with hypoxia Priority: Primary Status: Acute Comments: weaned to 2 L per nasal cannula prior to discharge (3) CKD (chronic kidney disease) stage 4, GFR 15-29 ml/min Priority: Secondary Status: Chronic Comments: Renal functioning currently lower than her baseline but trended up on the final several days of admission. She was stage III up until March 2016 at which time, she transitioned to stage IV. Current values lower than her baseline and her furosemide was held. Nephrology on board during this admission; no indication for dialysis, recommended close outpatient follow-up. (4) Leukocytosis Priority: Primary Status: Acute Comments: Trended down, was initially on Zosyn and vancomycin. Surveillance swab positive for MRSA. +HCAP- sending on zyvox. No blood cultures obtained however no clinical indicators of sepsis or septicemia. Qualifiers: Leukocytosis type: bandemia Qualified Code(s): D72.825 - Bandemia (5) HTN (hypertension) Priority: Secondary Status: Chronic Comments: Controlled. At home, patient is on losartan 50 mg daily, carvedilol 25 mg daily. Losartan has been held due to acute kidney injury superimposed on chronic kidney disease and amlodipine has been initiated. Carvedilol has been continued. Follow-up outpatient Qualifiers: Hypertension type: essential hypertension Qualified Code(s): I10 - Essential (primary) hypertension (6) Diabetes Priority: Secondary Status: Chronic Comments: Controlled. A1c earlier this month of 6.9%. 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 Suspect secondary to OLIVIA on CKD and demand ischemia. Patient denied chest pain. Suspicion for ACS low. Cardiology was on board earlier on in this admission and has since signed off and cleared her for outpatient follow-up. (9) Venous insufficiency Priority: Secondary Status: Chronic (10) Bilateral edema of lower extremity Priority: Primary Status: Resolved (11) UTI (urinary tract infection) Priority: Primary Status: Ruled-out Comments: Urine culture negative. Patient denied dysuria. Qualifiers: Urinary tract infection type: site unspecified Hematuria presence: without hematuria Qualified Code(s): N39.0 - Urinary tract infection, site not specified (12) Anxiety Priority: Secondary Status: Chronic (13) Morbid obesity with BMI of 40.0-44.9, adult Priority: Secondary Status: Chronic (14) Acute exacerbation of CHF (congestive heart failure) Priority: Primary Status: Acute Comments: Acute on chronic diastolic heart failure. Patient had an echocardiogram last week that revealed an ejection fraction of 60-65% with moderate diastolic dysfunction. She has been successfully diuresed and is currently euvolemic on examination. No lower extremity edema present. Patient stating her shortness of breath has improved. Currently holding furosemide secondary to renal functioning. Continue sodium and fluid restricted diets. Qualifiers: Congestive heart failure type: diastolic Qualified Code(s): I50.33 - Acute on chronic diastolic (congestive) heart failure (15) Generalized weakness Priority: Primary Status: Acute Comments: Sending to inpatient rehabilitation (16) Histrionic behavior Priority: Primary Status: Acute Comments: There were several times while the patient was admitted in which she called her family and gave them different accounts than what was happening. She told her family that she was dying. She told her family that she was getting intubated. She remained stable throughout this admission. On day of discharge, patient was screaming and crying because an IV had to be placed in her thumb overnight. She endorses grief over her recently lost . She denied suicidal ideations. - Discharge Medications Prescriptions: Acetaminophen w/Cod 300-30 mg [Tylenol w/Codeine #3] 1 tab PO Q4HR PRN #20 tablet PRN Reason: cough Amlodipine [Norvasc] 5 mg PO DAILY #30 tablet Carvedilol [Coreg] 12.5 mg PO BIDWM #30 tablet GuaiFENesin ER [Mucinex] 1,200 mg PO BID #28 tbbp.12hr Linezolid [Zyvox] 600 mg PO BID #14 tablet Nystatin POWDER [Nystop] 1 appl TP BID #1 bottle Home Medications: Glimepiride [Amaryl] 4 mg PO QAM 03/25/16 [History] Insulin Glargine [Lantus] 35 mg SQ HS 03/26/16 [History] Hydroxyzine HCl 25 mg PO HS PRN 04/12/16 [History] Ropinirole HCl [Requip] 8 mg PO HS 04/12/16 [History] Multivitamin [Multi-Day Vitamins] 1 each PO DAILY 10/11/16 [History] TraZODone 50 mg PO HS 10/11/16 [History] Acetaminophen w/Cod 300-30 mg [Tylenol w/Codeine #3] 1 tab PO Q4HR PRN #20 tablet 10/20/16 [Rx] Amlodipine [Norvasc] 5 mg PO DAILY #30 tablet 10/20/16 [Rx] Carvedilol [Coreg] 12.5 mg PO BIDWM #30 tablet 10/20/16 [Rx] GuaiFENesin ER [Mucinex] 1,200 mg PO BID #28 tbbp.12hr 10/20/16 [Rx] Linezolid [Zyvox] 600 mg PO BID #14 tablet 10/20/16 [Rx] Nystatin POWDER [Nystop] 1 appl TP BID #1 bottle 10/20/16 [Rx] Allergies/Adverse Reactions: Allergies nadolol [From Corgard] Allergy (Verified 04/20/16 12:13) See Comments Date of admission: 10/13/16 09:13 Primary care physician: Domonique Rajput MD Consults: 10/13/16 20:23 Consult to Nephrology [CONS] Routine Consulting Provider: Tony Orozco/JOAQUIN/ANDER/NATHAN Reason for Consult: Worsening renal function, CHF. Decreased lasix from 40mg to 20mg. Pt is not on SURINDER or ARB. She is not getting IV atb. Call Completed: No 10/14/16 11:46 Consult to Psychiatry [CONS] Routine Consulting Provider: Psychiatry [place] Reason for Consult: Pt depressed, giving away belongings, telling her family that she doesn't want to be around much longer. 5 mos ago, she has moved in with family. Prior history of substance abuse and undiagnosed mental health issues. Time Notified: 11:35 Call Completed: Yes 10/14/16 17:34 Consult to Cardiology [CONS] Routine Comment: Consulting Provider: Cardiology Pam Reason for Consult: CRF, CHF, worsening renal function Time Notified: 17:35 Call Completed: No 10/15/16 10:33 consult to cotton program technician [Consult to Nutrition] [CONS] Routine Comment: Consulting Provider: NUTRITION Reason for Dietary Consult: PO Supplementation 10/18/16 13:20 Consult to Pulmonology [CONS] Routine Consulting Provider: [facility] [place] Reason for Consult: Pneumonia, low 02 sats, requiring 5L 02 Time Notified: 08:30 Call Completed: Yes 10/18/16 16:47 Consult to Speech Therapy [CONS] Routine Comment: Evaluate, develop and implement POC Reason for Consult: Evaluate for aspiration risk Time Notified: 16:48 Call Completed: No Discharging clinician: Sophia Etienne Anticipated date of discharge: 10/20/16 (sending to [facility]) - Patient Status Disposition: Transfer Inpatient Rehab Fac Condition: Fair Functional capacity at discharge: uses cane/walker Overall status at discharge: patient is progressing back to baseline - Discharge Instructions Follow Up With: Domonique Rajput MD [Primary Care Provider] - [facility] [Provider Group] Cardiology Pam [Provider Group] Additional Instructions: Follow-up with primary care provider and 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 Tate is a 81 year old female with past medical history hypertension, diabetes, diastolic heart failure, chronic kidney disease, sinus sick syndrome status post pacemaker, morbid obesity. Patient presented to the emergency department chief complaint URI symptoms, headache, moist but nonproductive cough times several days. Patient also endorsed increasing shortness of breath with exertion. Patient stating she was unable to complete her ADLs and was unable to sleep at night due to her coughing and shortness of breath. Upon presentation, patient's blood pressure was markedly elevated at 231/152. Initial chest x-ray unremarkable. BNP elevated, leukocytosis noted, hyperkalemia present, acute kidney injury superimposed on chronic kidney disease also noted. Patient was admitted to the hospitalist service for further evaluation and management. Echocardiogram unremarkable with ejection fraction of 60-65% and moderate diastolic dysfunction. Patient was admitted and observed over the course of 10 days. She was successfully diuresed. Repeat chest x-ray on day 3 revealed acute CHF with bilateral pleural effusions and the patient was further diuresed. Nephrology was on board during this admission. She has been chronic kidney disease stage IV since April 2016. Her renal functioning remained stable and she did not require dialysis during this admission. Chest CT revealed possible pneumonia and atelectasis and the patient was started on Zosyn. Her MRSA surveillance swab was positive so she was placed on vancomycin and her Zosyn was discontinued. Pulmonology was brought on board who initially considered a bronchoscopy however decided her clinical impression had improved since she did not warrant a bronchoscopy during this visit. Patient was then started on mucolytics but was still unable to provide a sputum specimen sent no sputum culture was still obtained. She fluctuated between 2 L of nasal cannula supplemental oxygenation and 6 L. At time of discharge, she was weaned down to 2 L per nasal cannula and stated that her shortness of breath had improved. Suspect causative factor of her pneumonia is gram-positive likely MRSA or pseudomonas given that she acquired it while inpatient. To save her kidneys, she was changed to Zyvox to cover both possibilities. She was seen and evaluated by speech therapy who surmised she had no needs. Leukocytosis trended down. Blood pressure was well controlled, her losartan was held and her blood pressure was controlled on her carvedilol. Patient had a mild troponin elevation that peaked at 0.18 and remained flat and adynamic. She was seen and evaluated by cardiology who cleared her for outpatient follow-up. She was also noted to employ histrionic behavior during this admission. After she was told by the location analyst that she may need a bronchoscopy at some point in the future but not during this visit, she called each one of her children and told them that she was dying and that we were putting a tube down her throat to help her breathe. As it turns out, the patient recently lost her and does not appear to be handling the grief well. Psychiatry was brought on board during this admission who recommended outpatient follow-up. She denied suicidal ideation during this admission. She was seen and evaluated by occupational and physical therapy both of whom recommended ECF placement. She remained alert and oriented 3 and stated her shortness of breath had improved on day of discharge. Her pedal edema had resolved. She was discharged to [facility] a stable condition with close outpatient follow-up recommended. ITS Impressions Chest X-Ray 10/11/16 16:17 IMPRESSION: No acute process. No evidence of CHF or pneumonia. D/ / 10/11/2016 16:53:59 Precious Mcintyre MD / reji Interpreting Provider: Precious Mcintyre MD Chest X-Ray 10/14/16 13:47 IMPRESSION: Acute CHF with small to moderate right and small left pleural effusions. D/ / Yobani Jensen MD / Spring Evans Interpreting Provider: Yobani Jensen MD :[address] 10/15/16 14:30 IMPRESSION: No substantial pleural effusion. Findings as above concerning for infection. D/ / Martha Sotomayor MD / Martha Sotomayor MD Interpreting Provider: Martha Sotomayor MD Retroperitoneum Ultrasound 10/16/16 13:30 IMPRESSION: 1. No hydronephrosis. 2. Increased echogenicity of right kidney suggestive of medical renal disease. D/ / Jovanna Messina MD / Jovanna Messina MD Interpreting Provider: Jovanna Messina MD Echocardiogram impressions: LVEF 60-65%. Mild concentric hypertrophy of the left ventricle. There is evidence of moderate diastolic dysfunction of the left ventricle. RV is not well visualized in all views. In the apical images, RV appears moderately dilated. TD velocity suggests mild hypokinesis. Mild mitral regurgitation. Moderate tricuspid regurgitation. Mild pulmonary hypertension. RVSP 43 mmHg. Pacing leads in the right heart chambers are not well-visualized on the study. - Time Spent with Patient Total time spent providing and/or coordinating discharge services: Greater than 30 minutes (9 days worth of charting and patient with many questions) - Constitutional Vitals: Temp Pulse Resp BP Pulse Ox 97.6 F 62 16 162/64 93 10/20/16 07:13 10/20/16 07:13 10/20/16 11:44 10/20/16 07:13 10/20/16 11:44 General appearance: Present: cooperative, A&O X 3, morbidly obese, pleasant, no acute distress, answers questions appropriately - Head Head exam: Present: atraumatic, normocephalic - Eye Eye exam: Present: PERRL, conjuntiva pink, sclera anicteric Pupils: Present: PERRL - Neck Neck exam general surgery: Present: supple, trachea midline. Absent: lymphadenopathy - Respiratory Respiratory exam: Present: decreased breath sounds, rhonchi. Absent: accessory muscle use, rales, respiratory distress, wheezes - Cardiovascular Cardiovascular exam: Present: RRR, +S1, +S2. Absent: diastolic murmur, gallop, rubs, systolic murmur - GI/Abdominal GI/Abdominal exam: Present: normal bowel sounds, soft, no peritoneal signs. Absent: distended, tenderness - Extremities Exam Extremities exam: Present: pedal edema (trace; nonpitting), warm, radial pulses palpable and symetrical. Absent: calf tenderness, cyanotic - Neurological Exam Neurological exam: Present: alert, CN II-XII intact, oriented X3, no focal deficits, strengths equal and symetr throughout. Absent: pronater drift, facial droop, speech deficit - Skin Skin exam: Present: dry, intact, normal color, warm - VTE Documentation of Mechanical Device: Graduated compression elastic hosiery
--- NOTE | 2016-10-20 12:55 | Physician Discharge Referral ---
ExtendedCare Referral Info Transfer To: [facility] Provider in Charge: Raymon Etienne CNP Provider in Charge after Transfer: PCP Institutional Level of Care: Skilled - Diagnosis (1) HCAP (healthcare-associated pneumonia) Priority: Primary Status: Acute (2) Acute respiratory failure with hypoxia Priority: Primary Status: Acute (3) CKD (chronic kidney disease) stage 4, GFR 15-29 ml/min Priority: Secondary Status: Chronic (4) Leukocytosis Priority: Primary Status: Acute (5) HTN (hypertension) Priority: Secondary Status: Chronic (6) Diabetes Priority: Secondary Status: Chronic (7) DVT prophylaxis Priority: Primary Status: Acute (8) Elevated troponin Priority: Primary Status: Acute (9) Venous insufficiency Priority: Secondary Status: Chronic (10) Bilateral edema of lower extremity Priority: Primary Status: Resolved (11) UTI (urinary tract infection) Priority: Primary Status: Ruled-out (12) Anxiety Priority: Secondary Status: Chronic (13) Morbid obesity with BMI of 40.0-44.9, adult Priority: Secondary Status: Chronic (14) Acute exacerbation of CHF (congestive heart failure) Priority: Primary Status: Acute (15) Generalized weakness Priority: Primary Status: Acute (16) Histrionic behavior Priority: Primary Status: Acute Prognosis: Fair Aware of Diagnosis: Patient, Family Aware of Prognosis: Patient, Family - Transfer Medications Prescriptions: Acetaminophen w/Cod 300-30 mg [Tylenol w/Codeine #3] 1 tab PO Q4HR PRN #20 tablet PRN Reason: cough Amlodipine [Norvasc] 5 mg PO DAILY #30 tablet Carvedilol [Coreg] 12.5 mg PO BIDWM #30 tablet GuaiFENesin ER [Mucinex] 1,200 mg PO BID #28 tbbp.12hr Linezolid [Zyvox] 600 mg PO BID #14 tablet Nystatin POWDER [Nystop] 1 appl TP BID #1 bottle Home Medications: Glimepiride [Amaryl] 4 mg PO QAM 03/25/16 [History] Insulin Glargine [Lantus] 35 mg SQ HS 03/26/16 [History] Hydroxyzine HCl 25 mg PO HS PRN 04/12/16 [History] Ropinirole HCl [Requip] 8 mg PO HS 04/12/16 [History] Multivitamin [Multi-Day Vitamins] 1 each PO DAILY 10/11/16 [History] TraZODone 50 mg PO HS 10/11/16 [History] Acetaminophen w/Cod 300-30 mg [Tylenol w/Codeine #3] 1 tab PO Q4HR PRN #20 tablet 10/20/16 [Rx] Amlodipine [Norvasc] 5 mg PO DAILY #30 tablet 10/20/16 [Rx] Carvedilol [Coreg] 12.5 mg PO BIDWM #30 tablet 10/20/16 [Rx] GuaiFENesin ER [Mucinex] 1,200 mg PO BID #28 tbbp.12hr 10/20/16 [Rx] Linezolid [Zyvox] 600 mg PO BID #14 tablet 10/20/16 [Rx] Nystatin POWDER [Nystop] 1 appl TP BID #1 bottle 10/20/16 [Rx] Allergies/Adverse Reactions: Allergies nadolol [From Corgard] Allergy (Verified 04/20/16 12:13) See Comments - Respiratory Orders Oxygen / L per min (2-6) Smoking Cessation: Smoking cessation has been advised. For more information, call the [place] Tobacco Quit Line at 3-003-QVRI-NOW. - Lab Orders Lab Orders: Other (include drug levels w/frequency) (chem7 3 days) - Ancillary Orders May use pressure relief devices daily prn, May go on AMBER w/family/respon alliance party w /meds at nurse discretion PRN, May have alcoholic beverages, May consult with Dentist, Personal Service Workers, Product Development Manager PRN - Advance Directives Living Will: Yes Power of Vp Ancillary: Yes Code Status: DNR-Comfort Care - Mobility Orders Ambulate (per PT) - Rehabiliation Orders Rehab Potential: Fair Rehab Orders: ROM Exercises, Evaluation for Physical Therapy, Evaluation for Occupational Therapy - Treatments Skin tear care topically daily PRN per policy, May check for fecal impaction rectally daily PRN, Fleet enema rectally every other day PRN cleansing purposes - Diet Orders No Added Salt (BENI), No Concentrated Sweets (fluid [id number]) CERTIFICATION: I certify that the transfer of the above named patient to an Extended Care Facility is necessary for the continuing treatment of the diagnosis listed. The above information is true and accurate reflection of patient's current condition. Confidential - Redisclosure prohibited without a patient's written consent.
== END 2016-10-20 14:43 | DRG 291 ==
LOC: 3BNU 16:09 → EMEROO 16:09 → 3BNU 20:43
PROVIDERS: ADMIT Internal Medicine; ATTEND Nurse Practitioner Family

== ENCOUNTER 2016-10-26 12:13 | Inpatient (IN) ==
[2016-10-26] MEDS ORDERED: 0.9 % Sodium Chloride 500 ML IVC ONE (12:18)
--- NOTE | 2016-10-26 12:19 | Emergency Department Note ---
Disposition Clinical Impression: Hyperkalemia Disposition: Admitted As Inpatient Forms: ED Satisfaction Letter Recheck wound or abnormal lab - General Chief Complaint: ED Recheck/Abnormal Lab/Rx Stated Complaint: abd labs Time Seen by Provider: 10/26/16 12:17 Source: patient Mode of arrival: EMS Limitations: no limitations Nursing Notes Reviewed: Yes Vital Signs Reviewed: Yes - History of Present Illness HPI Narrative: Patient was sent here for elevated potassium. Patient states she is at her baseline state of health she has no acute complaints. She had a potassium of 5.7 yesterday they gave her 1 dose of Kayexalate this morning a repeat potassium was 6.2. She denies any nausea vomiting fevers chills or weakness Symptoms Since Prior Visit: no new symptoms Context: planned re-check Associated symptoms: none - Related Data Home Medications Medication Instructions Recorded Confirmed Glimepiride [Amaryl] 4 mg PO QAM 03/25/16 10/11/16 Insulin Glargine [Lantus] 35 mg SQ HS 03/26/16 10/11/16 Hydroxyzine HCl 25 mg PO HS PRN 04/12/16 10/11/16 Ropinirole HCl [Requip] 8 mg PO HS 04/12/16 10/11/16 Multivitamin [Multi-Day Vitamins] 1 each PO DAILY 10/11/16 10/11/16 TraZODone 50 mg PO HS 10/11/16 10/11/16 Previous Rx's Medication Instructions Recorded Acetaminophen w/Cod 300-30 mg 1 tab PO Q4HR PRN #20 tablet 10/20/16 [Tylenol w/Codeine #3] Amlodipine [Norvasc] 5 mg PO DAILY #30 tablet 10/20/16 Carvedilol [Coreg] 12.5 mg PO BIDWM #30 tablet 10/20/16 GuaiFENesin ER [Mucinex] 1,200 mg PO BID #28 tbbp.12hr 10/20/16 Linezolid [Zyvox] 600 mg PO BID #14 tablet 10/20/16 Nystatin POWDER [Nystop] 1 appl TP BID #1 bottle 10/20/16 Allergies Allergy/AdvReac Type Severity Reaction Status Date / Time nadolol [From Corgard] Allergy See Verified 04/20/16 12:13 Comments All systems ED: reviewed and negative except as stated. Constitutional: Denies: fever, chills, weakness Respiratory: Denies: dyspnea Gastrointestinal: Denies: nausea, vomiting Past Medical History - Past Medical History Source: patient, old records reviewed, nursing notes reviewed Medical history: Reports: cancer, diabetes, hypertension, renal disease Surgical history: Reports: cholecystectomy Psychiatric history: Reports: no psych history COW BUYER history: Reports: no COW BUYER history - Social History Smoking Status: Unknown if ever smoked Smokeless Tobacco Status: No Alcohol use: Reports: unknown Drug use: Reports: none Physical Exam - General Limitations: no limitations General appearance: alert, in no apparent distress - Head Head exam: atraumatic, normocephalic, normal inspection - Eye Eye exam: Present: normal appearance, PERRL, EOMI - Expanded Eye Exam Pupils: Left: reactive - ENT ENT exam: normal exam, normal oropharynx, mucous membranes moist - Expanded ENT Exam External ear exam: Present: normal external inspection Mouth exam: Present: normal external inspection Teeth exam: Present: normal inspection Throat exam: Present: normal inspection - Neck Neck exam: Present: normal inspection, full ROM, trachea midline - Chest Chest inspection: Present: normal inspection, symmetric chest wall rise - Respiratory Respiratory exam: Present: normal lung sounds bilaterally - Cardiovascular Cardiovascular exam: Present: regular rate, normal rhythm, normal heart sounds - Abdominal Exam Abdominal exam: Present: soft, Non-Tender. Absent: tenderness, distention, guarding, rebound, rigidity - Extremities Exam Extremities exam: Present: normal inspection, full ROM. Absent: tenderness, pedal edema - Expanded Upper Extremity Exam Shoulder exam: Present: normal inspection, full ROM Arm exam: Present: normal inspection, full ROM Elbow exam: Present: normal inspection, full ROM Forearm/Wrist exam: Present: normal inspection, full ROM Hand exam: Present: normal inspection, full ROM Vascular exam: Normal: capillary refill, radial pulse - Expanded Lower Extremity Exam Hip/Pelvis exam: Present: normal inspection, full ROM Upper leg exam: Present: normal inspection, full ROM Knee exam: Present: normal inspection, full ROM Lower leg exam: Present: normal inspection, full ROM Ankle exam: Present: normal inspection, full ROM Foot/toe exam: Present: normal inspection, full ROM Neurovascular/Tendon exam: Absent: motor deficit, sensory deficit, tendon deficit - Back Exam Back exam: Present: normal inspection, full ROM. Absent: tenderness - Neurological Exam Neurological exam: Present: alert, oriented X3 - Expanded Neurological Exam Patient oriented to: Present: person, place, time Coma Scale Eye Opening: Spontaneous Coma Scale Motor Response: Obeys Commands Coma Scale Verbal Response: Oriented Coma Scale Total: 15 - Psychiatric Psychiatric exam: Present: normal affect, normal mood - Skin Skin exam: Present: warm, dry, intact, normal color Course - Consultations Consultation #1: Dr. Savage is her physician at the [facility] he does not want her transported back there he would like overnight observation to make sure her potassium does not continue to elevate. She will be admitted under the hospitalist service Dr. Anand Time: 14:58 Vital Signs Temperature 97.9 F 10/26/16 12:15 Pulse Rate 62 10/26/16 12:15 Respiratory Rate 18 10/26/16 12:15 Blood Pressure 127/109 10/26/16 12:15 O2 Sat by Pulse Oximetry 96 10/26/16 12:15 Temperature 97.9 F 10/26/16 12:15 Pulse Rate 62 10/26/16 12:15 Respiratory Rate 18 10/26/16 12:15 Blood Pressure 127/109 10/26/16 12:15 O2 Sat by Pulse Oximetry 96 10/26/16 12:15 Oxygen Delivery Oxygen Delivery Nasal Cannula Recheck wound or abnormal lab - Differential Diagnosis Likely: encounter for medication refill - Medical Records Medical records reviewed: Yes I reviewed the patient's medical records. - Lab Data Lab results reviewed: Yes I reviewed the patient's lab results. Result diagrams: 10/26/16 12:47 10/26/16 12:47 Lab Results 10/26/16 10/26/16 10/26/16 Range/Units 12:47 12:47 12:47 WBC 13.0 H (4.3-11.1) K/mcL RBC 3.31 L (3.82-4.97) M/mcL Hgb 9.9 L (11.5-15.4) g/dL Hct 32.2 L (35.3-44.9) % MCV 97.3 (83.0-100.0) fL MCH 29.9 (28.0-33.3) pg MCHC 30.7 L (31.6-35.5) g/dL RDW 13.3 (11.5-14.5) % Plt Count 250 (140-400) K/mcL MPV 10.0 (9.4-12.4) fL Immature Gran % 0.8 (0-4) % Seg Neutrophils % 77.7 % Lymphocytes % 10.6 % Monocytes % 5.9 % Eosinophils % 4.6 % Basophils % 0.4 % Neutrophils # 10.1 H (1.6-8.9) K/mcL Lymphocytes # 1.4 (0.6-4.6) K/mcL Monocytes # 0.8 (0.0-1.3) K/mcL Eosinophils # 0.6 (0.0-0.6) K/mcL Basophils # 0.1 (0.0-0.2) K/mcL PT 12.7 H (9.4-12.1) Seconds INR 1.2 APTT 32.4 (26.0-36.0) Seconds Sodium 141 (136-145) mEq/L Potassium 5.8 H (3.5-4.5) mEq/L Chloride 102 (98-109) mEq/L Carbon Dioxide 32 H (19-29) mEq/L BUN 43 H (7-20) mg/dL Creatinine 2.08 H (0.57-1.11) mg/dL Est GFR ( Amer) 28 L (> 60) Est GFR (Non-Af Amer) 23 L (> 60) BUN/Creatinine Ratio 21 (6-26) Glucose 131 H (70-99) mg/dL POC Glucose (58-89) Calculated Osmolality 305 H (280-300) Calcium 8.8 (8.6-10.8) mg/dL 10/26/ Range/Units 13:01 WBC (4.3-11.1) K/mcL RBC (3.82-4.97) M/mcL Hgb (11.5-15.4) g/dL Hct (35.3-44.9) % MCV (83.0-100.0) fL MCH (28.0-33.3) pg MCHC (31.6-35.5) g/dL RDW (11.5-14.5) % Plt Count (140-400) K/mcL MPV (9.4-12.4) fL Immature Gran % (0-4) % Seg Neutrophils % % Lymphocytes % % Monocytes % % Eosinophils % % Basophils % % Neutrophils # (1.6-8.9) K/mcL Lymphocytes # (0.6-4.6) K/mcL Monocytes # (0.0-1.3) K/mcL Eosinophils # (0.0-0.6) K/mcL Basophils # (0.0-0.2) K/mcL PT (9.4-12.1) Seconds INR APTT (26.0-36.0) Seconds Sodium (136-145) mEq/L Potassium (3.5-4.5) mEq/L Chloride (98-109) mEq/L Carbon Dioxide (19-29) mEq/L BUN (7-20) mg/dL Creatinine (0.57-1.11) mg/dL Est GFR ( Amer) (> 60) Est GFR (Non-Af Amer) (> 60) BUN/Creatinine Ratio (6-26) Glucose (70-99) mg/dL POC Glucose 134 H (58-89) Calculated Osmolality (280-300) Calcium (8.6-10.8) mg/dL - EKG Data Rhythm: other (atrial paced) Hyperacute T waves: v3, v4
[2016-10-26] MEDS ORDERED: Insulin Human Regular 10 UNIT in 0.9 % Sodium Chloride 10 ML IV ONE (13:02)
[2016-10-26] MEDS ORDERED: *HR* Dextrose 50 % in Water (Syg) 50 ML SYRINGE IVP ONE (13:02)
[2016-10-26 13:06] LABS: Basophils # 0.1 K/mcL (0.0-0.2); Basophils % 0.4 %; Eosinophils # 0.6 K/mcL (0.0-0.6); Eosinophils % 4.6 %; Hematocrit 32.2 % (35.3-44.9); Hemoglobin 9.9 g/dL (11.5-15.4); Immature Granulocytes % 0.8 % (0-4); Lymphocytes # 1.4 K/mcL (0.6-4.6); Lymphocytes % 10.6 %; Mean Corpuscular HGB Conc 30.7 g/dL (31.6-35.5); Mean Corpuscular Hemoglobin 29.9 pg (28.0-33.3); Mean Corpuscular Volume 97.3 fL (83.0-100.0); Monocytes # 0.8 K/mcL (0.0-1.3); Monocytes % 5.9 %; Neutrophils # 10.1 K/mcL (1.6-8.9); Platelet Count 250 K/mcL (140-400); Red Blood Count 3.31 M/mcL (3.82-4.97); Red Cell Distribution Width 13.3 % (11.5-14.5); Segmented Neutrophils % 77.7 %
[2016-10-26 13:11] LABS: INR 1.2; Prothrombin Time 12.7 Seconds (9.4-12.1)
[2016-10-26 13:14] LABS: Activated Partial Thrombo Time 32.4 Seconds (26.0-36.0)
[2016-10-26 13:20] LABS: Calcium 8.8 mg/dL (8.6-10.8); Potassium 5.8 mEq/L (3.5-4.5)
[2016-10-26] MEDS ORDERED: Naloxone 0.4 MG/ML INJ IVP PRN (15:46)
[2016-10-26] MEDS ORDERED: Ipratropium/Albuterol Neb 3 ML IH PRN (16:22)
[2016-10-26] MEDS: Nystatin POWDER 30 GM BOTTLE TP SCH ×2 (16:34→20:15)
[2016-10-26] MEDS ORDERED: *HR* Dextrose 50 % in Water (Syg) 50 ML SYRINGE IVP PRN (16:37)
[2016-10-26] MEDS ORDERED: D5% in Water 1,000 ML IVC PRN (16:37)
[2016-10-26] MEDS ORDERED: Dextrose Gel 15 GM PO PRN ×2 (16:37)
--- NOTE | 2016-10-26 16:53 | Internal Med History&Physical ---
Date of Encounter: 10/26/16 Time of Encounter: 16:00 Assessment and Plan (1) Hyperkalemia Current visit: Yes Status: Acute Potassium level 5.8. No ECG changes. Was treated in the ED. Will recheck potassium level in the a.m. No further treatment at this time. Considering trial of Lasix given her fluid overload status; will order a CT of the chest to compare results with the CT chest performed on 10/15/16. If pleural effusions are indeed present, will give dose of lasix which will help to lower the potassium level. (2) Diastolic congestive heart failure Current visit: No Status: Chronic Per last admission, Lasix was discontinued for reasons related to OLIVIA. As mentioned above, will order CT scan to further evaluate mentioned pleural effusions on CXR from 10/25/16. Considering trial of Lasix if this is the case ( CT chest pending at this time). Patient is resting comfortably at this time and is no acute distress. Qualifiers: Congestive heart failure chronicity: unspecified congestive heart failure chronicity Qualified Code(s): I50.30 - Unspecified diastolic (congestive) heart failure (3) HCAP (healthcare-associated pneumonia) Current visit: Yes Status: Chronic 10 day course to be finished today. Zyvox ordered x 1. (4) CKD (chronic kidney disease) stage 4, GFR 15-29 ml/min Current visit: Yes Status: Chronic CRE is at baseline around 2.0. If diuresis is necessary (per pending CT scan results, may need to consult nephrology). Internal Medicine - H&P: HPI Chief complaint: sent per SNF for hyperkalemia Admitted From: Emergency Dept Plans for Post Hospital Care: Transfer [facility] History of present illness: Ms. Tate is a 81 year old female with past medical history diastolic CHF, CKD stage IV, HTN, DM II who presents to [facility] from SNF with elevated potassium level. Patient is completely asymptomatic, but was found to have a potassium level of around 6.0 at [facility]. Per ED, patient was given Kayexalate and potassium is now 5.8. Was treated again in the ED for Hyperkalemia, however, per Dr. Brooks, patient needs to be admitted because the [facility] will not take her back despite her lack of symptoms. Patient was recently admitted to the Hospitalist Service for OLIVIA, acute diastolic CHF and HCAP. She will have completed 10 days of antibiotics for HCAP (treatment with Vancomycin, transitioned to Zyvox, had MRSA positivity). Patient was not discharged on Lasix (per Neprology recommendations) or potassium supplementation. Despite, this her potassium level has risen. Her family states that she has been on a strict fluid restriction and dietary restriction, so patient has not been eating well. She has been short of breath at the [facility] and has required supplemental oxygen at all times. Per review of her records, patient had a CXR on 10/25/16 which revealed pluerual effusions (right greater than left). CXR was not repeated in ED today, but patient denies having any worsening shortness of breath. Per family, patient was at SNF because of her generalized weakness, but she has recently made quite a bit of progress with physical therapy and was supposed to be discharged soon. Patient denies any fevers or chills, lower extremity pain/cramping, or any concerns. She simply is frustrated with her dietary restrictions and wants to eat a more liberal diet. Also, of note, patient was seen by Dr. Pineda on last admission and was found to be DNR-CC. However, SNF has her listed as Full Code. Past Med Surg Social Fam HX - Past Medical History Medical history: cancer, diabetes, hypertension, renal disease Psychiatric history: no psych history - Past Surgical History Surgical History: cholecystectomy - Social History Smoking Status: Unknown if ever smoked Smokeless Tobacco Status: No Alcohol use: unknown Drug use: none - Family History Mother Living Status: Hx Family Cardiac Disorders: Yes Father Hx Family Cardiac Disorders: Yes Internal Medicine - H&P: Meds Insulin Glargine [Lantus] 10 unit SQ HS 03/26/16 [History] Hydroxyzine HCl 25 mg PO DAILY PRN 04/12/16 [History] Multivitamin [Multi-Day Vitamins] 1 each PO DAILY 10/11/16 [History] TraZODone 50 mg PO HS 10/11/16 [History] Amlodipine [Norvasc] 5 mg PO DAILY #30 tablet 10/20/16 [Rx] GuaiFENesin ER [Mucinex] 1,200 mg PO BID #28 tbbp.12hr 10/20/16 [Rx] Linezolid [Zyvox] 600 mg PO BID #14 tablet 10/20/16 [Rx] Nystatin POWDER [Nystop] 1 appl TP BID #1 bottle 10/20/16 [Rx] Acetaminophen w/Cod 300-30 mg [Tylenol w/Codeine #3] 1 tab PO Q4HR PRN 10/26/16 [History] Ascorbate Calcium [Vitamin C] 500 mg PO DAILY 10/26/16 [History] Buspirone HCl [Buspar] 5 mg PO BID 10/26/16 [History] Carvedilol 12.5 mg PO BID 10/26/16 [History] Glimepiride [Amaryl] 1 mg PO QAM 10/26/16 [History] Ipratropium/Albuterol Neb [Duoneb] 3 ml IH Q4HR 10/26/16 [History] Loperamide [Imodium] 2 mg PO Q4H PRN 10/26/16 [History] Menthol [Bengay Ultra Strength] 1 each TP DAILY 10/26/16 [History] Ropinirole HCl [Requip Xl] 8 mg PO HS 10/26/16 [History] Allergies nadolol [From Corgard] Allergy (Verified 04/20/16 12:13) See Comments All Systems PM: A 10-system review of systems was performed and is negative for pertinent findings except as documented above in the HPI. - Constitutional Constitutional: anorexia, no malaise - EENT Nose, mouth and throat: dry mouth - Cardiovascular Cardiovascular ROS IM: as per HPI - Gastrointestinal Gastrointestinal: no abdominal pain - Musculoskeletal Musculoskeletal ROS IM: no arthralgias - Constitutional Vitals: Temp Pulse Resp BP Pulse Ox 97.6 F 62 16 185/76 94 10/26/16 16:23 10/26/16 16:23 10/26/16 16:23 10/26/16 16:23 10/26/16 16:23 General appearance: Present: A&O X 3, pleasant, no acute distress - Head Head exam: Present: atraumatic - Eye Pupils: Present: miosis - Respiratory Additional comments: crackles appreciated at the bases bilaterally - Cardiovascular Cardiovascular exam: Present: distant heart sounds, +S1, +S2 - GI/Abdominal GI/Abdominal exam: Present: soft, no peritoneal signs. Absent: rebound, tenderness - Extremities Exam Extremities exam: Present: pedal edema (nonpitting edema - pretibial) - Neurological Exam Neurological exam: Present: CN II-XII intact (grossly), oriented X3. Absent: facial droop, speech deficit - Psychiatric Psychiatric exam: Present: flat affect - Skin Additional comments: erythema/beefy red discoloration at inguinal folds and under abdominal skin folds Internal Med - H&P Results - Labs CBC & Chem 7: 10/26/16 12:47 10/26/16 12:47
[2016-10-26 18:20] LABS: Hemoglobin A1C 6.6 %
[2016-10-26] MEDS: traZODone 50 MG TABLET PO SCH (19:54)
[2016-10-26] MEDS: Insulin DETEMIR 100 UNIT/ML X5UNITS SQ SCH (20:01)
[2016-10-26] MEDS ORDERED: ROPINIROLE HCL 8 MG PO SCH (21:00)
[2016-10-26] MEDS ORDERED: Linezolid 600 MG TABLET PO ONE (21:00)
[2016-10-26] MEDS ORDERED: Furosemide 40 MG/4 ML VIAL ONE (23:41)
[2016-10-26] MEDS ORDERED: Furosemide 40 MG/4 ML VIAL IVP ONE (23:42)
[2016-10-26] MEDS ORDERED: Albuterol 2.5 MG/3 ML NEBULIZER IH PRN (23:48)
[2016-10-26] MEDS ORDERED: methylPREDNISolone 125 MG/2 ML VIAL IVP STA (23:48)
[2016-10-26] MEDS ORDERED: Bumetanide 1 MG/4 ML VIAL IVP STA (23:51)
[2016-10-26] MEDS ORDERED: metOLazone 2.5 MG TABLET PO STA (23:51)
[2016-10-27] MEDS ORDERED: Nitroglycerin 1 INCH/GM PACKET TP ONE
[2016-10-27] MEDS ORDERED: Nitroglycerin 1 INCH/GM PACKET ONE (00:02)
[2016-10-27] MEDS ORDERED: Furosemide 40 MG/4 ML VIAL ONE (00:10)
[2016-10-27] MEDS: Ipratropium/Albuterol Neb 3 ML IH SCH ×3 (00:11→10:43)
[2016-10-27] MEDS ORDERED: Furosemide 40 MG/4 ML VIAL IVP ONE (00:14)
[2016-10-27 00:16] LABS: ABG Base Excess 7.1 mEq/L (-2.0 to 3.0); ABG HCO3 33.7 mEQ/L (21-27); ABG Oxygen Saturation 98 % (95-98); ABG PCO2 57 mmHg (35-45); ABG PH 7.38 pH Units (7.32-7.45); ABG PO2 102 mmHg (85-104); ABG TCO2 35.4 mEq/L (20-26)
[2016-10-27 00:17] LABS: Blood Gas FiO2 60 %
--- NOTE | 2016-10-27 00:39 | Event Note ---
Date of Encounter: 10/26/16 Time of Encounter: 23:30 Patient developed sudden onset shortness of breath. Apparently, she refused the CT scan and I was not informed as the nurse was not aware that the admitting provider was in house). Thus, Lasix was not given until pateint developed acute respriatory distress likely secondary to acute CHF. 80 mg of Lasix x 1 given and Nitropaste administered. Stat CXR and ABG ordered. If renal function worsens in a.m., daytime hospitalist will need to contact Nephrology for further recommendations.
[2016-10-27 01:08] LABS: Hematocrit 32.5 % (35.3-44.9); Mean Corpuscular HGB Conc 30.8 g/dL (31.6-35.5); Mean Corpuscular Hemoglobin 29.4 pg (28.0-33.3); Mean Corpuscular Volume 95.6 fL (83.0-100.0); Mean Platelet Volume 9.4 fL (9.4-12.4); Platelet Count 246 K/mcL (140-400); Red Cell Distribution Width 13.3 % (11.5-14.5)
[2016-10-27 01:09] LABS: VBG HCO3 26.6 mEq/L (21-27)
[2016-10-27 01:14] LABS: VBG PH 7.69 pH Units (7.32-7.42)
[2016-10-27 01:25] LABS: % Iron Saturation 35 % (15-50); Calcium 8.6 mg/dL (8.6-10.8); Iron 82 mcg/dL (50-170); Magnesium 1.8 mg/dL (1.6-2.6); Phosphorous 3.7 mg/dL (2.3-4.7); Potassium 5.4 mEq/L (3.5-4.5); Transferrin 168 mg/dL (180-382)
[2016-10-27 01:57] LABS: Bilirubin,Urine Negative (Negative); Blood,Urine Negative (Negative); Clarity,Urine Clear (Clear); Color,Urine Yellow (Yellow); Glucose,Urine (UA) Normal (Normal); Ketones,Urine Negative (Negative); Leukocyte Esterase,Urine Negative (Negative); Nitrite,Urine Negative (Negative); Protein,Urine Negative (Neg-Trace); Specific Gravity,Urine 1.009 (1.010-1.025); Urobilinogen,Urine Normal (Normal)
[2016-10-27 08:02] LABS: Basophils # 0.1 K/mcL (0.0-0.2); Basophils % 0.4 %; Eosinophils # 0.2 K/mcL (0.0-0.6); Eosinophils % 1.1 %; Hematocrit 28.9 % (35.3-44.9); Immature Granulocytes % 0.5 % (0-4); Mean Corpuscular HGB Conc 31.1 g/dL (31.6-35.5); Mean Corpuscular Hemoglobin 29.6 pg (28.0-33.3); Mean Corpuscular Volume 95.1 fL (83.0-100.0); Mean Platelet Volume 9.9 fL (9.4-12.4); Monocytes # 0.7 K/mcL (0.0-1.3); Monocytes % 5.2 %; Neutrophils # 12.1 K/mcL (1.6-8.9); Platelet Count 209 K/mcL (140-400); Red Blood Count 3.04 M/mcL (3.82-4.97); Red Cell Distribution Width 13.3 % (11.5-14.5); Segmented Neutrophils % 85.8 %
[2016-10-27 08:15] LABS: Calcium 8.3 mg/dL (8.6-10.8); Magnesium 1.7 mg/dL (1.6-2.6); Phosphorous 3.9 mg/dL (2.3-4.7); Potassium 5.5 mEq/L (3.5-4.5)
--- NOTE | 2016-10-27 09:37 | Palliative - Consult Note ---
<Triston Chambers - Last Filed: 10/27/16 10:02> Date of Encounter: 10/27/16 Time of Encounter: 09:39 - Assessment and Plan (1) Goals of care, counseling/discussion Current Visit: Yes Status: Acute Assessment and plan: Talked to patient at length about her CODE STATUS and she desires aggressive care including intubation; will leave at FULL CODE She desires to go home upon discharge and would be agreeable to home health; [facility] Daughter, Daniela, is planning on arriving later today with notarized power of religious education teacher paperwork Patient claims to be independent and quite functional at home; not eligible for hospice at this time Social work consulted Palliative-CN HPI - Data of Consult Patient: new to practice Consult date: 10/27/16 Requesting Physician: Arti Sepulveda MD Primary Care Provider: Domonique Rajput MD - Consult Narrative Palliative Care/Comfort Measures: Palliative care Reason for consult: discuss code status History of present illness: Ms. Tate is a 81 year old female who [facility] due to hyperkalemia (K=6). She was asymptomatic and EKG showed no new irregularities. Her correction physician, was contacted after K level lowered to 5.8 from 1 dose of kayexalate. recommended that Ms. Tate be admitted for observation of K level. K level has been maintained at 5.4-5.5 during hospital stay. The hospitalist caring for Ms. Tate is Dr. Marques who contacted palliative care due to a discrepancy of code status between the correction and [facility]. During the interview with Ms. Tate, she was able to answer questions appropriately and she expressed her thoughts clearly. Her oldest son José Miguel was present during the interview and reports that Ms. Tate had about 2wks left of PT at the correction and then go back to living with him. She currently has no complaints of pain, nausea , vomiting, diarrhea, or constipation. She was short of breath yesterday and was on BiPAP earlier today, but this has dramatically improved. CC: Arti Sepulveda MD Past Med Surg Social Fam HX - Past Medical History Medical history: cancer, diabetes, hypertension, renal disease Psychiatric history: no psych history - Past Surgical History Surgical History: cholecystectomy - Social History Smoking Status: Unknown if ever smoked Smokeless Tobacco Status: No Alcohol use: unknown Drug use: none - Family History Mother Living Status: Hx Family Cardiac Disorders: Yes Father Hx Family Cardiac Disorders: Yes Medications and Allergies Insulin Glargine [Lantus] 10 unit SQ HS 03/26/16 [History] Hydroxyzine HCl 25 mg PO DAILY PRN 04/12/16 [History] Multivitamin [Multi-Day Vitamins] 1 each PO DAILY 10/11/16 [History] TraZODone 50 mg PO HS 10/11/16 [History] Amlodipine [Norvasc] 5 mg PO DAILY #30 tablet 10/20/16 [Rx] GuaiFENesin ER [Mucinex] 1,200 mg PO BID #28 tbbp.12hr 10/20/16 [Rx] Linezolid [Zyvox] 600 mg PO BID #14 tablet 10/20/16 [Rx] Nystatin POWDER [Nystop] 1 appl TP BID #1 bottle 10/20/16 [Rx] Acetaminophen w/Cod 300-30 mg [Tylenol w/Codeine #3] 1 tab PO Q4HR PRN 10/26/16 [History] Ascorbate Calcium [Vitamin C] 500 mg PO DAILY 10/26/16 [History] Buspirone HCl [Buspar] 5 mg PO BID 10/26/16 [History] Carvedilol 12.5 mg PO BID 10/26/16 [History] Glimepiride [Amaryl] 1 mg PO QAM 10/26/16 [History] Ipratropium/Albuterol Neb [Duoneb] 3 ml IH Q4HR 10/26/16 [History] Loperamide [Imodium] 2 mg PO Q4H PRN 10/26/16 [History] Menthol [Bengay Ultra Strength] 1 each TP DAILY 10/26/16 [History] Ropinirole HCl [Requip Xl] 8 mg PO HS 10/26/16 [History] Allergies nadolol [From Corgard] Allergy (Verified 04/20/16 12:13) See Comments - Constitutional Constitutional ROS PAL: no fever(s), no frequent falls - Cardiovascular Cardiovascular ROS: edema, leg edema, no chest pain - Respiratory Respiratory: dyspnea, no cough - Gastrointestinal Gastrointestinal: nausea, no abdominal pain, no diarrhea, no melena, no vomiting - Genitourinary Palliative ROS female: no dysuria, no hematuria - Musculoskeletal Musculoskeletal ROS IM: no arthralgias, no back pain Palliative Care-Exam - Constitutional Vitals: Temp Pulse Resp BP Pulse Ox 97.4 F L 62 20 157/54 98 10/27/16 07:42 10/27/16 07:42 10/27/16 07:42 10/27/16 07:42 10/27/16 07:42 General appearance: Present: cooperative, morbidly obese, no acute distress - Head Head Exam: Present: atraumatic, normal inspection, normocephalic - Eye Eye exam: Present: EOMI, PERRL, sclera anicteric - ENT ENT exam: Present: mucous membranes moist - Respiratory Respiratory exam: Present: decreased breath sounds. Absent: wheezes - Cardiovascular Cardiovascular exam: Present: RRR, +S1, +S2 - GI/Abdominal Exam GI/Abdominal exam: Present: normal bowel sounds, soft. Absent: rigid, tenderness - Extremities Exam Extremities exam: Present: pedal edema (non-pitting). Absent: tenderness - Neurological Exam Neurological exam: Present: alert, CN II-XII intact, oriented X3, no focal deficits. Absent: facial droop, speech deficit Internal Medicine - CN: Reslt - Labs CBC & Chem 7: 10/27/16 07:56 10/27/16 07:56 Labs: Short CBC 10/27/16 10/27/16 Range/Units 00:51 07:56 WBC 23.6 H D 14.1 H (4.3-11.1) K/mcL Hgb 10.0 L 9.0 L (11.5-15.4) g/dL Hct 32.5 L 28.9 L (35.3-44.9) % Plt Count 246 209 (140-400) K/mcL Neutrophils # 12.1 H (1.6-8.9) K/mcL BMP 10/27/16 10/27/16 00:51 07:56 Sodium 140 140 Potassium 5.4 H 5.5 H Chloride 103 105 Carbon Dioxide 28 30 H BUN 39 H 40 H Creatinine 2.03 H 1.94 H Glucose 191 H 132 H Calcium 8.6 8.3 L Cardiac Enzymes 10/27/16 Range/Units 00:51 Troponin I 0.05 H* (0-0.03) ng/mL Urine 10/27/16 Range/Units 01:32 Urine Color Yellow (Yellow) Urine Clarity Clear (Clear) Urine pH 6.0 (5.0-8.0) pH Units Ur Specific [place] 1.009 L (1.010-1.025) Urine Protein Negative (Neg-Trace) mg/dL Urine Glucose (UA) Normal (Normal) mg/dL - ABG Interpretation ABG results: ABG ABG pH 7.38 pH Units (7.32-7.45) 10/27/16 00:00 ABG pCO2 57 mmHg (35-45) H 10/27/16 00:00 ABG pO2 102 mmHg (85-104) 10/27/16 00:00 ABG O2 Saturation 98 % (95-98) 10/27/16 00:00 PT/INR, D-dimer PT 12.7 Seconds (9.4-12.1) H 10/26/16 12:47 - Impressions Impressions Chest X-Ray 10/27/16 00:15 IMPRESSION: Findings are most consistent with congestive heart failure with increasing pulmonary edema and unchanged small bilateral pleural effusions. Underlying basilar pneumonia is not excluded. D/ / Mark Tiwari MD / Mark Tiwari MD Interpreting Provider: Mark Tiwari MD Consult Discharge Plan - Plan Referrals: Domonique Rajput MD [Primary Care Provider] - (Patient will Follow up with [facility] PCP) Palliative Quality Palliative Quality: Screen for Code Status: Yes, Screen for Goals of Care: Yes, Screen for Pain: Yes Code Status: 10/26/16 15:46 Resuscitation Status: Active [RES] Routine Comment: Resuscitation Status: Full Code <Freddie Mott - Last Filed: 10/27/16 12:11> Date of Encounter: 10/27/16 Palliative-CN HPI - Data of Consult Requesting Physician: Arti Sepulveda MD Primary Care Provider: Domonique Rajput MD - Consult Narrative History of present illness: Ms. Tate is a 81 year old female CC: Arti Sepulveda MD Palliative Care-Exam - Constitutional Vitals: Temp Pulse Resp BP Pulse Ox 98.2 F 63 18 149/61 100 10/27/16 11:14 10/27/16 11:14 10/27/16 11:14 10/27/16 11:49 10/27/16 11:14 Internal Medicine - CN: Reslt - Labs CBC & Chem 7: 10/27/16 07:56 10/27/16 07:56 Labs: Short CBC 10/27/16 10/27/16 Range/Units 00:51 07:56 WBC 23.6 H D 14.1 H (4.3-11.1) K/mcL Hgb 10.0 L 9.0 L (11.5-15.4) g/dL Hct 32.5 L 28.9 L (35.3-44.9) % Plt Count 246 209 (140-400) K/mcL Neutrophils # 12.1 H (1.6-8.9) K/mcL BMP 10/27/16 10/27/16 00:51 07:56 Sodium 140 140 Potassium 5.4 H 5.5 H Chloride 103 105 Carbon Dioxide 28 30 H BUN 39 H 40 H Creatinine 2.03 H 1.94 H Glucose 191 H 132 H Calcium 8.6 8.3 L Cardiac Enzymes 10/27/16 Range/Units 00:51 Troponin I 0.05 H* (0-0.03) ng/mL Urine 10/27/16 Range/Units 01:32 Urine Color Yellow (Yellow) Urine Clarity Clear (Clear) Urine pH 6.0 (5.0-8.0) pH Units Ur Specific [place] 1.009 L (1.010-1.025) Urine Protein Negative (Neg-Trace) mg/dL Urine Glucose (UA) Normal (Normal) mg/dL - ABG Interpretation ABG results: ABG ABG pH 7.38 pH Units (7.32-7.45) 10/27/16 00:00 ABG pCO2 57 mmHg (35-45) H 10/27/16 00:00 ABG pO2 102 mmHg (85-104) 10/27/16 00:00 ABG O2 Saturation 98 % (95-98) 10/27/16 00:00 PT/INR, D-dimer PT 12.7 Seconds (9.4-12.1) H 10/26/16 12:47 - Impressions Impressions Chest X-Ray 10/27/16 00:15 IMPRESSION: Findings are most consistent with congestive heart failure with increasing pulmonary edema and unchanged small bilateral pleural effusions. Underlying basilar pneumonia is not excluded. D/ / Mark Tiwari MD / Mark Tiwari MD Interpreting Provider: Mark Tiwari MD - Attending Attestation I examined this patient and my medical decision-making was reviewed with the / Resident Physician. I agree with the documented findings, disposition and treatment plan as described except to the extent set forth below. Palliative Quality Code Status: 10/26/16 15:46 Resuscitation Status: Active [RES] Routine Comment: Resuscitation Status: Full Code
[2016-10-27] MEDS: Insulin LISPRO 300 UNITS/3 ML VIAL SQ SCH ×3 (10:11→17:38)
[2016-10-27] MEDS: amLODIPine 5 MG TABLET PO SCH (10:11)
[2016-10-27] MEDS: Multivit/Ca/Min/Fe/FA 1 TAB TABLET PO SCH (10:11)
[2016-10-27] MEDS: Ascorbic Acid 500 MG TABLET PO SCH (10:11)
[2016-10-27] MEDS: Miconazole w/zinc oxide&karaya 92 APPL/92 GM TUBE TP SCH ×4 (10:12→21:46)
[2016-10-27] MEDS: Nystatin POWDER 30 GM BOTTLE TP SCH ×4 (10:12→21:46)
--- NOTE | 2016-10-27 10:52 | Internal Med Progress Note ---
Date of Encounter: 10/27/16 Time of Encounter: 10:50 - Assessment and plan (1) Acute respiratory failure Current Visit: Yes Status: Acute Assessment and plan: Secondary to acute CHF decompensation Patient responded adequately to IV diuretic therapy, will continue at this time Continue O2 support as needed Follow-up repeat 2-D echo Monitor daily intake and output, daily weight Fluid restriction diet Monitor O2 saturation Qualifiers: Respiratory failure complication: hypoxia Qualified Code(s): J96.01 - Acute respiratory failure with hypoxia (2) CHF exacerbation Current Visit: Yes Status: Acute Assessment and plan: We will repeat 2-D echo and continue diuretic support Qualifiers: Congestive heart failure type: diastolic Qualified Code(s): I50.33 - Acute on chronic diastolic (congestive) heart failure (3) Leukocytosis Current Visit: No Status: Acute Assessment and plan: Of unclear etiology Chest x-ray reported concern for pneumonia however patient finished 10 day course of antibiotics yesterday (10/26/2016) Will obtain CT chest and adjust therapy accordingly Currently afebrile and asymptomatic, therefore will monitor off antibiotics Qualifiers: Leukocytosis type: bandemia Qualified Code(s): D72.825 - Bandemia (4) HTN (hypertension) Current Visit: No Status: Chronic Assessment and plan: BP within acceptable range Continue home medications Qualifiers: Hypertension type: essential hypertension Qualified Code(s): I10 - Essential (primary) hypertension (5) Hyperkalemia Current Visit: Yes Status: Acute Assessment and plan: We will give 1 dose of Kayexalate No EKG changes reported We will continue to monitor (6) Diabetes Current Visit: No Status: Chronic Assessment and plan: Blood glucoses within acceptable range Continue sliding scale insulin algorithm Monitor fingerstick and blood glucose Qualifiers: Diabetes mellitus type: type 2 Diabetes mellitus complication status: with unspecified complications Diabetes mellitus extermination inspector insulin use: with intermediate use Qualified Code(s): E11.8 - Type 2 diabetes mellitus with unspecified complications; Z79.4 - extermination inspector (current) use of insulin (7) DVT prophylaxis Current Visit: No Status: Acute Assessment and plan: Heparin subcutaneous (8) CKD (chronic kidney disease) stage 4, GFR 15-29 ml/min Current Visit: Yes Status: Chronic Assessment and plan: Renal function at baseline and improved from previous day Patient tolerating diuretic therapy well, we will continue at this time will continue to closely monitor (9) Goals of care, counseling/discussion Current Visit: Yes Status: Acute Assessment and plan: Palliative care consultation appreciated Patient to remain full code - Subjective Interval history: Patient seen and examined with family present at bedside. Resting in bed and reports of feeling better compared to previous day. Patient was noted to be refusing CT chest yesterday however given the findings of CXR concerning for infiltrate, will obtain CT chest and also to evaluate the level of pleural effusions. Patient in agreement with the current plan and will obtain CT chest. - Constitutional Vitals: Temp Pulse Resp BP Pulse Ox 97.4 F L 62 20 157/54 98 10/27/16 07:42 10/27/16 07:42 10/27/16 10:43 10/27/16 07:42 10/27/16 10:43 General appearance: Present: A&O X 3, morbidly obese, pleasant, no acute distress - Head Head exam: Present: atraumatic, normocephalic - Eye Eye exam: Present: normal appearance, conjuntiva pink, sclera anicteric - Respiratory Respiratory exam: Absent: respiratory distress, wheezes (bibasilar crackles) - Cardiovascular Cardiovascular exam: Present: RRR, +S1, +S2. Absent: diastolic murmur, gallop, rubs, systolic murmur - GI/Abdominal GI/Abdominal exam: Present: normal bowel sounds, soft, no peritoneal signs. Absent: distended, tenderness - Extremities Exam Extremities exam: Present: warm, radial pulses palpable and symetrical Additional comments: bilateral lower extremity edema - Neurological Exam Neurological exam: Present: alert, oriented X3 - Psychiatric Psychiatric exam: Present: normal affect, normal mood Internal Medicine: Result - Labs CBC & Chem 7: 10/27/16 07:56 10/27/16 07:56 Labs: Short CBC 10/27/16 10/27/16 Range/Units 00:51 07:56 WBC 23.6 H D 14.1 H (4.3-11.1) K/mcL Hgb 10.0 L 9.0 L (11.5-15.4) g/dL Hct 32.5 L 28.9 L (35.3-44.9) % Plt Count 246 209 (140-400) K/mcL Neutrophils # 12.1 H (1.6-8.9) K/mcL BMP 10/27/16 10/27/16 00:51 07:56 Sodium 140 140 Potassium 5.4 H 5.5 H Chloride 103 105 Carbon Dioxide 28 30 H BUN 39 H 40 H Creatinine 2.03 H 1.94 H Glucose 191 H 132 H Calcium 8.6 8.3 L Cardiac Enzymes 10/27/16 Range/Units 00:51 Troponin I 0.05 H* (0-0.03) ng/mL Urine 10/27/16 Range/Units 01:32 Urine Color Yellow (Yellow) Urine Clarity Clear (Clear) Urine pH 6.0 (5.0-8.0) pH Units Ur Specific [place] 1.009 L (1.010-1.025) Urine Protein Negative (Neg-Trace) mg/dL Urine Glucose (UA) Normal (Normal) mg/dL - ABG Interpretation ABG results: ABG ABG pH 7.38 pH Units (7.32-7.45) 10/27/16 00:00 ABG pCO2 57 mmHg (35-45) H 10/27/16 00:00 ABG pO2 102 mmHg (85-104) 10/27/16 00:00 ABG O2 Saturation 98 % (95-98) 10/27/16 00:00 PT/INR, D-dimer PT 12.7 Seconds (9.4-12.1) H 10/26/16 12:47 - Impressions Impressions Chest X-Ray 10/27/16 00:15 IMPRESSION: Findings are most consistent with congestive heart failure with increasing pulmonary edema and unchanged small bilateral pleural effusions. Underlying basilar pneumonia is not excluded. D/ / Mark Tiwari MD / Mark Tiwari MD Interpreting Provider: Mark Tiwari MD Consult Discharge Plan - Plan Referrals: Domonique Rajput MD [Primary Care Provider] - (Patient will Follow up with [facility] PCP)
--- NOTE | 2016-10-27 12:17 | Event Note ---
Date of Encounter: 10/27/16 Time of Encounter: 12:13 Palliative was consulted for code status paolo. After d/w patient and son it is clearshe wishes to be full code and undersatands the meanig of her wishes. Pt goals of care are to return home with home health. Have d/w sw to assist with that. Patient has done her AD's. At this point all objectives have been met and palliative has little left to offer, therefore will sign off please reconsult as needed
[2016-10-27] MEDS: Furosemide 40 MG/4 ML VIAL IVP SCH (12:52)
[2016-10-27] MEDS: *HR* Heparin 5,000 UNIT/ML VIAL SQ SCH (17:40)
[2016-10-27] MEDS ORDERED: Insulin LISPRO 300 UNITS/3 ML VIAL SQ SCH (21:00)
[2016-10-27] MEDS: traZODone 50 MG TABLET PO SCH (21:38)
[2016-10-27] MEDS: Insulin DETEMIR 100 UNIT/ML X5UNITS SQ SCH (22:48)
[2016-10-28] MEDS: *HR* Heparin 5,000 UNIT/ML VIAL SQ SCH ×2 (05:39→17:44)
[2016-10-28 06:32] LABS: Basophils # 0.1 K/mcL (0.0-0.2); Basophils % 0.5 %; Eosinophils # 0.4 K/mcL (0.0-0.6); Hematocrit 31.3 % (35.3-44.9); Hemoglobin 9.5 g/dL (11.5-15.4); Immature Granulocytes % 0.5 % (0-4); Lymphocytes # 1.5 K/mcL (0.6-4.6); Lymphocytes % 14.8 %; Mean Corpuscular HGB Conc 30.4 g/dL (31.6-35.5); Mean Corpuscular Volume 95.4 fL (83.0-100.0); Monocytes # 0.9 K/mcL (0.0-1.3); Monocytes % 8.4 %; Neutrophils # 7.4 K/mcL (1.6-8.9); Platelet Count 224 K/mcL (140-400); Red Blood Count 3.28 M/mcL (3.82-4.97); Red Cell Distribution Width 13.3 % (11.5-14.5); Segmented Neutrophils % 71.8 %
[2016-10-28 06:50] LABS: Calcium 8.4 mg/dL (8.6-10.8); Magnesium 1.7 mg/dL (1.6-2.6); Phosphorous 4.5 mg/dL (2.3-4.7); Potassium 4.4 mEq/L (3.5-4.5)
[2016-10-28] MEDS: amLODIPine 5 MG TABLET PO SCH (09:48)
[2016-10-28] MEDS: Ascorbic Acid 500 MG TABLET PO SCH (09:48)
[2016-10-28] MEDS: Multivit/Ca/Min/Fe/FA 1 TAB TABLET PO SCH (09:48)
[2016-10-28] MEDS: Furosemide 40 MG/4 ML VIAL IVP SCH (09:48)
[2016-10-28] MEDS: Insulin LISPRO 300 UNITS/3 ML VIAL SQ SCH ×3 (09:53→17:44)
--- NOTE | 2016-10-28 10:13 | ECHO - Doppler Report ---
Limited Echocardiogram Name: Africa Tate Date of Study: 10/28/2016 Date: 1935 Ht: 63.0 in Medical Record#: [id number] Age: 81 Wt: 234.0 lb Gender: Female BSA: 2.07 Order #: [id number] Location: [facility] Room #: 2A14 Reading Physician: Taryn Diaz DO Web Services Manager: Tiburcio Coffman Ordering Physician: Arti Sepulveda MD Primary Physician: Domonique Rajput MD Indications: Ecaluate LVEF Impressions: LVEF 60-65%. Normal left ventricular size and systolic function. Mild concentric hypertrophy of the left ventricle. Mild to moderately dilated RV. Function appears low normal. Left Ventricular Wall Motion: Rest Echo Findings All wall segments showed normal motion. Findings: Study Quality * Technically adequate exam. ECG Findings * Paced rhythm. Left Ventricle * Mild concentric left ventricular hypertrophy. * LVEF 60-65%. Aorta * Normally sized aortic root. Right Ventricle * Mild to moderately dilated. Function appears low normal in the PLAX, apical and subcostal views. Lat S Leroy not performed. Pericardium * There is no pericardial effusion present. History Hypertension Diabetes Hypercholesteremia Family History of CAD Congestive Heart Failure Pacer/ICD Implant Congential Heart Disease Valvular Disease Valve Replacement 10/12/2016 a Previous Echo was performed. Measurements: BP: 142/ 68 2D Normal Values RVIDd: 3.20 cm <2.7 cm IVSd: 1.30 cm 0.6 - 1.0 cm LVIDd: 5.02 cm 3.7 - 5.6 cm LVPWd: 1.30 cm 0.6 - 1.1 cm LVIDs: 3.24 cm 1.5 - 3.6 cm LA: 4.10 cm 2.0 - 4.0cm %FS: 35.50 cm >25 % LA volume: Updated by Taryn Diaz on 10/28/2016 10:05:37 AM electronically signed on 10/28/2016 10:06:25 AM with status of Final Wall Motion Reynolds: 1=Normal, 2=Hypokinesis, 3=Akinesis, 4=Dyskinesis, 5=Aneurysmal, 6=Hyperkinetic, X=Not Visualized (Blank)=Missing
[2016-10-28] MEDS: Nystatin POWDER 30 GM BOTTLE TP SCH ×2 (10:28→15:05)
[2016-10-28] MEDS: Miconazole w/zinc oxide&karaya 92 APPL/92 GM TUBE TP SCH ×2 (10:28→15:05)
--- NOTE | 2016-10-28 11:32 | Electrocardiograph Report ---
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
[2016-10-28] MEDS ORDERED: *HR* Acetaminophen w/Cod 300-30 mg 1 TAB TABLET PO PRN (12:51)
--- NOTE | 2016-10-28 14:50 | Discharge Summary ---
Date of Encounter: 10/28/16 Time of Encounter: 14:48 - Discharge Diagnosis (1) Acute respiratory failure Priority: Primary Status: Acute Qualifiers: Respiratory failure complication: hypoxia Qualified Code(s): J96.01 - Acute respiratory failure with hypoxia (2) CHF exacerbation Priority: Primary Status: Acute Qualifiers: Congestive heart failure type: diastolic Qualified Code(s): I50.33 - Acute on chronic diastolic (congestive) heart failure (3) Leukocytosis Priority: Secondary Status: Resolved Qualifiers: Leukocytosis type: bandemia Qualified Code(s): D72.825 - Bandemia (4) HTN (hypertension) Priority: Secondary Status: Chronic Qualifiers: Hypertension type: essential hypertension Qualified Code(s): I10 - Essential (primary) hypertension (5) Hyperkalemia Priority: Secondary Status: Resolved (6) Diabetes Priority: Secondary Status: Chronic Qualifiers: Diabetes mellitus type: type 2 Diabetes mellitus complication status: with unspecified complications Diabetes mellitus superintendent marine oil terminal insulin use: with care home use Qualified Code(s): E11.8 - Type 2 diabetes mellitus with unspecified complications; Z79.4 - residential (current) use of insulin (7) DVT prophylaxis Priority: Secondary Status: Acute (8) CKD (chronic kidney disease) stage 4, GFR 15-29 ml/min Priority: Secondary Status: Chronic (9) Goals of care, counseling/discussion Priority: Secondary Status: Acute - Discharge Medications Prescriptions: Furosemide [Lasix] 40 mg PO BID #30 tab Hydroxyzine HCl 25 mg PO DAILY PRN #20 tablet PRN Reason: Anxiety Home Medications: Insulin Glargine [Lantus] 10 unit SQ HS 03/26/16 [History] Multivitamin [Multi-Day Vitamins] 1 each PO DAILY 10/11/16 [History] TraZODone 50 mg PO HS 10/11/16 [History] Amlodipine [Norvasc] 5 mg PO DAILY #30 tablet 10/20/16 [Rx] GuaiFENesin ER [Mucinex] 1,200 mg PO BID #28 tbbp.12hr 10/20/16 [Rx] Nystatin POWDER [Nystop] 1 appl TP BID #1 bottle 10/20/16 [Rx] Acetaminophen w/Cod 300-30 mg [Tylenol w/Codeine #3] 1 tab PO Q4HR PRN 10/26/16 [History] Ascorbate Calcium [Vitamin C] 500 mg PO DAILY 10/26/16 [History] Buspirone HCl [Buspar] 5 mg PO BID 10/26/16 [History] Carvedilol 12.5 mg PO BID 10/26/16 [History] Glimepiride [Amaryl] 1 mg PO QAM 10/26/16 [History] Ipratropium/Albuterol Neb [Duoneb] 3 ml IH Q4HR 10/26/16 [History] Loperamide [Imodium] 2 mg PO Q4H PRN 10/26/16 [History] Menthol [Bengay Ultra Strength] 1 each TP DAILY 10/26/16 [History] Ropinirole HCl [Requip Xl] 8 mg PO HS 10/26/16 [History] Furosemide [Lasix] 40 mg PO BID #30 tab 10/28/16 [Rx] Hydroxyzine HCl 25 mg PO DAILY PRN #20 tablet 10/28/16 [Rx] Nystatin POWDER [Nystop] 1 appl TP TID bottle 10/28/16 [Rx] Allergies/Adverse Reactions: Allergies nadolol [From Corgard] Allergy (Verified 04/20/16 12:13) See Comments Date of admission: 10/27/16 16:40 Primary care physician: Domonique Rajput MD Consults: Palliative care: Dr. Mott Discharging clinician: Arti Sepulveda Anticipated date of discharge: 10/28/16 - Patient Status Disposition: Transfer SNF Condition: Good Functional capacity at discharge: uses cane/walker Overall status at discharge: patient is back to baseline - Discharge Instructions Follow Up With: Domonique Rajput MD [Primary Care Provider] - (Patient will Follow up with [facility] PCP) Additional Instructions: Please follow-up with your primary care physician within one week after your discharge from the hospital. Lasix 40 mg twice a day has been added to your home medications, please take this medication as prescribed and inform your primary care physician about this change. Resume all other home medications as prescribed by her primary care physician. Continue to use oxygen therapy at all times. - Diet and Activity Activity: as per physical therapy, wear oxygen at all times Diet: diabetic diet, low salt diet Hospital course: Ms. Tate is a 81 year old female with past medical history diastolic CHF, CKD stage IV, HTN, DM II who presents to [place] from SNF with elevated potassium level. She was further admitted for acute respiratory failure secondary to CHF decompensation. Patient was started on IV diuretic therapy and placed on BiPAP support to which she responded appropriately. She was noted to not be on any diuretic support at home. She was recently discharged from the hospital and has finished 10 day antibiotic course for pneumonia. She received kayexalate therapy for her hyperkalemia with complete resolution. She is currently hemodynamically stable and respiratory status back to baseline. She will be discharged back to rehabilitation with diuretic therapy and follow up with primary care physician. Palliative care consultation was also requested during this hospitalization for evaluation of patient's CODE STATUS and goals of care. As per patient's wishes, she is to remain full code. Patient and family demonstrates understanding of her diagnosis and agree with the discharge care and plan - Time Spent with Patient Total time spent providing and/or coordinating discharge services: Greater than 30 minutes - Constitutional Vitals: Temp Pulse Resp BP Pulse Ox 98.1 F 63 16 150/54 95 10/28/16 11:25 10/28/16 11:25 10/28/16 11:25 10/28/16 11:25 10/28/16 11:25 General appearance: Present: A&O X 3, morbidly obese, pleasant, no acute distress - Head Head exam: Present: atraumatic, normocephalic - Eye Eye exam: Present: normal appearance, conjuntiva pink, sclera anicteric - Respiratory Respiratory exam: Present: CTAB. Absent: respiratory distress, wheezes - Cardiovascular Cardiovascular exam: Present: RRR, +S1, +S2. Absent: diastolic murmur, gallop, rubs, systolic murmur - GI/Abdominal GI/Abdominal exam: Present: normal bowel sounds, soft, no peritoneal signs. Absent: distended, tenderness - Extremities Exam Extremities exam: Present: pedal edema, warm, radial pulses palpable and symetrical. Absent: calf tenderness - Neurological Exam Neurological exam: Present: alert, oriented X3 - Psychiatric Psychiatric exam: Present: normal affect, normal mood
--- NOTE | 2016-10-28 14:58 | Physician Discharge Referral ---
ExtendedCare Referral Info Transfer To: ECF Provider in Charge after Transfer: PCP - Diagnosis (1) Acute respiratory failure Priority: Primary Status: Acute (2) CHF exacerbation Priority: Primary Status: Acute (3) Leukocytosis Priority: Secondary Status: Resolved (4) HTN (hypertension) Priority: Secondary Status: Chronic (5) Hyperkalemia Priority: Secondary Status: Resolved (6) Diabetes Priority: Secondary Status: Chronic (7) DVT prophylaxis Priority: Secondary Status: Acute (8) CKD (chronic kidney disease) stage 4, GFR 15-29 ml/min Priority: Secondary Status: Chronic (9) Goals of care, counseling/discussion Priority: Secondary Status: Acute - Transfer Medications Prescriptions: Furosemide [Lasix] 40 mg PO BID #30 tab Hydroxyzine HCl 25 mg PO DAILY PRN #20 tablet PRN Reason: Anxiety Home Medications: Insulin Glargine [Lantus] 10 unit SQ HS 03/26/16 [History] Multivitamin [Multi-Day Vitamins] 1 each PO DAILY 10/11/16 [History] TraZODone 50 mg PO HS 10/11/16 [History] Amlodipine [Norvasc] 5 mg PO DAILY #30 tablet 10/20/16 [Rx] GuaiFENesin ER [Mucinex] 1,200 mg PO BID #28 tbbp.12hr 10/20/16 [Rx] Nystatin POWDER [Nystop] 1 appl TP BID #1 bottle 10/20/16 [Rx] Acetaminophen w/Cod 300-30 mg [Tylenol w/Codeine #3] 1 tab PO Q4HR PRN 10/26/16 [History] Ascorbate Calcium [Vitamin C] 500 mg PO DAILY 10/26/16 [History] Buspirone HCl [Buspar] 5 mg PO BID 10/26/16 [History] Carvedilol 12.5 mg PO BID 10/26/16 [History] Glimepiride [Amaryl] 1 mg PO QAM 10/26/16 [History] Ipratropium/Albuterol Neb [Duoneb] 3 ml IH Q4HR 10/26/16 [History] Loperamide [Imodium] 2 mg PO Q4H PRN 10/26/16 [History] Menthol [Bengay Ultra Strength] 1 each TP DAILY 10/26/16 [History] Ropinirole HCl [Requip Xl] 8 mg PO HS 10/26/16 [History] Furosemide [Lasix] 40 mg PO BID #30 tab 10/28/16 [Rx] Hydroxyzine HCl 25 mg PO DAILY PRN #20 tablet 10/28/16 [Rx] Nystatin POWDER [Nystop] 1 appl TP TID bottle 10/28/16 [Rx] Allergies/Adverse Reactions: Allergies nadolol [From Corgard] Allergy (Verified 04/20/16 12:13) See Comments - Respiratory Orders Smoking Cessation: Smoking cessation has been advised. For more information, call the [place] Tobacco Quit Line at 5-854-YDAQ-NOW. - Rehabiliation Orders Other: Please follow-up with your primary care physician within one week after your discharge from the hospital. Lasix 40 mg twice a day has been added to your home medications, please take this medication as prescribed and inform your primary care physician about this change. Resume all other home medications as prescribed by her primary care physician. Continue to use oxygen therapy at all times. CERTIFICATION: I certify that the transfer of the above named patient to an Extended Care Facility is necessary for the continuing treatment of the diagnosis listed. The above information is true and accurate reflection of patient's current condition. Confidential - Redisclosure prohibited without a patient's written consent.
[2016-10-28 16:21] VITALS: BP 173/68
== END 2016-10-28 18:43 | DRG 291 ==
LOC: EMEROO 12:13 → 2ANU 12:13
PROVIDERS: ADMIT Internal Medicine; ATTEND Internal Medicine

== ENCOUNTER 2018-03-06 17:48 | Observation (INO) ==
--- NOTE | 2018-03-06 18:58 | Emergency Department Note ---
Disposition Clinical Impression: Vaginal bleeding, abnormal, Chronic kidney disease Urinary tract infection Qualifiers: Urinary tract infection type: acute cystitis Hematuria presence: without hematuria Qualified Code(s): N30.00 - Acute cystitis without hematuria Disposition: Admitted As Inpatient Condition: Good General Adult HPI - General Chief complaint: ED Vaginal Bleeding Stated complaint: vaginal bleeding Time Seen by Provider: 03/06/18 18:05 Source: patient, EMS Limitations: no limitations Nursing Notes Reviewed: Yes Vital Signs Reviewed: Yes - History of Present Illness HPI Narrative: Patient is an 82-year-old female with past medical history significant for diabetes mellitus type 2, hypertension, AICD, who is presenting to the ED from [facility] for vaginal bleeding. Patient states she presents here as the nurses from [facility] noticed bright red blood per her vagina while changing her wound on her sacrum 4 days ago. This has been occurring daily. A moderate amount of bright red blood and no clots is noted. She complains of some mild dull suprapubic pain for the past couple of days as well. She denies a history of hysterectomy. She denies lightheadedness, chest pain, shortness of breath, weakness, fevers, dysuria, change in bowel. Pain Scale: 6 - Related Data Home Medications Medication Instructions Recorded Confirmed Calcitriol [Rocaltrol] 0.25 mcg PO DAILY 04/08/17 03/07/18 Ergocalciferol (VITAMIN D2) 50,000 unit PO TH 04/08/17 03/07/18 [Vitamin D2] Glimepiride [Amaryl] 4 mg PO QAM 04/08/17 03/07/18 Losartan Potassium [Cozaar] 50 mg PO DAILY 04/08/17 03/07/18 Ropinirole HCl [Requip] 4 mg PO TID 04/08/17 03/07/18 Acetaminophen [Non-Aspirin] 650 mg PO PRN PRN MDD 4 03/07/18 03/07/18 Acetaminophen with Codeine 1 tab PO DAILY PRN MDD 1 03/07/18 03/07/18 [Acetaminophen-Cod #3 Tablet] Buspirone HCl [Buspar] 10 mg PO BID 03/07/18 03/07/18 Carvedilol 3.125 mg PO BID 03/07/18 03/07/18 Diclofenac Sodium [Voltaren] 1 appl TP BID 03/07/18 03/07/18 DiphenhydraMINE [Benadryl] 25 mg PO Q6HR PRN 03/07/18 03/07/18 Duloxetine HCl [Cymbalta] 60 mg PO DAILY 03/07/18 03/07/18 Furosemide [Lasix] 40 mg PO DAILY 03/07/18 03/07/18 HYDROcodone/Acet 5/325 mg [[place] 1 tab PO Q6HR 03/07/18 03/07/18 5-325 mg] Hydrocortisone 1% CREAM [Cortaid] 1 appl TP BID PRN 03/07/18 03/07/18 MOM Conc [MILK OF MAGNESIA conc] 30 ml PO DAILY PRN 03/07/18 03/07/18 Mag Hydrox/Aluminum Hyd/Simeth 30 ml PO BID PRN 03/07/18 03/07/18 [Cvs Antacid Plus Anti-Gas Liq] Potassium Chloride [K-Tab ER] 20 meq PO DAILY 03/07/18 03/07/18 Potassium Chloride [K-Tab ER] 20 meq PO DAILY 03/07/18 03/07/18 Trazodone HCl 100 mg PO HS 03/07/18 03/07/18 Warfarin Sodium 1 mg PO WE 03/07/18 03/07/18 Warfarin Sodium 2.5 mg PO WE 03/07/18 03/07/18 Warfarin Sodium 3 mg PO SUMOTUTHFRSA 03/07/18 03/07/18 cephALEXin [Keflex] 500 mg PO QID 03/07/18 03/07/18 Allergies Allergy/AdvReac Type Severity Reaction Status Date / Time nadolol [From Corgard] Allergy Unknown See Verified 03/07/18 09:14 Comments azithromycin [From Zithromax] AdvReac Unknown See Verified 03/07/18 09:14 Comments levofloxacin [From Levaquin] AdvReac Unknown See Verified 03/07/18 09:14 Comments Sulfa (Sulfonamide AdvReac Unknown See Verified 03/07/18 09:14 Antibiotics) Comments gabapentin AdvReac Unknown Verified 03/07/18 09:14 Constitutional: Reports: chills. Denies: fever Cardiovascular: Denies: chest pain, palpitations Respiratory: Denies: cough, dyspnea, wheezes Gastrointestinal: Reports: abdominal pain. Denies: nausea Genitourinary: Reports: other (Vaginal bleeding. Vaginal pain.). Denies: dysuria, frequency Musculoskeletal: Reports: other. Denies: back pain Integumentary: Denies: rash Neurological: Denies: headache Hematological/Lymphatic: Reports: easy bruising Past Medical History - Past Medical History Attestation: Yes The following information was validated with the patient. Medical history: Reports: cancer, CVA, diabetes, hypertension, renal disease Surgical history: Reports: cholecystectomy, pacemaker/AICD Psychiatric history: Reports: anxiety, depression COMPUTER FORENSIC EXAMINER history: Reports: no COMPUTER FORENSIC EXAMINER history - Social History Smoking Status: Unknown if ever smoked Smokeless Tobacco Status: No Alcohol use: Reports: none Drug use: Reports: none Physical Exam - General Limitations: no limitations General appearance: alert, in no apparent distress - Head Head exam: atraumatic, normocephalic - Eye Eye exam: Present: EOMI - ENT ENT exam: mucous membranes moist - Respiratory Respiratory exam: Present: normal lung sounds bilaterally. Absent: respiratory distress, wheezes - Cardiovascular Cardiovascular exam: Present: regular rate, normal rhythm - Abdominal Exam Abdominal exam: Present: soft, Non-Tender, normal bowel sounds. Absent: distention, guarding - Female Intelligence Applications present during exam: Yes (Dr. Lucio) External Exam: Present: normal external exam Speculum Exam: Present: other (Pooling upright read vaginal bleeding. Cervix not visualized. No blood clots.) - Neurological Exam Neurological exam: Present: alert, oriented X3, CN II-XII intact - Psychiatric Psychiatric exam: Present: normal affect, normal mood - Skin Skin exam: Present: warm, dry, other (There is a 4 cm x 0.5cm healing ulceration. No purulent drainage. Ulcer is scabbed over. No bleeding from the site.). Absent: pallor Course Vital Signs Temperature 99.8 F H 03/06/18 18:04 Pulse Rate 64 03/06/18 18:04 Respiratory Rate 18 03/06/18 18:04 Blood Pressure 164/54 03/06/18 18:04 O2 Sat by Pulse Oximetry 97 03/06/18 18:04 Temperature 97.4 F L 03/08/18 11:12 Pulse Rate 60 03/08/18 11:12 Respiratory Rate 17 03/08/18 11:12 Blood Pressure 161/53 03/08/18 11:12 O2 Sat by Pulse Oximetry 93 03/08/18 11:12 Oxygen Delivery Oxygen Delivery Room Air Medical Decision Making - MDM Narrative Medical decision making narrative: Patient is presenting with active vaginal bleeding. She has no history of hysterectomy. CBC, BMP will be obtained. We will check pelvic exam. Type and screen also obtained. Patient's vitals are stable. She is not tachycardic and she remains normotensive. 20:30 Pelvic exam completed. There is herminia vaginal bleeding that is pooling upon speculum exam. Cervix is not well visualized. Patient is also noted to have a healing ulcer on her right sacrum. It is healed over. No purulent drainage. No need for wound cultures. Urinalysis obtained.Catheter placed. 21:20 Discussed with COMPUTER FORENSIC EXAMINER Clara Hurley, who also discussed patient's case with Dr. Pettit. Will get a pelvic ultrasound at this time. Pending her results, we will recontact COMPUTER FORENSIC EXAMINER. If there is endometrial wall thickening, she will most likely need transfer up to [place] for urogynecology consult as there is a concern for endometrial cancer. Continue to monitor her vitals. Patient is also noted to have a urinary tract infection. Will give 1 g Rocephin. Patient' s vitals still remains stable. No need for IV fluids or blood transfusion at this time. 21:30 SBAR signout to scene shifter, Dr. Celis and Dr. Contreras. Hemodynamically stable at this time. Awaiting repeat H/H at 23:00 and ultrasound results. - Medical Records Medical records reviewed: Yes I reviewed the patient's medical records. - Lab Data Lab results reviewed: Yes I reviewed the patient's lab results. Result diagrams: 03/08/18 06:10 03/08/18 06:10 S.B.A.R. - S.B.A.R. Situation: Demographics, MOA Background: Presenting Complaint, Relevant PMH, Meds, & Allergies Assessment: Vital Signs, Course and respsone to treatment, Exam Concerns, Pertinant Lab Results Recommendation: Barrier(s) to disposition, Recommendation based on pending studies, treatments, or consults Attestation Statement - Attestation Attestation: I examined this patient and my medical decision-making was reviewed with the Resident Physician, Dr. Dey. I agree with the documented findings, disposition and treatment plan as described except to the extent set forth below. Patient is an 82-year-old white female who presents to emergency department from a care home for evaluation of vaginal bleeding. Patient has a history of mild dementia is a poor historian and cannot tell us when the bleeding may have started. Patient has a wound care nurse that comes to see her for sacral decubitus wound that is healing nicely that she states when they rolled her today they found the vaginal bleeding she was having her diaper. Patient denies any abdominal pain, no back discomfort no lightheadedness or dizziness no other associated symptoms. I agree with patient's physical exam findings as documented. Vital signs are stable. Patient's in no acute distress. Patient had initial lab evaluation performed as well as bedside pelvic exam. Please see physical exam findings documented for details. Patient's hemoglobin is 8.1. We are awaiting pelvic ultrasound and at this time patient is going to be signed out to the scene shifter team Dr. Colette Celis for follow-up and the ultrasound and final disposition.
[2018-03-06 19:16] LABS: Basophils % 0.2 %; Eosinophils # 0.1 K/mcL (0.0-0.6); Eosinophils % 0.9 %; Hemoglobin 8.1 g/dL (11.5-15.4); Immature Granulocytes % 0.4 % (0-4); Lymphocytes # 1.8 K/mcL (0.6-4.6); Lymphocytes % 13.5 %; Mean Corpuscular HGB Conc 31.2 g/dL (31.6-35.5); Mean Corpuscular Volume 96.3 fL (83.0-100.0); Mean Platelet Volume 10.2 fL (9.4-12.4); Monocytes # 1.3 K/mcL (0.0-1.3); Monocytes % 9.8 %; Neutrophils # 10.2 K/mcL (1.6-8.9); Platelet Count 314 K/mcL (140-400); Red Cell Distribution Width 13.2 % (11.5-14.5); Segmented Neutrophils % 75.2 %
[2018-03-06 19:38] LABS: Calcium 9.3 mg/dL (8.6-10.3); Potassium 5.3 mEq/L (3.5-5.1)
[2018-03-06 21:11] LABS: INR 1.8; Prothrombin Time 20.7 Seconds (9.4-12.1)
[2018-03-06 21:20] LABS: Bilirubin,Urine Negative (Negative); Blood,Urine Small (Negative); Color,Urine Yellow (Yellow); Glucose,Urine (UA) 250 mg/dL (Normal); Ketones,Urine Negative (Negative); Leukocyte Esterase,Urine Moderate (Negative); Nitrite,Urine Positive (Negative); PH,Urine 5.5 pH Units (5.0-8.0); Protein,Urine 30 mg/dL (Neg-Trace); Specific Gravity,Urine 1.011 (1.010-1.025); Urobilinogen,Urine Normal (Normal)
[2018-03-06 21:26] LABS: Clarity,Urine Slightly Hazy (Clear)
--- NOTE | 2018-03-06 21:32 | Emergency Department Note ---
Disposition Clinical Impression: Vaginal bleeding, abnormal Urinary tract infection Qualifiers: Urinary tract infection type: acute cystitis Hematuria presence: without hematuria Qualified Code(s): N30.00 - Acute cystitis without hematuria Chronic kidney disease Qualifiers: Chronic kidney disease stage: unspecified stage Qualified Code(s): N18.9 - Chronic kidney disease, unspecified Disposition: Admitted As Inpatient Condition: Good Time of Disposition: 01:02 General Adult HPI - General Chief complaint: ED Vaginal Bleeding Stated complaint: vaginal bleeding Time Seen by Provider: 03/06/18 18:05 Source: patient, EMS Limitations: no limitations - History of Present Illness HPI Narrative: Patient was signed out by the prior provider. Please see their documentation for complete history and physical. Pain Scale: 6 - Related Data Home Medications Medication Instructions Recorded Confirmed traZODone [TraZODone] 100 mg PO HS 10/11/16 03/07/18 Calcitriol [Rocaltrol] 0.25 mcg PO DAILY 04/08/17 03/07/18 Ergocalciferol (VITAMIN D2) 50,000 unit PO QWEEK 04/08/17 03/07/18 [Vitamin D2] Furosemide [Lasix] 40 mg PO DAILY 04/08/17 03/07/18 Glimepiride [Amaryl] 4 mg PO QAM 04/08/17 03/07/18 Losartan Potassium [Cozaar] 50 mg PO DAILY 04/08/17 03/07/18 Ropinirole HCl [Requip] 4 mg PO TID 04/08/17 03/07/18 Acetaminophen [Non-Aspirin] 650 mg PO PRN PRN MDD 4 03/07/18 03/07/18 Acetaminophen with Codeine 1 each PO PRN PRN MDD 1 03/07/18 03/07/18 [Acetaminophen-Cod #3 Tablet] Buspirone HCl [Buspar] 10 mg PO BID 03/07/18 03/07/18 Carvedilol 3.125 mg PO BID 03/07/18 03/07/18 DiphenhydraMINE [Benadryl] 25 mg PO Q6HR 03/07/18 03/07/18 Duloxetine HCl [Cymbalta] 60 mg PO DAILY 03/07/18 03/07/18 HYDROcodone/Acet 5/325 mg [[place] 1 tab PO Q6HR 03/07/18 03/07/18 5-325 mg] Potassium Chloride [K-Tab ER] 20 meq PO DAILY 03/07/18 03/07/18 Warfarin Sodium 1 mg PO QWEEK 03/07/18 03/07/18 Warfarin Sodium 2.5 mg PO QWEEK 03/07/18 03/07/18 Warfarin Sodium 3 mg PO 6XW 03/07/18 03/07/18 cephALEXin [Keflex] 500 mg PO QID 03/07/18 03/07/18 Allergies Allergy/AdvReac Type Severity Reaction Status Date / Time nadolol [From Corgard] Allergy Unknown See Verified 04/08/17 09:03 Comments azithromycin [From Zithromax] AdvReac Unknown See Verified 03/07/18 00:43 Comments levofloxacin [From Levaquin] AdvReac Unknown See Verified 03/07/18 00:43 Comments Sulfa (Sulfonamide AdvReac Unknown See Verified 03/07/18 00:43 Antibiotics) Comments gabapentin AdvReac Unknown Verified 04/08/17 11:45 Constitutional: Reports: chills. Denies: fever Cardiovascular: Denies: chest pain, palpitations Respiratory: Denies: cough, dyspnea, wheezes Gastrointestinal: Reports: abdominal pain. Denies: nausea Genitourinary: Reports: other (Vaginal bleeding. Vaginal pain.). Denies: dysuria, frequency Musculoskeletal: Reports: other. Denies: back pain Integumentary: Denies: rash Neurological: Denies: headache Hematological/Lymphatic: Reports: easy bruising Past Medical History - Past Medical History Medical history: Reports: cancer, CVA, diabetes, hypertension, renal disease Surgical history: Reports: cholecystectomy, pacemaker/AICD Psychiatric history: Reports: anxiety, depression FREELANCE PROGRAMMER/APP DEVELOPER history: Reports: no FREELANCE PROGRAMMER/APP DEVELOPER history - Social History Smoking Status: Unknown if ever smoked Smokeless Tobacco Status: No Alcohol use: Reports: none Drug use: Reports: none Physical Exam - General Limitations: no limitations General appearance: alert, in no apparent distress Course - Consultations Consultation #1: Spoke with FREELANCE PROGRAMMER/APP DEVELOPER and given the fact that ultrasound cannot be obtained at night the patient will be admitted to their service with all shot in the morning and ultimate disposition. Patient did get a repeat hemoglobin shows to be stabilized. Vitals stable. Time: 01:01 Vital Signs Temperature 99.8 F H 03/06/18 18:04 Pulse Rate 64 03/06/18 18:04 Respiratory Rate 18 03/06/18 18:04 Blood Pressure 164/54 03/06/18 18:04 O2 Sat by Pulse Oximetry 97 03/06/18 18:04 Temperature 98.2 F 03/07/18 02:05 Pulse Rate 74 03/07/18 02:05 Respiratory Rate 18 03/07/18 02:05 Blood Pressure 144/61 03/07/18 02:05 O2 Sat by Pulse Oximetry 95 03/07/18 02:05 Oxygen Delivery Oxygen Delivery Room Air Medical Decision Making - MDM Narrative Medical decision making narrative: Patient presented for vaginal bleeding. Instructions were for the patient to receive a pelvic ultrasound. If was concerning for endometrial cancer, OB recommended transfer however given the hour we cannot obtain a pelvic ultrasound and the patient will be admitted to their service for ultrasound the morning and ultimate disposition. Patient did get repeat hemoglobin on the ED and shows to have stabilized. Patient's blood pressure also is unremarkable. - Lab Data Lab results reviewed: Yes I reviewed the patient's lab results. Result diagrams: 03/06/18 23:22 03/06/18 18:56 Lab Results 03/06/18 03/06/18 03/06/18 Range/Units 18:56 18:56 18:56 WBC 13.6 H (4.3-11.1) K/mcL RBC 2.70 L (3.82-4.97) M/mcL Hgb 8.1 L (11.5-15.4) g/dL Hct 26.0 L (35.3-44.9) % MCV 96.3 (83.0-100.0) fL MCH 30.0 (28.0-33.3) pg MCHC 31.2 L (31.6-35.5) g/dL RDW 13.2 (11.5-14.5) % Plt Count 314 (140-400) K/mcL MPV 10.2 (9.4-12.4) fL Immature Gran % 0.4 (0-4) % Seg Neutrophils % 75.2 % Lymphocytes % 13.5 % Monocytes % 9.8 % Eosinophils % 0.9 % Basophils % 0.2 % Neutrophils # 10.2 H (1.6-8.9) K/mcL Lymphocytes # 1.8 (0.6-4.6) K/mcL Monocytes # 1.3 (0.0-1.3) K/mcL Eosinophils # 0.1 (0.0-0.6) K/mcL Basophils # 0.0 (0.0-0.2) K/mcL PT 20.7 H (9.4-12.1) Seconds INR 1.8 Sodium 131 L (136-145) mEq/L Potassium 5.3 H (3.5-5.1) mEq/L Chloride 105 (98-107) mEq/L Carbon Dioxide 27 (23-29) mEq/L BUN 53 H (8-23) mg/dL Creatinine 2.30 H (0.60-1.20) mg/dL Est GFR ( Amer) 25 L (> 60) Est GFR (Non-Af Amer) 20 L (> 60) BUN/Creatinine Ratio 23 (6-26) Glucose 281 H (70-105) mg/dL Calculated Osmolality 297 (280-300) Calcium 9.3 (8.6-10.3) mg/dL Urine Color (Yellow) Urine Clarity (Clear) Urine pH (5.0-8.0) pH Units Ur Specific [place] (1.010-1.025) Urine Protein (Neg-Trace) mg/dL Urine Glucose (UA) (Normal) mg/dL Urine Ketones (Negative) mg/dL Urine Blood (Negative) Urine Nitrite (Negative) Urine Bilirubin (Negative) Urine Urobilinogen (Normal) mg/dL Ur Leukocyte Esterase (Negative) Urine Microscopic RBC (0-3) per hpf Urine Microscopic WBC (0-3) per hpf Ur Squamous Epith Cells (None-Few) per lpf Urine Bacteria (None-Few) per hpf Ur Culture Indicated? (NO) Blood Type Antibody Screen 03/06/18 03/06/18 03/06/18 Range/Units 20:33 20:47 23:22 WBC (4.3-11.1) K/mcL RBC (3.82-4.97) M/mcL Hgb 8.4 L (11.5-15.4) g/dL Hct 25.6 L (35.3-44.9) % MCV (83.0-100.0) fL MCH (28.0-33.3) pg MCHC (31.6-35.5) g/dL RDW (11.5-14.5) % Plt Count (140-400) K/mcL MPV (9.4-12.4) fL Immature Gran % (0-4) % Seg Neutrophils % % Lymphocytes % % Monocytes % % Eosinophils % % Basophils % % Neutrophils # (1.6-8.9) K/mcL Lymphocytes # (0.6-4.6) K/mcL Monocytes # (0.0-1.3) K/mcL Eosinophils # (0.0-0.6) K/mcL Basophils # (0.0-0.2) K/mcL PT (9.4-12.1) Seconds INR Sodium (136-145) mEq/L Potassium (3.5-5.1) mEq/L Chloride (98-107) mEq/L Carbon Dioxide (23-29) mEq/L BUN (8-23) mg/dL Creatinine (0.60-1.20) mg/dL Est GFR ( Amer) (> 60) Est GFR (Non-Af Amer) (> 60) BUN/Creatinine Ratio (6-26) Glucose (70-105) mg/dL Calculated Osmolality (280-300) Calcium (8.6-10.3) mg/dL Urine Color Yellow (Yellow) Urine Clarity Slightly Hazy (Clear) Urine pH 5.5 (5.0-8.0) pH Units Ur Specific [place] 1.011 (1.010-1.025) Urine Protein 30 H (Neg-Trace) mg/dL Urine Glucose (UA) 250 H (Normal) mg/dL Urine Ketones Negative (Negative) mg/dL Urine Blood Small H (Negative) Urine Nitrite Positive A (Negative) Urine Bilirubin Negative (Negative) Urine Urobilinogen Normal (Normal) mg/dL Ur Leukocyte Esterase Moderate H (Negative) Urine Microscopic RBC 3-5 H (0-3) per hpf Urine Microscopic WBC 15-30 H (0-3) per hpf Ur Squamous Epith Cells Few (None-Few) per lpf Urine Bacteria Many H (None-Few) per hpf Ur Culture Indicated? YES A (NO) Blood Type A POSITIVE Antibody Screen NEGATIVE S.B.A.R. - S.B.A.R. Situation: Demographics Background: Presenting Complaint Assessment: Vital Signs, Course and respsone to treatment, Patient/Family Expectation Recommendation: Barrier(s) to disposition, Recommendation based on pending studies, treatments, or consults STea Report Given to: Clara Gayle Repor Time: 01:02
[2018-03-06] MEDS ORDERED: cefTRIAXone 1,000 MG in Water for inj. (sterile) 20 ML 10 ML IVP ONE (21:34)
[2018-03-06 21:47] LABS: Bacteria,Urine Many per hpf (None-Few); WBC,Urine 15-30 per hpf (0-3)
[2018-03-06 21:48] LABS: Squamous Epithelial Cell,Urine Few per lpf (None-Few)
[2018-03-06 23:52] LABS: Hematocrit 25.6 % (35.3-44.9); Hemoglobin 8.4 g/dL (11.5-15.4)
--- NOTE | 2018-03-07 01:09 | Emergency Department Note ---
Disposition Clinical Impression: Vaginal bleeding, abnormal Urinary tract infection Qualifiers: Urinary tract infection type: acute cystitis Hematuria presence: without hematuria Qualified Code(s): N30.00 - Acute cystitis without hematuria Chronic kidney disease Qualifiers: Chronic kidney disease stage: unspecified stage Qualified Code(s): N18.9 - Chronic kidney disease, unspecified Disposition: Admitted As Inpatient Condition: Good Referrals: NONE,PCP [Primary Care Provider] - Forms: ED Satisfaction Letter General Adult HPI - General Chief complaint: ED Vaginal Bleeding Stated complaint: vaginal bleeding Time Seen by Provider: 03/06/18 18:05 Source: patient, EMS Limitations: no limitations Nursing Notes Reviewed: Yes Vital Signs Reviewed: Yes - History of Present Illness Pain Scale: 6 - Related Data Home Medications Medication Instructions Recorded Confirmed traZODone [TraZODone] 100 mg PO HS 10/11/16 03/07/18 Calcitriol [Rocaltrol] 0.25 mcg PO DAILY 04/08/17 03/07/18 Ergocalciferol (VITAMIN D2) 50,000 unit PO QWEEK 04/08/17 03/07/18 [Vitamin D2] Furosemide [Lasix] 40 mg PO DAILY 04/08/17 03/07/18 Glimepiride [Amaryl] 4 mg PO QAM 04/08/17 03/07/18 Losartan Potassium [Cozaar] 50 mg PO DAILY 04/08/17 03/07/18 Ropinirole HCl [Requip] 4 mg PO TID 04/08/17 03/07/18 Acetaminophen [Non-Aspirin] 650 mg PO PRN PRN MDD 4 03/07/18 03/07/18 Acetaminophen with Codeine 1 each PO PRN PRN MDD 1 03/07/18 03/07/18 [Acetaminophen-Cod #3 Tablet] Buspirone HCl [Buspar] 10 mg PO BID 03/07/18 03/07/18 Carvedilol 3.125 mg PO BID 03/07/18 03/07/18 DiphenhydraMINE [Benadryl] 25 mg PO Q6HR 03/07/18 03/07/18 Duloxetine HCl [Cymbalta] 60 mg PO DAILY 03/07/18 03/07/18 HYDROcodone/Acet 5/325 mg [[place] 1 tab PO Q6HR 03/07/18 03/07/18 5-325 mg] Potassium Chloride [K-Tab ER] 20 meq PO DAILY 03/07/18 03/07/18 Warfarin Sodium 1 mg PO QWEEK 03/07/18 03/07/18 Warfarin Sodium 2.5 mg PO QWEEK 03/07/18 03/07/18 Warfarin Sodium 3 mg PO 6XW 03/07/18 03/07/18 cephALEXin [Keflex] 500 mg PO QID 03/07/18 03/07/18 Allergies Allergy/AdvReac Type Severity Reaction Status Date / Time nadolol [From Corgard] Allergy Unknown See Verified 04/08/17 09:03 Comments azithromycin [From Zithromax] AdvReac Unknown See Verified 03/07/18 00:43 Comments levofloxacin [From Levaquin] AdvReac Unknown See Verified 03/07/18 00:43 Comments Sulfa (Sulfonamide AdvReac Unknown See Verified 03/07/18 00:43 Antibiotics) Comments gabapentin AdvReac Unknown Verified 04/08/17 11:45 Constitutional: Reports: chills. Denies: fever Cardiovascular: Denies: chest pain, palpitations Respiratory: Denies: cough, dyspnea, wheezes Gastrointestinal: Reports: abdominal pain. Denies: nausea Genitourinary: Reports: other (Vaginal bleeding. Vaginal pain.). Denies: dysuria, frequency Musculoskeletal: Reports: other. Denies: back pain Integumentary: Denies: rash Neurological: Denies: headache Hematological/Lymphatic: Reports: easy bruising Past Medical History - Past Medical History Medical history: Reports: cancer, CVA, diabetes, hypertension, renal disease Surgical history: Reports: cholecystectomy, pacemaker/AICD Psychiatric history: Reports: anxiety, depression [employer] history: Reports: no [employer] history - Social History Smoking Status: Unknown if ever smoked Smokeless Tobacco Status: No Alcohol use: Reports: none Drug use: Reports: none Physical Exam - General Limitations: no limitations General appearance: alert, in no apparent distress Course Vital Signs Temperature 99.8 F H 03/06/18 18:04 Pulse Rate 64 03/06/18 18:04 Respiratory Rate 18 03/06/18 18:04 Blood Pressure 164/54 03/06/18 18:04 O2 Sat by Pulse Oximetry 97 03/06/18 18:04 Temperature 99.8 F H 03/06/18 18:04 Pulse Rate 62 03/07/18 00:00 Respiratory Rate 18 03/07/18 00:00 Blood Pressure 146/56 03/07/18 00:00 O2 Sat by Pulse Oximetry 96 03/07/18 00:00 Oxygen Delivery Oxygen Delivery Room Air Medical Decision Making - Lab Data Lab results reviewed: Yes I reviewed the patient's lab results. Result diagrams: 03/06/18 23:22 03/06/18 18:56 Lab Results 03/06/18 03/06/18 03/06/18 Range/Units 18:56 18:56 18:56 WBC 13.6 H (4.3-11.1) K/mcL RBC 2.70 L (3.82-4.97) M/mcL Hgb 8.1 L (11.5-15.4) g/dL Hct 26.0 L (35.3-44.9) % MCV 96.3 (83.0-100.0) fL MCH 30.0 (28.0-33.3) pg MCHC 31.2 L (31.6-35.5) g/dL RDW 13.2 (11.5-14.5) % Plt Count 314 (140-400) K/mcL MPV 10.2 (9.4-12.4) fL Immature Gran % 0.4 (0-4) % Seg Neutrophils % 75.2 % Lymphocytes % 13.5 % Monocytes % 9.8 % Eosinophils % 0.9 % Basophils % 0.2 % Neutrophils # 10.2 H (1.6-8.9) K/mcL Lymphocytes # 1.8 (0.6-4.6) K/mcL Monocytes # 1.3 (0.0-1.3) K/mcL Eosinophils # 0.1 (0.0-0.6) K/mcL Basophils # 0.0 (0.0-0.2) K/mcL PT 20.7 H (9.4-12.1) Seconds INR 1.8 Sodium 131 L (136-145) mEq/L Potassium 5.3 H (3.5-5.1) mEq/L Chloride 105 (98-107) mEq/L Carbon Dioxide 27 (23-29) mEq/L BUN 53 H (8-23) mg/dL Creatinine 2.30 H (0.60-1.20) mg/dL Est GFR ( Amer) 25 L (> 60) Est GFR (Non-Af Amer) 20 L (> 60) BUN/Creatinine Ratio 23 (6-26) Glucose 281 H (70-105) mg/dL Calculated Osmolality 297 (280-300) Calcium 9.3 (8.6-10.3) mg/dL Urine Color (Yellow) Urine Clarity (Clear) Urine pH (5.0-8.0) pH Units Ur Specific [place] (1.010-1.025) Urine Protein (Neg-Trace) mg/dL Urine Glucose (UA) (Normal) mg/dL Urine Ketones (Negative) mg/dL Urine Blood (Negative) Urine Nitrite (Negative) Urine Bilirubin (Negative) Urine Urobilinogen (Normal) mg/dL Ur Leukocyte Esterase (Negative) Urine Microscopic RBC (0-3) per hpf Urine Microscopic WBC (0-3) per hpf Ur Squamous Epith Cells (None-Few) per lpf Urine Bacteria (None-Few) per hpf Ur Culture Indicated? (NO) Blood Type Antibody Screen 03/06/18 03/06/18 03/06/18 Range/Units 20:33 20:47 23:22 WBC (4.3-11.1) K/mcL RBC (3.82-4.97) M/mcL Hgb 8.4 L (11.5-15.4) g/dL Hct 25.6 L (35.3-44.9) % MCV (83.0-100.0) fL MCH (28.0-33.3) pg MCHC (31.6-35.5) g/dL RDW (11.5-14.5) % Plt Count (140-400) K/mcL MPV (9.4-12.4) fL Immature Gran % (0-4) % Seg Neutrophils % % Lymphocytes % % Monocytes % % Eosinophils % % Basophils % % Neutrophils # (1.6-8.9) K/mcL Lymphocytes # (0.6-4.6) K/mcL Monocytes # (0.0-1.3) K/mcL Eosinophils # (0.0-0.6) K/mcL Basophils # (0.0-0.2) K/mcL PT (9.4-12.1) Seconds INR Sodium (136-145) mEq/L Potassium (3.5-5.1) mEq/L Chloride (98-107) mEq/L Carbon Dioxide (23-29) mEq/L BUN (8-23) mg/dL Creatinine (0.60-1.20) mg/dL Est GFR ( Amer) (> 60) Est GFR (Non-Af Amer) (> 60) BUN/Creatinine Ratio (6-26) Glucose (70-105) mg/dL Calculated Osmolality (280-300) Calcium (8.6-10.3) mg/dL Urine Color Yellow (Yellow) Urine Clarity Slightly Hazy (Clear) Urine pH 5.5 (5.0-8.0) pH Units Ur Specific [place] 1.011 (1.010-1.025) Urine Protein 30 H (Neg-Trace) mg/dL Urine Glucose (UA) 250 H (Normal) mg/dL Urine Ketones Negative (Negative) mg/dL Urine Blood Small H (Negative) Urine Nitrite Positive A (Negative) Urine Bilirubin Negative (Negative) Urine Urobilinogen Normal (Normal) mg/dL Ur Leukocyte Esterase Moderate H (Negative) Urine Microscopic RBC 3-5 H (0-3) per hpf Urine Microscopic WBC 15-30 H (0-3) per hpf Ur Squamous Epith Cells Few (None-Few) per lpf Urine Bacteria Many H (None-Few) per hpf Ur Culture Indicated? YES A (NO) Blood Type A POSITIVE Antibody Screen NEGATIVE Attestation Statement - Attestation Attestation: I, Nas Contreras MD, personally evaluated this patient and discussed their management with the resident physician. I reviewed the resident's note and agree with the documented findings, medical decision making, and plan of care. This patient was signed out at shift change from Dr. Dey and Dr. Jaylin Meneses. Please refer to their notes for complete details of history and physical examination. Patient is an 82-year-old female from an extended care facility who presented for vaginal bleeding. At shift change they have consulted [employer] and he recommended obtaining a pelvic ultrasound and notify them of the results. Several hours after shift change really realize patient has not had her ultrasound and we called to check on it and ultrasound advised that vaginal bleeding does not meet their calling criteria and they will not come in tonight to do the ultrasound. OB was consulted again and accepted admission of the patient. On examination patient is a well-developed obese elderly female in no acute distress. She is alert but seems pleasantly confused. She tells me that she had a hysterectomy when she was 15 because of vaginal bleeding however then she also tells me that she had 4 or 5 kids throughout her life. Breath sounds are decreased but equal bilaterally. Heart regular. Abdomen soft and nontender with normal bowel sounds.
--- NOTE | 2018-03-07 03:04 | OB/GYN History & Physical ---
Date of Encounter: 03/07/18 Time of Encounter: 02:56 Assessment and Plan (1) Postmenopausal bleeding Current visit: Yes Status: Acute Patient admitted with postmenopausal bleeding and on exam she is having bleeding about like a period. Reportedly the bleeding for approximately 5 days and then about this heavy. Patient denies other abnormal discharge and denies pelvic or abdominal pain. Hemoglobin on arrival was 8.1 after several hours observation was 8.4. We have ordered a pelvic ultrasound which will be done in the morning. She did have noted air within the endometrium last April endometrial biopsy been performed which was not diagnostic she has not had follow-up since that point. We will need to await the results of the pelvic ultrasound if she has significant thickening she may require repeat sampling given her comorbid positions this may need to be done at tertiary care center with gynecologic oncology. Depending on the results of her ultrasound she may be candidate for Megace therapy especially if surgery is not much option because of her comorbid conditions. (2) History of CVA (cerebrovascular accident) Current visit: Yes Status: Acute No new deficits reported (3) Anticoagulated on Coumadin Current visit: Yes Status: Acute Her INR is low though she is having bleeding we will consult hospitalist for management (4) Renal failure Current visit: Yes Status: Acute BUN/creatinine are stable from prior admissions and she has good urine output Qualifiers: Renal failure chronicity: chronic Chronic kidney disease stage: stage 4 ( severe) Qualified Code(s): N18.4 - Chronic kidney disease, stage 4 (severe) (5) H/O sick sinus syndrome Current visit: Yes Status: Acute Patient with history of cardiac arrhythmia does have a AICD in place (6) CKD (chronic kidney disease) stage 4, GFR 15-29 ml/min Current visit: No Status: Chronic (7) HTN (hypertension) Current visit: No Status: Chronic Consult medicine to help in management Qualifiers: Hypertension type: essential hypertension Qualified Code(s): I10 - Essential (primary) hypertension (8) Morbid obesity with BMI of 40.0-44.9, adult Current visit: No Status: Chronic (9) Pulmonary hypertension Current visit: No Status: Chronic (10) UTI (urinary tract infection) Current visit: No Status: Ruled-out She received Rocephin in the ER will continue Rocephin daily awaiting cultures Qualifiers: Urinary tract infection type: site unspecified Hematuria presence: without hematuria Qualified Code(s): N39.0 - Urinary tract infection, site not specified History of Present Illness Chief complaint: Vaginal bleeding HPI: Ms. Tate is a 82 year old female 4 para 4 female postmenopausal for several years brought in from group home by squad for vaginal bleeding. She is a poor historian however it was reported by a nurse who also works at [facility] that she has been bleeding for approximately 5 days about like a period. Her hemoglobin upon arrival was 8.1 after several hours in the emergency room was 8.4 and she did not receive transfusion. Does have a hemoglobin of just over 9 last March and approximately year given the operating room was 11. Currently she is not ambulatory to tomorrow to medical illnesses. She does not complain of abdominal pain that she does have a ulcer over her sacrum which she states sore. She denies fevers chills nausea or vomiting. She denies urinary symptoms and currently has a catheter in place draining large amount of clear urine. Patient was admitted to [facility] last April at which time she had had a stroke and she is now on Coumadin. At time of that admission she was having abdominal pain and leukocytosis CAT scan was performed showing probable endometritis with air within the lining of the uterus. Ultrasound did confirm this that is no mention of endometrial thickening. She did have small fibroids largest 1.[address] Puma Carroll did see patient in follow-up from the hospital at that time which time endometrial biopsy was attempted by passing the [place] 3 times and no significant tissue was obtained. Patient reportedly has no history of prior abnormal Pap smears or other gynecologic problems though again the history is limited. Patient's comorbid conditions include renal failure, diabetes, history of stroke on Coumadin, history of irregular heartbeat and bradycardia (6 sinus syndrome) for which she has an internal defibrillator, pulmonary hypertension, history of CHF, history of hypothyroidism, spinal stenosis and depression. Past Med Surg Social Fam HX - Past Medical History Source: old records reviewed Medical history: cancer, CVA, diabetes, hypertension, renal disease, thyroid disease Additional medical history: [place] Psychiatric history: anxiety, depression - Past Surgical History Surgical History: cholecystectomy, pacemaker/AICD Additional surgical history: nose, eye implants, ovary surgery-removal of right ovary, gallbladder, heel spurs - Social History Smoking Status: Unknown if ever smoked Smokeless Tobacco Status: No Alcohol use: none Drug use: none - Family History Mother Living Status: Hx Family Cardiac Disorders: Yes Father Adopted: No Hx Family Cardiac Disorders: Yes Obstetrical History - Pregnancies : 4 Para: 4 Medications and Allergies traZODone [TraZODone] 100 mg PO HS 10/11/16 [History] Calcitriol [Rocaltrol] 0.25 mcg PO DAILY 04/08/17 [History] Ergocalciferol (VITAMIN D2) [Vitamin D2] 50,000 unit PO QWEEK 04/08/17 [History] Furosemide [Lasix] 40 mg PO DAILY 04/08/17 [History] Glimepiride [Amaryl] 4 mg PO QAM 04/08/17 [History] Losartan Potassium [Cozaar] 50 mg PO DAILY 04/08/17 [History] Ropinirole HCl [Requip] 4 mg PO TID 04/08/17 [History] Acetaminophen [Non-Aspirin] 650 mg PO PRN PRN MDD 4 03/07/18 [History] Acetaminophen with Codeine [Acetaminophen-Cod #3 Tablet] 1 each PO PRN PRN MDD 1 03/07/18 [History] Buspirone HCl [Buspar] 10 mg PO BID 03/07/18 [History] Carvedilol 3.125 mg PO BID 03/07/18 [History] DiphenhydraMINE [Benadryl] 25 mg PO Q6HR 03/07/18 [History] Duloxetine HCl [Cymbalta] 60 mg PO DAILY 03/07/18 [History] HYDROcodone/Acet 5/325 mg [[place] 5-325 mg] 1 tab PO Q6HR 03/07/18 [History] Potassium Chloride [K-Tab ER] 20 meq PO DAILY 03/07/18 [History] Warfarin Sodium 1 mg PO QWEEK 03/07/18 [History] Warfarin Sodium 2.5 mg PO QWEEK 03/07/18 [History] Warfarin Sodium 3 mg PO 6XW 03/07/18 [History] cephALEXin [Keflex] 500 mg PO QID 03/07/18 [History] 3 Allergy/AdvReac Type Severity Reaction Status Date / Time nadolol [From Corgard] Allergy Unknown See Verified 04/08/17 09:03 Comments azithromycin [From Zithromax] AdvReac Unknown See Verified 03/07/18 00:43 Comments levofloxacin [From Levaquin] AdvReac Unknown See Verified 03/07/18 00:43 Comments Sulfa (Sulfonamide AdvReac Unknown See Verified 03/07/18 00:43 Antibiotics) Comments gabapentin AdvReac Unknown Verified 04/08/17 11:45 Exam - Vital Signs Vital signs: Initial Vital Signs Temp Pulse Resp BP Pulse Ox 99.8 F H 64 18 164/54 97 03/06/18 18:04 03/06/18 18:04 03/06/18 18:04 03/06/18 18:04 03/06/18 18:04 - Constitutional Constitutional: well nourished, no acute distress - HEENT HEENT: EOMI - Neck Neck exam: full ROM - Lungs Respiratory exam: CTAB - Cardiovascular Cardiovascular exam: RRR - Abdomen Abdomen: Present: bowel sounds normal, non tender - Extremities Extremities exam: full ROM - Vagina Vagina: Present: normal moisture - Comments Comments: She has a pad almost a small amount of blood on inner thighs and pad is no clots and no bright red bleeding. Patient has a small approximately 2 x 2 cm ulcer over sacrum which has a dressing over it Results Result Diagrams: 03/06/18 23:22 03/06/18 18:56 Abnormal lab results WBC 13.6 K/mcL (4.3-11.1) H 03/06/18 18:56 RBC 2.70 M/mcL (3.82-4.97) L 03/06/18 18:56 Hgb 8.4 g/dL (11.5-15.4) L 03/06/18 23:22 Hct 25.6 % (35.3-44.9) L 03/06/18 23:22 MCHC 31.2 g/dL (31.6-35.5) L 03/06/18 18:56 Neutrophils # 10.2 K/mcL (1.6-8.9) H 03/06/18 18:56 PT 20.7 Seconds (9.4-12.1) H 03/06/18 18:56 Sodium 131 mEq/L (136-145) L 03/06/18 18:56 Potassium 5.3 mEq/L (3.5-5.1) H 03/06/18 18:56 BUN 53 mg/dL (8-23) H 03/06/18 18:56 Creatinine 2.30 mg/dL (0.60-1.20) H 03/06/18 18:56 Est GFR ( Amer) 25 (> 60) L 03/06/18 18:56 Est GFR (Non-Af Amer) 20 (> 60) L 03/06/18 18:56 Glucose 281 mg/dL (70-105) H 03/06/18 18:56 Urine Protein 30 mg/dL (Neg-Trace) H 03/06/18 20:33 Urine Glucose (UA) 250 mg/dL (Normal) H 03/06/18 20:33 Urine Blood Small (Negative) H 03/06/18 20:33 Urine Nitrite Positive (Negative) A 03/06/18 20:33 Ur Leukocyte Esterase Moderate (Negative) H 03/06/18 20:33 Urine Microscopic RBC 3-5 per hpf (0-3) H 03/06/18 20:33 Urine Microscopic WBC 15-30 per hpf (0-3) H 03/06/18 20:33 Urine Bacteria Many per hpf (None-Few) H 03/06/18 20:33 Ur Culture Indicated? YES (NO) A 03/06/18 20:33 All other labs normal.
[2018-03-07] MEDS ORDERED: Acetaminophen 325 MG TABLET PO ONE (04:01)
[2018-03-07] MEDS ORDERED: Dextrose Gel 15 GM/37.5 ML TUBE PO PRN ×2 (04:02)
--- NOTE | 2018-03-07 04:21 | Internal Medicine Consult Note ---
Date of Encounter: 03/07/18 Time of Encounter: 04:17 - Assessment and plan (1) Afib Current Visit: Yes Status: Acute Assessment and plan: Currently in sinus rhythm and rate controlled. -Advise to monitor on telemetry. -INR currently sub-therapeutic with a high risk of thrombosis however due to ongoing bleeding, let us hold on warfarin for now and this can be resumed once more stable. No bridging therapy at this time. Qualifiers: Atrial fibrillation type: paroxysmal Qualified Code(s): I48.0 - Paroxysmal atrial fibrillation (2) Hyponatremia Current Visit: Yes Status: Acute Assessment and plan: Likely hypovolemic in origin. She appears somewhat dehydrated. Will check response to IV NS. (3) Abnormal finding on urinalysis Current Visit: Yes Status: Acute Assessment and plan: It does not appear that the patient has symptoms of a UTI that warrants the use of antimicrobials. However she may have a component of dementia which impedes the adequacy of her ROS. With leukocytosis and significant UA findings, may continue ceftriaxone 1gr daily and follow urine culture; narrow therapy accordingly. (4) Decubitus skin ulcer Current Visit: Yes Status: Chronic Assessment and plan: Wound care advised and pressure off-loading. Qualifiers: Pressure injury location: sacral region Pressure injury stage: unspecified pressure injury stage Qualified Code(s): L89.159 - Pressure ulcer of sacral region, unspecified stage (5) History of CVA (cerebrovascular accident) Current Visit: Yes Status: Chronic Assessment and plan: Stable. No intervention necessary (6) Renal failure Current Visit: Yes Status: Chronic Assessment and plan: BUN/Cr at baseline and not warranting urgent intervention. Medications to be renally adjusted as needed. Qualifiers: Renal failure chronicity: chronic Chronic kidney disease stage: stage 4 ( severe) Qualified Code(s): N18.4 - Chronic kidney disease, stage 4 (severe) (7) Postmenopausal bleeding Current Visit: Yes Status: Acute Assessment and plan: Management per Finish Specialist. (8) Anemia Current Visit: Yes Status: Acute Assessment and plan: Secondary to acute blood loss. Threshold for transfusion should be to maintain Hgb >7g/dl. Qualifiers: Anemia type: other cause Other causes of anemia: acute posthemorrhagic Qualified Code(s): D62 - Acute posthemorrhagic anemia (9) CHF (congestive heart failure) Current Visit: Yes Status: Chronic Assessment and plan: Will continue low dose carvedilol for the time being given the concomitance with A.fib. Qualifiers: Qualified Code(s): I50.32 - Chronic diastolic (congestive) heart failure (10) CKD (chronic kidney disease) stage 4, GFR 15-29 ml/min Current Visit: No Status: Chronic (11) HTN (hypertension) Current Visit: Yes Status: Chronic Assessment and plan: The patients BP values are adequate for her age and prefer to avoid strict control. -Discontinue furosemide for now as she appears somewhat intra-vascularly depleted. -Continue losartan daily. Qualifiers: Hypertension type: essential hypertension Qualified Code(s): I10 - Essential (primary) hypertension (12) Hyperkalemia Current Visit: Yes Status: Acute Assessment and plan: Mild in the setting of CKD. Review of old records suggest she has a tendency towards this. No EKG changes seen. 1 dose of kayexalate is ordered. (13) Diabetes Current Visit: Yes Status: Chronic Assessment and plan: Advise to discontinue glimepiride and place the patient on accuchecks and insulin sliding scale during hospitalization. Qualifiers: Diabetes mellitus type: type 2 Diabetes mellitus gre tutor insulin use: with gre tutor use Diabetes mellitus complication status: with unspecified complications Qualified Code(s): E11.8 - Type 2 diabetes mellitus with unspecified complications; Z79.4 - FDC (current) use of insulin (14) DVT prophylaxis Current Visit: No Status: Acute Assessment and plan: Anti-embolic stockings should be ordered for now. - Time Spent With Patient Total time spent is greater than 50% in coordination of care (as documented) at patient's floor/unit and/or counseling patient: Greater than 35 minutes Internal Medicine - CN: HPI - Data of Consult Patient: new to practice Consult date: 03/07/18 Requesting Physician: Yusuf Turcios MD - Consult Narrative Reason for consult: Management of comorbidities History of present illness: Africa Tate is an 82 year old woman with a history of CKD, afib on warfarin, CVA, hypertension, hypothyroidism, diabetes and heart failure s/p AICD who was admitted overnight [facility] due to vaginal bleeding witnessed at her group home for the past 5 days. Although clinically and hemodynamically stable , she was found to have an Hgb of 8.1. She denied any abdominal pain, fever, chills, nausea or vomiting. There were no dysuric symptoms reported. The patient is now admitted for postmenopausal bleeding of unclear etiology with a pelvic ultrasound scheduled for later this morning. Due to her comorbidities, hospital medicine consultation is requested to assist in management. On my assessment she was laying comfortably in bed in no acute distress. She reports feeling some pain in her left leg and requests pain medication for this. She has no other complaints at this time. Past Med Surg Social Fam HX - Past Medical History Medical history: cancer, CVA, diabetes, hypertension, renal disease Additional medical history: [place] Psychiatric history: anxiety, depression - Past Surgical History Surgical History: cholecystectomy, pacemaker/AICD Additional surgical history: nose, eye implants, ovary surgery-removal of right ovary, gallbladder, heel spurs - Social History Smoking Status: Unknown if ever smoked Smokeless Tobacco Status: No Alcohol use: none Drug use: none - Family History Mother Living Status: Hx Family Cardiac Disorders: Yes Father Adopted: No Hx Family Cardiac Disorders: Yes All systems: reviewed and no additional remarkable complaints except as stated Internal Medicine - CN: Meds traZODone [TraZODone] 100 mg PO HS 10/11/16 [History] Calcitriol [Rocaltrol] 0.25 mcg PO DAILY 04/08/17 [History] Ergocalciferol (VITAMIN D2) [Vitamin D2] 50,000 unit PO QWEEK 04/08/17 [History] Furosemide [Lasix] 40 mg PO DAILY 04/08/17 [History] Glimepiride [Amaryl] 4 mg PO QAM 04/08/17 [History] Losartan Potassium [Cozaar] 50 mg PO DAILY 04/08/17 [History] Ropinirole HCl [Requip] 4 mg PO TID 04/08/17 [History] Acetaminophen [Non-Aspirin] 650 mg PO PRN PRN MDD 4 03/07/18 [History] Acetaminophen with Codeine [Acetaminophen-Cod #3 Tablet] 1 each PO PRN PRN MDD 1 03/07/18 [History] Buspirone HCl [Buspar] 10 mg PO BID 03/07/18 [History] Carvedilol 3.125 mg PO BID 03/07/18 [History] DiphenhydraMINE [Benadryl] 25 mg PO Q6HR 03/07/18 [History] Duloxetine HCl [Cymbalta] 60 mg PO DAILY 03/07/18 [History] HYDROcodone/Acet 5/325 mg [[place] 5-325 mg] 1 tab PO Q6HR 03/07/18 [History] Potassium Chloride [K-Tab ER] 20 meq PO DAILY 03/07/18 [History] Warfarin Sodium 1 mg PO QWEEK 03/07/18 [History] Warfarin Sodium 2.5 mg PO QWEEK 03/07/18 [History] Warfarin Sodium 3 mg PO 6XW 03/07/18 [History] cephALEXin [Keflex] 500 mg PO QID 03/07/18 [History] 3 Allergy/AdvReac Type Severity Reaction Status Date / Time nadolol [From Corgard] Allergy Unknown See Verified 04/08/17 09:03 Comments azithromycin [From Zithromax] AdvReac Unknown See Verified 03/07/18 00:43 Comments levofloxacin [From Levaquin] AdvReac Unknown See Verified 03/07/18 00:43 Comments Sulfa (Sulfonamide AdvReac Unknown See Verified 03/07/18 00:43 Antibiotics) Comments gabapentin AdvReac Unknown Verified 04/08/17 11:45 Hospitalist - CN: Exam - Constitutional Vitals: Temp Pulse Resp BP Pulse Ox 98.2 F 74 18 144/61 95 03/07/18 02:05 03/07/18 02:05 03/07/18 02:05 03/07/18 02:05 03/07/18 02:05 Exam: Vitals: Reviewed General: Well developed, pleasant, NAD Skin: Warm and supple; pale. Pressure ulcer overlying coccyx. HEENT: Moist mucous membranes. (+) conjunctivae pallor. Neck: No lymphadenopathy. No JVD. No carotid bruits. No palpable thyroid. Chest: Diminished thoracic expansion. No wheezing, rales or rhonchi. Heart: Normal S1 & S2; rhythmic. Abdomen: Non-distended, soft and non-tender to palpation. No peritoneal reaction. Extremities: Trace edema. No calf tenderness. Normal distal pulses. Neurological: Awake, alert and oriented to person. 2/5 left arm and leg strength. 3/5 right arm and leg strength. Psych: Affect appropriate. Internal Medicine - CN: Reslt - Labs CBC & Chem 7: 03/06/18 23:22 03/06/18 18:56 - ABG Interpretation ABG results: PT/INR, D-dimer PT 20.7 Seconds (9.4-12.1) H 03/06/18 18:56 Consult Discharge Plan - Plan Referrals: NONE,PCP [Primary Care Provider] -
[2018-03-07] MEDS ORDERED: 0.9 % Sodium Chloride 1,000 ML IVC SCH (04:30)
[2018-03-07 04:55] LABS: Basophils # 0.1 K/mcL (0.0-0.2); Basophils % 0.4 %; Eosinophils # 0.2 K/mcL (0.0-0.6); Eosinophils % 1.5 %; Hematocrit 24.3 % (35.3-44.9); Hemoglobin 7.8 g/dL (11.5-15.4); Immature Granulocytes % 0.6 % (0-4); Lymphocytes # 1.9 K/mcL (0.6-4.6); Lymphocytes % 14.6 %; Mean Corpuscular HGB Conc 32.1 g/dL (31.6-35.5); Mean Corpuscular Hemoglobin 30.7 pg (28.0-33.3); Mean Corpuscular Volume 95.7 fL (83.0-100.0); Mean Platelet Volume 10.3 fL (9.4-12.4); Monocytes # 1.2 K/mcL (0.0-1.3); Monocytes % 9.2 %; Neutrophils # 9.5 K/mcL (1.6-8.9); Platelet Count 313 K/mcL (140-400); Red Blood Count 2.54 M/mcL (3.82-4.97); Red Cell Distribution Width 13.1 % (11.5-14.5); Segmented Neutrophils % 73.7 %
[2018-03-07] MEDS: Insulin LISPRO 300 UNITS/3 ML VIAL SQ SCH ×4 (05:53→23:53)
[2018-03-07] MEDS ORDERED: *HR* Dextrose 50 % in Water (Syg) 50 ML SYRINGE IVP PRN (07:39)
[2018-03-07] MEDS ORDERED: D5% in Water 1,000 ML IVC PRN (07:39)
[2018-03-07] MEDS: rOPINIRole 1 MG TABLET PO SCH ×4 (08:06→21:00)
[2018-03-07] MEDS: cefTRIAXone 1,000 MG in Water for inj. (sterile) 20 ML 10 ML IVP SCH ×3 (08:07→12:37)
[2018-03-07] MEDS ORDERED: *HR* Glimepiride 4 MG TABLET PO SCH (09:00)
[2018-03-07] MEDS ORDERED: Furosemide 20 MG TABLET PO SCH (09:00)
--- NOTE | 2018-03-07 09:31 | Event Note ---
Date of Encounter: 03/07/18 Time of Encounter: 09:16 82F with PMHx of CKD, afib on warfarin, CVA, hypertension, hypothyroidism, diabetes and heart failure s/p AICD admitted due to vaginal bleeding witnessed at her senior living for the past 5 days. Hgb of 7.8 today from 8.4. No abdominal pain, fever, chills, nausea or vomiting or dysuric symptoms reported. Monitor Hb for now. Plan for pelvic ultrasound. Consulted for management of comorbidities. Abnormal UA with leukocytosis. On Ceftriaxone for UTI given ROS could be unreliable due to dementia. f/u Cultures. Wound care for pressure ulcer. Coumadin on hold because of bleeding. glimepiride on hold. On insulin SSI and accuchecks.
[2018-03-07 12:36] LABS: Basophils % 0.2 %; Eosinophils # 0.2 K/mcL (0.0-0.6); Eosinophils % 1.3 %; Hematocrit 24.6 % (35.3-44.9); Hemoglobin 7.8 g/dL (11.5-15.4); Immature Granulocytes % 0.3 % (0-4); Lymphocytes # 1.6 K/mcL (0.6-4.6); Lymphocytes % 13.7 %; Mean Corpuscular HGB Conc 31.7 g/dL (31.6-35.5); Mean Corpuscular Hemoglobin 30.5 pg (28.0-33.3); Mean Corpuscular Volume 96.1 fL (83.0-100.0); Mean Platelet Volume 10.2 fL (9.4-12.4); Monocytes # 1.2 K/mcL (0.0-1.3); Monocytes % 9.9 %; Neutrophils # 8.6 K/mcL (1.6-8.9); Platelet Count 316 K/mcL (140-400); Red Blood Count 2.56 M/mcL (3.82-4.97); Segmented Neutrophils % 74.6 %
[2018-03-07 12:59] LABS: Calcium 9.1 mg/dL (8.6-10.3); Potassium 4.8 mEq/L (3.5-5.1)
--- NOTE | 2018-03-07 19:30 | OB/GYN Progress Note ---
Date of Encounter: 03/07/18 Time of Encounter: 19:27 - Assessment and Plan (1) Afib Current Visit: Yes Status: Acute Qualifiers: Atrial fibrillation type: paroxysmal Qualified Code(s): I48.0 - Paroxysmal atrial fibrillation (2) Anemia Current Visit: Yes Status: Acute Qualifiers: Anemia type: other cause Other causes of anemia: acute posthemorrhagic Qualified Code(s): D62 - Acute posthemorrhagic anemia (3) Anticoagulated on Coumadin Current Visit: Yes Status: Acute (4) H/O sick sinus syndrome Current Visit: Yes Status: Acute (5) Hyperkalemia Current Visit: Yes Status: Acute (6) Hyponatremia Current Visit: Yes Status: Acute (7) Postmenopausal bleeding Current Visit: Yes Status: Acute will place patient on megestrol 40mg bid once stable we will make arrangments for followup in the office for EMB Subjective - Subjective Interval history: Patient is sleeping at this point unable to really get a history due to her dementia. Nursing staff patient is still bleeding. Patient did have her pelvic ultrasound this evening final report is still pending preliminary evaluation by myself does show that the endometrium is thickened at 14 mm. Scan is only transabdominal not transvaginal was performed probably due to patient's dementia and inability to tolerate that particular examination. Due to the thickened endometrium and continue bleeding and needing to be on Coumadin did discuss case with her son who is her primary emergency contact and have recommended discussing possible transfer to [facility] for further evaluation and management. They okay with me discussing this with them and if they feel that she was transferred going ahead and transfer and the patient. At this particular time they are holding her Coumadin because of the bleeding but with her comorbidities this might be a bad option for long-term management. Case was discussed with a doctor Julian LINE COOK Oncologist at [facility] who has recommended stabilizing the endometrium with progestin therapy once stable performing an endometrial biopsy on the patient once a diagnosis has been made then referral can be made if needed. Did discuss with resident on-call and have recommended they restart her Coumadin we will start her on some megestrol 40 mg twice a day which should control her bleeding once bleeding is under control and she is medically stable enough to be discharged home we will make arrangements for her to follow-up in the office as an outpatient for endometrial biopsy Patient reports: other (unable to get any information from her due to her dementia) Objective - Vital Signs Latest vital signs: Vital Signs Temp Pulse Resp BP Pulse Ox 03/07/18 16:22 98.2 F 70 18 150/60 98 03/07/18 10:56 98.6 F 62 17 167/50 98 03/07/18 07:14 98.2 F 66 18 117/41 94 03/07/18 02:05 98.2 F 74 18 144/61 95 03/07/18 01:43 18 153/47 Intake and Output 03/07/18 03/07/18 03/07/18 07:59 15:59 23:59 Intake Total 490 / 490 240 / 240 Output Total 600 / 600 600 / 600 Balance -600 / -600 -110 / -110 240 / 240 Intake: IV Fluids Rocephin 1,000 MG In Water for inj. (sterile) 10 ML @ 600 mls/ hr IVP DAILY [facility] Rx#:[id number] Oral 480 / 480 240 / 240 Output: Urine 300 / 300 Catheter 600 / 600 300 / 300 Other: Meal Lunch Dinner Percent of Meal Consumed 5% 5% Stool Size Small Stool Consistency soft formed Stool Characteristics Normal for Patient Stool Color Brown # Bowel Movement Diapers 1 Weight 97 kg Blood Glucose* 158 157 86 Patient Weight 03/07/18 23:59 Weight 97 kg - I&O's I&O's: Intake & Output 03/04/18 03/05/18 03/06/18 03/07/18 23:59 23:59 23:59 23:59 Intake Total 730 / 730 Output Total 1200 / 1200 Balance -470 / -470 Weight 97 kg - Exam Comments: blood noted on her pad - Labs Labs: Abnormal lab results WBC 11.6 K/mcL (4.3-11.1) H 03/07/18 11:58 RBC 2.56 M/mcL (3.82-4.97) L 03/07/18 11:58 Hgb 7.8 g/dL (11.5-15.4) L 03/07/18 11:58 Hct 24.6 % (35.3-44.9) L 03/07/18 11:58 PT 20.7 Seconds (9.4-12.1) H 03/06/18 18:56 Carbon Dioxide 30 mEq/L (23-29) H 03/07/18 11:58 BUN 49 mg/dL (8-23) H 03/07/18 11:58 Creatinine 2.15 mg/dL (0.60-1.20) H 03/07/18 11:58 Est GFR ( Amer) 27 (> 60) L 03/07/18 11:58 Est GFR (Non-Af Amer) 22 (> 60) L 03/07/18 11:58 Glucose 157 mg/dL (70-105) H 03/07/18 11:58 POC Glucose 157 mg/dL (70-99) H 03/07/18 11:57 Calculated Osmolality 306 (280-300) H 03/07/18 11:58 Urine Protein 30 mg/dL (Neg-Trace) H 03/06/18 20:33 Urine Glucose (UA) 250 mg/dL (Normal) H 03/06/18 20:33 Urine Blood Small (Negative) H 03/06/18 20:33 Urine Nitrite Positive (Negative) A 03/06/18 20:33 Ur Leukocyte Esterase Moderate (Negative) H 03/06/18 20:33 Urine Microscopic RBC 3-5 per hpf (0-3) H 03/06/18 20:33 Urine Microscopic WBC 15-30 per hpf (0-3) H 03/06/18 20:33 Urine Bacteria Many per hpf (None-Few) H 03/06/18 20:33 Ur Culture Indicated? YES (NO) A 03/06/18 20:33 Consult Discharge Plan - Plan Referrals: NONE,PCP [Primary Care Provider] -
[2018-03-07 20:20] LABS: Hematocrit 23.3 % (35.3-44.9); Hemoglobin 7.4 g/dL (11.5-15.4)
[2018-03-07 20:25] LABS: INR 1.5; Prothrombin Time 16.9 Seconds (9.4-12.1)
--- NOTE | 2018-03-07 20:26 | Event Note ---
Date of Encounter: 03/08/18 Time of Encounter: 20:21 82 y/o female hx Afib, CVA, CKA and anemia presented for AUB managed by OB. I spoke with Dr Carroll and patient is cleared to restart anti-coagaulation from bleeding point of view as benefits outweigh the risks. Last INR on 9-3 was 1.8 with at least one dose missed since then. Per RN her bleeding is less than yesterday. ROS is limited due to patient baseline dementia - she is cold and her left leg pain is at its normal. She doesn't know if she is bleeding. I spoke with son Chriss Tate at [phone] - per son his sister is JAMSHID Desaiield [phone]. I updated family on what we were doing medically and placed call to CLERICAL MANAGER senior medical transcriptionist asking them to update family but they have already spoke with someone other than JAMSHID. They do not plan to transfer to [facility] as any procedures can be done as outpatient. Plan: A fib -restart warfarin with pharmacy to dose, INR 1.5 now Anemia: now Hgb 7.4 from 7.8 baseline around 9-10; trend HgB AUB - per primary team CLERICAL MANAGER
[2018-03-07] MEDS ORDERED: *HR* Warfarin 3 MG TABLET PO ONE (20:54)
[2018-03-07] MEDS ORDERED: traZODone 50 MG TABLET PO SCH (21:00)
[2018-03-07] MEDS ORDERED: Warfarin perPT PO PRN (21:00)
[2018-03-08] MEDS: Insulin LISPRO 300 UNITS/3 ML VIAL SQ SCH ×3 (05:20→16:07)
[2018-03-08 06:37] LABS: Basophils % 0.4 %; Eosinophils # 0.3 K/mcL (0.0-0.6); Eosinophils % 3.1 %; Hematocrit 24.2 % (35.3-44.9); Hemoglobin 7.5 g/dL (11.5-15.4); Immature Granulocytes % 0.5 % (0-4); Lymphocytes % 20.7 %; Mean Corpuscular Hemoglobin 30.1 pg (28.0-33.3); Mean Corpuscular Volume 97.2 fL (83.0-100.0); Mean Platelet Volume 10.1 fL (9.4-12.4); Monocytes % 10.8 %; Neutrophils # 6.1 K/mcL (1.6-8.9); Platelet Count 310 K/mcL (140-400); Red Blood Count 2.49 M/mcL (3.82-4.97); Red Cell Distribution Width 13.2 % (11.5-14.5); Segmented Neutrophils % 64.5 %
[2018-03-08 06:42] LABS: INR 1.4; Prothrombin Time 15.9 Seconds (9.4-12.1)
[2018-03-08 06:57] LABS: Calcium 8.8 mg/dL (8.6-10.3)
[2018-03-08] MEDS: rOPINIRole 1 MG TABLET PO SCH ×2 (08:55→16:25)
[2018-03-08] MEDS: cefTRIAXone 1,000 MG in Water for inj. (sterile) 20 ML 10 ML IVP SCH (08:56)
--- NOTE | 2018-03-08 10:46 | Internal Med Progress Note ---
Hospitalist Progress Note - Encounter Date of Encounter: 03/08/18 Time of Encounter: 10:43 - Subjective Interval History: Patient seen and examined this morning. Denies new complains. No further bleeding. - Exam Vitals: Temp Pulse Resp BP Pulse Ox 98.6 F 76 17 163/68 100 03/08/18 07:29 03/08/18 07:29 03/08/18 07:29 03/08/18 07:29 03/08/18 07:29 Exam: Vitals: Reviewed General: Well developed, pleasant, NAD, Obese Skin: Warm and supple; pale. Pressure ulcer overlying coccyx. HEENT: Moist mucous membranes. (+) conjunctivae pallor. Neck: No lymphadenopathy. No JVD. No carotid bruits. No palpable thyroid. Chest: Diminished thoracic expansion. No wheezing, rales or rhonchi. Heart: Normal S1 & S2; rhythmic. Abdomen: Non-distended, soft and non-tender to p alpation. No peritoneal reaction. Extremities: Trace edema. No calf tenderness. Normal distal pulses. Neurological: Awake, alert. Not orient to place and time. 2/5 left arm and leg strength. 3/5 right arm and leg strength. Psych: Affect appropriate. - Assessment and Plan (1) HTN (hypertension) Current Visit: Yes Status: Chronic (2) Diabetes Current Visit: Yes Status: Chronic (3) DVT prophylaxis Current Visit: No Status: Acute (4) CHF (congestive heart failure) Current Visit: Yes Status: Chronic (5) Hyperkalemia Current Visit: Yes Status: Acute (6) CKD (chronic kidney disease) stage 4, GFR 15-29 ml/min Current Visit: No Status: Chronic (7) Anemia Current Visit: Yes Status: Acute (8) Postmenopausal bleeding Current Visit: Yes Status: Acute (9) History of CVA (cerebrovascular accident) Current Visit: Yes Status: Chronic (10) Renal failure Current Visit: Yes Status: Chronic (11) Abnormal finding on urinalysis Current Visit: Yes Status: Acute (12) Hyponatremia Current Visit: Yes Status: Acute (13) Decubitus skin ulcer Current Visit: Yes Status: Chronic (14) Afib Current Visit: Yes Status: Acute - Summary of Assessment and Plan Summary of Assessment and Plan: Afib - rate controlled. - Coumadin resumed given high CHADS score. INR traget on 2-3 Abnormal finding on urinalysis - Urine growing GNR - c/w ceftriaxone. Finish 5 day course of abx. Decubitus skin ulcer -Wound care advised and pressure off-loading. CKD - At baseline - Monitor for now. Postmenopausal bleeding - endometrial thickening on US. - Management per Submarine Element Coordinator. Diabetes - glimepiride on hold - c/w acuchecks and insulin sliding scale during hospitalization. - Levemir 10 HS for better control Anemia - Hb stable. No Diastolic CHF (congestive heart failure) - c/w carvedilol HTN - lasix on hold. Resume on DC. - Continue losartan daily. Hyponatremia - resolved. Hyperkalemia - resolved DVT prophylaxis - on coumadin. - Time Spent with Patient Total time spent is greater than 50% in coordination of care (as documented) at patient's floor/unit and/or counseling patient: Internal Medicine: Result - Labs CBC & Chem 7: 03/08/18 06:10 03/08/18 06:10 Labs: Short CBC 03/07/18 03/07/18 03/08/18 Range/Units 11:58 20:05 06:10 WBC 11.6 H 9.4 (4.3-11.1) K/mcL Hgb 7.8 L 7.4 L 7.5 L (11.5-15.4) g/dL Hct 24.6 L 23.3 L 24.2 L (35.3-44.9) % Plt Count 316 310 (140-400) K/mcL Neutrophils # 8.6 6.1 (1.6-8.9) K/mcL BMP 03/07/18 03/08/18 11:58 06:10 Sodium 140 D 141 Potassium 4.8 4.0 Chloride 106 106 Carbon Dioxide 30 H 29 BUN 49 H 41 H Creatinine 2.15 H 2.00 H Glucose 157 H 87 Calcium 9.1 8.8 - ABG Interpretation ABG results: PT/INR, D-dimer PT 15.9 Seconds (9.4-12.1) H 03/08/18 06:10 - Impressions Impressions Pelvis Ultrasound 03/07/18 15:00 IMPRESSION: Uterine fibroid. Abnormal appearing thickened endometrium with appearance suggestive of endometrial pathology. D/ / Lila Orr MD / Lila Orr MD Interpreting Provider: Lila Orr MD Consult Discharge Plan - Plan Referrals: NONE,PCP [Primary Care Provider] - (1) HTN (hypertension) Qualifiers: Hypertension type: essential hypertension Qualified Code(s): I10 - Essential (primary) hypertension (2) Diabetes Qualifiers: Diabetes mellitus type: type 2 Diabetes mellitus fci insulin use: with fci use Diabetes mellitus complication status: with unspecified complications Qualified Code(s): E11.8 - Type 2 diabetes mellitus with unspecified complications; Z79.4 - medical terminologist (current) use of insulin (7) Anemia Qualifiers: Anemia type: other cause Other causes of anemia: acute posthemorrhagic Qualified Code(s): D62 - Acute posthemorrhagic anemia (10) Renal failure Qualifiers: Renal failure chronicity: chronic Chronic kidney disease stage: stage 4 ( severe) Qualified Code(s): N18.4 - Chronic kidney disease, stage 4 (severe) (13) Decubitus skin ulcer Qualifiers: Pressure injury location: sacral region Pressure injury stage: unspecified pressure injury stage Qualified Code(s): L89.159 - Pressure ulcer of sacral region, unspecified stage (14) Afib Qualifiers: Atrial fibrillation type: paroxysmal Qualified Code(s): I48.0 - Paroxysmal atrial fibrillation
[2018-03-08 15:40] VITALS: BP 160/61
--- NOTE | 2018-03-08 17:32 | Discharge Summary ---
Date of Encounter: 03/08/18 Time of Encounter: 18:15 - Discharge Diagnosis (1) Abnormal finding on urinalysis Priority: Secondary Status: Acute (2) Afib Priority: Secondary Status: Acute Qualifiers: Atrial fibrillation type: paroxysmal Qualified Code(s): I48.0 - Paroxysmal atrial fibrillation (3) Anemia Priority: Secondary Status: Acute Qualifiers: Anemia type: other cause Other causes of anemia: acute posthemorrhagic Qualified Code(s): D62 - Acute posthemorrhagic anemia (4) Anticoagulated on Coumadin Priority: Secondary Status: Acute (5) H/O sick sinus syndrome Priority: Secondary Status: Acute (6) Hyperkalemia Priority: Secondary Status: Acute (7) Hyponatremia Priority: Secondary Status: Acute (8) Postmenopausal bleeding Priority: Primary Status: Acute Comments: Bleeding has stopped. Discharge back to [facility] on megace. Follow-up with Dr. Carroll in 1-2 weeks. All other comorbidities managed per hospitalist/PCP. POC discussed with Dr. Carroll and Dr. Dove. (9) Urinary tract infection Priority: Secondary Status: Acute Qualifiers: Urinary tract infection type: acute cystitis Hematuria presence: without hematuria Qualified Code(s): N30.00 - Acute cystitis without hematuria (10) Vaginal bleeding, abnormal Priority: Secondary Status: Acute (11) Chronic kidney disease Priority: Secondary Status: Chronic Qualifiers: Chronic kidney disease stage: unspecified stage Qualified Code(s): N18.9 - Chronic kidney disease, unspecified (12) Decubitus skin ulcer Priority: Secondary Status: Chronic Qualifiers: Pressure injury location: sacral region Pressure injury stage: unspecified pressure injury stage Qualified Code(s): L89.159 - Pressure ulcer of sacral region, unspecified stage (13) Diabetes Priority: Secondary Status: Chronic Qualifiers: Diabetes mellitus type: type 2 Diabetes mellitus retirement insulin use: with retirement use Diabetes mellitus complication status: with unspecified complications Qualified Code(s): E11.8 - Type 2 diabetes mellitus with unspecified complications; Z79.4 - meterman (current) use of insulin (14) HTN (hypertension) Priority: Secondary Status: Chronic Qualifiers: Hypertension type: essential hypertension Qualified Code(s): I10 - Essential (primary) hypertension (15) History of CVA (cerebrovascular accident) Priority: Secondary Status: Chronic - Discharge Medications Prescriptions: Megestrol Acetate [Megace] 40 mg PO BID #30 tablet Home Medications: Calcitriol [Rocaltrol] 0.25 mcg PO DAILY 04/08/17 [History] Ergocalciferol (VITAMIN D2) [Vitamin D2] 50,000 unit PO TH 04/08/17 [History] Glimepiride [Amaryl] 4 mg PO QAM 04/08/17 [History] Losartan Potassium [Cozaar] 50 mg PO DAILY 04/08/17 [History] Ropinirole HCl [Requip] 4 mg PO TID 04/08/17 [History] Acetaminophen [Non-Aspirin] 650 mg PO PRN PRN MDD 4 03/07/18 [History] Acetaminophen with Codeine [Acetaminophen-Cod #3 Tablet] 1 tab PO DAILY PRN MDD 1 03/07/18 [History] Buspirone HCl [Buspar] 10 mg PO BID 03/07/18 [History] Carvedilol 3.125 mg PO BID 03/07/18 [History] Diclofenac Sodium [Voltaren] 1 appl TP BID 03/07/18 [History] DiphenhydraMINE [Benadryl] 25 mg PO Q6HR PRN 03/07/18 [History] Duloxetine HCl [Cymbalta] 60 mg PO DAILY 03/07/18 [History] Furosemide [Lasix] 40 mg PO DAILY 03/07/18 [History] HYDROcodone/Acet 5/325 mg [[place] 5-325 mg] 1 tab PO Q6HR 03/07/18 [History] Hydrocortisone 1% CREAM [Cortaid] 1 appl TP BID PRN 03/07/18 [History] MOM Conc [MILK OF MAGNESIA conc] 30 ml PO DAILY PRN 03/07/18 [History] Mag Hydrox/Aluminum Hyd/Simeth [[facility] Antacid Plus Anti-Gas Liq] 30 ml PO BID PRN 03/07/18 [History] Potassium Chloride [K-Tab ER] 20 meq PO DAILY 03/07/18 [History] Potassium Chloride [K-Tab ER] 20 meq PO DAILY 03/07/18 [History] Trazodone HCl 100 mg PO HS 03/07/18 [History] Warfarin Sodium 1 mg PO WE 03/07/18 [History] Warfarin Sodium 2.5 mg PO WE 03/07/18 [History] Warfarin Sodium 3 mg PO SUMOTUTHFRSA 03/07/18 [History] cephALEXin [Keflex] 500 mg PO QID 03/07/18 [History] Megestrol Acetate [Megace] 40 mg PO BID #30 tablet 03/08/18 [Rx] Allergies/Adverse Reactions: 3 Allergy/AdvReac Type Severity Reaction Status Date / Time nadolol [From Corgard] Allergy Unknown See Verified 03/07/18 09:14 Comments azithromycin [From Zithromax] AdvReac Unknown See Verified 03/07/18 09:14 Comments levofloxacin [From Levaquin] AdvReac Unknown See Verified 03/07/18 09:14 Comments Sulfa (Sulfonamide AdvReac Unknown See Verified 03/07/18 09:14 Antibiotics) Comments gabapentin AdvReac Unknown Verified 03/07/18 09:14 Data Procedures and tests throughout hospitalization: Laboratory Tests 03/07/18 03/07/18 03/07/18 02:29 04:23 05:50 WBC 12.9 H RBC 2.54 L Hgb 7.8 L Hct 24.3 L MCV 95.7 MCH 30.7 MCHC 32.1 RDW 13.1 Plt Count 313 MPV 10.3 Immature Gran % 0.6 Seg Neutrophils % 73.7 Lymphocytes % 14.6 Monocytes % 9.2 Eosinophils % 1.5 Basophils % 0.4 Neutrophils # 9.5 H Lymphocytes # 1.9 Monocytes # 1.2 Eosinophils # 0.2 Basophils # 0.1 PT INR Sodium Potassium Chloride Carbon Dioxide BUN Creatinine Est GFR ( Amer) Est GFR (Non-Af Amer) BUN/Creatinine Ratio Glucose POC Glucose 255 H 222 H Calculated Osmolality Calcium 03/07/18 03/07/18 03/07/18 07:13 11:57 11:58 WBC 11.6 H RBC 2.56 L Hgb 7.8 L Hct 24.6 L MCV 96.1 MCH 30.5 MCHC 31.7 RDW 13.0 Plt Count 316 MPV 10.2 Immature Gran % 0.3 Seg Neutrophils % 74.6 Lymphocytes % 13.7 Monocytes % 9.9 Eosinophils % 1.3 Basophils % 0.2 Neutrophils # 8.6 Lymphocytes # 1.6 Monocytes # 1.2 Eosinophils # 0.2 Basophils # 0.0 PT INR Sodium Potassium Chloride Carbon Dioxide BUN Creatinine Est GFR ( Amer) Est GFR (Non-Af Amer) BUN/Creatinine Ratio Glucose POC Glucose 158 H 157 H Calculated Osmolality Calcium 03/07/18 03/07/18 03/07/18 11:58 16:20 20:05 WBC RBC Hgb 7.4 L Hct 23.3 L MCV MCH MCHC RDW Plt Count MPV Immature Gran % Seg Neutrophils % Lymphocytes % Monocytes % Eosinophils % Basophils % Neutrophils # Lymphocytes # Monocytes # Eosinophils # Basophils # PT INR Sodium 140 D Potassium 4.8 Chloride 106 Carbon Dioxide 30 H BUN 49 H Creatinine 2.15 H Est GFR ( Amer) 27 L Est GFR (Non-Af Amer) 22 L BUN/Creatinine Ratio 23 Glucose 157 H POC Glucose 86 Calculated Osmolality 306 H Calcium 9.1 03/07/18 03/07/18 03/07/18 20:05 20:13 23:37 WBC RBC Hgb Hct MCV MCH MCHC RDW Plt Count MPV Immature Gran % Seg Neutrophils % Lymphocytes % Monocytes % Eosinophils % Basophils % Neutrophils # Lymphocytes # Monocytes # Eosinophils # Basophils # PT 16.9 H INR 1.5 Sodium Potassium Chloride Carbon Dioxide BUN Creatinine Est GFR ( Amer) Est GFR (Non-Af Amer) BUN/Creatinine Ratio Glucose POC Glucose 97 91 Calculated Osmolality Calcium 03/08/18 03/08/18 03/08/18 05:20 06:10 06:10 WBC 9.4 RBC 2.49 L Hgb 7.5 L Hct 24.2 L MCV 97.2 MCH 30.1 MCHC 31.0 L RDW 13.2 Plt Count 310 MPV 10.1 Immature Gran % 0.5 Seg Neutrophils % 64.5 Lymphocytes % 20.7 Monocytes % 10.8 Eosinophils % 3.1 Basophils % 0.4 Neutrophils # 6.1 Lymphocytes # 2.0 Monocytes # 1.0 Eosinophils # 0.3 Basophils # 0.0 PT INR Sodium 141 Potassium 4.0 Chloride 106 Carbon Dioxide 29 BUN 41 H Creatinine 2.00 H Est GFR ( Amer) 29 L Est GFR (Non-Af Amer) 24 L BUN/Creatinine Ratio 21 Glucose 87 POC Glucose 90 Calculated Osmolality 301 H Calcium 8.8 03/08/18 06:10 WBC RBC Hgb Hct MCV MCH MCHC RDW Plt Count MPV Immature Gran % Seg Neutrophils % Lymphocytes % Monocytes % Eosinophils % Basophils % Neutrophils # Lymphocytes # Monocytes # Eosinophils # Basophils # PT 15.9 H INR 1.4 Sodium Potassium Chloride Carbon Dioxide BUN Creatinine Est GFR ( Amer) Est GFR (Non-Af Amer) BUN/Creatinine Ratio Glucose POC Glucose Calculated Osmolality Calcium Labs on day of discharge: Labs from last 24 hours 03/08/18 03/08/18 03/08/18 06:10 06:10 06:10 WBC 9.4 RBC 2.49 L Hgb 7.5 L Hct 24.2 L MCV 97.2 MCH 30.1 MCHC 31.0 L RDW 13.2 Plt Count 310 MPV 10.1 Immature Gran % 0.5 Seg Neutrophils % 64.5 Lymphocytes % 20.7 Monocytes % 10.8 Eosinophils % 3.1 Basophils % 0.4 Neutrophils # 6.1 Lymphocytes # 2.0 Monocytes # 1.0 Eosinophils # 0.3 Basophils # 0.0 PT 15.9 H INR 1.4 Sodium 141 Potassium 4.0 Chloride 106 Carbon Dioxide 29 BUN 41 H Creatinine 2.00 H Est GFR ( Amer) 29 L Est GFR (Non-Af Amer) 24 L BUN/Creatinine Ratio 21 Glucose 87 POC Glucose Calculated Osmolality 301 H Calcium 8.8 03/08/18 03/07/18 03/07/18 05:20 23:37 20:13 WBC RBC Hgb Hct MCV MCH MCHC RDW Plt Count MPV Immature Gran % Seg Neutrophils % Lymphocytes % Monocytes % Eosinophils % Basophils % Neutrophils # Lymphocytes # Monocytes # Eosinophils # Basophils # PT INR Sodium Potassium Chloride Carbon Dioxide BUN Creatinine Est GFR ( Amer) Est GFR (Non-Af Amer) BUN/Creatinine Ratio Glucose POC Glucose 90 91 97 Calculated Osmolality Calcium 03/07/18 03/07/18 03/07/18 20:05 20:05 16:20 WBC RBC Hgb 7.4 L Hct 23.3 L MCV MCH MCHC RDW Plt Count MPV Immature Gran % Seg Neutrophils % Lymphocytes % Monocytes % Eosinophils % Basophils % Neutrophils # Lymphocytes # Monocytes # Eosinophils # Basophils # PT 16.9 H INR 1.5 Sodium Potassium Chloride Carbon Dioxide BUN Creatinine Est GFR ( Amer) Est GFR (Non-Af Amer) BUN/Creatinine Ratio Glucose POC Glucose 86 Calculated Osmolality Calcium - Impressions ITS Impressions Pelvis Ultrasound 03/07/18 15:00 IMPRESSION: Uterine fibroid. Abnormal appearing thickened endometrium with appearance suggestive of endometrial pathology. D/ / Lila Orr MD / Lila Orr MD Interpreting Provider: Lila Orr MD Date of admission: 03/07/18 01:26 Primary care physician: PCP NONE Consults: 03/07/18 07:34 Consult to Glass Loading Equipment Tender [CONS] Routine Reason for SW Consult: return NCR Discharging clinician: Miranda Cody (Siddharth Dove) Anticipated date of discharge: 03/08/18 - Patient Status Disposition: Transfer SNF Condition: Fair Overall status at discharge: patient is progressing back to baseline - Discharge Instructions Instructions: Urinary Tract Infection in Women (DC), Anemia (GEN) Follow Up With: NONE,PCP [Primary Care Provider] - Brock Carroll DO [Partnered Physician] - Additional Instructions: Please have pt follow-up with her PCP within 1 week and with CRISTIAN Wilson in 1-2 weeks for endometrial biopsy. INR monitoring daily until therapeutic with INR at 2. CBC twice per week until stable. 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 Bleeding resolved with megace. Plan discussed with Dr. Messina who states he does not feel a blood transfusion is needed at this time. Discharge back to [facility] on megace. Follow-up with PCP within 1 week. Follow-up with CRISTIAN Wilson for endometrial biopsy in 1-2 weeks. Time Attestation: Total time spent providing and/or coordinating discharge services: Exam - Constitutional Vitals: Temp Pulse Resp BP Pulse Ox 98.9 F 72 17 160/61 94 03/08/18 15:38 03/08/18 15:38 03/08/18 15:38 03/08/18 15:38 03/08/18 15:38 General appearance IM: pleasant, no acute distress, obese, answers questions appropriately - Respiratory Respiratory exam: Present: CTAB - External exam: normal external exam (no blood on pad, spotting earlier today per RN) - Extremities Exam Extremities exam IM: Present: normal inspection
[2018-03-08] MEDS ORDERED: *HR* Warfarin 1 MG TABLET PO ONE (18:00)
--- NOTE | 2018-03-08 18:49 | Physician Discharge Referral ---
ExtendedCare Referral Info Transfer To: [facility] Provider in Charge after Transfer: PCP Institutional Level of Care: Skilled - Diagnosis (1) Abnormal finding on urinalysis Priority: Secondary Status: Acute (2) Afib Priority: Secondary Status: Acute (3) Anemia Priority: Secondary Status: Acute (4) Anticoagulated on Coumadin Priority: Secondary Status: Acute (5) H/O sick sinus syndrome Priority: Secondary Status: Acute (6) Hyperkalemia Priority: Secondary Status: Acute (7) Hyponatremia Priority: Secondary Status: Acute (8) Postmenopausal bleeding Priority: Primary Status: Acute (9) Urinary tract infection Priority: Primary Status: Acute (10) Vaginal bleeding, abnormal Priority: Primary Status: Acute (11) CHF (congestive heart failure) Priority: Secondary Status: Chronic (12) Chronic kidney disease Priority: Secondary Status: Chronic (13) Decubitus skin ulcer Priority: Secondary Status: Chronic (14) Diabetes Priority: Secondary Status: Chronic (15) HTN (hypertension) Priority: Secondary Status: Chronic (16) History of CVA (cerebrovascular accident) Priority: Secondary Status: Chronic Prognosis: Fair - Transfer Medications Prescriptions: Megestrol Acetate [Megace] 40 mg PO BID #30 tablet Home Medications: Calcitriol [Rocaltrol] 0.25 mcg PO DAILY 04/08/17 [History] Ergocalciferol (VITAMIN D2) [Vitamin D2] 50,000 unit PO TH 04/08/17 [History] Glimepiride [Amaryl] 4 mg PO QAM 04/08/17 [History] Losartan Potassium [Cozaar] 50 mg PO DAILY 04/08/17 [History] Ropinirole HCl [Requip] 4 mg PO TID 04/08/17 [History] Acetaminophen [Non-Aspirin] 650 mg PO PRN PRN MDD 4 03/07/18 [History] Acetaminophen with Codeine [Acetaminophen-Cod #3 Tablet] 1 tab PO DAILY PRN MDD 1 03/07/18 [History] Buspirone HCl [Buspar] 10 mg PO BID 03/07/18 [History] Carvedilol 3.125 mg PO BID 03/07/18 [History] Diclofenac Sodium [Voltaren] 1 appl TP BID 03/07/18 [History] DiphenhydraMINE [Benadryl] 25 mg PO Q6HR PRN 03/07/18 [History] Duloxetine HCl [Cymbalta] 60 mg PO DAILY 03/07/18 [History] Furosemide [Lasix] 40 mg PO DAILY 03/07/18 [History] HYDROcodone/Acet 5/325 mg [[place] 5-325 mg] 1 tab PO Q6HR 03/07/18 [History] Hydrocortisone 1% CREAM [Cortaid] 1 appl TP BID PRN 03/07/18 [History] MOM Conc [MILK OF MAGNESIA conc] 30 ml PO DAILY PRN 03/07/18 [History] Mag Hydrox/Aluminum Hyd/Simeth [Cvs Antacid Plus Anti-Gas Liq] 30 ml PO BID PRN 03/07/18 [History] Potassium Chloride [K-Tab ER] 20 meq PO DAILY 03/07/18 [History] Potassium Chloride [K-Tab ER] 20 meq PO DAILY 03/07/18 [History] Trazodone HCl 100 mg PO HS 03/07/18 [History] Warfarin Sodium 1 mg PO WE 03/07/18 [History] Warfarin Sodium 2.5 mg PO WE 03/07/18 [History] Warfarin Sodium 3 mg PO SUMOTUTHFRSA 03/07/18 [History] cephALEXin [Keflex] 500 mg PO QID 03/07/18 [History] Megestrol Acetate [Megace] 40 mg PO BID #30 tablet 03/08/18 [Rx] Allergies/Adverse Reactions: 3 Allergy/AdvReac Type Severity Reaction Status Date / Time nadolol [From Corgard] Allergy Unknown See Verified 03/07/18 09:14 Comments azithromycin [From Zithromax] AdvReac Unknown See Verified 03/07/18 09:14 Comments levofloxacin [From Levaquin] AdvReac Unknown See Verified 03/07/18 09:14 Comments Sulfa (Sulfonamide AdvReac Unknown See Verified 03/07/18 09:14 Antibiotics) Comments gabapentin AdvReac Unknown Verified 03/07/18 09:14 - Respiratory Orders Smoking Cessation: Smoking cessation has been advised. For more information, call the [place] Tobacco Quit Line at 1-339-FUXC-NOW. CERTIFICATION: I certify that the transfer of the above named patient to an Extended Care Facility is necessary for the continuing treatment of the diagnosis listed. The above information is true and accurate reflection of patient's current condition. Confidential - Redisclosure prohibited without a patient's written consent.
[2018-03-08] MEDS ORDERED: Insulin DETEMIR 100 UNIT/ML X5UNITS SQ SCH (21:00)
[2018-03-08] MEDS ORDERED: Insulin LISPRO 300 UNITS/3 ML VIAL SQ SCH (21:00)
== END 2018-03-08 19:35 ==
LOC: EMEROOARM 17:48 → 2ANU 17:48 → SUATTDRO 03-07 01:26 → 2ANU 03-07 01:47
PROVIDERS: ADMIT Obstetrics & Gynecology; ATTEND Internal Medicine

== ENCOUNTER 2018-04-27 12:50 | Inpatient (IN) ==
--- NOTE | 2018-04-27 13:34 | Emergency Department Note ---
Disposition Clinical Impression: Hyperkalemia, Tachypnea Renal failure Qualifiers: Renal failure chronicity: chronic Chronic kidney disease stage: stage 4 (severe) Qualified Code(s): N18.4 - Chronic kidney disease, stage 4 (severe) Altered mental status Qualifiers: Altered mental status type: unspecified Qualified Code(s): R41.82 - Altered mental status, unspecified Closed head injury Qualifiers: Encounter type: initial encounter Qualified Code(s): S09.90XA - Unspecified injury of head, initial encounter Disposition: Admitted As Inpatient Condition: Fair General Adult HPI - General Chief complaint: ED Altered Mental Status Stated complaint: Altered from Fall Time Seen by Provider: 04/27/18 13:05 Source: patient, EMS, other Limitations: altered mental status - History of Present Illness Pain Scale: 8 - Related Data Home Medications Medication Instructions Recorded Confirmed Calcitriol [Rocaltrol] 0.25 mcg PO DAILY 04/08/17 04/27/18 Ergocalciferol (VITAMIN D2) 50,000 unit PO TH 04/08/17 04/27/18 [Vitamin D2] Glimepiride [Amaryl] 4 mg PO QAM 04/08/17 04/27/18 Losartan Potassium [Cozaar] 50 mg PO DAILY 04/08/17 04/27/18 Ropinirole HCl [Requip] 4 mg PO TID 04/08/17 04/27/18 Acetaminophen [Non-Aspirin] 650 mg PO PRN PRN MDD 4 03/07/18 04/27/18 Buspirone HCl [Buspar] 10 mg PO BID 03/07/18 04/27/18 Carvedilol 3.125 mg PO BID 03/07/18 04/27/18 DiphenhydraMINE [Benadryl] 25 mg PO Q6HR PRN 03/07/18 04/27/18 Duloxetine HCl [Cymbalta] 60 mg PO DAILY 03/07/18 04/27/18 Furosemide [Lasix] 40 mg PO DAILY 03/07/18 04/27/18 HYDROcodone/Acet 5/325 mg [[place] 1 tab PO Q6HR 03/07/18 04/27/18 5-325 mg] Hydrocortisone 1% CREAM [Cortaid] 1 appl TP BID PRN 03/07/18 04/27/18 Potassium Chloride [K-Tab ER] 20 meq PO DAILY 03/07/18 04/27/18 Trazodone HCl 100 mg PO HS 03/07/18 04/27/18 Warfarin Sodium 2.5 mg PO DAILY 03/07/18 04/27/18 Cefdinir [Omnicef] 300 mg PO BID 04/27/18 04/27/18 LORazepam [Ativan] 0.5 mg PO Q4H PRN 04/27/18 04/27/18 Morphine Oral CONC [Roxanol] 5 mg PO Q4H PRN 04/27/18 04/27/18 cloNIDine HCl [CloNIDine HCl] 0.1 mg PO Q6H PRN 04/27/18 04/27/18 Previous Rx's Medication Instructions Recorded Megestrol Acetate [Megace] 40 mg PO BID #30 tablet 03/08/18 Allergies Allergy/AdvReac Type Severity Reaction Status Date / Time nadolol [From Corgard] Allergy Unknown See Verified 04/27/18 12:56 Comments azithromycin [From Zithromax] AdvReac Unknown See Verified 04/27/18 12:56 Comments levofloxacin [From Levaquin] AdvReac Unknown See Verified 04/27/18 12:56 Comments Sulfa (Sulfonamide AdvReac Unknown See Verified 04/27/18 12:56 Antibiotics) Comments gabapentin AdvReac Unknown Verified 04/27/18 12:56 Past Medical History - Past Medical History Medical history: Reports: cancer, CVA, diabetes, hypertension, renal disease Surgical history: Reports: cholecystectomy, pacemaker/AICD Psychiatric history: Reports: anxiety, depression 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 - Social History Smoking Status: Never smoker Smokeless Tobacco Status: No Alcohol use: Reports: none Drug use: Reports: none Physical Exam - General Limitations: altered mental status Course Vital Signs O2 Sat by Pulse Oximetry 96 04/27/18 12:58 Temperature 98.4 F 04/27/18 13:09 Pulse Rate 88 04/27/18 17:02 Respiratory Rate 20 04/27/18 17:02 Blood Pressure 152/59 04/27/18 17:02 O2 Sat by Pulse Oximetry 97 04/27/18 17:02 Oxygen Delivery Oxygen Delivery Room Air Medical Decision Making - Lab Data Result diagrams: 04/27/18 13:26 04/27/18 13:26 Lab Results 04/27/18 04/27/18 04/27/18 Range/Units 13:26 13:26 13:26 WBC 11.3 H (4.3-11.1) K/mcL RBC 3.32 L (3.82-4.97) M/mcL Hgb 9.8 L (11.5-15.4) g/dL Hct 31.6 L (35.3-44.9) % MCV 95.2 (83.0-100.0) fL MCH 29.5 (28.0-33.3) pg MCHC 31.0 L (31.6-35.5) g/dL RDW 12.8 (11.5-14.5) % Plt Count 306 (140-400) K/mcL MPV 11.7 (9.4-12.4) fL PT 50.1 H* (9.4-12.1) Seconds INR 4.4 H* Sodium 134 L (136-145) mEq/L Potassium 5.8 H (3.5-5.1) mEq/L Chloride 102 (98-107) mEq/L Carbon Dioxide 26 (23-29) mEq/L BUN 51 H (8-23) mg/dL Creatinine 2.89 H (0.60-1.20) mg/dL Est GFR ( Amer) 19 L (> 60) Est GFR (Non-Af Amer) 16 L (> 60) BUN/Creatinine Ratio 18 (6-26) Glucose 215 H (70-105) mg/dL Calculated Osmolality 298 (280-300) Calcium 9.4 (8.6-10.3) mg/dL Attestation Statement - Attestation Attestation: I examined this patient and my medical decision-making was reviewed with the [employer]CH[employer] APPRENTICE PHOTOENGRAVING/PA/Advanced Practice Nurse/Resident Physician. I agree with the documented findings, disposition and treatment plan as described except to the extent set forth below. I did see the patient upon arrival, the stories that she fell out of bed last night at 11:30. They did give her an injection of vitamin K. The patient is anticoagulated on Coumadin. Does have a large bruise left face and side of the head and will have a head CT as well as a neck CT because she did have neck pain when I palpated her neck. Will also have a left facial CT as well as x-rays of the left shoulder and left hip. [facility] and she is more confused than usual at this time. She also does have a cough and some shortness of breath with consideration for pneumonia. She is able to give a good history 1333 I did review the ECG showing sinus tachycardia with rate of 102 and without ischemic changes 1336
--- NOTE | 2018-04-27 13:34 | Emergency Department Note ---
Disposition Clinical Impression: Hyperkalemia, Tachypnea Renal failure Qualifiers: Renal failure chronicity: chronic Chronic kidney disease stage: stage 4 (severe) Qualified Code(s): N18.4 - Chronic kidney disease, stage 4 (severe) Altered mental status Qualifiers: Altered mental status type: unspecified Qualified Code(s): R41.82 - Altered mental status, unspecified Disposition: Admitted As Inpatient Condition: Fair Referrals: Roni Franklin MD [Primary Care Provider] - Time of Disposition: 16:22 General Adult HPI - General Chief complaint: ED Altered Mental Status Stated complaint: Altered from Fall Time Seen by Provider: 04/27/18 13:05 Source: patient, EMS, other Limitations: altered mental status Nursing Notes Reviewed: Yes Vital Signs Reviewed: Yes - History of Present Illness HPI Narrative: 82 year old female presents after a fall. Patient resides in snf. She states that she was in bed and was reaching over for a blanket under the bed when she fell and hit her head. Denies hitting any other part of body. Denies any lightheadedness of dizziness before falling. Denies any chest pain or shortness of breath before falling. She does not know if she lost consciousness. Patient was found fallen when someone came in to give meds. Patient was acting differently and was sent to ED. Patient complains of L shoulder and hip pain. Complains of back pain that is chronic in nature, states she has spinal stenosis. Denies any headache. Denies neck pain. Denies any new muscle weakness or loss of sensation. Patient takes xarelto for A-fib. Patient states that she has pneumonia and believes she's getting antibiotics for it, but does not know what kind. Patient states she had a previous stroke with residual left sided weakness. senior living states that INR was 5.1 yesterday and was holding coumadin. Pain Scale: 8 - Related Data Home Medications Medication Instructions Recorded Confirmed Calcitriol [Rocaltrol] 0.25 mcg PO DAILY 04/08/17 03/07/18 Ergocalciferol (VITAMIN D2) 50,000 unit PO TH 04/08/17 03/07/18 [Vitamin D2] Glimepiride [Amaryl] 4 mg PO QAM 04/08/17 03/07/18 Losartan Potassium [Cozaar] 50 mg PO DAILY 04/08/17 03/07/18 Ropinirole HCl [Requip] 4 mg PO TID 04/08/17 03/07/18 Acetaminophen [Non-Aspirin] 650 mg PO PRN PRN MDD 4 03/07/18 03/07/18 Acetaminophen with Codeine 1 tab PO DAILY PRN MDD 1 03/07/18 03/07/18 [Acetaminophen-Cod #3 Tablet] Buspirone HCl [Buspar] 10 mg PO BID 03/07/18 03/07/18 Carvedilol 3.125 mg PO BID 03/07/18 03/07/18 Diclofenac Sodium [Voltaren] 1 appl TP BID 03/07/18 03/07/18 DiphenhydraMINE [Benadryl] 25 mg PO Q6HR PRN 03/07/18 03/07/18 Duloxetine HCl [Cymbalta] 60 mg PO DAILY 03/07/18 03/07/18 Furosemide [Lasix] 40 mg PO DAILY 03/07/18 03/07/18 HYDROcodone/Acet 5/325 mg [[place] 1 tab PO Q6HR 03/07/18 03/07/18 5-325 mg] Hydrocortisone 1% CREAM [Cortaid] 1 appl TP BID PRN 03/07/18 03/07/18 MOM Conc [MILK OF MAGNESIA conc] 30 ml PO DAILY PRN 03/07/18 03/07/18 Mag Hydrox/Aluminum Hyd/Simeth 30 ml PO BID PRN 03/07/18 03/07/18 [Cvs Antacid Plus Anti-Gas Liq] Potassium Chloride [K-Tab ER] 20 meq PO DAILY 03/07/18 03/07/18 Potassium Chloride [K-Tab ER] 20 meq PO DAILY 03/07/18 03/07/18 Trazodone HCl 100 mg PO HS 03/07/18 03/07/18 Warfarin Sodium 1 mg PO WE 03/07/18 03/07/18 Warfarin Sodium 2.5 mg PO WE 03/07/18 03/07/18 Warfarin Sodium 3 mg PO SUMOTUTHFRSA 03/07/18 03/07/18 cephALEXin [Keflex] 500 mg PO QID 03/07/18 03/07/18 Previous Rx's Medication Instructions Recorded Megestrol Acetate [Megace] 40 mg PO BID #30 tablet 03/08/18 Allergies Allergy/AdvReac Type Severity Reaction Status Date / Time nadolol [From Corgard] Allergy Unknown See Verified 04/27/18 12:56 Comments azithromycin [From Zithromax] AdvReac Unknown See Verified 04/27/18 12:56 Comments levofloxacin [From Levaquin] AdvReac Unknown See Verified 04/27/18 12:56 Comments Sulfa (Sulfonamide AdvReac Unknown See Verified 04/27/18 12:56 Antibiotics) Comments gabapentin AdvReac Unknown Verified 04/27/18 12:56 Constitutional: Denies: fever, chills Eyes: Denies: eye pain, eye discharge ENT ED: Denies: ear pain, throat pain Cardiovascular: Denies: chest pain, palpitations Respiratory: Reports: cough. Denies: dyspnea Gastrointestinal: Denies: abdominal pain, nausea Genitourinary: Denies: urgency, dysuria Musculoskeletal: Reports: back pain. Denies: neck pain Past Medical History - Past Medical History Medical history: Reports: cancer, CVA, diabetes, hypertension, renal disease Surgical history: Reports: cholecystectomy, pacemaker/AICD Psychiatric history: Reports: anxiety, depression WHARFMASTER history: Reports: no WHARFMASTER history - Social History Smoking Status: Never smoker Smokeless Tobacco Status: No Alcohol use: Reports: none Drug use: Reports: none Physical Exam - General Limitations: altered mental status - Head Head exam: other (Large hematoma over left forehead and eye. ) - Eye Eye exam: Present: PERRL, EOMI - ENT ENT exam: normal oropharynx, mucous membranes dry - Neck Neck exam: Present: normal inspection - Chest Chest inspection: Present: normal inspection - Respiratory Respiratory exam: Present: other (Diffuse crackles bilaterally ). Absent: normal lung sounds bilaterally, respiratory distress, wheezes, stridor, accessory muscle use - Cardiovascular Cardiovascular exam: Present: irregular rhythm - Abdominal Exam Abdominal exam: Present: soft, Non-Tender. Absent: distention, guarding, rebound, rigidity, normal bowel sounds - Extremities Exam Extremities exam: Present: normal inspection. Absent: tenderness, pedal edema, joint swelling - Neurological Exam Neurological exam: Present: alert, oriented X3, CN II-XII intact, other (Left sided weakness noted, residual from prior stroke. Normal strength on right. No loss of sensation. Finger-nose and palm up/down tests normal on right, unable to perform with left hand. ) - Skin Skin exam: Present: warm, dry, intact, normal color Course Course Narrative: 82 year old female with history of prior stroke with residual left sided weakness and A-fib on coumadin presents for AMS after falling and hitting head. Also complains of L shoulder and hip pain. Denies headache, neck pain. Patient is alert and oriented. Patient is in A-fib with heart rate 100. She is tachypneic with respiratory rate 22-24, satting 95% on 1.5L oxygen nasal cannula. On exam, there is a large hematoma over left forehead and eye. CN 2-12 are intact. There is left sided weakness, residual from prior stroke. Right side is normal. There is no loss of sensation. Patient is unable to perform finger- nose and palm up/down tests with left hand; tests were normal on right. Will check labwork. Will get CT head/face/neck and XR L shoulder and hip. - Reevaluation(s) Reevaluation #1: CXR is negative, there is no pneumonia. CT head is negative. CT neck is negative. CT face shows soft tissue swelling, no acute fractures. XR L hip shows mild-mod degenerative changes, no acute fractures. XR L shoulder shows mild-mod degenerative changes, no acute fractures. CBC shows leukocytosis. BMP reveals hyperkalemia at 5.8, Cr 2.89. Based on prior labs, patient appears to be chronically hyperkalemic from CKD. Answered phone call for critical lab value PT 50.1 and INR 4.4, improved from yesterday. Patient is tachypneic with respiratory rate 25-33. Satting 93-94% on 2L nasal cannula. Heart rate normal. Will check rapid flu. Will admit. Time: 15:25 Reevaluation #2: Spoke with Hospitalist Dr. Diamond who agrees to admit. Recommended to consult Nephrology for hyperkalemia and CKD. Spoke with Linotype Mechanic Dr. Agosto who recommended IVF and kayexalate 15g. Hospitalist also recommends one round of insulin and glucose to bring down potassium quickly. EKG shows no changes. Ordered repeat BMP at 19:00. Spoke with nurse from nursing facility. States that she's on Day 7 of omnicef for chest congestion. Spoke with family. Family reports that patient has [place]'s disease and dementia, and her confusion could be her baseline confusion. Time: 16:21 Vital Signs O2 Sat by Pulse Oximetry 96 04/27/18 12:58 Temperature 98.4 F 04/27/18 13:09 Pulse Rate 97 04/27/18 13:09 Respiratory Rate 20 04/27/18 13:09 Blood Pressure 142/122 04/27/18 13:09 O2 Sat by Pulse Oximetry 94 04/27/18 13:09 Oxygen Delivery Oxygen Delivery Nasal Cannula Medical Decision Making - [facility] Narrative Medical decision making narrative: Cervical Spine CT 04/27/18 13:05 IMPRESSION: Left forehead/facial subcutaneous soft tissue swelling. No acute traumatic injury of the facial bones. Degenerative changes. No acute abnormality in the cervical spine. D/ / Giorgio Shoemaker MD / Giorgio Shoemaker MD Interpreting Provider: Giorgio Shoemaker MD Head CT 04/27/18 13:05 IMPRESSION: No acute intracranial hemorrhage or mass effect. D/ / Krish Lopez MD / Krish Lopez MD Interpreting Provider: Krish Lopez MD Chest X-Ray 04/27/18 13:07 IMPRESSION: 1. No acute cardiopulmonary disease. D/ / 04/27/2018 14:29:23 Cheyenne Kong MD / betzy Interpreting Provider: Cheyenne Kong MD Hip X-Ray 04/27/18 13:28 IMPRESSION: 1. Mild to moderate left hip degenerative changes. No superimposed radiographic finding to account for patient's pain. Please note that radiography may not reveal non-displaced fractures and stress changes. If that is the clinical suspicion, MRI is the study of choice. If there is a contraindication to MRI, bone scan is the next option. D/ / Josué Boo MD / Josué Boo MD Interpreting Provider: Josué Boo MD Shoulder X-Ray 04/27/18 13:28 IMPRESSION: 1. No acute abnormality. D/ / Darrian Fox MD / Darrian Fox MD Interpreting Provider: Darrian Fox MD Face CT 04/27/18 14:09 IMPRESSION: Left forehead/facial subcutaneous soft tissue swelling. No acute traumatic injury of the facial bones. Degenerative changes. No acute abnormality in the cervical spine. D/ / Giorgio Shoemaker MD / Giorgio Shoemaker MD Interpreting Provider: Giorgio Shoemaker MD - Medical Records Medical records reviewed: Yes I reviewed the patient's medical records. - Lab Data Lab results reviewed: Yes I reviewed the patient's lab results. - Radiology Data Radiology results reviewed: Yes I reviewed the patient's radiology results.
[2018-04-27 14:17] LABS: Hematocrit 31.6 % (35.3-44.9); Hemoglobin 9.8 g/dL (11.5-15.4); Mean Corpuscular Hemoglobin 29.5 pg (28.0-33.3); Mean Corpuscular Volume 95.2 fL (83.0-100.0); Mean Platelet Volume 11.7 fL (9.4-12.4); Platelet Count 306 K/mcL (140-400); Red Blood Count 3.32 M/mcL (3.82-4.97); Red Cell Distribution Width 12.8 % (11.5-14.5)
[2018-04-27 14:37] LABS: Calcium 9.4 mg/dL (8.6-10.3); Potassium 5.8 mEq/L (3.5-5.1)
[2018-04-27 14:38] LABS: INR 4.4
[2018-04-27 14:39] LABS: Prothrombin Time 50.1 Seconds (9.4-12.1)
[2018-04-27] MEDS ORDERED: 0.9 % Sodium Chloride 1,000 ML IVC ONE (15:47)
[2018-04-27] MEDS ORDERED: *HR* Dextrose 50 % in Water (Syg) 50 ML SYRINGE IVP ONE (15:57)
[2018-04-27] MEDS ORDERED: 0.9 % Sodium Chloride 500 ML IVC ONE (16:00)
--- NOTE | 2018-04-27 17:15 | Internal Med History&Physical ---
<Bria Veronica Raymon - Last Filed: 04/27/18 18:54> Date of Encounter: 04/27/18 Time of Encounter: 17:15 Internal Medicine - H&P: HPI Chief complaint: Fall Admitted From: Long-term Nursing Facility Plans for Post Hospital Care: Transfer [facility] History of present illness: Ms. Tate is a 82 year old female LTC resident with PMH Stage 4 CKD, DM, CAD, COPD, Skin Ca presenting today s/p fall at her facility last night at 2230. During w/u in the ER her INR was found to be supratherapeutic at 4.4. Head/C- Spine/Facial CT negative for bleed or acute fracture, CXR negative to acute cardiopulmonary process, Hip/Shoulder XR negative for acute fracture. Sons present at bedside state that this is probably Fall #3. Goals for inpatient admit to resolve cough/AMS/tachypnea and send back to SNF. No formal code status of DNR, sons not comfortable making this decision with her AMS. Past Med Surg Social Fam HX - Past Medical History Medical history: cancer, CVA, diabetes, hypertension, renal disease Additional medical history: [place] Psychiatric history: anxiety, depression - Past Surgical History Surgical History: cholecystectomy, pacemaker/AICD Additional surgical history: nose, eye implants, ovary surgery-removal of right ovary, gallbladder, heel spurs - Social History Smoking Status: Never smoker Smokeless Tobacco Status: No Alcohol use: none Drug use: none - Family History Father Adopted: No Hx Family Cardiac Disorders: Yes Mother Living Status: Hx Family Cardiac Disorders: Yes Internal Medicine - H&P: Meds Ergocalciferol (VITAMIN D2) [Vitamin D2] 50,000 unit PO TH 04/08/17 [History] Glimepiride [Amaryl] 4 mg PO QAM 04/08/17 [History] Losartan Potassium [Cozaar] 50 mg PO DAILY 04/08/17 [History] RX: Calcitriol [Rocaltrol] 0.25 mcg PO DAILY 04/08/17 [History] Ropinirole HCl [Requip] 4 mg PO TID 04/08/17 [History] Acetaminophen [Non-Aspirin] 650 mg PO PRN PRN MDD 4 03/07/18 [History] DiphenhydraMINE [Benadryl] 25 mg PO Q6HR PRN 03/07/18 [History] Duloxetine HCl [Cymbalta] 60 mg PO DAILY 03/07/18 [History] Furosemide [Lasix] 40 mg PO DAILY 03/07/18 [History] Potassium Chloride [K-Tab ER] 20 meq PO DAILY 03/07/18 [History] RX: Buspirone HCl [Buspar] 10 mg PO BID 03/07/18 [History] RX: Carvedilol 3.125 mg PO BID 03/07/18 [History] RX: HYDROcodone/Acet 5/325 mg [[place] 5-325 mg] 1 tab PO Q6HR 03/07/18 [History] RX: Hydrocortisone 1% CREAM [Cortaid] 1 appl TP BID PRN 03/07/18 [History] RX: Trazodone HCl 100 mg PO HS 03/07/18 [History] RX: Warfarin Sodium 2.5 mg PO DAILY 03/07/18 [History] RX: Megestrol Acetate [Megace] 40 mg PO BID #30 tablet 03/08/18 [Rx] Cefdinir [Omnicef] 300 mg PO BID 04/27/18 [History] LORazepam [Ativan] 0.5 mg PO Q4H PRN 04/27/18 [History] Morphine Oral CONC [Roxanol] 5 mg PO Q4H PRN 04/27/18 [History] RX: cloNIDine HCl [CloNIDine HCl] 0.1 mg PO Q6H PRN 04/27/18 [History] Allergy/AdvReac Type Severity Reaction Status Date / Time nadolol [From Corgard] Allergy Unknown See Verified 04/27/18 12:56 Comments azithromycin [From Zithromax] AdvReac Unknown See Verified 04/27/18 12:56 Comments levofloxacin [From Levaquin] AdvReac Unknown See Verified 04/27/18 12:56 Comments Sulfa (Sulfonamide AdvReac Unknown See Verified 04/27/18 12:56 Antibiotics) Comments gabapentin AdvReac Unknown Verified 04/27/18 12:56 All Systems PM: A 10-system review of systems was performed and is negative for pertinent findings except as documented above in the HPI. - Constitutional Constitutional: chills, no fever(s) - EENT Nose, mouth and throat: no sore throat - Cardiovascular Cardiovascular ROS IM: no chest pain - Respiratory Respiratory: cough, dyspnea - Gastrointestinal Gastrointestinal: constipation, no abdominal pain, no diarrhea - Genitourinary Genitourinary: no urinary frequency, no urinary urgency - Neurological Neurological ROS: confusion - Endocrine Endocrine IM: no fatigue - Hematologic/Lymphatic Hematologic/Lymphatic: easy bruising - Allergic/Immunologic Allergic/Immunologic: no seasonal rhinorrhea - Constitutional Vitals: Temp Pulse Resp BP Pulse Ox 98.4 F 88 20 152/59 97 04/27/18 13:09 04/27/18 17:02 04/27/18 17:02 04/27/18 17:02 04/27/18 17:02 General appearance: Present: morbidly obese, pleasant Exam: Gen: Pleasant, well developed, morbidly obese, A&O x 2 - person and time, not to place. HEENT: Dry mucous membranes, no scleral icterus, no conjunctival hemorrhage Cardio: Irregular heart rate, no m/r/g Pulm: ronchi that clear with cough, no wheezes appreciated Abd: Soft, non-distended, no guarding, normoactive bs x4 Extremities: No cyanosis/clubbing Neuro: Does not follow commands, could not complete assessment. (Closes eyes when told to open them) Internal Med - H&P Results - Labs CBC & Chem 7: 04/27/18 13:26 04/27/18 13:26 Labs: Short CBC 04/27/18 Range/Units 13:26 WBC 11.3 H (4.3-11.1) K/mcL Hgb 9.8 L (11.5-15.4) g/dL Hct 31.6 L (35.3-44.9) % Plt Count 306 (140-400) K/mcL BMP 04/27/18 13:26 Sodium 134 L Potassium 5.8 H Chloride 102 Carbon Dioxide 26 BUN 51 H Creatinine 2.89 H Glucose 215 H Calcium 9.4 - Impressions ITS Impressions Cervical Spine CT 04/27/18 13:05 IMPRESSION: Left forehead/facial subcutaneous soft tissue swelling. No acute traumatic injury of the facial bones. Degenerative changes. No acute abnormality in the cervical spine. D/ / Giorgio Shoemaker MD / Giorgio Shoemaker MD Interpreting Provider: Giorgio Shoemaker MD Head CT 04/27/18 13:05 IMPRESSION: No acute intracranial hemorrhage or mass effect. D/ / Krish Lopez MD / Krish Lopez MD Interpreting Provider: Krish Lopez MD Chest X-Ray 04/27/18 13:07 IMPRESSION: 1. No acute cardiopulmonary disease. D/ / 04/27/2018 14:29:23 Cheyenne Kong MD / btezy Interpreting Provider: Cheyenne Kong MD Hip X-Ray 04/27/18 13:28 IMPRESSION: 1. Mild to moderate left hip degenerative changes. No superimposed radiographic finding to account for patient's pain. Please note that radiography may not reveal non-displaced fractures and stress changes. If that is the clinical suspicion, MRI is the study of choice. If there is a contraindication to MRI, bone scan is the next option. D/ / Josué Boo MD / Josué Boo MD Interpreting Provider: Josué Boo MD Shoulder X-Ray 04/27/18 13:28 IMPRESSION: 1. No acute abnormality. D/ / Darrian Fox MD / Darrian Fox MD Interpreting Provider: Darrian Fox MD Face CT 04/27/18 14:09 IMPRESSION: Left forehead/facial subcutaneous soft tissue swelling. No acute traumatic injury of the facial bones. Degenerative changes. No acute abnormality in the cervical spine. D/ / Giorgio Shoemaker MD / Giorgio Shoemaker MD Interpreting Provider: Giorgio Shoemaker MD - Assessment and plan (1) Altered mental status Current Visit: Yes Status: Acute Assessment and plan: -Likely secondary to dehydration - could possibly be due to infection - UA with reflex culture - monitor Qualifiers: Altered mental status type: unspecified Qualified Code(s): R41.82 - Altered mental status, unspecified (2) Tachypnea Current Visit: Yes Status: Acute Assessment and plan: - RR ~ 20 at admit with SOB - ronchi that clears with cough - recent dx of bronchitis - duonebs Q4 scheduled - CXR if temperature >100.4 or clinical decline - monitor, apply O2 by NC as needed to maintain saturation >95% (3) Anemia Current Visit: Yes Status: Acute Assessment and plan: Hg 9.8 at admission - check iron studies - EPO as needed to maintain Hg >10 Qualifiers: Anemia type: other cause Other causes of anemia: acute posthemorrhagic Qualified Code(s): D62 - Acute posthemorrhagic anemia (4) CKD (chronic kidney disease) stage 4, GFR 15-29 ml/min Current Visit: Yes Status: Chronic Assessment and plan: - Iron Studies - EPO to maintain Hg >10 - Renally dose meds as necessary - Hold Lasix/Mark/ARB (5) Diabetes Current Visit: Yes Status: Chronic Assessment and plan: Low dose correction schedule ACHS - blood sugar checks ACHS - Check a1c (pending) Qualifiers: Diabetes mellitus type: type 2 Diabetes mellitus venture capitalist insulin use: with intermediate use Diabetes mellitus complication status: with unspecified complications Qualified Code(s): E11.8 - Type 2 diabetes mellitus with unspecified complications; Z79.4 - weed cutter (current) use of insulin (6) HTN (hypertension) Current Visit: Yes Status: Chronic Assessment and plan: Cr 2.8 at admission - hold MARK/ARB/Lasix - Continue Carvedilol - Continue Clonidine - monitor, maintain SBP <180 Qualifiers: Hypertension type: essential hypertension Qualified Code(s): I10 - Essential (primary) hypertension (7) DVT prophylaxis Current Visit: Yes Status: Acute Assessment and plan: INR 4.4 at admission, SCDs for DVT prophylaxis (8) Supratherapeutic INR Current Visit: Yes Status: Acute Assessment and plan: INR 4.4 at admission -continue to monitor with daily INR checks - hold warfarin until INR 2.5-3.5 - fall precautions, bed rest, up with assist - vitamin K as needed to maintain INR <5 - Time Spent With Patient Total time spent is greater than 50% in coordination of care (as documented) at patient's floor/unit and/or counseling patient: less than 15 minutes <Flower Diamond - Last Filed: 05/01/18 07:58> Internal Medicine - H&P: HPI History of present illness: Ms. Tate is a 82 year old female All Systems PM: A 10-system review of systems was performed and is negative for pertinent findings except as documented above in the HPI. - Constitutional Vitals: Temp Pulse Resp BP Pulse Ox 98.7 F 68 14 148/68 94 05/01/18 07:28 05/01/18 07:28 05/01/18 07:50 05/01/18 07:28 05/01/18 07:50 Internal Med - H&P Results - Labs CBC & Chem 7: 05/01/18 04:23 04/30/18 05:26 Labs: Short CBC 05/01/18 Range/Units 04:23 WBC 8.2 (4.3-11.1) K/mcL Hgb 8.3 L (11.5-15.4) g/dL Hct 26.6 L (35.3-44.9) % Plt Count 279 (140-400) K/mcL Neutrophils # 4.3 (1.6-8.9) K/mcL - Impressions ITS Impressions Cervical Spine CT 04/27/18 13:05 IMPRESSION: Left forehead/facial subcutaneous soft tissue swelling. No acute traumatic injury of the facial bones. Degenerative changes. No acute abnormality in the cervical spine. D/ / Giorgio Shoemaker MD / Giorgio Shoemaker MD Interpreting Provider: Giorgio Shoemaker MD Head CT 04/27/18 13:05 IMPRESSION: No acute intracranial hemorrhage or mass effect. D/ / Krish Lopez MD / Krish Lopez MD Interpreting Provider: Krish Lopez MD Chest X-Ray 04/27/18 13:07 IMPRESSION: 1. No acute cardiopulmonary disease. D/ / 04/27/2018 14:29:23 Cheyenne Kong MD / betzy Interpreting Provider: Cheyenne Kong MD Hip X-Ray 04/27/18 13:28 IMPRESSION: 1. Mild to moderate left hip degenerative changes. No superimposed radiographic finding to account for patient's pain. Please note that radiography may not reveal non-displaced fractures and stress changes. If that is the clinical suspicion, MRI is the study of choice. If there is a contraindication to MRI, bone scan is the next option. D/ / Josué Boo MD / Josué Boo MD Interpreting Provider: Josué Boo MD Shoulder X-Ray 04/27/18 13:28 IMPRESSION: 1. No acute abnormality. D/ / Darrian Fox MD / Darrian Fox MD Interpreting Provider: Darrian Fox MD Face CT 04/27/18 14:09 IMPRESSION: Left forehead/facial subcutaneous soft tissue swelling. No acute traumatic injury of the facial bones. Degenerative changes. No acute abnormality in the cervical spine. D/ / Giorgio Shoemaker MD / Giorgio Shoemaker MD Interpreting Provider: Giorgio Shoemaker MD Chest X-Ray 04/28/18 14:36 IMPRESSION: Developing bibasilar atelectasis or infiltrate and small left pleural effusion. D/ 04/28/2018 15:10:01 Carlin Sue MD / betzy Interpreting Provider: Carlin Sue MD - Assessment and plan (1) HTN (hypertension) Current Visit: Yes Status: Chronic Qualifiers: Hypertension type: essential hypertension Qualified Code(s): I10 - Essential (primary) hypertension (2) DVT prophylaxis Current Visit: Yes Status: Acute (3) Pulmonary hypertension Current Visit: No Status: Chronic (4) CVA (cerebral vascular accident) Current Visit: No Status: Acute Qualifiers: CVA mechanism: occlusion Precerebral and cerebral artery: middle cerebral artery Laterality of affected vessel: left Qualified Code(s): I63.512 - Cerebral infarction due to unspecified occlusion or stenosis of left middle cerebral artery (5) Afib Current Visit: No Status: Acute Qualifiers: Atrial fibrillation type: paroxysmal Qualified Code(s): I48.0 - Paroxysmal atrial fibrillation (6) Altered mental status Current Visit: Yes Status: Acute Qualifiers: Altered mental status type: disorientation Qualified Code(s): R41.0 - Disorientation, unspecified (7) Fall Current Visit: Yes Status: Acute Qualifiers: Encounter type: initial encounter Qualified Code(s): W19.XXXA - Unspecified fall, initial encounter (8) Acute bronchitis Current Visit: Yes Status: Acute Qualifiers: Bronchitis organism: unspecified organism Qualified Code(s): J20.9 - Acute bronchitis, unspecified (9) Aspiration pneumonia Current Visit: Yes Status: Suspected Qualifiers: Laterality: bilateral Lung location: lower lobe of lung Qualified Code(s): J69.0 - Pneumonitis due to inhalation of food and vomit - Time Spent With Patient Total time spent is greater than 50% in coordination of care (as documented) at patient's floor/unit and/or counseling patient: - Attending Attestation I personally and independently interviewed and examined the patient , and I reviewed the patient's medical record . I am in agreement with proposed assessment and proposed treatment plan. I discussed my findings and recommendation with the patient and answer his questions. The patient's medical records were edited to accurately reflect this encounter.
[2018-04-27] MEDS ORDERED: Naloxone 0.4 MG/ML INJ IVP PRN (17:35)
[2018-04-27] MEDS ORDERED: Ondansetron 4 MG/2 ML VIAL IVP PRN (17:35)
[2018-04-27] MEDS ORDERED: Acetaminophen 325 MG TABLET PO PRN (17:35)
[2018-04-27] MEDS ORDERED: 0.9 % Sodium Chloride w KCl 20 MEQ/1,000 ML MLS IVC SCH (17:45)
[2018-04-27] MEDS ORDERED: cloNIDine HCl 0.1 MG TABLET PO PRN (17:51)
[2018-04-27] MEDS ORDERED: *HR* LORazepam 0.5 MG TABLET PO PRN (17:51)
[2018-04-27] MEDS ORDERED: Dextrose Gel 15 GM/37.5 ML TUBE PO PRN ×2 (17:56)
[2018-04-27] MEDS ORDERED: *HR* Dextrose 50 % in Water (Syg) 50 ML SYRINGE IVP PRN (17:56)
[2018-04-27] MEDS ORDERED: D5% in Water 1,000 ML IVC PRN (17:56)
[2018-04-27 19:39] LABS: Potassium 4.7 mEq/L (3.5-5.1)
[2018-04-27] MEDS: Ipratropium/Albuterol Neb 3 ML IH SCH ×2 (19:58→23:57)
[2018-04-27] MEDS: Insulin NPH 100 UNIT/ML (x5UNIT) SQ ONE ×2 (19:58→20:39)
[2018-04-27] MEDS: *HR* HYDROcodone/Acet 5/325 mg TABLET PO SCH (20:39)
[2018-04-27] MEDS: rOPINIRole 1 MG, rOPINIRole 3 MG PO SCH (20:41)
[2018-04-27] MEDS ORDERED: NON-FORMULARY MEDICATION 1 EACH EACH (Ropinirole Hcl [Requip] 4 MG) PO SCH (21:00)
[2018-04-27] MEDS: traZODone 50 MG TABLET PO SCH (23:14)
--- NOTE | 2018-04-27 23:14 | Event Note ---
Date of Encounter: 04/27/18 Time of Encounter: 21:25 Alerted by pts. nurse MARTA Cortes that the pt. was currently Full Code but paperwork from the [facility] where she came from stated DNRCC. Went to look at pts. paperwork which showed date of 03/2018 for Code Status. Instructed pts. nurse to contact [facility] and verify this date and that this is the pts. current Code Status. Alerted at 22:26 that the F had verified that the pts. Code Status should be DNRCC. CODE STATUS CHANGED per [facility] paperwork.
[2018-04-27] MEDS: Insulin LISPRO 300 UNITS/3 ML VIAL SQ SCH (23:26)
[2018-04-28] MEDS: *HR* HYDROcodone/Acet 5/325 mg TABLET PO SCH ×2 (03:27→06:29)
[2018-04-28] MEDS: Ipratropium/Albuterol Neb 3 ML IH SCH ×6 (04:12→23:58)
[2018-04-28 05:18] LABS: Bilirubin,Urine Negative (Negative); Blood,Urine Negative (Negative); Clarity,Urine Clear (Clear); Color,Urine Yellow (Yellow); Glucose,Urine (UA) Normal (Normal); Ketones,Urine Negative (Negative); Leukocyte Esterase,Urine Negative (Negative); Nitrite,Urine Negative (Negative); PH,Urine 6.5 pH Units (5.0-8.0); Protein,Urine Negative (Neg-Trace); Specific Gravity,Urine < 1.005 (1.010-1.025); Urobilinogen,Urine Normal (Normal)
[2018-04-28 05:44] LABS: INR 2.5; Prothrombin Time 28.7 Seconds (9.4-12.1)
[2018-04-28 05:53] LABS: Magnesium 1.7 mg/dL (1.6-2.6)
[2018-04-28 05:55] LABS: Iron < 10 mcg/dL (50-170); Transferrin 137 mg/dL (203-362)
[2018-04-28 06:26] LABS: Hematocrit 26.1 % (35.3-44.9); Mean Corpuscular HGB Conc 31.8 g/dL (31.6-35.5); Mean Corpuscular Hemoglobin 30.1 pg (28.0-33.3); Mean Corpuscular Volume 94.6 fL (83.0-100.0); Mean Platelet Volume 11.4 fL (9.4-12.4); Platelet Count 263 K/mcL (140-400); Red Blood Count 2.76 M/mcL (3.82-4.97); Red Cell Distribution Width 12.9 % (11.5-14.5)
[2018-04-28 06:33] LABS: Hemoglobin 8.3 g/dL (11.5-15.4)
[2018-04-28 06:50] LABS: Estimated Average Glucose 206 mg/dl; Hemoglobin A1C 8.8 %
[2018-04-28] MEDS ORDERED: *HR* HYDROcodone/Acet 5/325 mg TABLET PO PRN (08:06)
[2018-04-28] MEDS: Insulin LISPRO 300 UNITS/3 ML VIAL SQ SCH ×4 (09:07→20:29)
[2018-04-28] MEDS: rOPINIRole 1 MG, rOPINIRole 3 MG PO SCH ×3 (09:07→22:40)
[2018-04-28 14:48] LABS: Adenovirus Not Detected (Not Detect); Bordetella Pertussis Not Detected (Not Detect); Coronavirus 229E Not Detected (Not Detect); Coronavirus HKU1 Not Detected (Not Detect); Coronavirus NL63 Not Detected (Not Detect); Coronavirus OC43 Not Detected (Not Detect); Human Metapneumovirus Not Detected (Not Detect); Human Rhinovirus/Enterovirus DETECTED (Not Detect); Influenza A Subtype 2009 H1 Not Detected (Not Detect); Influenza A Untypeable Not Detected (Not Detect); Influenza B Not Detected (Not Detect); Parainfluenza Virus 1 Not Detected (Not Detect); Parainfluenza Virus 2 Not Detected (Not Detect); Parainfluenza Virus 3 Not Detected (Not Detect); Parainfluenza Virus 4 Not Detected (Not Detect); Respiratory Syncytial Virus Not Detected (Not Detect)
[2018-04-28 14:49] LABS: Chlamydophila pneumoniae Not Detected (Not Detect); Mycoplasma pneumoniae Not Detected (Not Detect)
--- NOTE | 2018-04-28 16:06 | Electrocardiograph Report ---
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
--- NOTE | 2018-04-28 19:24 | Internal Med Progress Note ---
Hospitalist Progress Note - Encounter Date of Encounter: 04/28/18 Time of Encounter: 09:00 - Subjective Interval History: Pt is awake, alert now, c/o back pain, denies SOB, has nonproductive cough. - Exam Vitals: Temp Pulse Resp BP Pulse Ox 97.9 F 88 16 109/80 94 04/28/18 11:55 04/28/18 11:55 04/28/18 11:55 04/28/18 11:55 04/28/18 11:55 Exam: AAO x 3, in NAD HEENT: Dry mucous membranes, no scleral icterus, no conjunctival hemorrhage, bruise berto-orbital due to fall Cardio: Irregular heart rate, no m/r/g Pulm: ronchi that clear with cough, no wheezes appreciated Abd: Soft, non-distended, no guarding, normoactive bs x4 Extremities: No cyanosis/clubbing Neuro: AAO x 3, residual left weakness due to previous CVA. - Assessment and Plan (1) Fall Current Visit: Yes Status: Acute Assessment and Plan: Frequent fall. Minimal activity, almost wheelchair bound. Will consult Cardio to see if pt still indicate for coumadin. (2) Altered mental status Current Visit: Yes Status: Acute Assessment and Plan: Improved after hydration, consider due to dehydration. UA result not suggestive for UTI. (3) DVT prophylaxis Current Visit: Yes Status: Acute Assessment and Plan: Pt is on coumadin (4) Supratherapeutic INR Current Visit: Yes Status: Acute Assessment and Plan: Hold coumadin for now, will consider consult cardio to see if pt still indicate for coumadin as she has frequent falls. (5) HTN (hypertension) Current Visit: Yes Status: Chronic Assessment and Plan: Cont home meds. (6) Afib Current Visit: No Status: Acute Assessment and Plan: HR is well controlled, on coumadin now for AC (7) CVA (cerebral vascular accident) Current Visit: No Status: Acute Assessment and Plan: Hx of CVA with left residual weakness (8) Pulmonary hypertension Current Visit: No Status: Chronic Assessment and Plan: Hx of pulmonary hypertension. (9) Acute bronchitis Current Visit: Yes Status: Acute Assessment and Plan: Nonproductive cough, CXR in ER shows no acute change. - Symptomatic treatment. - Respiratory viral penal - Repeat CXR to r/o earli PNA/aspiration PNA. DVT Prophylaxis: On coumadin - Time Spent with Patient Total time spent is greater than 50% in coordination of care (as documented) at patient's floor/unit and/or counseling patient: 25 - 35 minutes Plan of Care Discussed with: family Internal Medicine: Result - Labs CBC & Chem 7: 04/28/18 06:00 04/27/18 18:58 Labs: Short CBC 04/28/18 Range/Units 06:00 WBC 8.0 (4.3-11.1) K/mcL Hgb 8.3 L D (11.5-15.4) g/dL Hct 26.1 L (35.3-44.9) % Plt Count 263 (140-400) K/mcL BMP 04/27/18 04/27/18 13:26 18:58 Sodium 134 L 135 L Potassium 5.8 H 4.7 Chloride 102 105 Carbon Dioxide 26 23 BUN 51 H 49 H Creatinine 2.89 H 2.79 H Glucose 215 H 278 H Calcium 9.4 9.0 Urine 04/28/18 Range/Units 05:05 Urine Color Yellow (Yellow) Urine Clarity Clear (Clear) Urine pH 6.5 (5.0-8.0) pH Units Ur Specific [place] < 1.005 L (1.010-1.025) Urine Protein Negative (Neg-Trace) mg/dL Urine Glucose (UA) Normal (Normal) mg/dL - ABG Interpretation ABG results: PT/INR, D-dimer PT 28.7 Seconds (9.4-12.1) H 04/28/18 05:15 - Impressions Impressions Cervical Spine CT 04/27/18 13:05 IMPRESSION: Left forehead/facial subcutaneous soft tissue swelling. No acute traumatic injury of the facial bones. Degenerative changes. No acute abnormality in the cervical spine. D/ / Giorgio Shoemaker MD / Giorgio Shoemaker MD Interpreting Provider: Giorgio Shoemaker MD Chest X-Ray 04/27/18 13:07 IMPRESSION: 1. No acute cardiopulmonary disease. D/ / 04/27/2018 14:29:23 Cheyenne Kong MD / betzy Interpreting Provider: Cheyenne Kong MD Face CT 04/27/18 14:09 IMPRESSION: Left forehead/facial subcutaneous soft tissue swelling. No acute traumatic injury of the facial bones. Degenerative changes. No acute abnormality in the cervical spine. D/ / Giorgio Shoemaker MD / Giorgio Shoemaker MD Interpreting Provider: Giorgio Shoemaker MD Consult Discharge Plan - Plan Referrals: Roni Franklin MD [Primary Care Provider] - (1) Fall Qualifiers: Encounter type: initial encounter Qualified Code(s): W19.XXXA - Unspecified fall, initial encounter (2) Altered mental status Qualifiers: Altered mental status type: disorientation Qualified Code(s): R41.0 - Disorientation, unspecified (5) HTN (hypertension) Qualifiers: Hypertension type: essential hypertension Qualified Code(s): I10 - Essential (primary) hypertension (6) Afib Qualifiers: Atrial fibrillation type: paroxysmal Qualified Code(s): I48.0 - Paroxysmal atrial fibrillation (7) CVA (cerebral vascular accident) Qualifiers: CVA mechanism: occlusion Precerebral and cerebral artery: middle cerebral artery Laterality of affected vessel: left Qualified Code(s): I63.512 - Cerebral infarction due to unspecified occlusion or stenosis of left middle cerebral artery (9) Acute bronchitis Qualifiers: Bronchitis organism: unspecified organism Qualified Code(s): J20.9 - Acute bronchitis, unspecified
--- NOTE | 2018-04-28 19:29 | Cardiology Consult Note ---
Addendum entered and electronically signed by Joseph Pineda MD 04/28/18 15:51: I examined this patient and my medical decision-making was reviewed with the CLINICAL EDUCATION ACADEMIC COORDINATOR. I agree with the documented findings, disposition and treatment plan as described except to the extent set forth below. A/P Fall Supratherapeutic INR SSS sp PPM Dementia Appears to be a poor candidate for chronic anticoagulation with risk of bleeding Thank you for the consult, Joseph Pineda MD [facility] Original Note: Date of Encounter: 04/28/18 Time of Encounter: 15:12 Assessment and Plan (1) Fall Current Visit: Yes Status: Acute Per Cardiology: Status post fall. Recent poor historian. No family at bedside. As reviewed a nd appears have recent multiple falls. Lives in long care facility. Qualifiers: Encounter type: initial encounter Qualified Code(s): W19.XXXA - Unspecified fall, initial encounter (2) Supratherapeutic INR Current Visit: Yes Status: Acute Per Cardiology: Presented with elevated INR. H&H appears stable, appears have chronic anemia. (3) terminal carman (current) use of anticoagulants Current Visit: Yes Status: Chronic Per Cardiology: Apparently taking Coumadin for atrial fibrillation. Not quite sure who manages in outpatient setting. Cardiology consult for recommendations regarding continuation of long-term anticoagulation. I attempted to contact tiffanie Tate ([phone]), however unable to reach. At this juncture it appears risk of falls (documented multiple falls in medical record) and altered mental status outweighs benefit of continuing anticoagulation. Additonally, presented with supratherapuetic INR and has hx of anemia. Recommend continuing holding for now. Recommend a conversation with family further awareness as well when able. Will discuss with Dr. Pineda. Cardiology will s/o, re-consult PRN. Discussion w patient/family: Thank you for involving us in the care of your patient. Please call with any questions. History of Present Illness Consult date: 04/28/18 Requesting physician: Chad Chambers Consult reason: Recs on AC Chief complaint: S/p Fall History of present illness: Ms. Tate is a 82 year old female with a relevant past medical history of hypertension, due to her pacemaker for sick sinus syndrome, diabetes mellitus type 2, hypothyroidism, depression, anxiety, pulmonary hypertension, obesity. Has apparent history of atrial fibrillation as well and on Coumadin for anticoagulation. Cardiology consult for recommendations regarding anticoagulation status post fall. Patient seen with no family at bedside. Patient alert to person and year, however did not know location. Patient denies any frequent falls, however upon review of medical records patient does have history of multiple falls recently per her son. Patient does live a long-term care facility. No family currently at bedside. Patient unaware of situation surrounding recent fall. 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 Past Med Surg Social Fam HX - Past Medical History Attestation: Yes The following information was validated with the patient. Source: patient, old records reviewed Medical history: cancer, CVA, diabetes, hypertension, renal disease Additional medical history: [place] Psychiatric history: anxiety, depression - Past Surgical History Surgical History: cholecystectomy, pacemaker/AICD Additional surgical history: nose, eye implants, ovary surgery-removal of right ovary, gallbladder, heel spurs - Social History Smoking Status: Never smoker Smokeless Tobacco Status: No Alcohol use: none Drug use: none - Family History Mother Living Status: Hx Family Cardiac Disorders: Yes Father Adopted: No Hx Family Cardiac Disorders: Yes Medications and Allergies Calcitriol [Rocaltrol] 0.25 mcg PO DAILY 04/08/17 [History] Ergocalciferol (VITAMIN D2) [Vitamin D2] 50,000 unit PO TH 04/08/17 [History] Glimepiride [Amaryl] 4 mg PO QAM 04/08/17 [History] Losartan Potassium [Cozaar] 50 mg PO DAILY 04/08/17 [History] Ropinirole HCl [Requip] 4 mg PO TID 04/08/17 [History] Acetaminophen [Non-Aspirin] 650 mg PO PRN PRN MDD 4 03/07/18 [History] Buspirone HCl [Buspar] 10 mg PO BID 03/07/18 [History] Carvedilol 3.125 mg PO BID 03/07/18 [History] DiphenhydraMINE [Benadryl] 25 mg PO Q6HR PRN 03/07/18 [History] Duloxetine HCl [Cymbalta] 60 mg PO DAILY 03/07/18 [History] Furosemide [Lasix] 40 mg PO DAILY 03/07/18 [History] HYDROcodone/Acet 5/325 mg [[place] 5-325 mg] 1 tab PO Q6HR 03/07/18 [History] Hydrocortisone 1% CREAM [Cortaid] 1 appl TP BID PRN 03/07/18 [History] Potassium Chloride [K-Tab ER] 20 meq PO DAILY 03/07/18 [History] Trazodone HCl 100 mg PO HS 03/07/18 [History] Warfarin Sodium 2.5 mg PO DAILY 03/07/18 [History] Megestrol Acetate [Megace] 40 mg PO BID #30 tablet 03/08/18 [Rx] Cefdinir [Omnicef] 300 mg PO BID 04/27/18 [History] LORazepam [Ativan] 0.5 mg PO Q4H PRN 04/27/18 [History] Morphine Oral CONC [Roxanol] 5 mg PO Q4H PRN 04/27/18 [History] cloNIDine HCl [CloNIDine HCl] 0.1 mg PO Q6H PRN 04/27/18 [History] Allergy/AdvReac Type Severity Reaction Status Date / Time nadolol [From Corgard] Allergy Unknown See Verified 04/27/18 12:56 Comments azithromycin [From Zithromax] AdvReac Unknown See Verified 04/27/18 12:56 Comments levofloxacin [From Levaquin] AdvReac Unknown See Verified 04/27/18 12:56 Comments Sulfa (Sulfonamide AdvReac Unknown See Verified 04/27/18 12:56 Antibiotics) Comments gabapentin AdvReac Unknown Verified 04/27/18 12:56 All Systems Review: The remainder of the systems were reviewed and are negative - Constitutional Constitutional: frequent falls - Cardiovascular Cardiovascular: as per HPI Physical Examination Vital Signs, Last 4 Hours Temp Pulse Resp BP Pulse Ox 04/28/18 11:55 97.9 F 88 16 109/80 94 General: Conversant, No Apparent Distress HEENT: Normocephaly, Mucus Membranes Moist, Other (Facial ecchymosis noted) Neck: No JVD, Normal carotid pulses Cardiac: Reg Rate and Rhythm, Normal S1 and S2, No Murmur Lungs: Normal Breath Sounds, No Wheeze, Rales, Rhonchi Neuro: Alert and responsive, No focal deficits noted Abdomen: Soft, Non-Tender Skin: No rashes noted on visualized skin Musculoskeletal: No Chest Wall Tenderness Extremities: No Clubbing, No Cyanosis, No Edema, Normal Pulses Results 04/28/18 06:00 04/27/18 18:58 Lab Results Laboratory Tests 03/08/18 04/27/18 04/27/18 06:10 13:26 13:26 Hgb 7.5 L 9.8 L INR 4.4 H* 04/28/18 04/28/18 05:15 06:00 Hgb 8.3 L D INR 2.5 ITS Impressions Cervical Spine CT 04/27/18 13:05 IMPRESSION: Left forehead/facial subcutaneous soft tissue swelling. No acute traumatic injury of the facial bones. Degenerative changes. No acute abnormality in the cervical spine. D/ / Giorgio Shoemaker MD / Giorgio Shoemaker MD Interpreting Provider: Giorgio Shoemaker MD Head CT 04/27/18 13:05 IMPRESSION: No acute intracranial hemorrhage or mass effect. D/ / Krish Lopez MD / Krish Lopez MD Interpreting Provider: Krish Lopez MD Chest X-Ray 04/27/18 13:07 IMPRESSION: 1. No acute cardiopulmonary disease. D/ / 04/27/2018 14:29:23 Cheyenne Kong MD / betzy Interpreting Provider: Cheyenne Kong MD Hip X-Ray 04/27/18 13:28 IMPRESSION: 1. Mild to moderate left hip degenerative changes. No superimposed radiographic finding to account for patient's pain. Please note that radiography may not reveal non-displaced fractures and stress changes. If that is the clinical suspicion, MRI is the study of choice. If there is a contraindication to MRI, bone scan is the next option. D/ / Josué Boo MD / Josué Boo MD Interpreting Provider: Josué Boo MD Shoulder X-Ray 04/27/18 13:28 IMPRESSION: 1. No acute abnormality. D/ / Darrian Fox MD / Darrian Fox MD Interpreting Provider: Darrian Fox MD Face CT 04/27/18 14:09 IMPRESSION: Left forehead/facial subcutaneous soft tissue swelling. No acute traumatic injury of the facial bones. Degenerative changes. No acute abnormality in the cervical spine. D/ / Giorgio Shoemaker MD / Giorgio Shoemaker MD Interpreting Provider: Giorgio Shoemaker MD Chest X-Ray 04/28/18 14:36 IMPRESSION: Developing bibasilar atelectasis or infiltrate and small left pleural effusion. D/ / 04/28/2018 15:10:01 Carlin Sue MD / betzy Interpreting Provider: Carlin Sue MD Active Medications Acetaminophen (Tylenol) 650 mg PO Q6HR PRN PRN Reason: Mild Pain/Fever Stop: 10/27/18 17:36 Hydrocodone Bitart/Acetaminophen ([place] 5-325 Mg) 1 tab PO Q6HR PRN PRN Reason: Moderate Pain Stop: 10/27/18 18:01 Albuterol/Ipratropium (Duoneb) 3 ml IH [id number] YOU Stop: 10/27/18 20:01 Last Admin: 04/28/18 11:06 Dose: 3 ml Buspirone HCl (Buspar) 10 mg PO BID YOU Stop: 10/27/18 21:01 Last Admin: 04/28/18 09:07 Dose: 10 mg Calcitriol (Rocaltrol) 0.25 mcg PO DAILY YOU Stop: 10/28/18 09:01 Last Admin: 04/28/18 09:07 Dose: 0.25 mcg Carvedilol (Coreg) 3.125 mg PO BIDWM YOU Stop: 10/27/18 18:31 Last Admin: 04/28/18 09:06 Dose: 3.125 mg Clonidine HCl (Clonidine Hcl) 0.1 mg PO Q6H PRN PRN Reason: systolic bp over 170 Stop: 10/27/18 17:52 Dextrose/Water (Dextrose 50% (Syg)) 25 ml IVP AD PRN PRN Reason: Hypoglycemia Stop: 10/27/18 17:57 Docusate Sodium (Colace) 100 mg PO BID PRN PRN Reason: Constipation Stop: 10/27/18 21:01 Duloxetine HCl (Cymbalta) 60 mg PO DAILY [facility] Stop: 10/28/18 09:01 Last Admin: 04/28/18 09:07 Dose: 60 mg Ergocalciferol (Drisdol (50,000 Unit)) 50,000 unit PO TH [facility] Stop: 10/27/18 18:01 Last Admin: 04/27/18 20:39 Dose: 50,000 unit Ferrous Sulfate (Ferrous Sulfate) 325 mg PO DAILY@0800 [facility] Stop: 10/29/18 08:01 Glucagon (Glucagen) 1 mg IM ONCE PRN PRN Reason: Hypoglycemia Stop: 10/27/18 17:57 Glucose (Gluctose) 15 gm PO ONCE PRN PRN Reason: Hypoglycemia Stop: 10/27/18 17:57 Glucose (Gluctose) 30 gm PO ONCE PRN PRN Reason: Hypoglycemia Stop: 10/27/18 17:57 Guaifenesin (Robitussin/Dm) 5 ml PO Q6HR PRN PRN Reason: Cough Stop: 10/27/18 22:29 Guaifenesin (Robitussin/Dm) 5 ml PO Q6HR YOU Stop: 10/28/18 18:01 Dextrose (Dextrose 5%) 1,000 mls @ 100 mls/hr IVC .Q10H PRN PRN Reason: HYPOGLYCEMIA Stop: 10/27/18 17:57 Insulin Human Lispro (Humalog) 0 units SQ HS [facility]; Protocol Stop: 10/27/18 21:01 Last Admin: 04/27/18 23:26 Dose: 2 units Insulin Human Lispro (Humalog) 0 units SQ TIDAC [facility]; Protocol Stop: 10/28/18 07:31 Last Admin: 04/28/18 11:56 Dose: Not Given Lorazepam (Ativan) 0.5 mg PO Q4H PRN PRN Reason: Anxiety Stop: 10/27/18 17:52 Naloxone HCl (Narcan) 0.4 mg IVP Q2MIN PRN PRN Reason: SEE COMMENTS Stop: 10/27/18 17:36 Ondansetron HCl (Zofran) 4 mg IVP Q6HR PRN PRN Reason: Nausea And Vomiting Stop: 10/27/18 17:36 Ropinirole HCl 1 mg/ (Ropinirole HCl 3 mg) 4 mg PO TID YOU Stop: 10/27/18 21:01 Last Admin: 04/28/18 09:07 Dose: 4 mg Trazodone HCl (Trazodone) 100 mg PO HS YOU Stop: 10/27/18 21:01 Last Admin: 04/27/18 23:14 Dose: Not Given - EKG Interpretation EKG results cardiology: personally reviewed (ST) Consult Discharge Plan - Plan Referrals: Roni Franklin MD [Primary Care Provider] -
[2018-04-28] MEDS: Ampicillin/Sulbactam 3,000 MG in 0.9 % Sodium Chloride Mini Bag 100 ML IVPB SCH (22:08)
[2018-04-28] MEDS: traZODone 50 MG TABLET PO SCH (22:40)
[2018-04-29] MEDS: Ipratropium/Albuterol Neb 3 ML IH SCH ×6 (03:47→23:39)
[2018-04-29 05:58] LABS: Basophils % 0.2 %; Eosinophils # 0.5 K/mcL (0.0-0.6); Eosinophils % 4.8 %; Hematocrit 25.5 % (35.3-44.9); Hemoglobin 8.1 g/dL (11.5-15.4); Immature Granulocytes % 0.4 % (0-4); Lymphocytes # 1.1 K/mcL (0.6-4.6); Lymphocytes % 11.5 %; Mean Corpuscular HGB Conc 31.8 g/dL (31.6-35.5); Mean Corpuscular Hemoglobin 29.9 pg (28.0-33.3); Mean Corpuscular Volume 94.1 fL (83.0-100.0); Mean Platelet Volume 10.6 fL (9.4-12.4); Monocytes # 1.3 K/mcL (0.0-1.3); Monocytes % 14.1 %; Neutrophils # 6.5 K/mcL (1.6-8.9); Platelet Count 265 K/mcL (140-400); Red Blood Count 2.71 M/mcL (3.82-4.97); Red Cell Distribution Width 12.7 % (11.5-14.5)
[2018-04-29 06:05] LABS: INR 1.7; Prothrombin Time 18.8 Seconds (9.4-12.1)
[2018-04-29 06:18] LABS: Calcium 8.5 mg/dL (8.6-10.3); Potassium 4.2 mEq/L (3.5-5.1)
[2018-04-29] MEDS: Insulin LISPRO 300 UNITS/3 ML VIAL SQ SCH ×4 (07:49→22:22)
[2018-04-29] MEDS: rOPINIRole 1 MG, rOPINIRole 3 MG PO SCH ×3 (08:41→22:51)
--- NOTE | 2018-04-29 13:03 | Internal Med Progress Note ---
Hospitalist Progress Note - Encounter Date of Encounter: 04/29/18 Time of Encounter: 09:00 - Subjective Interval History: Pt is awake, alert now, oriented x 3, denies SOB, still has nonproductive cough but less. - Exam Vitals: Temp Pulse Resp BP Pulse Ox 97.5 F L 78 20 115/71 99 04/29/18 10:46 04/29/18 10:46 04/29/18 11:35 04/29/18 10:46 04/29/18 11:35 Exam: AAO x 3, in NAD HEENT: Dry mucous membranes, no scleral icterus, no conjunctival hemorrhage, bruise berto-orbital due to fall Cardio: Irregular heart rate, no m/r/g Pulm: B/L scattered wheezes Abd: Soft, non-distended, no guarding, normoactive bs x4 Extremities: No cyanosis/clubbing Neuro: AAO x 3, residual left weakness due to previous CVA. - Assessment and Plan (1) Fall Current Visit: Yes Status: Acute Assessment and Plan: Frequent fall. Minimal activity, almost wheelchair bound. NH resident (2) Altered mental status Current Visit: Yes Status: Acute Assessment and Plan: Improved after hydration, consider due to dehydration. UA result not suggestive for UTI. - Pt eats well, will dc IVF today. (3) DVT prophylaxis Current Visit: Yes Status: Acute Assessment and Plan: Pt is on coumadin (4) Supratherapeutic INR Current Visit: Yes Status: Acute Assessment and Plan: INR 1.7, resume coumadin. (5) HTN (hypertension) Current Visit: Yes Status: Chronic Assessment and Plan: Cont home meds. (6) Afib Current Visit: No Status: Acute Assessment and Plan: HR is well controlled, on coumadin now for AC - Appreciate cardio input. However, after conversation with pt's son Colin on phone ([phone]), Colin told me pt will have less chance of fall in the future because she will not get up and will lower the bed height in [place], and they would like to cont coumadin, Colin told me that coumadin will be given by [place] nurse and will monitor INR closely in [place]. - Will cont coumadin, pharmacy to dose. (7) CVA (cerebral vascular accident) Current Visit: No Status: Acute Assessment and Plan: Hx of CVA with left residual weakness (8) Pulmonary hypertension Current Visit: No Status: Chronic Assessment and Plan: Hx of pulmonary hypertension. (9) Acute bronchitis Current Visit: Yes Status: Acute Assessment and Plan: Nonproductive cough, CXR in ER shows no acute change. Repeat CXR shows developing infiltrate - Respiratory viral penal shows entero/rhino virus - Pt has wheezing - Viral bronchitis vs aspiration PNA consider pt has Hx of CVA and AMS upon adm. - Aspiration precaution, per pt's son, she tolerate regular diet in NH, no further swallow evaluation as it has been done in NH. - Add unasyn, dose per renal function. (10) Aspiration pneumonia Current Visit: Yes Status: Suspected Assessment and Plan: Management as above. DVT Prophylaxis: On coumadin - Time Spent with Patient Total time spent is greater than 50% in coordination of care (as documented) at patient's floor/unit and/or counseling patient: 30 min 25 - 35 minutes Plan of Care Discussed with: family Internal Medicine: Result - Labs CBC & Chem 7: 04/29/18 05:41 04/29/18 05:41 Labs: Short CBC 04/29/18 Range/Units 05:41 WBC 9.4 (4.3-11.1) K/mcL Hgb 8.1 L (11.5-15.4) g/dL Hct 25.5 L (35.3-44.9) % Plt Count 265 (140-400) K/mcL Neutrophils # 6.5 (1.6-8.9) K/mcL BMP 04/29/18 05:41 Sodium 140 Potassium 4.2 Chloride 109 H Carbon Dioxide 24 BUN 38 H Creatinine 1.99 H Glucose 58 L Calcium 8.5 L - ABG Interpretation ABG results: PT/INR, D-dimer PT 18.8 Seconds (9.4-12.1) H 04/29/18 05:41 - Impressions Impressions Chest X-Ray 04/28/18 14:36 IMPRESSION: Developing bibasilar atelectasis or infiltrate and small left pleural effusion. D/ / 04/28/2018 15:10:01 Carlin Sue MD / betzy Interpreting Provider: Carlin Sue MD Consult Discharge Plan - Plan Referrals: Roni Franklin MD [Primary Care Provider] - (1) Fall Qualifiers: Encounter type: initial encounter Qualified Code(s): W19.XXXA - Unspecified fall, initial encounter (2) Altered mental status Qualifiers: Altered mental status type: disorientation Qualified Code(s): R41.0 - Disorientation, unspecified (5) HTN (hypertension) Qualifiers: Hypertension type: essential hypertension Qualified Code(s): I10 - Essential (primary) hypertension (6) Afib Qualifiers: Atrial fibrillation type: paroxysmal Qualified Code(s): I48.0 - Paroxysmal atrial fibrillation (7) CVA (cerebral vascular accident) Qualifiers: CVA mechanism: occlusion Precerebral and cerebral artery: middle cerebral artery Laterality of affected vessel: left Qualified Code(s): I63.512 - Cerebral infarction due to unspecified occlusion or stenosis of left middle cerebral artery (9) Acute bronchitis Qualifiers: Bronchitis organism: unspecified organism Qualified Code(s): J20.9 - Acute bronchitis, unspecified (10) Aspiration pneumonia Qualifiers: Laterality: bilateral Lung location: lower lobe of lung Qualified Code(s): J69.0 - Pneumonitis due to inhalation of food and vomit
[2018-04-29] MEDS: Ampicillin/Sulbactam 3,000 MG in 0.9 % Sodium Chloride Mini Bag 100 ML IVPB SCH (17:39)
[2018-04-29] MEDS ORDERED: *HR* Warfarin 3 MG TABLET PO ONE (18:00)
[2018-04-29] MEDS ORDERED: Warfarin perPT PO PRN (18:00)
--- NOTE | 2018-04-29 22:50 | Electrocardiograph Report ---
[address] [address] Test Date: 2018-04-27 Pat Name: Africa Ttae Department: EXAM2 Room: 2A41 Gender: F Mail Service Coordinator: : 1935 Requested By: Kajal Elias Order Number: [id number] Reading MD: Lisette Pepper Measurements Intervals [place] Rate: 102 P: 0 NE: 118 QRS: -58 QRSD: 150 T: 114 QT: 407 QTc: 536 Interpretive Statements Atrial fibrillation with rapdi ventricular response, aberrant conduction or PVCs Nonspecific IVCD with LAD Electronically Signed On 04-29-2018 22:48:43 EDT by Lisette Pepper
[2018-04-29] MEDS: traZODone 50 MG TABLET PO SCH (22:51)
[2018-04-30] MEDS: Ipratropium/Albuterol Neb 3 ML IH SCH ×6 (03:58→23:18)
[2018-04-30 05:44] LABS: Basophils % 0.2 %; Eosinophils # 0.6 K/mcL (0.0-0.6); Eosinophils % 6.8 %; Immature Granulocytes % 0.4 % (0-4); Lymphocytes # 1.3 K/mcL (0.6-4.6); Mean Corpuscular Hemoglobin 29.9 pg (28.0-33.3); Mean Corpuscular Volume 93.3 fL (83.0-100.0); Mean Platelet Volume 10.5 fL (9.4-12.4); Monocytes # 1.2 K/mcL (0.0-1.3); Monocytes % 13.2 %; Neutrophils # 5.8 K/mcL (1.6-8.9); Platelet Count 267 K/mcL (140-400); Red Blood Count 2.68 M/mcL (3.82-4.97); Red Cell Distribution Width 12.8 % (11.5-14.5); Segmented Neutrophils % 65.4 %
[2018-04-30 05:55] LABS: INR 1.5; Prothrombin Time 17.1 Seconds (9.4-12.1)
[2018-04-30 06:04] LABS: Calcium 8.8 mg/dL (8.6-10.3)
[2018-04-30] MEDS: Ampicillin/Sulbactam 3,000 MG in 0.9 % Sodium Chloride Mini Bag 100 ML IVPB SCH ×2 (06:37→17:42)
[2018-04-30] MEDS: rOPINIRole 1 MG, rOPINIRole 3 MG PO SCH ×3 (07:56→21:48)
[2018-04-30] MEDS: Insulin LISPRO 300 UNITS/3 ML VIAL SQ SCH ×4 (08:23→21:40)
--- NOTE | 2018-04-30 11:33 | Internal Med Progress Note ---
Hospitalist Progress Note - Encounter Date of Encounter: 04/30/18 Time of Encounter: 09:00 - Subjective Interval History: Pt is awake, alert now, oriented x 3, denies SOB, decreased nonproductive cough. - Exam Vitals: Temp Pulse Resp BP Pulse Ox 98.8 F 79 18 154/69 100 04/30/18 08:15 04/30/18 08:15 04/30/18 08:15 04/30/18 08:15 04/30/18 08:15 Exam: AAO x 3, in NAD HEENT: no scleral icterus, no conjunctival hemorrhage, bruise berto-orbital due to fall Cardio: Irregular heart rate, no m/r/g Pulm: B/L few scattered wheezes Abd: Soft, non-distended, no guarding, normoactive bs x4 Extremities: No cyanosis/clubbing Neuro: AAO x 3, residual left weakness due to previous CVA. - Assessment and Plan (1) Fall Current Visit: Yes Status: Acute Assessment and Plan: Frequent fall. Minimal activity, almost wheelchair bound. [place] resident (2) Altered mental status Current Visit: Yes Status: Acute Assessment and Plan: Improved after hydration, consider due to dehydration. UA result not suggestive for UTI. - Pt eats well now, mental status improved, will dc IVF. (3) DVT prophylaxis Current Visit: Yes Status: Acute Assessment and Plan: Pt is on coumadin (4) HTN (hypertension) Current Visit: Yes Status: Chronic Assessment and Plan: Cont home meds. (5) Afib Current Visit: No Status: Acute Assessment and Plan: HR is well controlled, on coumadin now for AC - Appreciate cardio input. However, after conversation with pt's son Colin on phone ([phone]), Colin told me pt will have less chance of fall in the future because she will not get up and will lower the bed height in [place], and they would like to cont coumadin, Colin told me that coumadin will be given by [place] nurse and will monitor INR closely in [place]. - Will cont coumadin, pharmacy to dose. (6) CVA (cerebral vascular accident) Current Visit: No Status: Acute Assessment and Plan: Hx of CVA with left residual weakness (7) Pulmonary hypertension Current Visit: No Status: Chronic Assessment and Plan: Hx of pulmonary hypertension. Which main explain elevated BNP and part of SOB. (8) Acute bronchitis Current Visit: Yes Status: Acute Assessment and Plan: Nonproductive cough, CXR in ER shows no acute change. Repeat CXR shows d eveloping infiltrate - Respiratory viral penal shows entero/rhino virus - Pt has wheezing - Viral bronchitis vs aspiration PNA consider pt has Hx of CVA and AMS upon adm. - Aspiration precaution, per pt's son, she tolerate regular diet in NH, no further swallow evaluation as it has been done in NH. - Add unasyn, dose per renal function. (9) Aspiration pneumonia Current Visit: Yes Status: Suspected Assessment and Plan: Management as above. DVT Prophylaxis: On coumadin - Time Spent with Patient Total time spent is greater than 50% in coordination of care (as documented) at patient's floor/unit and/or counseling patient: 30 min 25 - 35 minutes Plan of Care Discussed with: patient Internal Medicine: Result - Labs CBC & Chem 7: 04/30/18 05:26 04/30/18 05:26 Labs: Short CBC 04/30/18 Range/Units 05:26 WBC 8.9 (4.3-11.1) K/mcL Hgb 8.0 L (11.5-15.4) g/dL Hct 25.0 L (35.3-44.9) % Plt Count 267 (140-400) K/mcL Neutrophils # 5.8 (1.6-8.9) K/mcL BMP 04/30/18 05:26 Sodium 137 Potassium 4.0 Chloride 106 Carbon Dioxide 23 BUN 30 H Creatinine 1.66 H Glucose 53 L Calcium 8.8 - ABG Interpretation ABG results: PT/INR, D-dimer PT 17.1 Seconds (9.4-12.1) H 04/30/18 05:26 Consult Discharge Plan - Plan Referrals: Roni Franklin MD [Primary Care Provider] - (1) Fall Qualifiers: Encounter type: initial encounter Qualified Code(s): W19.XXXA - Unspecified fall, initial encounter (2) Altered mental status Qualifiers: Altered mental status type: disorientation Qualified Code(s): R41.0 - Disorientation, unspecified (4) HTN (hypertension) Qualifiers: Hypertension type: essential hypertension Qualified Code(s): I10 - Essential (primary) hypertension (5) Afib Qualifiers: Atrial fibrillation type: paroxysmal Qualified Code(s): I48.0 - Paroxysmal atrial fibrillation (6) CVA (cerebral vascular accident) Qualifiers: CVA mechanism: occlusion Precerebral and cerebral artery: middle cerebral artery Laterality of affected vessel: left Qualified Code(s): I63.512 - Cerebral infarction due to unspecified occlusion or stenosis of left middle cerebral artery (8) Acute bronchitis Qualifiers: Bronchitis organism: unspecified organism Qualified Code(s): J20.9 - Acute bronchitis, unspecified (9) Aspiration pneumonia Qualifiers: Laterality: bilateral Lung location: lower lobe of lung Qualified Code(s): J69.0 - Pneumonitis due to inhalation of food and vomit
[2018-04-30] MEDS ORDERED: *HR* Warfarin 3 MG TABLET PO ONE (18:00)
[2018-04-30] MEDS: traZODone 50 MG TABLET PO SCH (21:48)
[2018-05-01] MEDS: Ipratropium/Albuterol Neb 3 ML IH SCH ×3 (04:05→11:51)
[2018-05-01 04:36] LABS: Basophils % 0.5 %; Eosinophils # 0.8 K/mcL (0.0-0.6); Eosinophils % 9.4 %; Hematocrit 26.6 % (35.3-44.9); Hemoglobin 8.3 g/dL (11.5-15.4); Immature Granulocytes % 1.1 % (0-4); Lymphocytes # 1.9 K/mcL (0.6-4.6); Lymphocytes % 23.4 %; Mean Corpuscular HGB Conc 31.2 g/dL (31.6-35.5); Mean Corpuscular Hemoglobin 29.1 pg (28.0-33.3); Mean Corpuscular Volume 93.3 fL (83.0-100.0); Monocytes # 1.1 K/mcL (0.0-1.3); Monocytes % 13.6 %; Neutrophils # 4.3 K/mcL (1.6-8.9); Platelet Count 279 K/mcL (140-400); Red Blood Count 2.85 M/mcL (3.82-4.97); Red Cell Distribution Width 12.8 % (11.5-14.5)
[2018-05-01 04:44] LABS: INR 1.7; Prothrombin Time 18.9 Seconds (9.4-12.1)
[2018-05-01] MEDS: rOPINIRole 1 MG, rOPINIRole 3 MG PO SCH (08:22)
[2018-05-01] MEDS: Insulin LISPRO 300 UNITS/3 ML VIAL SQ SCH ×2 (08:30→12:03)
--- NOTE | 2018-05-01 11:39 | Discharge Summary ---
- NOTES TO OUTPATIENT PROVIDER Notes to Outpatient Provider: 1. Pt was found positive for Entero/rhino virus, consider viral bronchitis vs aspiration PNA, will D/C on po abx and nebulizer and cough syrup. 2. Pt was found severe iron deficiency, iron pills started, please f/u H/H. 3. As abx possibly affect coumadin dose, please check INR more closely, suggest twice a week. Orders not resulted at time of discharge: Pending orders 04/27/18 CT 3D reconstruction [CT] Routine 05/02/18 04:00 Complete Blood Count [HEME] AM 0400 PT/INR [Prothrombin Time INR] [COAG] AM 0400 05/03/18 04:00 Complete Blood Count [HEME] AM 0400 PT/INR [Prothrombin Time INR] [COAG] AM 0400 05/04/18 04:00 PT/INR [Prothrombin Time INR] [COAG] AM 0400 05/05/18 04:00 PT/INR [Prothrombin Time INR] [COAG] AM 0400 05/06/18 04:00 PT/INR [Prothrombin Time INR] [COAG] AM 0400 Date of Encounter: 05/01/18 Time of Encounter: 09:00 - Discharge Diagnosis (1) Fall Priority: Primary Status: Acute Qualifiers: Encounter type: initial encounter Qualified Code(s): W19.XXXA - Unspecified fall, initial encounter (2) Altered mental status Priority: Primary Status: Acute Qualifiers: Altered mental status type: disorientation Qualified Code(s): R41.0 - Disorientation, unspecified (3) DVT prophylaxis Priority: Secondary Status: Acute (4) HTN (hypertension) Priority: Secondary Status: Chronic Qualifiers: Hypertension type: essential hypertension Qualified Code(s): I10 - Essential (primary) hypertension (5) Afib Priority: Secondary Status: Acute Qualifiers: Atrial fibrillation type: paroxysmal Qualified Code(s): I48.0 - Paroxysmal atrial fibrillation (6) CVA (cerebral vascular accident) Priority: Secondary Status: Acute Qualifiers: CVA mechanism: occlusion Precerebral and cerebral artery: middle cerebral artery Laterality of affected vessel: left Qualified Code(s): I63.512 - Cerebral infarction due to unspecified occlusion or stenosis of left middle cerebral artery (7) Pulmonary hypertension Priority: Secondary Status: Chronic (8) Acute bronchitis Priority: Primary Status: Acute Qualifiers: Bronchitis organism: unspecified organism Qualified Code(s): J20.9 - Acute bronchitis, unspecified (9) Aspiration pneumonia Priority: Primary Status: Suspected Qualifiers: Laterality: bilateral Lung location: lower lobe of lung Qualified Code(s): J69.0 - Pneumonitis due to inhalation of food and vomit (10) Anemia Priority: Secondary Status: Acute Assessment and Plan: Iron low, iron pills started. Qualifiers: Anemia type: other cause Other causes of anemia: acute posthemorrhagic Qualified Code(s): D62 - Acute posthemorrhagic anemia Hospital course: Ms. Tate is a 82 year old female present to ER for AMS and cough. CXR shows developing infiltrate. Pt was found Etero/rhino virus positive. She was treated with abx for possible aspiration PNA and symptomatic treatment for viral bronchitis. After treatment, pt feels better, mental status back to baseline. No more wheezing today. Abx switched to po. Will d/c pt back to NH today. Informed and d/w pt's son Colin on phone. I have seen and examined pt today. C/O mild back pain which she has on adm possibly due to fall (yan XR shows no fracture). Less cough, no SOB, vitals stable.Will d/c back to NH today. Discharge discussed with: family - Time Spent with Patient Total time spent providing and/or coordinating discharge services: 30 min Less than 30 minutes - Discharge Medications Prescriptions: GuaiFENesin/Dextromethorphan [Robitussin/Dm] 5 ml PO Q6HR 5 Days #200 ml HYDROcodone/Acet 5/325 mg [[place] 5-325 mg] 1 tab PO Q6HR 2 Days #8 tablet Amoxicillin/Clavulanate [Augmentin] 875 mg PO BIDWM 7 Days #14 tablet Ferrous Sulfate 325 mg PO DAILY@0800 30 Days #30 tablet Ipratropium/Albuterol Neb [Duoneb] 3 ml IH Q6H 5 Days #20 inhsol LORazepam [Ativan] 0.5 mg PO Q4H PRN 1 Days #6 tablet PRN Reason: Anxiety Home Medications: Calcitriol [Rocaltrol] 0.25 mcg PO DAILY 04/08/17 [History] Ergocalciferol (VITAMIN D2) [Vitamin D2] 50,000 unit PO TH 04/08/17 [History] Glimepiride [Amaryl] 4 mg PO QAM 04/08/17 [History] Losartan Potassium [Cozaar] 50 mg PO DAILY 04/08/17 [History] Ropinirole HCl [Requip] 4 mg PO TID 04/08/17 [History] Acetaminophen [Non-Aspirin] 650 mg PO PRN PRN MDD 4 03/07/18 [History] Buspirone HCl [Buspar] 10 mg PO BID 03/07/18 [History] Carvedilol 3.125 mg PO BID 03/07/18 [History] DiphenhydraMINE [Benadryl] 25 mg PO Q6HR PRN 03/07/18 [History] Duloxetine HCl [Cymbalta] 60 mg PO DAILY 03/07/18 [History] Furosemide [Lasix] 40 mg PO DAILY 03/07/18 [History] Hydrocortisone 1% CREAM [Cortaid] 1 appl TP BID PRN 03/07/18 [History] Potassium Chloride [K-Tab ER] 20 meq PO DAILY 03/07/18 [History] Trazodone HCl 100 mg PO HS 03/07/18 [History] Warfarin Sodium 2.5 mg PO DAILY 03/07/18 [History] Megestrol Acetate [Megace] 40 mg PO BID #30 tablet 03/08/18 [Rx] Cefdinir [Omnicef] 300 mg PO BID 04/27/18 [History] Morphine Oral CONC [Roxanol] 5 mg PO Q4H PRN 04/27/18 [History] cloNIDine HCl [CloNIDine HCl] 0.1 mg PO Q6H PRN 04/27/18 [History] Amoxicillin/Clavulanate [Augmentin] 875 mg PO BIDWM 7 Days #14 tablet 05/01/18 [Rx] Ferrous Sulfate 325 mg PO DAILY@0800 30 Days #30 tablet 05/01/18 [Rx] GuaiFENesin/Dextromethorphan [Robitussin/Dm] 5 ml PO Q6HR 5 Days #200 ml 05/01/18 [Rx] HYDROcodone/Acet 5/325 mg [[place] 5-325 mg] 1 tab PO Q6HR 2 Days #8 tablet 05/01/18 [Rx] Ipratropium/Albuterol Neb [Duoneb] 3 ml IH Q6H 5 Days #20 inhsol 05/01/18 [Rx] LORazepam [Ativan] 0.5 mg PO Q4H PRN 1 Days #6 tablet 05/01/18 [Rx] Allergies/Adverse Reactions: Allergy/AdvReac Type Severity Reaction Status Date / Time nadolol [From Corgard] Allergy Unknown See Verified 04/27/18 12:56 Comments azithromycin [From Zithromax] AdvReac Unknown See Verified 04/27/18 12:56 Comments levofloxacin [From Levaquin] AdvReac Unknown See Verified 04/27/18 12:56 Comments Sulfa (Sulfonamide AdvReac Unknown See Verified 04/27/18 12:56 Antibiotics) Comments gabapentin AdvReac Unknown Verified 04/27/18 12:56 Date of admission: 04/27/18 19:00 Primary care physician: Roni Franklin MD Consults: 04/27/18 22:29 Consult to Respiratory Therapy [CONS] Routine Reason for Consult: Please add flutter valve to pts. breathing txs Call Completed: Yes 04/28/18 08:39 Consult to Manager Costing [CONS] Routine Reason for SW Consult[facility] 04/28/18 14:33 Consult to Cardiology [CONS] Routine Comment: Consulting Provider: Card[facility] [place] Reason for Consult: A Fib on coumadin but frequent fall recently, Hx of CVA, DC coumadin? Call Completed: No 05/01/18 07:23 Consult to Wound Care [CONS] Routine Reason for Consult: wounds to coccyx Call Completed: No Discharging clinician: Chad Chambers Anticipated date of discharge: 05/01/18 - Constitutional Vitals: Temp Pulse Resp BP Pulse Ox 98.7 F 68 14 148/68 94 05/01/18 07:28 05/01/18 07:28 05/01/18 07:50 05/01/18 07:28 05/01/18 08:40 General appearance: Present: A&O X 3, morbidly obese, pleasant, answers questions appropriately Exam: in NAD - Head Head exam: Present: atraumatic, normocephalic - Eye Eye exam: Present: PERRL, conjuntiva pink, sclera anicteric Pupils: Present: PERRL - Neck Neck exam general surgery: Present: supple, trachea midline. Absent: lymphadenopathy - Respiratory Respiratory exam: Present: CTAB. Absent: accessory muscle use, rales, rhonchi, wheezes - Cardiovascular Cardiovascular exam: Present: irregular rhythm, +S1, +S2. Absent: diastolic murmur, gallop, rubs, systolic murmur - GI/Abdominal GI/Abdominal exam: Present: normal bowel sounds, soft, no peritoneal signs. Absent: distended, tenderness - Extremities Exam Extremities exam: Present: warm, radial pulses palpable and symmetrical. Absent: calf tenderness, cyanotic, pedal edema - Neurological Exam Neurological exam: Present: CN II-XII intact, motor sensory deficit (Left side weakness d/u previous CVA), oriented X3, no focal deficits. Absent: pronater drift, facial droop, speech deficit - Skin Skin exam: Present: dry, intact - Patient Status Disposition: Transfer SNF Condition: Fair Functional capacity at discharge: wheelchair bound Overall status at discharge: patient is back to baseline - Discharge Instructions Follow Up With: Roni Franklin MD [Primary Care Provider] - - Diet and Activity Activity: as per physical therapy Diet: diabetic diet
[2018-05-01 11:41] VITALS: BP 114/51
--- NOTE | 2018-05-01 12:03 | Physician Discharge Referral ---
ExtendedCare Referral Info Transfer To: [facility] Provider in Charge after Transfer: Other (F physicians) - Diagnosis (1) Fall Priority: Primary Status: Acute (2) Altered mental status Priority: Primary Status: Acute (3) DVT prophylaxis Status: Acute (4) HTN (hypertension) Status: Chronic (5) Afib Status: Acute (6) CVA (cerebral vascular accident) Status: Acute (7) Pulmonary hypertension Status: Chronic (8) Acute bronchitis Status: Acute (9) Aspiration pneumonia Status: Suspected (10) Anemia Status: Acute - Transfer Medications Prescriptions: GuaiFENesin/Dextromethorphan [Robitussin/Dm] 5 ml PO Q6HR 5 Days #200 ml HYDROcodone/Acet 5/325 mg [[place] 5-325 mg] 1 tab PO Q6HR 2 Days #8 tablet Amoxicillin/Clavulanate [Augmentin] 875 mg PO BIDWM 7 Days #14 tablet Ferrous Sulfate 325 mg PO DAILY@0800 30 Days #30 tablet Ipratropium/Albuterol Neb [Duoneb] 3 ml IH Q6H 5 Days #20 inhsol LORazepam [Ativan] 0.5 mg PO Q4H PRN 1 Days #6 tablet PRN Reason: Anxiety Home Medications: Calcitriol [Rocaltrol] 0.25 mcg PO DAILY 04/08/17 [History] Ergocalciferol (VITAMIN D2) [Vitamin D2] 50,000 unit PO TH 04/08/17 [History] Glimepiride [Amaryl] 4 mg PO QAM 04/08/17 [History] Losartan Potassium [Cozaar] 50 mg PO DAILY 04/08/17 [History] Ropinirole HCl [Requip] 4 mg PO TID 04/08/17 [History] Acetaminophen [Non-Aspirin] 650 mg PO PRN PRN MDD 4 03/07/18 [History] Buspirone HCl [Buspar] 10 mg PO BID 03/07/18 [History] Carvedilol 3.125 mg PO BID 03/07/18 [History] DiphenhydraMINE [Benadryl] 25 mg PO Q6HR PRN 03/07/18 [History] Duloxetine HCl [Cymbalta] 60 mg PO DAILY 03/07/18 [History] Furosemide [Lasix] 40 mg PO DAILY 03/07/18 [History] Hydrocortisone 1% CREAM [Cortaid] 1 appl TP BID PRN 03/07/18 [History] Potassium Chloride [K-Tab ER] 20 meq PO DAILY 03/07/18 [History] Trazodone HCl 100 mg PO HS 03/07/18 [History] Warfarin Sodium 2.5 mg PO DAILY 03/07/18 [History] Megestrol Acetate [Megace] 40 mg PO BID #30 tablet 03/08/18 [Rx] Cefdinir [Omnicef] 300 mg PO BID 04/27/18 [History] Morphine Oral CONC [Roxanol] 5 mg PO Q4H PRN 04/27/18 [History] cloNIDine HCl [CloNIDine HCl] 0.1 mg PO Q6H PRN 04/27/18 [History] Amoxicillin/Clavulanate [Augmentin] 875 mg PO BIDWM 7 Days #14 tablet 05/01/18 [Rx] Ferrous Sulfate 325 mg PO DAILY@0800 30 Days #30 tablet 05/01/18 [Rx] GuaiFENesin/Dextromethorphan [Robitussin/Dm] 5 ml PO Q6HR 5 Days #200 ml 05/01/18 [Rx] HYDROcodone/Acet 5/325 mg [[place] 5-325 mg] 1 tab PO Q6HR 2 Days #8 tablet 05/01/18 [Rx] Ipratropium/Albuterol Neb [Duoneb] 3 ml IH Q6H 5 Days #20 inhsol 05/01/18 [Rx] LORazepam [Ativan] 0.5 mg PO Q4H PRN 1 Days #6 tablet 05/01/18 [Rx] Allergies/Adverse Reactions: Allergy/AdvReac Type Severity Reaction Status Date / Time nadolol [From Corgard] Allergy Unknown See Verified 04/27/18 12:56 Comments azithromycin [From Zithromax] AdvReac Unknown See Verified 04/27/18 12:56 Comments levofloxacin [From Levaquin] AdvReac Unknown See Verified 04/27/18 12:56 Comments Sulfa (Sulfonamide AdvReac Unknown See Verified 04/27/18 12:56 Antibiotics) Comments gabapentin AdvReac Unknown Verified 04/27/18 12:56 - Respiratory Orders Oxygen / L per min (2-3) Smoking Cessation: Smoking cessation has been advised. For more information, call the [place] Tobacco Quit Line at 9-123-NYID-NOW. - Advance Directives Code Status: DNR-Comfort Care - Rehabiliation Orders Rehab Orders: Evaluation for Physical Therapy, Evaluation for Occupational Therapy - Diet Orders No Concentrated Sweets CERTIFICATION: I certify that the transfer of the above named patient to an Extended Care F acility is necessary for the continuing treatment of the diagnosis listed. The above information is true and accurate reflection of patient's current condition. Confidential - Redisclosure prohibited without a patient's written consent.
[2018-05-01] MEDS ORDERED: Amoxicillin/Clavulanate 500 MG TABLET PO SCH (17:00)
[2018-05-01] MEDS ORDERED: *HR* Warfarin 2 MG TABLET PO ONE (18:00)
== END 2018-05-01 13:06 | DRG 178 ==
LOC: EMEROOARM 12:50 → 2ANU 12:50
PROVIDERS: ADMIT Internal Medicine Nephrology; ATTEND Internal Medicine Nephrology